=== PATIENT | male | born 1940 | race African-American/Black ===

== ENCOUNTER 2022-10-24 21:33 | Inpatient (IN) | payer MEDICARE, OTHER, SELFPAY ==
[2022-10-24] VITALS (14 sets, daily range): BP systolic 118–145; BP diastolic 58–77; PULSE 74–113; RESP 16–33; TEMP 36.7; O2SAT 91–97
--- NOTE | ~2022-10-24 | XR_ITS ---
XR chest 1V portable 11/06/2022 05:44 Indication: Respiratory failure Procedure: AP portable chest Comparison: Comparison to multiple prior studies sequentially, with oldest reviewed study dated 11/02. Findings: Stable diffuse bilateral airspace disease. PICC line tip in the SVC. Endotracheal tube 4.6 cm above the melissa. NG tube in the stomach. No pneumothorax. No significant effusion. Impression: 1: Stable diffuse bilateral airspace disease which may represent edema or pneumonia. Reviewed, dictated and finalized at location A. Impression: 1: Stable diffuse bilateral airspace disease which may represent edema or pneum onia.
--- NOTE | ~2022-10-24 | CT_ITS ---
EXAMINATION: CT chest abdomen pelvis wo con DATE: 11/14/2022 11:09 INDICATION: Fever TECHNIQUE: Computed tomography (CT) of the chest, abdomen, and pelvis was performed without intraveno us contrast. Automated exposure control and iterative reconstruction technique were employed. The dos e-length product was 1315.70 mGy-cm. COMPARISON: Chest CT dated 11/04/2022 FINDINGS: CHEST CT: There is prominent respiratory motion artifact throughout the thorax. Tracheostomy tube in expected p osition at the thoracic inlet. Right upper extremity peripherally inserted central venous catheter (P ICC) tip at the caudal superior vena cava. Small bilateral posterior layering pleural effusions. Dif fuse bilateral lung disease characterized by septal line thickening and groundglass opacities in the upper lungs transition to more dense consolidation with air bronchograms in the lower lungs. Heart si ze is normal. Atherosclerotic coronary artery calcifications. Aortic valve calcification. No pericard ial effusion. Thoracic aorta is normal in caliber. Multiple small mediastinal lymph nodes more notabl e for number than size which are likely reactive. Mild diffuse body wall edema. Mild to moderate thor acic spondylosis with chronic appearing mild anterior wedging of a few mid and lower thoracic vertebr al bodies. Moderate lower cervical spondylosis. ABDOMEN/PELVIS CT: Liver, gallbladder, spleen, bilateral adrenal glands and left kidney are normal. There is calcified a therosclerosis of the aorta and many of the other arteries including small arteries at the bilateral renal edmundo. Approximately 3 to 4 mm stone at a lower pole calyx of the right kidney, anchor quantitat christiano measurement of which is limited by the motion artifact. Small amount of gas and a Bender catheter within the decompressed bladder. Moderate amount of stool scattered throughout the colon. No dilated bowel to suggest obstruction. No free intraperitoneal gas or fluid. No pathologically enlarged abdomi nal or pelvic lymphadenopathy. Additional extensive body wall edema. L3-L5 laminectomies. L3-S1 anter ior and posterior spinal fusion with bilateral vertical keyon and pedicle screw fixation at each of the se levels and tiny metallic densities likely for bone grafting at the fused L3-L4 disc space. IMPRESSION: 1. Prominent diffuse bilateral lung disease which could represent severe pulmonary edema, pneumonia o r combination thereof. 2. Small bilateral pleural effusions. 3. Cardiomegaly with coronary artery disease. 4. Mild likely reactive mediastinal lymphadenopathy. 5. 3-4 mm nonobstructing right renal stone. Reviewed, dictated and finalized at location A. IMPRESSION: 1. Prominent diffuse bilateral lung disease which could represent severe pulmon katheryn edema, pneumonia or combination thereof. 2. Small bilateral pleural effusions. 3. Cardiomegaly with coronary artery disease. 4. Mild likely reactive mediastinal lymphadenopathy. 5. 3-4 mm nonobstructing right renal stone.
--- NOTE | ~2022-10-24 | XR_ITS ---
EXAMINATION: XR chest 1V portable INDICATION: Respiratory failure TECHNIQUE: Portable AP chest at 0540 hours COMPARISON: 11/06/2022 FINDINGS: The endotracheal tube ends approximately 4.9 cm above the melissa. The nasogastric tube is i n the stomach. A right upper extremity PICC ends with its tip in the midsuperior vena cava. Diffuse i nterstitial and airspace opacities persist without significant change. No pleural effusion or pneumot horax. The cardiomediastinal silhouette is stable. IMPRESSION: 1. Stable diffuse lung disease, consistent with pneumonia and/or pulmonary edema. Reviewed, dictated and finalized at location A. IMPRESSION: 1. Stable diffuse lung disease, consistent with pneumonia and/or pulmonary melina a.
--- NOTE | ~2022-10-24 | XR_ITS ---
EXAMINATION: XR chest PICC line Exam Date/Time: 10/25/2022 17:55 CDT HISTORY: PICC placement Comparison: 10/25/2022 1:44 PM. RESULT: Lines, tubes, and devices: Endotracheal and nasogastric tubes, and good position. New right upper ex tremity PICC terminating in the distal SVC. Lungs and pleura: Antilordotic positioning. Diffuse patchy reticular and airspace opacities, with so mewhat decreasing prominence of the reticular opacities. Bibasilar atelectasis/. Cardiomediastinal silhouette: Stable. Other: No acute osseous or upper abdominal finding. IMPRESSION: New right upper extremity PICC, in good position. Somewhat decreased reticular opacities may represen t improving edema. ARDS and infection should also be considered in the differential. Reviewed, dictated and finalized at location K. IMPRESSION: New right upper extremity PICC, in good position. Somewhat decreased reticular opacities may represent improving edema. ARDS and infection should also be cons idered in the differential.
--- NOTE | ~2022-10-24 | XR_ITS ---
Portable chest x-ray Comparison: 11/03/2022 Clinical History: Respiratory failure Findings: Endotracheal tube, NG tube, and right-sided PICC line are in place. Diffuse groundglass an d interstitial pulmonary disease is unchanged. Cardiomediastinal silhouette is stable. Bones and sof t tissues are unremarkable. Impression: Stable diffuse pulmonary disease. Support tubes, as above. Reviewed, dictated and finalized at location . Impression: Stable diffuse pulmonary disease. Support tubes, as above.
--- NOTE | ~2022-10-24 | XR_ITS ---
EXAMINATION: XR chest 1V portable DATE: 11/11/2022 06:16 INDICATION: Pneumonia. Respiratory failure. TECHNIQUE: A single frontal view of the chest was obtained. COMPARISON: Chest single view 11/10/2022 FINDINGS: There are airspace and interstitial opacities throughout the lungs bilaterally. No pleural effusion or pneumothorax. The heart size is normal. There is a tracheostomy tube in expected position . The nasogastric tube tip is in the stomach. IMPRESSION: 1. Stable diffuse lung disease, consistent with chronic lung disease with superimposed pulmonary melina a versus pneumonia versus acute respiratory distress syndrome (ARDS). Reviewed, dictated and finalized at location A. IMPRESSION: 1. Stable diffuse lung disease, consistent with chronic lung disease with super imposed pulmonary edema versus pneumonia versus acute respiratory distress synd trav (ARDS).
--- NOTE | ~2022-10-24 | US_ITS ---
US venous doppler [facility] DATE: 10/25/2022 11:43 INDICATION: Left lower extremity edema TECHNIQUE: Real-time and color flow imaging and Doppler analysis of the veins of both lower extremiti es COMPARISON: None FINDINGS: The greater saphenous veins are patent bilaterally. There is spontaneous and phasic flow an d normal augmentation and color flow signal and normal compression of the deep veins of both lower ex tremities. IMPRESSION: No evidence of deep venous thrombosis of the lower extremities Reviewed, dictated and finalized at Location A. Reviewed, dictated and finalized at location A.
--- NOTE | ~2022-10-24 | XR_ITS ---
XR chest 1V portable DATE: 10/24/2022 22:01 INDICATION: Dyspnea TECHNIQUE: Portable AP chest on October 24, 2022 at 2155 hours COMPARISON: None FINDINGS: There are extensive patchy consolidating infiltrates throughout both lungs, relatively spar ing only the apices. Findings are consistent with extensive bilateral pneumonia. Heart size appears within normal range. Is aortic calcification and unfolding. There is moderately prominent elevation the right leaf of the diaphragm. No pneumothorax. Diffuse osteopenia. IMPRESSION: Extensive patchy consolidating bilateral pulmonary infiltrates involving particularly the mid and lower lung zones, suggesting extensive bilateral pneumonia Aortic atherosclerosis Osteopenia Reviewed, dictated and finalized at location A. IMPRESSION: Extensive patchy consolidating bilateral pulmonary infiltrates invo lving particularly the mid and lower lung zones, suggesting extensive bilateral pneumonia Aortic atherosclerosis Osteopenia
--- NOTE | ~2022-10-24 | XR_ITS ---
EXAMINATION: XR chest 1V portable INDICATION: Respiratory failure TECHNIQUE: Portable AP chest at 0538 hours COMPARISON: 11/13/2022 FINDINGS: A tracheostomy is in expected position. A right upper extremity PICC ends with its tip in t he distal superior vena cava. Diffuse opacities persist throughout all lung zones without significant change. No definite pleural effusion or pneumothorax. The cardiomediastinal silhouette is stable. IMPRESSION: 1. Stable diffuse lung disease, consistent with pneumonia and/or pulmonary edema. Reviewed, dictated and finalized at location A. IMPRESSION: 1. Stable diffuse lung disease, consistent with pneumonia and/or pulmonary melina a.
--- NOTE | ~2022-10-24 | XR_ITS ---
Portable chest x-ray Comparison: 10/26/2022 Clinical History: Respiratory failure Findings: Endotracheal tube, NG tube, and right-sided PICC line are in place. Diffuse groundglass an d interstitial pulmonary disease is unchanged. Cardiomediastinal silhouette is stable. Bones and sof t tissues are unremarkable. Impression: Stable diffuse pulmonary disease. Support tubes, as above. Reviewed, dictated and finalized at location . Impression: Stable diffuse pulmonary disease. Support tubes, as above.
--- NOTE | ~2022-10-24 | XR_ITS ---
EXAMINATION: XR chest 1V portable INDICATION: Respiratory failure TECHNIQUE: Portable AP chest at 0513 hours COMPARISON: 10/31/2022 FINDINGS: The endotracheal tube ends approximately 4.2 cm above the melissa. The nasogastric tube is f ollowed as far as the stomach. Its tip is beyond the inferior margin of the radiograph. A right upper extremity PICC ends with its tip in the superior vena cava. Diffuse opacities persist throughout all lung zones without significant change. No pleural effusion or pneumothorax. The cardiomediastinal si lhouette is stable. IMPRESSION: 1. Stable diffuse lung disease, consistent with pneumonia and/or pulmonary edema. Reviewed, dictated and finalized at location A. IMPRESSION: 1. Stable diffuse lung disease, consistent with pneumonia and/or pulmonary melina a.
--- NOTE | ~2022-10-24 | CT_ITS ---
EXAMINATION: CT brain wo con DATE: 11/14/2022 11:09 INDICATION: Fever TECHNIQUE: Computed tomography (CT) of the head was performed without intravenous contrast. Sagittal and coronal reconstructions were performed. The mA was adjusted according to patient size. Iterative reconstruction technique was employed. The dose-length product was 1362.00 mGy-cm. COMPARISON: None FINDINGS: No acute intracranial hemorrhage, acute infarction or abnormal extra axial fluid collection. There is mild scattered white matter hypoattenuation consistent with chronic small vessel ischemic disease. S ymmetric prominence of the sulci consistent with mild age-appropriate diffuse cerebral volume loss. V entricles are normal and symmetric. No mass/mass effect. Changes of right intraocular lens replacemen t. The orbits, paranasal sinuses and mastoid air cells are normal. IMPRESSION: 1. No acute intracranial process. 2. Age-related changes including mild diffuse volume loss and mild scattered white matter hypoattenua tion consistent with chronic small vessel ischemic disease. Reviewed, dictated and finalized at location A. IMPRESSION: 1. No acute intracranial process. 2. Age-related changes including mild diffuse volume loss and mild scattered wh ite matter hypoattenuation consistent with chronic small vessel ischemic diseas e.
--- NOTE | ~2022-10-24 | US_ITS ---
EXAMINATION: US venous doppler [facility] DATE: 11/14/2022 15:35 INDICATION: Swelling at the upper extremities. TECHNIQUE: Grayscale images without and with compression and Doppler images of the bilateral upper ex tremity veins were obtained. COMPARISON: None. FINDINGS: Noncompressible occlusive appearing thrombus in the right cephalic vein. The right internal jugular v ein, subclavian vein, axillary vein, brachial vein, basilic vein, cephalic vein, radial vein, and uln ar vein are patent. The left internal jugular vein, subclavian vein, axillary vein, brachial vein, basilic vein, radial v ein, and ulnar vein are patent. The left cephalic vein is not identified. IMPRESSION: 1. Occlusive thrombus in the right cephalic vein. 2. No evident venous thrombosis in the left upper extremity. Reviewed, dictated and finalized at location A.
--- NOTE | ~2022-10-24 | XR_ITS ---
XR chest ET placement DATE: 10/25/2022 13:50 INDICATION: ET tube placement TECHNIQUE: Portable AP chest on October 25, 2022 at 1344 hours COMPARISON: October 24, 2022 AP portable chest FINDINGS: Extensive severe bilateral pulmonary infiltrates relatively sparing only the apices. Right diaphragmatic calcified pleural plaque. Cardiomegaly. Thoracic aortic calcification. ET tube placement since October 24, 2022, the distal tip 2.4 cm above melissa in satisfactory position. P lacement of an NG tube in the stomach October 24. IMPRESSION: ET and NG tubes placed in satisfactory position Severe bilateral pulmonary infiltrates Reviewed, dictated and finalized at Location A. Reviewed, dictated and finalized at location A.
--- NOTE | ~2022-10-24 | XR_ITS ---
EXAMINATION: XR chest 1V portable INDICATION: Respiratory failure TECHNIQUE: Portable AP chest at 0522 hours COMPARISON: 11/07/2022 FINDINGS: The endotracheal tube ends approximately 4.4 cm above the melissa. The nasogastric tube is f ollowed as far as the stomach. Its tip is beyond the inferior margin of the radiograph. A right upper extremity PICC ends with its tip in the superior vena cava. Diffuse interstitial and airspace opacit ies persist without significant change. No pleural effusion or pneumothorax. The cardiomediastinal si lhouette is stable. IMPRESSION: 1. Stable diffuse lung disease, consistent with pneumonia and/or pulmonary edema. Reviewed, dictated and finalized at location A. IMPRESSION: 1. Stable diffuse lung disease, consistent with pneumonia and/or pulmonary melina a.
--- NOTE | ~2022-10-24 | XR_ITS ---
Portable chest x-ray Comparison: 11/04/2022 Clinical History: Respiratory failure Findings: Endotracheal tube, NG tube, and right-sided PICC line are in place. Stable diffuse groundg lass and interstitial pulmonary disease. Cardiomediastinal silhouette is stable. Bones and soft tiss ues are unremarkable. Impression: Stable diffuse pulmonary disease. Support tubes, as above. Reviewed, dictated and finalized at location . Impression: Stable diffuse pulmonary disease. Support tubes, as above.
--- NOTE | ~2022-10-24 | XR_ITS ---
Portable chest x-ray Comparison: 10/28/2022 Clinical History: Pneumonia, respiratory failure Findings: Endotracheal tube, NG tube, and right-sided PICC line remain in place. Diffuse groundglass and interstitial pulmonary disease is unchanged. Cardiomediastinal silhouette is stable. Bones and soft tissues are unremarkable. Impression: Stable diffuse pulmonary disease. Support tubes in place, as above. Reviewed, dictated and finalized at [facility]. Impression: Stable diffuse pulmonary disease. Support tubes in place, as above.
--- NOTE | ~2022-10-24 | XR_ITS ---
EXAMINATION: XR chest ET placement DATE: 10/27/2022 12:16 INDICATION: Endotracheal tube exchange. TECHNIQUE: A single frontal view of the chest was obtained. COMPARISON: Chest single view at 5:17 AM, chest CT 10/25/2022 FINDINGS: There is mild elevation of right hemidiaphragm. There are airspace and interstitial opaciti es in all lung zones bilaterally. No pleural effusion or pneumothorax. The heart size is normal. The endotracheal tube tip is 3.4 cm above the melissa. The nasogastric tube tip is beyond the inferior mar gin of the radiograph, but at least to the stomach. A right upper extremity peripherally inserted dudley tral venous catheter (PICC) is seen with tip in the superior vena cava. IMPRESSION: 1. Stable diffuse lung disease, consistent with chronic interstitial lung disease with superimposed p neumonia versus pulmonary edema. Reviewed, dictated and finalized at location A. IMPRESSION: 1. Stable diffuse lung disease, consistent with chronic interstitial lung disea se with superimposed pneumonia versus pulmonary edema.
--- NOTE | ~2022-10-24 | XR_ITS ---
EXAMINATION: XR chest 1V portable DATE: 11/10/2022 06:31 INDICATION: Respiratory failure. TECHNIQUE: A single frontal view of the chest was obtained. COMPARISON: Chest single view 11/09/2022 FINDINGS: There are interstitial opacities and airspace opacities throughout the lungs bilaterally. N o pleural effusion or pneumothorax. The heart size is normal. The endotracheal tube tip is 5.9 cm abo ve the melissa. The nasogastric tube tip is in the distal stomach. A right upper extremity peripherall y inserted central venous catheter (PICC) is seen with tip in the superior vena cava. IMPRESSION: 1. Stable diffuse lung disease, consistent with chronic lung disease with superimposed pulmonary melina a versus pneumonia versus acute respiratory distress syndrome (ARDS). Reviewed, dictated and finalized at location A. IMPRESSION: 1. Stable diffuse lung disease, consistent with chronic lung disease with super imposed pulmonary edema versus pneumonia versus acute respiratory distress synd trav (ARDS).
--- NOTE | ~2022-10-24 | XR_ITS ---
Portable chest x-ray Comparison: 11/12/2022 Clinical History: Respiratory failure Findings: Tracheostomy cannula and right-sided PICC line are in place. Diffuse groundglass and inter stitial pulmonary disease is unchanged. Cardiomediastinal silhouette is stable. Bones and soft tissu es are unremarkable. Impression: Stable diffuse pulmonary disease. Support tubes, as above. Reviewed, dictated and finalized at location . Impression: Stable diffuse pulmonary disease. Support tubes, as above.
--- NOTE | ~2022-10-24 | XR_ITS ---
Portable chest x-ray Comparison: 11/01/2022 Clinical History: Respiratory failure Findings: Endotracheal tube, NG tube, and right-sided PICC line remain in place. Diffuse groundglass and interstitial disease is unchanged. Cardiomediastinal silhouette is stable. Bones and soft tissu es are unremarkable. Impression: Stable diffuse pulmonary disease. Stable support tubes. Reviewed, dictated and finalized at location . Impression: Stable diffuse pulmonary disease. Stable support tubes.
--- NOTE | ~2022-10-24 | XR_ITS ---
Portable chest x-ray Comparison: 11/02/2022 Clinical History: Respiratory failure Findings: Endotracheal tube, NG tube, and right-sided PICC line are in place. Diffuse groundglass an d interstitial disease is unchanged. Cardiomediastinal silhouette is stable. Bones and soft tissues are unremarkable. Impression: Stable diffuse pulmonary disease. Support tubes, as above. Reviewed, dictated and finalized at location . Impression: Stable diffuse pulmonary disease. Support tubes, as above.
--- NOTE | ~2022-10-24 | US_ITS ---
EXAMINATION: US venous doppler [facility] DATE: 11/01/2022 09:32 INDICATION: Bilateral lower limb swelling TECHNIQUE: Trevino scale images without and with compression and Doppler images of the bilateral lower e xtremity veins were obtained. COMPARISON: 10/25/2022 FINDINGS: The right common femoral vein, profunda femoral vein, femoral vein, popliteal vein, peroneal trunk, p osterior tibial veins, and greater saphenous vein are patent. The left common femoral vein, profunda femoral vein, femoral vein, popliteal vein, peroneal trunk, po sterior tibial veins, and greater saphenous vein are patent. IMPRESSION: 1. Patent bilateral lower extremity veins. No evidence of deep venous thrombosis. Reviewed, dictated and finalized at location A. IMPRESSION: 1. Patent bilateral lower extremity veins. No evidence of deep venous thrombosi s.
--- NOTE | ~2022-10-24 | XR_ITS ---
Portable chest x-ray Comparison: 10/27/2022 Clinical History: Respiratory failure Findings: Endotracheal tube and NG tube are in satisfactory positions. Right-sided PICC line is pres ent, however the tip has reversed course in the interval. Right-sided PICC line now curls back upon i tself in the right subclavian region with tip directed peripherally towards the right axilla. Diffuse groundglass and interstitial pulmonary disease again present. Cardiomediastinal silhouette is stabl e. Bones and soft tissues are unremarkable. Impression: Right-sided PICC line tip has flipped back upon itself since prior exam, with reversing course in the right subclavian region with tip directed peripherally into the right axillar y region. Repositioning of the PICC line is advised. Stable diffuse pulmonary disease. Additional support tubes remain in satisfactory position. Reviewed, dictated and finalized at [facility]. Impression: Right-sided PICC line tip has flipped back upon itself since prior exam, with reversing course in the right subclavian region with tip directed peripherally into the right axillary region. Repositioning of the PICC line is advised. Stable diffuse pulmonary disease. Additional support tubes remain in satisfactory position.
--- NOTE | ~2022-10-24 | XR_ITS ---
EXAMINATION: XR chest ET placement Exam Date/Time: 11/16/2022 18:08 CDT HISTORY: trach placement Comparison: Same date at 5:24 AM. RESULT: Lines, tubes, and devices: Tracheostomy tube in good position. Right upper extremity PICC, in good p osition Lungs and pleura: Similar diffuse interstitial and patchy pulmonary opacities. Stable mild bilateral costophrenic angle blunting slightly greater on the right. Cardiomediastinal silhouette: Stable. Other: No acute osseous or upper abdominal finding. IMPRESSION: Tracheostomy tube, in good position. Unchanged pulmonary opacities and small bilateral effusions. Reviewed, dictated and finalized at location K. IMPRESSION: Tracheostomy tube, in good position. Unchanged pulmonary opacities and small bi lateral effusions.
--- NOTE | ~2022-10-24 | XR_ITS ---
EXAMINATION: XR chest 1V portable DATE: 11/09/2022 05:37 INDICATION: Respiratory failure. TECHNIQUE: A single frontal view of the chest was obtained. COMPARISON: Chest single view 11/08/2022, chest CT 10/25/2022 FINDINGS: There are airspace and interstitial opacities throughout the lungs bilaterally. There is mi ld elevation of right hemidiaphragm. No pleural effusion or pneumothorax. The heart size is normal. T he endotracheal tube tip is 3.8 cm above the melissa. The nasogastric tube tip is beyond the inferior margin of the radiograph, but at least to the stomach. A right upper extremity peripherally inserted central venous catheter (PICC) is seen with tip in the superior vena cava. IMPRESSION: 1. Stable diffuse lung disease, consistent with chronic lung disease with superimposed pulmonary melina a versus pneumonia versus acute respiratory distress syndrome (ARDS). Reviewed, dictated and finalized at location A. IMPRESSION: 1. Stable diffuse lung disease, consistent with chronic lung disease with super imposed pulmonary edema versus pneumonia versus acute respiratory distress synd trav (ARDS).
--- NOTE | ~2022-10-24 | XR_ITS ---
EXAMINATION: XR chest 1V portable DATE: 10/28/2022 08:19 INDICATION: Central line placement. TECHNIQUE: A single frontal view of the chest was obtained on 2 radiographs. COMPARISON: Chest single view at 5:21 AM, chest CT 10/25/2021 FINDINGS: There is mild elevation of right hemidiaphragm. There are airspace and interstitial opaciti es throughout the lungs bilaterally. No pleural effusion or pneumothorax. The heart size is normal. T he endotracheal tube tip is 2.5 cm above the melissa. A right upper extremity peripherally inserted ce ntral venous catheter (PICC) is seen with tip in the superior vena cava. The nasogastric tube tip is in the stomach. IMPRESSION: 1. PICC tip in the superior vena cava. 2. Stable diffuse lung disease, consistent with chronic interstitial lung disease with superimposed p neumonia versus pulmonary edema. Reviewed, dictated and finalized at location A. IMPRESSION: 1. PICC tip in the superior vena cava. 2. Stable diffuse lung disease, consistent with chronic interstitial lung disea se with superimposed pneumonia versus pulmonary edema.
--- NOTE | ~2022-10-24 | US_ITS ---
US renal BI 10/27/2022 14:08 Procedure: Realtime transabdominal ultrasound of the kidneys and bladder. Indication: Acute renal injury. Evaluate for hydronephrosis. Comparison: No prior studies for comparison. Findings: Renal echotexture is normal bilaterally without hydronephrosis, contour deforming mass or r enal calculus. The right kidney measures 9.2 cm and left kidney measures 11.1 cm. Bladder is decompre ssed by Bender catheter. Impression: 1: Unremarkable renal ultrasound. No stones, masses or hydronephrosis. Reviewed, dictated and finalized at location L. Impression: 1: Unremarkable renal ultrasound. No stones, masses or hydronephrosis.
--- NOTE | ~2022-10-24 | XR_ITS ---
EXAMINATION: XR chest 1V portable DATE: 11/15/2022 06:12 INDICATION: Respiratory failure TECHNIQUE: frontal view of the chest was obtained. COMPARISON: Chest radiograph and CT dated 11/15/19 FINDINGS: Tracheostomy tube at the thoracic inlet. There appears to be slight progression in extensive intersti tial and patchy airspace opacities throughout both lungs. The diaphragm is indistinct consistent with small bilateral pleural effusions as better appreciated on prior CT. No pneumothorax. Cardiomegaly. IMPRESSION: 1. Slight progression in prominent diffuse bilateral lung disease consistent with severe pulmonary ed veronica, pneumonia or combination thereof. 2. Small bilateral pleural effusions. 3. Cardiomegaly. Reviewed, dictated and finalized at location A. IMPRESSION: 1. Slight progression in prominent diffuse bilateral lung disease consistent wi th severe pulmonary edema, pneumonia or combination thereof. 2. Small bilateral pleural effusions. 3. Cardiomegaly.
--- NOTE | ~2022-10-24 | XR_ITS ---
Portable chest x-ray Comparison: 10/29/2022 Clinical History: Respiratory failure Findings: Endotracheal tube, NG tube, and right-sided PICC line are in place. Diffuse groundglass an d interstitial disease is present. Cardiomediastinal silhouette is stable. Bones and soft tissues ar e unremarkable. Impression: Stable diffuse pulmonary disease. Support tubes, as above. Reviewed, dictated and finalized at location . Impression: Stable diffuse pulmonary disease. Support tubes, as above.
--- NOTE | ~2022-10-24 | XR_ITS ---
XR abdomen NG/feed tube insert DATE: 10/25/2022 13:50 INDICATION: NG tube insertion TECHNIQUE: Portable AP view on October 25, 2022 at 1345 hours COMPARISON: None FINDINGS: A nasogastric tube is present, the distal tip overlying the upper body of the stomach, the proximal side-port approximately 3 cm beyond the diaphragmatic hiatus. Nonspecific bowel gas pattern. Prominent infiltrates are noted in the included lower lung zones. Status post posterior surgical fusion in the lower lumbar spine. IMPRESSION: NG tube tip in the upper body of stomach Reviewed, dictated and finalized at Location A. Reviewed, dictated and finalized at location A.
--- NOTE | ~2022-10-24 | XR_ITS ---
Portable chest x-ray Comparison: 10/25/2022 Clinical History: Respiratory failure Findings: Endotracheal tube, NG tube, and right-sided central venous line are in satisfactory positi ons. There is diffuse groundglass and interstitial pulmonary disease. Cardiomediastinal silhouette i s stable. Bones and soft tissues are unremarkable. Impression: Stable diffuse pulmonary disease. Support tubes, as above. Reviewed, dictated and finalized at location . Impression: Stable diffuse pulmonary disease. Support tubes, as above.
--- NOTE | ~2022-10-24 | XR_ITS ---
EXAM: XR abdomen NG/feed tube insert DATE: 11/10/2022 22:23 HISTORY: NG placement . COMPARISON: 10/25/2022. FINDINGS: NG tube, tip and side port projecting over the stomach partially visualized lumbar fusion hardware. Normal bowel gas pattern. Degenerative changes in the spine. IMPRESSION: NG tube, in good position. Reviewed, dictated and finalized at location K. IMPRESSION: NG tube, in good position.
--- NOTE | ~2022-10-24 | XR_ITS ---
Portable chest x-ray Comparison: 11/11/2022 Clinical History: Respiratory failure Findings: Tracheostomy cannula and right-sided PICC line are in place. Extensive groundglass and int erstitial pulmonary disease is present. Cardiomediastinal silhouette is stable. Bones and soft tissu es are unremarkable. Impression: Stable diffuse pulmonary disease. Support tubes, as above. Reviewed, dictated and finalized at location . Impression: Stable diffuse pulmonary disease. Support tubes, as above.
--- NOTE | ~2022-10-24 | CT_ITS ---
EXAMINATION: CTA chest PE protocol DATE: 10/25/2022 20:28 INDICATION: Acute respiratory failure TECHNIQUE: Computed tomography angiography (CTA) of the chest was performed with 100 mL Omnipaque-350 intravenous contrast timed to evaluate the pulmonary arteries. Coronal maximum intensity projection 3D-reconstructions were created by the technologist. The dose-length product (DLP) was 762.53 mGy-cm. Automated exposure control and iterative reconstruction technique were employed. COMPARISON: X-ray chest 10/25/2022. FINDINGS: Lung parenchyma and airways: Septal thickening. Fluid in the fissures. Patchy areas of groundglass op acity. Dependent atelectasis/consolidation. Interstitial change, with a basilar and peripheral predom inance. Pleura: Trace bilateral pleural fluid collections. Thoracic inlet, axillae and chest wall: Endotracheal tube, nasogastric tube, and right upper extremit y PICC, all in good position. Thoracic aorta: Moderate arch calcification. Mediastinum: Dilated central pulmonary arteries as can be seen with pulmonary arterial hypertension. Mediastinal lymphadenopathy. Heart and pericardium: Mild cardiomegaly. Coronary artery calcifications: Moderate. Upper abdomen: No significant finding. Bones: No acute osseous finding. Pulmonary arteries: Study quality: Motion artifact in the lower lungs, overall diagnostic. No pulmona ry emboli detected. IMPRESSION: No CT evidence of acute pulmonary embolus. Pulmonary opacities likely represent moderate pulmonary ed veronica overlying severe chronic changes of UIP. Infection is not excluded. Small bilateral pleural effus ions. Mediastinal lymphadenopathy. Reviewed, dictated and finalized at location K. IMPRESSION: No CT evidence of acute pulmonary embolus. Pulmonary opacities likely represent moderate pulmonary edema overlying severe chronic changes of UIP. Infection is not excluded. Small bilateral pleural effusions. Mediastinal lymphadenopathy.
--- NOTE | ~2022-10-24 | XR_ITS ---
EXAMINATION: XR chest 1V portable INDICATION: Respiratory failure TECHNIQUE: Portable AP chest at 0809 hours COMPARISON: 10/30/2022 FINDINGS: The endotracheal tube ends approximately 5.3 cm above the melissa. Nasogastric tube is in th e stomach. A right upper extremity PICC ends with its tip in the superior vena cava. There are diffus e opacities throughout all lung zones without significant change. No pleural effusion or pneumothorax . The cardiomediastinal silhouette is stable. IMPRESSION: 1. Stable diffuse lung disease, consistent with pneumonia and/or pulmonary edema. Reviewed, dictated and finalized at location A. IMPRESSION: 1. Stable diffuse lung disease, consistent with pneumonia and/or pulmonary melina a.
--- NOTE | ~2022-10-24 | XR_ITS ---
Portable chest x-ray Comparison: 11/15/2022 Clinical History: Respiratory failure Findings: Tracheostomy cannula and right-sided PICC line remain in place. Diffuse hazy and interstit ial pulmonary disease again present. Cardiomediastinal silhouette is stable. Bones and soft tissues are unremarkable. Impression: Stable diffuse pulmonary disease. Stable support tubes. Reviewed, dictated and finalized at location . Impression: Stable diffuse pulmonary disease. Stable support tubes.
--- NOTE | 2022-10-24 21:37 | ECG_ITS ---
Measurements Intervals [place] Rate: 111 P: 8 IL: 155 QRS: -29 QRSD: 90 T: 10 QT: 324 QTc: 442 Interpretive Statements SINUS TACHYCARDIA WITH FREQUENT VENTRICULAR PREMATURE COMPLEXES AND PREMATURE ATRIAL CONTRACTIONS BASELINE ARTIFACT NONSPECIFIC T-WAVE ABNORMALITY BORDERLINE ECG NO PREVIOUS ECG AVAILABLE FOR COMPARISON Electronically Signed On 10-25-2022 13:42:04 CDT by Jonathan Marx M.D.
[2022-10-24] MEDS: IPRATROPIUM BR 0.02% INH SOLN 0.5 MG/2.5 ML VIAL 2 MG INHALATION (21:45)
[2022-10-24] MEDS: ALBUTEROL SULFATE NEB 2.5 MG/3 ML INH 10 MG INHALATION (21:45)
--- NOTE | 2022-10-24 21:52 | ED.GENADULT ---
HPI - General Adult General Chief complaint: Shortness of Breath/Dyspnea Stated complaint: short of breath History of Present Illness HPI narrative: Patient has 2 word dyspnea during the interview. This is an 81-year-old male with history of COPD and pulmonary fibrosis presenting to ED with difficulty breathing. Patient says has gotten steadily worse over today. He has taken his albuterol inhaler twice with no relief. Eventually got the point where he called EMS for shortness of breath. When EMS arrived he was hypoxic to 85% on room air. He was given a DuoNeb treatment which improved and placed on 4 L nasal cannula which have improved his oxygenation. The patient denies chest pain, fever chills nausea vomiting diarrhea or abdominal pain. Patient as he has had some swelling of his feet. He does not know if he has history of heart failure. He denies fever, chills. He has had a productive cough with clear sputum. The patient states that he did have 2 cardiac stents placed last week at [facility]. Related Data Allergies Allergy/AdvReac Type Severity Reaction Status Date / Time No Known Allergies Allergy Verified 10/24/22 22:52 [facility] Past Medical History Medical History (Updated 10/25/22 @ 00:28 by Dave Estrada MD) COPD (chronic obstructive pulmonary disease) Pulmonary fibrosis Exam Narrative: APPEARANCE: Patient's respiratory distress, 1-2 word dyspnea Head: atraumatic. EYES: EOMI, NOSE: Atraumatic NECK: Trachea midline RESPIRATORY: Increased rate of breathing, fine crackles in the bases, clear in the upper lobes CARDIOVASCULAR: RRR, very mild pitting edema of the lower extremities ABDOMINAL: Non-distended MUSCULOSKELETAl: No obvious deformities NEURO: Alert. Moving 4/4 extremities SKIN:: Warm, dry. Normal color PSYCHIATRIC: Normal affect Course Vital Signs Vital signs: Vital Signs Temperature 98.1 F 10/24/22 21:30 Pulse Rate 113 H 10/24/22 21:30 Respiratory Rate 28 H 10/24/22 21:30 Blood Pressure 145/71 H 10/24/22 21:30 Pulse Oximetry 93 10/24/22 21:30 Oxygen Delivery Nasal Cannula 10/24/22 21:30 Oxygen Flow Rate 3 10/24/22 21:30 Temperature 98.1 F 10/24/22 21:30 Pulse Rate 105 H 10/24/22 23:31 Respiratory Rate 28 H 10/24/22 23:31 Blood Pressure 135/68 10/24/22 23:31 Pulse Oximetry 91 10/24/22 23:43 Oxygen Delivery Non-Rebreather Mask 10/24/22 23:43 Oxygen Flow Rate 5 10/24/22 23:43 Procedures ABG Interpretation ABG Interpretation 1: ABG Results: 7.42/34.3/54.0/21.9 on 15Lpm NRB Additional Comments: Mixed hypoxic and hypercarbic respiratory failure. Patient's CO2 should be lower than 34 given his respiratory rate of 30. Medical Decision Making MDM Narrative Medical decision making narrative: -Presentation: 81-year-old male with history of COPD and pulmonary fibrosis presenting ED with difficulty breathing. Patient called EMS was hypoxic on room air. When he arrived here he was in respiratory distress. He refused BiPAP but was placed on 1 hour long duoneb treatment with improvement in his respiratory status. -DDX includes but is not limited to: COPD, pulmonary fibrosis, congestive heart failure, pneumonia -Co-morbidities complicating care: COPD, pulmonary fibrosis, poor historian -Social determinants of health: Retired -External Chart Review: None -Hx from independent Sources: None -Discussion of Management/Consultants: Andriy-hospitalist -Independent interpretation of studies: CBC showed normal white count. Hemoglobin was 9.6. No previous lab work to compare to. INR within normal limits. Metabolic panel showed a BUN of 23 and creatinine 1.4. No previous records to evaluate. Magnesium was low at 1.2 and this was repleted via IV. Initial troponin was 0.06. This will be trended. BNP was elevated at 5000 which could be due to pulmonary fibrosis or congestive heart failure. Echo is pending. Patient does not ap
--- NOTE | 2022-10-24 21:55 | PCRCNOTE ---
RN and informed. pt refused BIPAP.
[2022-10-24 21:59] LABS: Basophils Percent Auto 0.3 % (0.2-1.2); Eosinophils Absolute Auto 0.1 K/mm3 (0-0.3); Hematocrit 30.3 % (42.0-52.0); Hemoglobin 9.6 g/dL (14.0-18.0); Immature Granulocyte Absolute 0.03 K/mm3 (0.00-0.031); Immature Granulocyte Percent A 0.5 % (0-0.5); Immature Platelet Fraction Pct 3.7 % (0.9-11.2); Lymphocytes Absolute Auto 1.01 K/mm3 (0.9-3.2); Lymphocytes Percent Auto 17.3 % (18.3-44.2); Mean Corpuscular HGB Conc 31.7 g/dl (32-36); Mean Corpuscular Hemoglobin 29.3 pg (26-34); Mean Corpuscular Volume 92.4 fl (80-100); Mean Platelet Volume 11.1 fl (7.4-10.4); Monocytes Absolute Auto 0.5 K/mm3 (0.1-0.6); Monocytes Percent Auto 7.7 % (2.6-8.5); Neutrophils Absolute Auto 4.3 K/mm3 (1.3-6.7); Neutrophils Percent Auto 73.2 % (45.5-73.1); Platelet Count Result 104 k/mm3 (150-375); Red Blood Count 3.28 M/mm3 (4.6-6.20); Red Cell Distribution Width 16.4 % (11.5-14.5); White Blood Count 5.8 K/mm3 (4.5-10.0)
[2022-10-24 22:07] LABS: Alanine Aminotransferase 30 U/L (6-50); Albumin Level 3.2 g/dL (3.5-5.1); Alkaline Phosphatase 122 U/L (38-126); Anion Gap 6 mmol/L (8-16); Aspartate Amino Transferase 40 U/L (17-59); Bilirubin,Total 0.8 mg/dL (0.2-1.3); Blood Urea Nitrogen 23 mg/dL (9-20); Calcium 8.4 mg/dL (8.4-10.2); Carbon Dioxide 25 mmol/L (22-30); Chloride 103 mmol/L (98-107); Estimated CRCL calculation 40 ml/min; Estimated Glomerular Filt Rate 49; Glucose 167 mg/dL (65-110); Magnesium 1.2 mg/dL (1.6-2.3); Potassium 4.6 mmol/L (3.4-5.0); Sodium 134 mmol/L (137-145)
[2022-10-24] MEDS: MAGNESIUM SULF 2 GM/WATER 50ML 2 GM/50 ML BAG IVPB (22:11)
[2022-10-24] MEDS: methylPREDNISolone SOD SUCC 125 MG VIAL IV PUSH (22:11)
[2022-10-24 22:13] LABS: Alveolar/Arterial O2 Gradient 191.8 mmHg; Fractional Inspired Oxygen 40 %; HCO3 ABG 21.9 mEq/l (22.0-26.0); Oxygen Content ABG 12.3 %vol (16.0-22.0); Oxygen Saturation ABG 89.1 % (95.0-100.0); PCO2 ABG 34.3 mmHg (35.0-45.0); PO2 FiO2 Ratio Arterial Blood 1.35 %; Total Hemoglobin 10.7 g/dL (12.0-18.0); pH ABG 7.424 (7.350-7.450)
[2022-10-24 22:16] LABS: INR 1.2; Prothrombin Time 14.3 Seconds (11.1-14.7)
[2022-10-24 22:19] LABS: Partial Thromboplastin Time 32.2 SECONDS (22.3-36.8)
[2022-10-24 22:27] LABS: NT Pro B Type Natriuretic Pept 5380 pg/mL (19.9-100)
[2022-10-24 22:36] LABS: Influenza A QL RT-PCR Negative (Negative); Influenza B QL RT-PCR Negative (Negative); RSV RNA, RT-PCR Negative (Negative); SARS-CoV-2 RNA PCR Negative
[2022-10-24 23:25] LABS: Amphetamine Screen Urine Negative (Negative); Barbiturate Screen Urine Negative (Negative); Benzodiazepines Screen Urine Negative (Negative); Cannabinoid Screen Urine Negative (Negative); Cocaine Screen Urine Negative (Negative); Methadone Screen Urine Negative (Negative); Opiate Screen Urine Positive (Negative); Phencyclidine Screen Urine Negative (Negative)
[2022-10-24 23:41] LABS: Appearance Urine Clear (Clear); Bilirubin Urine 1+ (Negative); Blood Urine Negative (Negative); Color Urine Light Orange (Yellow); Glucose Urine UA Trace mg/dL (Negative); Ketones Urine Trace mg/dL (Negative); Leukocyte Esterase Ur Negative LEU/UL (Negative); Nitrate Urine Positive (Negative); Protein Urine 2+ mg/dL (Negative)
[2022-10-24 23:43] LABS: Add Urine Microscopic? YES; RBC Urine 0-2 /hpf (0-2); WBC Urine 0-5 /hpf (0-3)
[2022-10-24 23:44] LABS: Squamous Epithelial Cell Urine Few /hpf (Few)
[2022-10-25] VITALS (88 sets, daily range): BP systolic 75–197; BP diastolic 46–142; PULSE 79–135; RESP 0–37; TEMP 35.8–37.4; O2SAT 90–100; BMI 21.4; BMI 21.0; BMI 20.2
--- NOTE | 2022-10-25 00:06 | PM.IMHP ---
H&P: HPI History of Present Illness Date/Time: 10/25/22 00:06 Chief Complaint: Shortness of breath Narrative: This is an 81-year-old male with past medical history significant for hypertension, coronary artery disease status post PTCA, PULMONARY FIBROSIS, type diabetes mellitus, benign prostatic hyperplasia. Patient presents to the emergency room due to worsening shortness of breath and bilateral lower extremity pedal edema, patient recently discharge from outside hospital where he had 2 stents placed in his coronary is according to sister who is at bedside. Patient states that he has had progressively worsening shortness of breath denies any fevers, chills, rigors. Patient has had require 15 L of oxygen upon arrival to medical floor which prompted transfer to telemetry unit. A chest x-ray was reported as: COMPARISON: October 24, 2022 AP portable chest? FINDINGS: Extensive severe bilateral pulmonary infiltrates relatively sparing only the apices. Right diaphragmatic calcified pleural plaque. Cardiomegaly. Thoracic aortic calcification. ET tube placement since October 24, 2022, the distal tip 2.4 cm above melissa in satisfactory position. Placement of an NG tube in the stomach October 24.? IMPRESSION: ET and NG tubes placed in satisfactory position Severe bilateral pulmonary infiltrates? Review of Systems Review of Systems: Shortness of breath bilateral pedal swelling Constitutional: Comments: Shortness of breath, bilateral pedal swelling Eyes: Eyes: Denies change in vision ENT: Denies dysphagia and Denies odynophagia Cardiovascular: Cardiovascular: Denies chest pain, Reports pedal edema, Denies radiating jaw, neck or arm pain, Reports palpitations, Reports dyspnea, Reports dyspnea on exertion, Reports orthopnea and Reports paroxysmal nocturnal dyspnea Respiratory: Respiratory: Reports chest congestion and Reports cough Gastrointestinal: Gastrointestinal: Denies abdominal pain, Denies dyspepsia, Denies heartburn, Denies diarrhea, Denies nausea and Denies vomiting Genitourinary: Genitourinary: Reports no additional male genitourinary complaints and Reports as per HPI Musculoskeletal: Musculoskeletal: Denies back pain, Denies joint swelling and Denies muscle weakness Integumentary/Breasts: Skin/Breast: Denies rash Neurologic: Denies focal weakness and Denies Sensory deficit (Neuro) Psychiatric: Psychiatric: Reports no additional psychiatric complaints and Reports as per HPI Endocrine: Endocrine: Denies cold intolerance, Denies flushing, Denies heat intolerance, Denies polyphagia, Denies polydipsia and Denies palpitations Hematologic/Lymphatic: Hematologic/Lymphatic: Reports no additional hematologic/lymphatic complaints and Reports as per HPI Allergic/Immunologic: Allergic/Immunologic: Reports no additional allergic/immunologic complaints and Reports as per HPI [facility] Past Medical History Medical History (Updated 10/25/22 @ 16:54 by Yvonne Ramírez APRN) COPD (chronic obstructive pulmonary disease) Diabetes Pulmonary fibrosis Family History Family History (Updated 10/25/22 @ 02:53 by Chani Melara RN) Father Congestive heart failure Father Hypertension Mother Hypertension Diabetes mellitus Sibling Hypertension Grandparent Diabetes mellitus Social History Social History Smoking status: Never smoker Second hand tobacco smoke exposure: No Alcohol intake: never Substance use: never Substance use type: does not use Lack of Transportation: No Lack of Food: Never True Current Housing: I Have Housing Concerned About Future Housing: No Difficulty Paying Gas/Electric Bills: No Difficulty Paying for Meds: YES Currently Unemployed: No Education: Never Attended/Kindergarten Only Difficulty w/ Childcare or Family Care: No Spiritual care concerns: No Meds Home Medications and Allergies Home Medications Medication Instructions Recorded Confirmed Type albuterol sul
[2022-10-25 01:38] LABS: Troponin I 0.061 ng/mL (0.000-0.034)
--- NOTE | 2022-10-25 02:09 | PC.NURSE ---
This patient, Romario Birmingham, was received from [[id number]] on 10/25/22 at 0209. Patient/family oriented to unit policies and routines
--- NOTE | 2022-10-25 02:33 | ADMGEN ---
This patient, Romario Birmingham, was admitted to IMU Room 212-01 at 0210. Patient/family oriented to hospital policies and general routines including ID bracelet, bed and alarms, visiting hours, pain management, procedures, bathroom and other care routines, personal items, smoking policy, room service/diet, and visiting hours. Information on how to activate the Rapid Response Team has been discussed. Patient/Family are encouraged to report perceived risks to care and to ask questions if they do not understand what they are told or what they should do.
[2022-10-25] MEDS: FUROSEMIDE INJ 40 MG/4 ML VIAL IV PUSH ×2 (03:33→09:11)
[2022-10-25] MEDS: MORPHINE SULFATE (*CRX) 2 MG/ML INJ 1 MG IV PUSH ×2 (03:33→11:22)
[2022-10-25] MEDS: CEFEPIME 1 GM/NS 50 ML 1 GM/50 ML BAG IVPB (03:44)
[2022-10-25 04:18] LABS: Oxyhemoglobin 81.4 % THb (90.0-100.0)
[2022-10-25 04:19] LABS: Device OTHER DEVICE; Modified Allen's Test Pass; Site Drawn RIGHT RADIAL
[2022-10-25 08:47] LABS: Glucose Point of Care 355 mg/dl (65-105)
[2022-10-25] MEDS: amLODIPine BESYLATE 5 MG TABLET 10 MG PO (09:07)
[2022-10-25] MEDS: FINASTERIDE 5 MG TABLET PO (09:07)
[2022-10-25] MEDS: LORATADINE 10 MG TABLET PO (09:07)
[2022-10-25] MEDS: CHOLECALCIFEROL 400 UNITS TABLET (VIT D) 800 UNITS PO (09:07)
[2022-10-25] MEDS: LOSARTAN POTASSIUM 50 MG TABLET PO (09:07)
[2022-10-25] MEDS: PANTOPRAZOLE 40 MG TABLET PO (09:07)
[2022-10-25] MEDS: oxyCODONE/ACETAMINOPHEN (*CRX) 10-325 MG TABLET 1 TAB PO (09:08)
[2022-10-25] MEDS: INSULIN ASPART (*BKC) 100 UNITS/ML SUB-Q ×3 (09:49→18:19)
--- NOTE | 2022-10-25 09:58 | PM.IMPN ---
Progress Note: A&P Assessment and Plan (1) Acute and chronic respiratory failure with hypoxia: Code(s): J96.21 - Acute and chronic respiratory failure with hypoxia Status: Acute Assessment and Plan: Patient was admitted to IMU on BiPAP, titrate fio2 to keep>90% Repeat ABG - pH 7.4, pCO2 38, pO2 66, bicarb 25 this am. continue management for pneumonia, pulmonary fibrosis and CHF Patient recently hospitalized 09/28-10/14 with LLE edema. On AVAPS and unable to obtained CTA r/o PE at this time. Will check Echo for heart strain presence and Venous US r/o DVT. R/O PE before initiating mechanical DVT prophylaxis. Platelets 104 and on ASA/plavix for recent PTCA hold pharmacologic prophylaxis for now. Patient with increasing work of breathing and tachypnea despite transition to AVAPS. Patient is a full code. Patient was intubated and transferred to ICU. (2) Pulmonary fibrosis: Code(s): J84.10 - Pulmonary fibrosis, unspecified Status: Chronic Assessment and Plan: Presumed acute on chronic exacerbation Xopenex and Atrovent neb treatments Q4 hours Solu-medrol 125 mg IV x1 and will initiate 1 gram/24 hours (62.5 mg Q6 hours) x3 days for possible acute exacerbation of pulmonary fibrosis given patient was off Ofev for more than 2 weeks while hospitalized. Continue Ofev. Continue broad-spectrum antibiotics (3) Acute on chronic congestive heart failure: Code(s): I50.9 - Heart failure, unspecified Status: Acute Assessment and Plan: BNP 5380. Unclear if pulmonary fibrosis versus pulmonary edema on chest x-ray. Continue diuresis 40 mg IV b.i.d. Monitor I&O Consider cardiology consult Echo ordered and pending (4) Pneumonia: Code(s): J18.9 - Pneumonia, unspecified organism Status: Acute Assessment and Plan: 10/24 chest x-ray with extensive patchy consolidating bilateral pulmonary infiltrates to the mid and lower lung zones suggesting bilateral pneumonia. Started on broad-spectrum antibiotics given pulmonary fibrosis and recent hospitalization-IV azithromycin 500 mg Q 24 hours, IV cefepime 2 g IV q.12 hours, and IV vancomycin pharmacy to dose. 10/25 repeat chest x-ray with severe bilateral pulmonary infiltrates crp 28.8 and elevated, procal 0.7 and elevated suggesting bacterial infection and WBC 5.8 with left shift (5) CAD (coronary artery disease): Code(s): I25.10 - Atherosclerotic heart disease of [place] coronary artery without angina pectoris Status: Chronic Assessment and Plan: No chest pain. Status post stent placement at [facility] in September [facility]btain [facility] records. He reports taking aspirin and is unsure if he was started on plavix or brillinta. Will start ASA and plavix for now. Continue DAPT x6-12 months or per prior hospitalization records indicate (6) Diabetes: Code(s): E11.9 - Type 2 diabetes mellitus without complications Status: Chronic Assessment and Plan: Non insulin-dependent diabetes mellitus. A glucose elevated 300s and likely secondary to IV steroids. Started Accu-Cheks a.c. HS and initiated sliding scale insulin. Hold glipizide while inpatient. Start Lantus 10 units at HS, this will likely need to be adjusted further given patient is on high-dose steroids Plan CODE STATUS: FULL CODE Discharge disposition: from home. PT/OT when respiratory status stabilizes for further evaluation patient transferred to the ICU at 1:10 p.m. patient is status I discussed with jeep driver upon transfer. Time Spent With Patient Time with patient: Greater than 35 minutes Subjective Date/time seen: 10/25/22 09:58 He reports feeling in his usual state of health until yesterday when be became short of breath. He states he had not been taking his Ofev while hospitalized at [facility]. He was admitted 09/28/22 and discharged 10/14/22 for acute IA. He had 2 stents placed at that time. He also endorses edema to his feet and pain to his left foot. He denies c
[2022-10-25 10:34] LABS: Basophils Percent Auto 0.2 % (0.2-1.2); Hematocrit 34.7 % (42.0-52.0); Hemoglobin 10.4 g/dL (14.0-18.0); Immature Granulocyte Absolute 0.02 K/mm3 (0.00-0.031); Immature Granulocyte Percent A 0.4 % (0-0.5); Immature Platelet Fraction Pct 3.7 % (0.9-11.2); Lymphocytes Absolute Auto 0.46 K/mm3 (0.9-3.2); Lymphocytes Percent Auto 8.7 % (18.3-44.2); Mean Corpuscular Hemoglobin 29.1 pg (26-34); Mean Corpuscular Volume 97.2 fl (80-100); Mean Platelet Volume 11.8 fl (7.4-10.4); Monocytes Absolute Auto 0.3 K/mm3 (0.1-0.6); Monocytes Percent Auto 5.5 % (2.6-8.5); Neutrophils Absolute Auto 4.5 K/mm3 (1.3-6.7); Neutrophils Percent Auto 85.2 % (45.5-73.1); Platelet Count Result 87 k/mm3 (150-375); Red Blood Count 3.57 M/mm3 (4.6-6.20); Red Cell Distribution Width 16.3 % (11.5-14.5); White Blood Count 5.3 K/mm3 (4.5-10.0)
[2022-10-25 10:42] LABS: Alveolar/Arterial O2 Gradient 390.8 mmHg; Base Excess ABG 0.8 mEq/l (+/-2.0); Carboxyhemoglobin 0.9 % THb (0-2.0); Fractional Inspired Oxygen 70 %; HCO3 ABG 25.1 mEq/l (22.0-26.0); Methemoglobin ABG 0.3 %THb (0-1.5); Oxygen Content ABG 13.9 %vol (16.0-22.0); Oxygen Saturation ABG 93.7 % (95.0-100.0); Oxyhemoglobin 90.9 % THb (90.0-100.0); PCO2 ABG 38.9 mmHg (35.0-45.0); PO2 ABG 66.5 mmHg (80.0-100.0); PO2 FiO2 Ratio Arterial Blood 0.95 %; Reduced Hemoglobin 7.9 %THb (0-5.0); Total Hemoglobin 10.8 g/dL (12.0-18.0); pH ABG 7.428 (7.350-7.450)
[2022-10-25 10:43] LABS: Device NON-INVASIVE VENT; Modified Allen's Test Pass; Non-Invasive Vent Rate 16 /MIN; Site Drawn RIGHT RADIAL
[2022-10-25 10:45] LABS: Non-Invasive Expiratory Pressure 8 CMH2O
[2022-10-25] MEDS: LEVALBUTEROL NEB 1.25 MG/3 ML INHALATION ×3 (10:46→20:41)
[2022-10-25] MEDS: IPRATROPIUM BR 0.02% INH SOLN 0.5 MG/2.5 ML VIAL INHALATION ×3 (10:46→20:41)
[2022-10-25 10:49] LABS: Magnesium 1.5 mg/dL (1.6-2.3)
[2022-10-25 10:50] LABS: D Dimer 1.51 ug/mL (<0.48)
--- NOTE | 2022-10-25 11:03 | ECG_ITS ---
Measurements Intervals [place] Rate: 120 P: 36 NM: 157 QRS: -29 QRSD: 102 T: 47 QT: 311 QTc: 440 Interpretive Statements SINUS TACHYCARDIA WITH FREQUENT VENTRICULAR PREMATURE COMPLEXES WITH OCCASIONAL SUPRAVENTRICULAR PREMATURE COMPLEXES NONSPECIFIC ST & T-WAVE ABNORMALITY BORDERLINE ECG COMPARED TO ECG 10/24/2022 21:43:16 NO SIGNIFICANT CHANGES Electronically Signed On 10-25-2022 13:57:28 CDT by Jonathan Marx M.D.
[2022-10-25 11:05] LABS: Alanine Aminotransferase 28 U/L (6-50); Albumin Level 3.2 g/dL (3.5-5.1); Alkaline Phosphatase 117 U/L (38-126); Anion Gap 9 mmol/L (8-16); Aspartate Amino Transferase 41 U/L (17-59); Bilirubin,Total 0.7 mg/dL (0.2-1.3); Blood Urea Nitrogen 24 mg/dL (9-20); Calcium 8.9 mg/dL (8.4-10.2); Carbon Dioxide 25 mmol/L (22-30); Chloride 101 mmol/L (98-107); Estimated CRCL calculation 49 ml/min; Estimated Glomerular Filt Rate > 60; Glucose 334 mg/dL (65-110); Potassium 4.7 mmol/L (3.4-5.0); Procalcitonin 0.7 ng/mL; Sodium 135 mmol/L (137-145)
--- NOTE | 2022-10-25 11:20 | PHAR ---
HOME MED: Nintedanib [Ofev] 150 mg capsule; TAKE 1 CAPSULE BY MOUTH EVERY 12 HOURS WITH FOOD. VERIFIED BY PHARMACY.
[2022-10-25] MEDS: CLOPIDOGREL BISULFATE 75 MG TABLET PO (11:23)
[2022-10-25] MEDS: ASPIRIN 81 MG ENTERIC TABLET PO (11:23)
[2022-10-25] MEDS: methylPREDNISolone SOD SUCC 125 MG VIAL IV PUSH (11:24)
[2022-10-25] MEDS: MAGNESIUM SULFATE 3GM/D5W100ML 3 GM/100 ML BAG IVPB (11:24)
[2022-10-25 11:49] LABS: Glucose Point of Care 290 mg/dl (65-105)
[2022-10-25 12:17] LABS: CRP 28.8 mg/dL (<1.0)
--- NOTE | 2022-10-25 12:30 | PC.NURSE ---
Addendum entered by Chio Hughes RN 10/25/22 17:14: At 1230, patient had increased SOB. RT to bedside. Paz LUNA notified and stated she would talk to Dr. Jones. RN called Dr. Chan to come look at the patient. Dr. chan to bedside and discussed code status with patient and decided to intubate patient. patient moved to ICU6 and intubated. Paz BILLINGSLEY notified of transfer. Original Note: At 1230
[2022-10-25] MEDS: CEFEPIME 2 GM/NS 50 ML 2 GM/50 ML BAG IVPB ×2 (12:35→23:26)
[2022-10-25] MEDS: ETOMIDATE 20 MG/10 ML AMPUL IV PUSH (13:15)
[2022-10-25] MEDS: ROCURONIUM BROMIDE 50 MG/5 ML VIAL IV PUSH (13:15)
[2022-10-25] MEDS: PROPOFOL IV EMULSION 100 ML 2.27 MG IV CONT (13:16)
--- NOTE | 2022-10-25 13:35 | WPDPROCEDUR ---
Procedures Intubation Intubation Date: 10/25/22 Intubation Time: 13:25 Consent: Consent obtained from the patient after explaining to him in details regarding reason for intubation and placing on mechanical ventilation to he which he was agreeable A pre-procedural Time-Out was completed immediately before starting the procedure and confirmed: Patient Identification, Site, Procedure, Patient Position and the Availability of Requisite Equipment: Yes Sedative: etomidate Paralytic: rocuronium Laryngoscope: fiber optic video scope Assist device used: fiber optic device ET tube size: 8 Tube secured depth (cm): 25 Tube secured location: lips Tube placement confirmation: visualized tube passing through cords, equal breath sounds bilaterally, no breath sounds over epigastrium and confirmation by capnometry Patient tolerated procedure: well and no complications Intubation complications: none
--- NOTE | 2022-10-25 13:37 | WPDCNINT ---
Assessment and Plan Assessment and plan (1) Acute and chronic respiratory failure with hypoxia: Code(s): J96.21 - Acute and chronic respiratory failure with hypoxia Status: Acute Assessment and Plan: Patient presented with worsening shortness of breath x1 day, likely related to bilateral infiltrates/pneumonia, possible COPD and/or pulmonary fibrosis flare/exacerbation -intubated on 10/25/2022 -currently on CMV mode of ventilation -post intubation ABGs are pending -post intubation chest x-ray reviewed showed ET and NG tube placed in satisfactory position, severe bilateral infiltrates -patient is on azithromycin, cefepime and vancomycin (10/25) -continue bronchodilators -sedated with propofol, maintain RASS of 0 to -2, daily SAT and SBT -will obtain CT chest PE protocol, given his D-dimer was elevated (2) Pneumonia: Code(s): J18.9 - Pneumonia, unspecified organism Status: Acute Assessment and Plan: Obtain sputum culture -continue antibiotics as above (3) Pulmonary fibrosis: Code(s): J84.10 - Pulmonary fibrosis, unspecified Status: Acute Assessment and Plan: Patient has a history of pulmonary fibrosis, follows up with the special events fundraiser at [facility] -continue nintedanib which is home med for pulmonary fibrosis (4) COPD (chronic obstructive pulmonary disease): Code(s): J44.9 - Chronic obstructive pulmonary disease, unspecified Status: Acute Assessment and Plan: Continue mechanical ventilation, steroids, bronchodilators (5) CAD (coronary artery disease): Code(s): I25.10 - Atherosclerotic heart disease of [place] coronary artery without angina pectoris Status: Acute Assessment and Plan: Patient with recent history of [place] status post 2 stents placed at [facility] -will obtain records from [facility] and [facility] (6) Diabetes: Code(s): E11.9 - Type 2 diabetes mellitus without complications Status: Acute Assessment and Plan: Patient has a history of diabetes on oral hypoglycemics at home -placed on Lantus and sliding scale insulin with Accu-Cheks -check hemoglobin A1c (7) GERD (gastroesophageal reflux disease): Code(s): K21.9 - Gastro-esophageal reflux disease without esophagitis Status: Acute Assessment and Plan: Started on Protonix (8) Acute kidney injury: Code(s): N17.9 - Acute kidney failure, unspecified Status: Acute Assessment and Plan: Acute kidney injury with creatinine of 1.4 on admission -creatinine normalized this morning to 1.10 -will gently hydrate patient with NS at 75 mL/hour for 1 L -continue to monitor urine output, renal function and electrolytes Plan DVT prophylaxis: Lovenox Stress ulcer prophylaxis: Protonix Nutrition: Will start tube feeds in a.m. Code Status: Full code Critical Care Time Spent: 57 minutes Due to a high probability of clinically significant, life threatening deterioration, the patient required my highest level of preparedness to intervene emergently and I personally spent this critical care time directly and personally managing the patient. This critical care time included obtaining a history; examining the patient; pulse oximetry; ordering and review of studies; arranging urgent treatment with development of a management plan; evaluation of patient's response to treatment; frequent reassessment; and discussions with other providers. It was exclusive of separately billable procedures and treating other patients and teaching time. Please see Assessment and Plan section and the rest of the note for further information on patient assessment and treatment This dictation may have been done utilizing a voice recognition system. Attempts have been made to correct errors. However, there may be uncorrected grammatical, spelling, and recognitions errors present. Coloring Machine Operator Consult Note Consult date: 10/25/22 Reason for consult:
--- NOTE | 2022-10-25 13:37 | PC.NURSE ---
This patient arrived to ICU room 6 at 1310.
--- NOTE | 2022-10-25 13:49 | PC.NURSE ---
Patient intubated at 1317 with 8.0 ET tube at 25 per lip. Bilateral breath sounds auscultated. Color change noted. ET tube placement confirmed by X-ray.
[2022-10-25] MEDS: SODIUM CHLORIDE 0.9% IV 1,000 ML 75 ML IV CONT (14:45)
[2022-10-25 14:46] LABS: Alveolar/Arterial O2 Gradient 414.8 mmHg; Base Excess ABG -2.5 mEq/l (+/-2.0); Fractional Inspired Oxygen 100 %; HCO3 ABG 25.8 mEq/l (22.0-26.0); Oxygen Content ABG 16.6 %vol (16.0-22.0); Oxygen Saturation ABG 99.4 % (95.0-100.0); Oxyhemoglobin 97.7 % THb (90.0-100.0); PO2 ABG 235.9 mmHg (80.0-100.0); PO2 FiO2 Ratio Arterial Blood 2.36 %; Total Hemoglobin 11.7 g/dL (12.0-18.0)
[2022-10-25] MEDS: methylPREDNISolone SOD SUCC 125 MG VIAL 60 MG IV PUSH ×2 (14:46→18:20)
[2022-10-25 14:49] LABS: Device VENTILATOR; Modified Allen's Test Pass; PCO2 ABG 62.3 mmHg (35.0-45.0); Site Drawn RIGHT RADIAL; pH ABG 7.235 (7.350-7.450)
[2022-10-25 14:50] LABS: Arterial Blood Gas PEEP 5 cmH2O; Arterial Blood Gas Tidal Volume 500 ml; Arterial Blood Gas Vent Mode CMV; Arterial Blood Gas Ventilator rate 20 /MIN
[2022-10-25] MEDS: FENTANYL 2,500MCG/NS250ML(*CRX 2,500 MCG/250 ML BAG IV CONT (15:03)
--- NOTE | 2022-10-25 17:09 | PC.NURSE ---
At 0900ish patient became more SOB and increased work of breathing. RT and Paz to bedside. Setting to Bipap were made (AVAPS, TV-500, Rate-16, EPAP-8, and 70%). ABG, Venous Dopplers, and IV Soumedrol ordered. Patient's SOB improved.
[2022-10-25 18:20] LABS: Glucose Point of Care 228 mg/dl (65-105)
[2022-10-25] MEDS: PROPOFOL IV EMULSION 100 ML 18.17 MG IV CONT (19:03)
[2022-10-25 19:58] LABS: Glucose Point of Care 186 mg/dl (65-105)
[2022-10-25] MEDS: INSULIN GLARGINE (*BKC) 100 UNITS/ML 15 UNITS SUB-Q (21:37)
[2022-10-25] MEDS: MINERAL OIL/WHITE PETROLATUM OINTMENT 1 APPLIC EACH EYE (21:37)
[2022-10-25] MEDS: PRAVASTATIN SODIUM 20 MG TABLET 40 MG FEED TUBE (21:38)
[2022-10-25] MEDS: PANTOPRAZOLE SODIUM IV 40 MG VIAL IV PUSH (21:38)
[2022-10-25] MEDS: CENTRAL LINE FLUSH 10 ML IV PUSH (21:43)
[2022-10-25 23:23] LABS: Glucose Point of Care 179 mg/dl (65-105)
[2022-10-26] VITALS (41 sets, daily range): BP systolic 94–131; BP diastolic 51–72; PULSE 74–107; RESP 18–32; TEMP 35.9–37.4; O2SAT 92–98; BMI 20.9
--- NOTE | 2022-10-26 | ECHO_ITS ---
Patient Info Name: Romario Birmingham Age: 82 years : 1940 Gender: Male Ht: 75 in Wt: 166 lbs BSA: 1.99 m2 HR: 99 bpm BP: 107 / 64 mmHg Heart Rhythm: Sinus Rhythm Technical Quality: Fair Exam Date: 10/26/2022 7:35 AM Exam Location: [facility] Pulmonary Patient Status: Inpatient Admit Date: 10/25/2022 Staff Ordering Physician: Yvonne Ramírez APRN Bullet Slugs Inspector: Brittanie Hooks RDCS Attending Provider: Donna Ashraf MD Referring Physician: Desiree ELY; Exam Type: CA echo doppler color flow Study Info Indications - recent PTCA - elevated bnp R06.00 - Dyspnea, unspecified Complete two-dimensional, color flow and Doppler transthoracic echocardiogram is performed. Summary 1. Complete two-dimensional, color flow and Doppler transthoracic echocardiogram is performed. 2. Left ventricular chamber dimension is normal. 3. Left ventricular systolic function is normal, estimated at 60-65%. 4. There is moderately increased left ventricular wall thickness. 5. The left ventricular diastolic function is grade I diastolic dysfunction. 6. Right ventricular systolic function is mildly reduced. TAPSE 1.4. 7. There is mild tricuspid valve regurgitation. 8. Mild pulmonary hypertension, estimated pulmonary arterial systolic pressure is 44 mmHg. 9. There is no aortic valve stenosis. 10. There is trace mitral valve regurgitation. Left Ventricle Left ventricular chamber dimension is normal. Left ventricular systolic function is normal, estimated at 60-65%. There is moderately increased left ventricular wall thickness. The left ventricular diastolic function is grade I diastolic dysfunction. Right Ventricle Right ventricular chamber dimension is normal. Right ventricular systolic function is mildly reduced. TAPSE 1.4. Left Atria Left atrial chamber dimension is mildly enlarged. Right Atria Right atrial chamber dimension is mildly enlarged. Atrial Septum Thin and hypermobile. Aortic Valve The aortic valve is trileaflet. There is no aortic valve stenosis. There is no aortic valve regurgitation. Pulmonic Valve The pulmonic valve is not well visualized. There is trace pulmonic regurgitation. Mitral Valve The mitral valve has thickened leaflets. There is trace mitral valve regurgitation. The mitral valve annulus is mildly calcified. Tricuspid Valve The tricuspid valve leaflets are normal. There is mild tricuspid valve regurgitation. Mild pulmonary hypertension, estimated pulmonary arterial systolic pressure is 44 mmHg. Pericardium/Pleural The pericardium appears normal. There is small pericardial effusion. Aorta The aortic root size at the sinus of Valsalva is normal. There is mild aortic atherosclerosis. Left Ventricular Outflow Tract Name Value Normal LVOT 2D LVOT Diameter 2.0 cm LVOT Doppler LVOT Peak Gradient 3 mmHg LVOT Mean Gradient 1 mmHg LVOT VTI 17 cm LVOT VTI/AV VTI Ratio 0.7 LVOT Stroke Volume 54 ml
[2022-10-26] MEDS: methylPREDNISolone SOD SUCC 125 MG VIAL 60 MG IV PUSH ×4 (00:13→17:08)
[2022-10-26] MEDS: IPRATROPIUM BR 0.02% INH SOLN 0.5 MG/2.5 ML VIAL INHALATION ×7 (01:15→23:29)
[2022-10-26] MEDS: LEVALBUTEROL NEB 1.25 MG/3 ML INHALATION ×7 (01:15→23:29)
[2022-10-26] MEDS: PROPOFOL IV EMULSION 100 ML 13.63 MG IV CONT ×2 (01:51→08:05)
[2022-10-26 05:25] LABS: Hematocrit 23.7 % (42.0-52.0); Hemoglobin 7.4 g/dL (14.0-18.0); Immature Granulocyte Absolute 0.02 K/mm3 (0.00-0.031); Immature Granulocyte Percent A 0.6 % (0-0.5); Immature Platelet Fraction Pct 5.2 % (0.9-11.2); Lymphocytes Absolute Auto 0.49 K/mm3 (0.9-3.2); Lymphocytes Percent Auto 13.6 % (18.3-44.2); Mean Corpuscular HGB Conc 31.2 g/dl (32-36); Mean Corpuscular Hemoglobin 28.1 pg (26-34); Mean Corpuscular Volume 90.1 fl (80-100); Mean Platelet Volume 12.2 fl (7.4-10.4); Monocytes Absolute Auto 0.2 K/mm3 (0.1-0.6); Monocytes Percent Auto 4.5 % (2.6-8.5); Neutrophils Absolute Auto 2.9 K/mm3 (1.3-6.7); Neutrophils Percent Auto 81.3 % (45.5-73.1); Platelet Count Result 74 k/mm3 (150-375); Red Blood Count 2.63 M/mm3 (4.6-6.20); Red Cell Distribution Width 16.1 % (11.5-14.5); White Blood Count 3.6 K/mm3 (4.5-10.0)
[2022-10-26] MEDS: CENTRAL LINE FLUSH 10 ML IV PUSH ×3 (05:31→22:00)
[2022-10-26 05:38] LABS: INR 1.3; Partial Thromboplastin Time 32.4 SECONDS (22.3-36.8); Prothrombin Time 15.7 Seconds (11.1-14.7)
[2022-10-26 05:41] LABS: Alveolar/Arterial O2 Gradient 250.1 mmHg; Base Excess ABG 0.8 mEq/l (+/-2.0); Carboxyhemoglobin 0.7 % THb (0-2.0); Fractional Inspired Oxygen 50 %; HCO3 ABG 25.5 mEq/l (22.0-26.0); Methemoglobin ABG 0.3 %THb (0-1.5); Oxygen Content ABG 8.5 %vol (16.0-22.0); Oxygen Saturation ABG 91.4 % (95.0-100.0); Oxyhemoglobin 88.9 % THb (90.0-100.0); PCO2 ABG 41.1 mmHg (35.0-45.0); PO2 ABG 60.2 mmHg (80.0-100.0); Reduced Hemoglobin 10.1 %THb (0-5.0); pH ABG 7.411 (7.350-7.450)
[2022-10-26 05:45] LABS: Alanine Aminotransferase 21 U/L (6-50); Albumin Level 2.5 g/dL (3.5-5.1); Alkaline Phosphatase 83 U/L (38-126); Anion Gap 5 mmol/L (8-16); Aspartate Amino Transferase 25 U/L (17-59); Bilirubin,Total 0.6 mg/dL (0.2-1.3); Blood Urea Nitrogen 30 mg/dL (9-20); Calcium 8.2 mg/dL (8.4-10.2); Carbon Dioxide 27 mmol/L (22-30); Chloride 100 mmol/L (98-107); Estimated CRCL calculation 46 ml/min; Estimated Glomerular Filt Rate 58; Glucose 220 mg/dL (65-110); Phosphorus 4.9 mg/dL (2.5-4.5); Potassium 4.6 mmol/L (3.4-5.0); Sodium 132 mmol/L (137-145)
[2022-10-26 05:45] LABS: Arterial Blood Gas PEEP 5 cmH2O; Arterial Blood Gas Vent Mode CMV; Arterial Blood Gas Ventilator rate 22 /MIN; Device VENTILATOR; Modified Allen's Test Pass; Site Drawn RIGHT RADIAL; Total Hemoglobin 6.7 g/dL (12.0-18.0)
[2022-10-26 05:46] LABS: Arterial Blood Gas Tidal Volume 500 ml
[2022-10-26] MEDS: INSULIN ASPART (*BKC) 100 UNITS/ML SUB-Q ×2 (06:27→17:05)
[2022-10-26 06:40] LABS: Hemoglobin A1C 6.8 % (<5.7)
[2022-10-26 07:06] LABS: Lipase < 10 U/L (23-300)
[2022-10-26 07:11] LABS: Hematocrit 25.9 % (42.0-52.0); Hemoglobin 8.2 g/dL (14.0-18.0); Mean Corpuscular HGB Conc 31.7 g/dl (32-36); Mean Corpuscular Hemoglobin 28.8 pg (26-34); Mean Corpuscular Volume 90.9 fl (80-100); Mean Platelet Volume 11.3 fl (7.4-10.4); Platelet Count Result 82 k/mm3 (150-375); Red Blood Count 2.85 M/mm3 (4.6-6.20); Red Cell Distribution Width 16.2 % (11.5-14.5); White Blood Count 3.4 K/mm3 (4.5-10.0)
[2022-10-26 07:19] LABS: Band Neutrophils Percent 7 % (0-6); Lymphocytes Percent Manual 6 % (18-44); Monocytes Absolute Manual 0.13 K/mm3 (0.1-0.90); Monocytes Percent Manual 4 % (3-9); Neutrophils Absolute Manual 3.06 K/mm3 (1.3-6.7); Neutrophils Percent Manual 83 % (46-73); Platelet Estimate Decreased (Adequate); Total Cells Counted 100
[2022-10-26 07:20] LABS: Anisocytosis 1+ (NORMAL); Schistocytes None Seen (NORMAL)
[2022-10-26 07:27] LABS: Thyroid Stimulating Hormone 0.411 uIU/mL (0.465-4.680)
[2022-10-26 07:53] LABS: Iron 16 ug/dL (49-181)
[2022-10-26 08:02] LABS: Percent Iron Saturation 9 % (20-50)
[2022-10-26 08:31] LABS: NT Pro B Type Natriuretic Pept 5370 pg/mL (19.9-100)
[2022-10-26] MEDS: MIDAZOLAM HCL (*CRX) 2 MG/2 ML VIAL IV PUSH (08:32)
[2022-10-26 09:00] LABS: Folic Acid 6.4 ng/mL (2.76->20)
[2022-10-26] MEDS: MINERAL OIL/WHITE PETROLATUM OINTMENT 1 APPLIC EACH EYE ×2 (09:45→20:02)
[2022-10-26] MEDS: FUROSEMIDE INJ 40 MG/4 ML VIAL IV PUSH (09:45)
[2022-10-26] MEDS: CLOPIDOGREL BISULFATE 75 MG TABLET PO (09:45)
[2022-10-26] MEDS: ASPIRIN 81 MG CHEWABLE TABLET FEED TUBE (09:45)
[2022-10-26] MEDS: LORATADINE 10 MG TABLET FEED TUBE (09:45)
[2022-10-26] MEDS: PANTOPRAZOLE SODIUM IV 40 MG VIAL IV PUSH ×2 (09:46→20:03)
--- NOTE | 2022-10-26 09:47 | WPDINTPN ---
Progress Note: A&P Assessment and Plan (1) Acute and chronic respiratory failure with hypoxia: Code(s): J96.21 - Acute and chronic respiratory failure with hypoxia Status: Acute Assessment and Plan: Patient presented with worsening shortness of breath x1 day, likely related to bilateral infiltrates/pneumonia, possible COPD and/or pulmonary fibrosis flare/exacerbation -intubated on 10/25/2022 -currently on CMV mode of ventilation peep of 5, 50% FiO2 -chest x-ray this morning: Stable diffuse disease -ABGs much improved -patient is on azithromycin, cefepime and vancomycin (10/25) -continue bronchodilators -sedated with propofol and fentanyl, maintain RASS of 0 to -2, daily SAT and SBT -appreciate pulmonology evaluation recommendation, discussed with mission manager, continue antibiotics, steroids and current management. He feels it is more likely exacerbation of the UIP/fibrosis -10/25/2022 CTA chest: No CT evidence of acute pulmonary embolus. Pulmonary opacities likely represent moderate pulmonary edema overlying severe chronic changes of UIP. Infection is not excluded. Small bilateral pleural effusions. Mediastinal lymphadenopathy. (2) Pneumonia: Code(s): J18.9 - Pneumonia, unspecified organism Status: Acute Assessment and Plan: Obtain sputum culture -continue antibiotics as above (3) Pulmonary fibrosis: Code(s): J84.10 - Pulmonary fibrosis, unspecified Status: Chronic Assessment and Plan: Patient has a history of pulmonary fibrosis, follows up with the mission manager at [facility] -continue nintedanib which is home med for pulmonary fibrosis -continues (4) COPD (chronic obstructive pulmonary disease): Code(s): J44.9 - Chronic obstructive pulmonary disease, unspecified Status: Acute Assessment and Plan: Continue mechanical ventilation, steroids, bronchodilators (5) CAD (coronary artery disease): Code(s): I25.10 - Atherosclerotic heart disease of [place] coronary artery without angina pectoris Status: Chronic Assessment and Plan: Patient with recent history of [place] status post 2 stents placed at [facility] -will obtain records from [facility] and [facility] (6) Diabetes: Code(s): E11.9 - Type 2 diabetes mellitus without complications Status: Chronic Assessment and Plan: Patient has a history of diabetes on oral hypoglycemics at home -placed on Lantus and sliding scale insulin with Accu-Cheks -check hemoglobin A1c (7) GERD (gastroesophageal reflux disease): Code(s): K21.9 - Gastro-esophageal reflux disease without esophagitis Status: Acute Assessment and Plan: Started on Protonix (8) Acute kidney injury: Code(s): N17.9 - Acute kidney failure, unspecified Status: Acute Assessment and Plan: Acute kidney injury with creatinine of 1.4 on admission -creatinine normalized this morning to 1.20 -status post 1 L IV fluid bolus at 75 mL/hour -will given albumin for vascular expansion -continue to monitor urine output, renal function and electrolytes (9) Pancytopenia: Code(s): D61.818 - Other pancytopenia Status: Acute Assessment and Plan: Pancytopenia Could be bone marrow suppression -will consult Hematology/Oncology Dr. Lewis -check folic acid, vitamin B12 -check iron panel -stool for occult blood Plan DVT prophylaxis: Lovenox Stress ulcer prophylaxis: Protonix Nutrition: Start tube feeds this morning. Code Status: Full code Critical Care Time Spent: 35 minutes minutes Due to a high probability of clinically significant, life threatening deterioration, the patient required my highest level of preparedness to intervene emergently and I personally spent this critical care time directly and personally managing the patient. This critical care time included obtaining a history; examining the patient; pulse oximetry; ordering and review of st
--- NOTE | 2022-10-26 10:34 | PM.CNPUL ---
Assessment and Plan Assessment and plan (1) Pulmonary fibrosis: Code(s): J84.10 - Pulmonary fibrosis, unspecified Status: Chronic Assessment and Plan: Patient carries a history of IPF and home medicines list Ofev through [facility]. Apparently he was not on home oxygen. CT angiogram of the chest now is consistent with IPF with basilar and peripheral interstitial infiltrates with honeycombing, lower lobe bronchiectasis as well as diffuse patchy ground-glass infiltrates. We are awaiting records from [facility] which were requested on 10/25/2022. at this time ago I agree with treatment for acute exacerbation of IPF. Patient was started on Solu-Medrol on 10/24/2022 and is currently on Solu-Medrol 60 mg IV q.6 hours And will continue this dose for 3 days. Will then decrease to prednisone equivalent of 1 milligram/kilos per day. Discussed with Dr. Chan, will follow with you (2) COPD (chronic obstructive pulmonary disease): Code(s): J44.9 - Chronic obstructive pulmonary disease, unspecified Status: Acute Assessment and Plan: Patient also carries a history of COPD and home medications list [facility] 160/9/4.8 at 2 puffs b.i.d. as well as stiolto respimat. 10/26 No wheezing heard on exam today. At this time will discontinue trilogy inhaler and continue levalbuterol 1.25 mg q.4 hours and ipratropium 0.5 mg q.4 hours. (3) Respiratory failure: Code(s): J96.90 - Respiratory failure, unspecified, unspecified whether with hypoxia or hypercapnia Status: Acute Assessment and Plan: Etiology of respiratory failure includes pneumonia, acute exacerbation of IPF, COPD, and cardiac dysfunction. 10/26 Patient was initially treated for ceftriaxone and azithromycin x1 dose and started on vancomycin, cefepime and azithromycin on 10/25/2021. He is afebrile and his white blood cell count is 3.4 today. I will send sputum for culture, urine for Legionella and pneumococcal antigen, serum for mycoplasma IgM, and repeat covid, RSV and influenza RT PCR study. Acute exacerbation of IPF, COPD treated as above. Echocardiogram has been ordered, would try to minimize IV fluids to minimize any pulmonary edema. Ventilator management per ore bridge operator. History of Present Illness History of Present Illness Consult date: 10/26/22 Chief complaint: Resp Failure Narrative: 10/26/2022: This is a new pulmonary consult for IPF and respiratory failure. 82-year-old man with a history of COPD, pulmonary fibrosis on Ofev through [place], coronary artery disease status post CO with stents x2 admitted to [facility] from 09/1322 through 10/14/22. Patient called EMS on 10/24/2022 for 1 day history of shortness of breath, cough and clear sputum. Room air saturations were 85%. Patient was brought to the emergency department and required 5 L non-rebreather for saturations 91%, crackles at the bases initially he refused BiPAP. White blood cell count was 5.8 with eosinophils 1.0%. Creatinine was 1.40, BNP was 5380, ABG on 4 L nasal cannula 7.42/34/54. Covid, influenza and RSV RT PCR studies were negative. chest x-ray demonstrated small lung volumes, diffuse mid and lower lung interstitial alveolar infiltrates. Patient was admitted to the hospital and treated for pneumonia, IPF exacerbation and fluid overload with ceftriaxone, azithromycin, bronchodilators, Solu-Medrol and Lasix. 10/25/22 patient had worsening work of breathing and was intubated. antibiotics were changed to vancomycin, cefepime and azithromycin. CT angiogram of the chest was negative for pulmonary embolism, the patient had multiple patchy ground-glass infiltrates, lower lung, peripheral predominant interstitial infiltrates with some honeycombing, lower lobe bronchiectasis and no evidence of bullous emphysema in the apices. Patient is placed on Solu-Medrol 60 Q 6. lower extremity Dopplers were negative. 10/26/22 Patient remains intubated
[2022-10-26] MEDS: PROPOFOL IV EMULSION 100 ML 22.71 MG IV CONT ×2 (12:09→16:19)
[2022-10-26 12:28] LABS: Glucose Point of Care 176 mg/dl (65-105)
[2022-10-26] MEDS: CEFEPIME 2 GM/NS 50 ML 2 GM/50 ML BAG IVPB ×2 (12:29→23:00)
[2022-10-26] MEDS: ALBUMIN HUMAN 25% 25 GM/100 ML 100 ML IVPB ×2 (12:52→17:00)
--- NOTE | 2022-10-26 12:54 | PDONCCN ---
HPI - Date of Consult Date/Time: 10/26/22 12:54 Requesting Physician: Donna Ashraf MD Primary Care Provider: UNKNOWN,DOCTOR - Consult Narrative Reason for consult: Pancytopenia Narrative: Romario Birmingham is a 82 year old male with history of hypertension, idiopathic pulmonary fibrosis, coronary artery disease status post PTCA, type 2 diabetes admitted to the hospital with complain of shortness of breath. Patient was recently discharged from outside hospital which he had 2 stent placed in the coronary artery. He was on Plavix and aspirin. On admission WBC count was 5.8, hemoglobin was 9.6 and platelet count was 124728. Due to respiratory compromise he was intubated on October 25. He has been treated for pneumonia and pulmonary fibrosis with steroids and nintedanib. His recent labs show slight decline in the WBC count now down to 3.4 and hemoglobin dropped to 8.2. Platelet count also dropped to 82,000. He is intubated and sedated. No signs of bleeding. Review of Systems - Review of Systems All systems reviewed & are unremarkable except as noted in HPI and bel - Neurologic Denies focal weakness, Denies sensory deficit [facility] Medical History: Medical History (Last Updated 10/25/22 @ 16:53 by Yvonne Ramírez APRN) COPD (chronic obstructive pulmonary disease) Diabetes Pulmonary fibrosis Family History: Family History (Last Updated 10/25/22 @ 02:53 by Chani Melara RN) Father Congestive heart failure Father Hypertension Mother Hypertension Diabetes mellitus Sibling Hypertension Grandparent Diabetes mellitus - Social History Social History: Social History Alcohol Use: Alcohol intake: never Substance Use: Substance use: never Substance use type: does not use Others: Spiritual care concerns: No Smoking Status: Smoking status: Never smoker Second hand tobacco smoke exposure: No Social Determinants of Health: Has the Lack of Transportation Kept You From Medical Appointments or From Getting Medications?: No Within the Past 12 Months, Were You Worried Whether Your Food Would Run Out Before You Got Money to Buy More?: Never True What is Your Housing Situation Today?: I Have Housing Are You Worried That in the Next 2 Months, You May Not Have Your Own Housing to Live In?: No Do You Have Trouble Paying Your Heating Or Electricity Bill?: No Do You Have Trouble Paying For Medicines?: Yes Are You Currently Unemployed and Looking for Work?: No Highest Level of Education Completed: Never Attended/[employer] Do You Have Trouble With Childcare or the Care of a Family Member?: No Exam - Vital Signs Vital Signs - 24 hr 10/25/22 13:16 10/25/22 13:33 10/25/22 13:20 Temperature Pulse Rate 115 H 132 H Respiratory Rate 24 H Blood Pressure Pulse Oximetry 100 Oxygen Delivery Mechanical Ventilation Fraction of Inspired Oxygen 100 100 10/25/22 13:23 10/25/22 14:20 10/25/22 14:00 Temperature Pulse Rate 134 H 129 H Respiratory Rate 20 Blood Pressure 173/95 H Pulse Oximetry 100 Oxygen Delivery Fraction of Inspired Oxygen 100 10/25/22 14:52 10/25/22 15:03 10/25/22 15:20 Temperature Pulse Rate 122 H 123 H Respiratory Rate 22 H 31 H Blood Pressure Pulse Oximetry Oxygen Delivery Fraction of Inspired Oxygen 60 10/25/22 15:26 10/25/22 13:00 10/25/22 13:10 Temperature Pulse Rate 123 H 121 H 120 H Respiratory Rate 31 H Blood Pressure 158/90 H Pulse Oximetry Oxygen Delivery Fraction of Inspired Oxygen 10/25/22 13:15 10/25/22 13:18 10/25/22 13:24 Temperature Pulse Rate 120 H 127 H 135 H Respiratory Rate Blood Pressure 181/142 H 197/112 H Pulse Oximetry 97 94 97 Oxygen Delivery Fraction of Inspired Oxygen 10/25/22 13:30 10/25/22 13:31 10/25/22 13:37 Temperature 37.1 C 37.1 C 37.2 C Pulse Rate 133 H 134 H 122 H Res
[2022-10-26 13:14] LABS: Influenza A QL RT-PCR Negative (Negative); Influenza B QL RT-PCR Negative (Negative); RSV RNA, RT-PCR Negative (Negative); SARS-CoV-2 RNA PCR Negative
[2022-10-26 13:36] LABS: Lactate Dehydrogenase 365 U/L (120-246)
[2022-10-26] MEDS: MIDAZOLAM 100MG/NS 100ML(*CRX) 100 MG/100 ML BAG IV CONT (16:46)
--- NOTE | 2022-10-26 17:19 | PC.NURSE ---
Notification from patient daughter, Simin Birmingham [phone]. The family wishes for the patient to remain a Full Code at this time.
[2022-10-26 17:29] LABS: Glucose Point of Care 209 mg/dl (65-105)
[2022-10-26 19:58] LABS: Glucose Point of Care 198 mg/dl (65-105)
[2022-10-26] MEDS: INSULIN GLARGINE (*BKC) 100 UNITS/ML 20 UNITS SUB-Q (20:02)
[2022-10-26] MEDS: PRAVASTATIN SODIUM 20 MG TABLET 40 MG FEED TUBE (20:03)
[2022-10-27] VITALS (47 sets, daily range): BP systolic 98–137; BP diastolic 53–85; PULSE 74–119; RESP 19–37; TEMP 36.2–37.5; O2SAT 88–100
[2022-10-27 00:12] LABS: Glucose Point of Care 247 mg/dl (65-105)
[2022-10-27] MEDS: INSULIN ASPART (*BKC) 100 UNITS/ML SUB-Q ×2 (00:26→06:19)
[2022-10-27] MEDS: ALBUMIN HUMAN 25% 25 GM/100 ML 100 ML IVPB ×2 (00:26→06:06)
[2022-10-27] MEDS: methylPREDNISolone SOD SUCC 125 MG VIAL 60 MG IV PUSH ×4 (00:26→17:44)
[2022-10-27] MEDS: FENTANYL 2,500MCG/NS250ML(*CRX 2,500 MCG/250 ML BAG 10 MCG IV CONT (00:30)
[2022-10-27] MEDS: IPRATROPIUM BR 0.02% INH SOLN 0.5 MG/2.5 ML VIAL INHALATION ×6 (03:32→23:21)
[2022-10-27] MEDS: LEVALBUTEROL NEB 1.25 MG/3 ML INHALATION ×6 (03:32→23:21)
[2022-10-27 03:39] LABS: Immature Granulocyte Absolute 0.04 K/mm3 (0.00-0.031); Immature Granulocyte Percent A 1.5 % (0-0.5); Lymphocytes Absolute Auto 0.33 K/mm3 (0.9-3.2); Lymphocytes Percent Auto 12.5 % (18.3-44.2); Mean Corpuscular HGB Conc 31.5 g/dl (32-36); Mean Corpuscular Volume 92.2 fl (80-100); Mean Platelet Volume 11.2 fl (7.4-10.4); Monocytes Absolute Auto 0.2 K/mm3 (0.1-0.6); Monocytes Percent Auto 6.4 % (2.6-8.5); Neutrophils Absolute Auto 2.1 K/mm3 (1.3-6.7); Neutrophils Percent Auto 79.6 % (45.5-73.1); Platelet Count Result 66 k/mm3 (150-375); Red Blood Count 2.17 M/mm3 (4.6-6.20); Red Cell Distribution Width 16.3 % (11.5-14.5); White Blood Count 2.6 K/mm3 (4.5-10.0)
[2022-10-27 03:50] LABS: Alanine Aminotransferase 17 U/L (6-50); Albumin Level 3.2 g/dL (3.5-5.1); Alkaline Phosphatase 62 U/L (38-126); Alveolar/Arterial O2 Gradient 218.9 mmHg; Anion Gap 7 mmol/L (8-16); Aspartate Amino Transferase 16 U/L (17-59); Base Excess ABG -1.8 mEq/l (+/-2.0); Bilirubin,Total 0.5 mg/dL (0.2-1.3); Blood Urea Nitrogen 40 mg/dL (9-20); Calcium 8.3 mg/dL (8.4-10.2); Carbon Dioxide 25 mmol/L (22-30); Carboxyhemoglobin 0.1 % THb (0-2.0); Chloride 102 mmol/L (98-107); Estimated CRCL calculation 35 ml/min; Estimated Glomerular Filt Rate 41; Fractional Inspired Oxygen 60 %; Glucose 168 mg/dL (65-110); HCO3 ABG 23.6 mEq/l (22.0-26.0); Lipase 12 U/L (23-300); Magnesium 2.2 mg/dL (1.6-2.3); Methemoglobin ABG 0.2 %THb (0-1.5); Oxygen Content ABG 10.2 %vol (16.0-22.0); Oxyhemoglobin 97.3 % THb (90.0-100.0); PCO2 ABG 43.7 mmHg (35.0-45.0); PO2 ABG 160.8 mmHg (80.0-100.0); PO2 FiO2 Ratio Arterial Blood 2.68 %; Phosphorus 5.2 mg/dL (2.5-4.5); Potassium 4.2 mmol/L (3.4-5.0); Reduced Hemoglobin 2.4 %THb (0-5.0); Sodium 134 mmol/L (137-145); pH ABG 7.351 (7.350-7.450)
[2022-10-27 03:51] LABS: Arterial Blood Gas PEEP 5 cmH2O; Arterial Blood Gas Vent Mode CMV; Arterial Blood Gas Ventilator rate 22 /MIN; Device VENTILATOR; INR 1.2; Modified Allen's Test Pass; Prothrombin Time 14.7 Seconds (11.1-14.7); Site Drawn LEFT RADIAL; Total Hemoglobin 7.2 g/dL (12.0-18.0)
[2022-10-27 03:52] LABS: Arterial Blood Gas Tidal Volume 500 ml; Hemoglobin 6.3 g/dL (14.0-18.0); Partial Thromboplastin Time 28.2 SECONDS (22.3-36.8)
[2022-10-27 03:53] LABS: Anisocytosis 1+ (NORMAL); Hypochromasia 1+ (NORMAL); Ovalocytes 1+ (NORMAL); Platelet Estimate Decreased (Adequate); Schistocytes None Seen (NORMAL)
[2022-10-27 04:10] LABS: Vancomycin Trough 15.1 ug/mL (10.0-20.0)
[2022-10-27 04:18] LABS: Thyroid Stimulating Hormone 0.137 uIU/mL (0.465-4.680)
[2022-10-27] MEDS: CENTRAL LINE FLUSH 10 ML IV PUSH ×3 (06:06→21:49)
[2022-10-27 06:18] LABS: Glucose Point of Care 237 mg/dl (65-105)
[2022-10-27] MEDS: SODIUM CHLORIDE 0.9% IV 1,000 ML 75 ML IV CONT (08:00)
[2022-10-27] MEDS: INSULIN GLARGINE (*BKC) 100 UNITS/ML 8 UNITS SUB-Q (08:02)
[2022-10-27] MEDS: PANTOPRAZOLE SODIUM IV 40 MG VIAL IV PUSH ×2 (08:02→20:02)
[2022-10-27] MEDS: MINERAL OIL/WHITE PETROLATUM OINTMENT 1 APPLIC EACH EYE ×2 (08:02→20:02)
--- NOTE | 2022-10-27 09:06 | PM.PNPUL ---
Progress Note: A&P Assessment and Plan (1) Pulmonary fibrosis: Code(s): J84.10 - Pulmonary fibrosis, unspecified Status: Chronic Assessment and Plan: Patient with a history of IPF/UIP followed at [facility]. PFTs 04/04/2021 with a moderate restrictive abnormality (TLC 67%, FEV1 66%, FEV1: FVC ratio 84%, moderately decreased DLCO that normalized when adjusted for alveolar volume). patient is chronically on 2 L at night. Patient has been taking Ofev at least since 2018. 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 Patient also had covert on 09/14/2022 treated with 5 days of remdesivir and 10 days of steroids. patient was recently admitted to [facility] from 09/2808/21/2025 and developed respiratory failure requiring high-flow nasal cannula treated with Lasix, antibiotics and steroids for possible acute exacerbation of IPF. On discharge the note states he was weaned to 2-4 L oxygen and was to finish a [address] angiogram of the chest now is consistent with probable UIP with basilar and peripheral interstitial infiltrates with honeycombing, lower lobe bronchiectasis as well as diffuse patchy ground-glass infiltrates. 10/26/22 ? Patient remains intubated and sedated with propofol.? Required 1 L? normal saline for low blood pressure.? currently is intubated on CMV rate of 22, breathing 24, tidal volume 500, 70% and 5 of peep. ABG 7.41/41/60.? chest x-ray shows continued diffuse interstitial alveolar infiltrate. Plan: At this time ago I agree with treatment for acute exacerbation of IPF which may have worsened with his prednisone taper. Patient was started on Solu-Medrol on 10/24/2022 and is currently on Solu-Medrol 60 mg IV q.6 hours and will continue this dose for 3 days. Will then decrease to prednisone equivalent of 1 milligram/kilos per day. 10/27/2022. Patient remains intubated and currently sedated with fentanyl for his spontaneous awakening trial. 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 CMV 22 with a breath rate of 28, tidal volume 500, FiO2 40% peep of 5 with peak pressure is 13. Overall oxygenation has improved. Patient had an ABG on 60% and a peep of 5 of 7.35/44/161. Chest x-ray stable diffuse interstitial alveolar infiltrates. white blood cell count 2.6, creatinine 1.6, hemoglobin 6.3. The patient has no pulmonary secretions. Patient is receiving 1 unit packed red blood cells now an aspirin and Plavix have been held Plan: continue Solu-Medrol 60 mg IV q.[address] Chan, will follow with you (2) COPD (chronic obstructive pulmonary disease): Code(s): J44.9 - Chronic obstructive pulmonary disease, unspecified Status: Acute Assessment and Plan: Patient also carries a history of COPD and home medications list veeztri 160/9/4.8 at 2 puffs b.i.d. as well as stiolto respimat. outpatient pulmonary records reviewed and the patient has no evidence of fixed obstruction on his PFTs. CT scan from 3 years ago listed mild apical emphysema and the patient had been maintained on Symbicort and Spiriva since 2018. 10/26 No wheezing heard on exam today. At this time will discontinue trilogy inhaler and continue levalbuterol 1.25 mg q.4 hours and ipratropium 0.5 mg q.4 hours. 10/27 No wheezing today. Continue levalbuterol 1.25 mg q.4 hours and ipratropium 0.5 mg q.4 hours. (3) Respiratory failure: Code(s): J96.90 - Respiratory failure, unspecified, unspecified whether with hypoxia or hypercapnia Status: Acute Assessment and Plan: Etiology of respiratory failure includes pneumonia, acute exacerbation of IPF, COPD, and cardiac dysfunction. 10/26 Patient was initially treated for ceftriaxone and azithromycin x1 dose and started on vancomycin, cefepime and azithromycin on 10/25/2021. He is afe
--- NOTE | 2022-10-27 09:49 | P.CONNP_ITS ---
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 * follow-up on renal ultrasound and urine electrolytes/eosinophils and CPK * trial of IVFs * follow repeat labs and UOP (2) Acute and chronic respiratory failure with hypoxia: Code(s): J96.21 - Acute and chronic respiratory failure with hypoxia Status: Acute Assessment and Plan: * multifactorial: * possible pneumonia * COPD * known pulmonary fibrosis * exacerbation of COPD + UIP * on mechanical ventilation * empiric antibiotics * follow culture data * on steroids and bronchodilators * Pulmonary following (3) Pulmonary fibrosis: Code(s): J84.10 - Pulmonary fibrosis, unspecified Status: Chronic Assessment and Plan: * known history of this * continue nintedanib * Pulmonary following (4) COPD (chronic obstructive pulmonary disease): Code(s): J44.9 - Chronic obstructive pulmonary disease, unspecified Status: Chronic Assessment and Plan: * complicates #2 and #3 * continue current therapy (ventilator support, antibiotics, steroids, bronchodilators) (5) Pancytopenia: Code(s): D61.818 - Other pancytopenia Status: Acute Assessment and Plan: * as noted by CBC * worse today and associated with drop in H/H * PRBC transfusion today * Oncology following (6) Diabetes: Code(s): E11.9 - Type 2 diabetes mellitus without complications Status: Chronic Assessment and Plan: * follow accuchecks * glycemic control per business process specialist Discussed case with Dr. Chan. I will continue to follow patient with you while he means hospitalized and make further recommendations during his hospital course. Thank you for allowing me to participate in the care this patient. History of Present Illness Reason for Consult Consult date: 10/27/22 Reason for consult: acute renal failure Chief Complaint Chief complaint: Resp Failure History of Present Illness Narrative: All the information I have obtained is from review of the electronic medical record as well as discussion with the physician/nurses involved in the patient's care as he is unable to provide any history due to being intubated and on mechanical ventilation. The patient is an 81-year-old male with an extensive past medical history as outlined below who presented to [facility] with complaints of sudden-onset shortness of breath/difficulty breathing. The symptoms apparently started in the last 24 hours and had progressively worsened to the point of his presentation to the emergency room for further assessment. By the time of his arrival to the emergency room, his shortness of breath had progressively gotten worse to the point that conservative therapy with albuterol inhalers did not help his symptoms whatsoever which led to him calling EMS. He was reportedly 85% on room air by the time of EMS arrival and had to be placed on 4 L of supplemental oxygen with improved oxygenation noted. Upon further assessment in the emergency room, he reported no fevers, ch
--- NOTE | 2022-10-27 09:49 | PM.CNNEP ---
Assessment and Plan Assessment and plan (1) Acute kidney injury: Code(s): N17.9 - Acute kidney failure, unspecified Status: Acute Assessment and Plan: presumably normal baseline creatinine creatinine 1.4mg/dl on admission but came down to 1.1 - 1.2mg/dl creatinine increased to 1.6mg/dl today (10/27/22) suspect multifactorial prerenal factors contrast exposure (CTA chest on 10/25/22) hypoxia anemia (drop in H/H by AM labs noted) ARB use INSOLE BUFFER follow-up on renal ultrasound and urine electrolytes/eosinophils and CPK trial of IVFs follow repeat labs and UOP (2) Acute and chronic respiratory failure with hypoxia: Code(s): J96.21 - Acute and chronic respiratory failure with hypoxia Status: Acute Assessment and Plan: multifactorial: possible pneumonia COPD 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 empiric antibiotics follow culture data on steroids and bronchodilators Pulmonary following (3) Pulmonary fibrosis: Code(s): J84.10 - Pulmonary fibrosis, unspecified Status: Chronic Assessment and Plan: known history of this continue nintedanib Pulmonary following (4) COPD (chronic obstructive pulmonary disease): Code(s): J44.9 - Chronic obstructive pulmonary disease, unspecified Status: Chronic Assessment and Plan: complicates #2 and #3 continue current therapy (ventilator support, antibiotics, steroids, bronchodilators) (5) Pancytopenia: Code(s): D61.818 - Other pancytopenia Status: Acute Assessment and Plan: as noted by CBC worse today and associated with drop in H/H PRBC transfusion today Oncology following (6) Diabetes: Code(s): E11.9 - Type 2 diabetes mellitus without complications Status: Chronic Assessment and Plan: follow accuchecks glycemic control per risk and insurance consultant Discussed case with Dr. Chan. I will continue to follow patient with you while he means hospitalized and make further recommendations during his hospital course. Thank you for allowing me to participate in the care this patient. History of Present Illness Reason for Consult Consult date: 10/27/22 Reason for consult: acute renal failure Chief Complaint Chief complaint: Resp Failure History of Present Illness Narrative: All the information I have obtained is from review of the electronic medical record as well as discussion with the physician/nurses involved in the patient's care as he is unable to provide any history due to being intubated and on mechanical ventilation. The patient is an 81-year-old male with an extensive past medical history as outlined below who presented to [facility] Emergency Room with complaints of sudden-onset shortness of breath/difficulty breathing. The symptoms apparently started in the last 24 hours and had progressively worsened to the point of his presentation to the emergency room for further assessment. By the time of his arrival to the emergency room, his shortness of breath had progressively gotten worse to the point that conservative therapy with albuterol inhalers did not help his symptoms whatsoever which led to him calling EMS. He was reportedly 85% on room air by the time of EMS arrival and had to be placed on 4 L of supplemental oxygen with improved oxygenation noted. Upon further assessment in the emergency room, he reported no fevers, chills, chest pain, nausea, vomiting, or abdominal pain but did note some increased swelling in his lower extremities which is somewhat of a new symptom. He noted a productive cough of clear sputum as well. He was otherwise stable hemodynamically but with his respiratory status fluctuating, he was admitted to IMU for closer monitoring of his respiratory status and treatment with what was presumed to be a COPD exacerbation. Unfortunately, on the day of admissi
[2022-10-27] MEDS: CEFEPIME 2 GM/NS 50 ML 2 GM/50 ML BAG IVPB (10:39)
[2022-10-27 10:46] LABS: Creatine Kinase 21 U/L (55-170)
[2022-10-27 10:50] LABS: Glucose Point of Care 133 mg/dl (65-105)
--- NOTE | 2022-10-27 10:52 | WPDINTPN ---
Progress Note: A&P Assessment and Plan (1) Acute and chronic respiratory failure with hypoxia: Code(s): J96.21 - Acute and chronic respiratory failure with hypoxia Status: Acute Assessment and Plan: Patient presented with worsening shortness of breath x1 day, likely related to bilateral infiltrates/pneumonia, possible COPD and/or pulmonary fibrosis flare/exacerbation -intubated on 10/25/2022 -currently on CMV mode of ventilation peep of 5, 50% FiO2 -chest x-ray this morning: Stable diffuse disease -ABGs much improved -patient is on azithromycin, cefepime and vancomycin (10/25) -continue bronchodilators -analgosedation with fentanyl and Versed, maintain RASS of 0 to -2, daily SAT and SBT -appreciate pulmonology evaluation recommendation, discussed with director of regional sales, continue antibiotics, steroids and current management. He feels it is more likely exacerbation of the UIP/fibrosis -10/25/2022 CTA chest: No CT evidence of acute pulmonary embolus. Pulmonary opacities likely represent moderate pulmonary edema overlying severe chronic changes of UIP. Infection is not excluded. Small bilateral pleural effusions. Mediastinal lymphadenopathy. (2) Pneumonia: Code(s): J18.9 - Pneumonia, unspecified organism Status: Acute Assessment and Plan: Patient does not have any secretions, sputum cultures have not been obtained due to that -continue antibiotics as above (3) Pulmonary fibrosis: Code(s): J84.10 - Pulmonary fibrosis, unspecified Status: Chronic Assessment and Plan: Patient has a history of pulmonary fibrosis, follows up with the director of regional sales at [facility] -continue nintedanib which is home med for pulmonary fibrosis -oxygen requirements trending down -discuss with director of regional sales (4) COPD (chronic obstructive pulmonary disease): Code(s): J44.9 - Chronic obstructive pulmonary disease, unspecified Status: Chronic Assessment and Plan: Continue mechanical ventilation, steroids, bronchodilators (5) CAD (coronary artery disease): Code(s): I25.10 - Atherosclerotic heart disease of [place] coronary artery without angina pectoris Status: Chronic Assessment and Plan: Patient with recent history of [place] status post stent x1 to the [facility] records show an echocardiogram with a diastolic dysfunction grade 3, EF of 56% 10/26/2022 echocardiogram showed EF of 60-65%, moderate increased LV wall thickness, grade 1 diastolic dysfunction, RV systolic function is mildly reduced mild pulmonary hypertension with RVSP of 44 mmHg, no aortic valve stenosis, trace mitral valve regurg, trace tricuspid valve regurg Patient has been on Plavix, aspirin, pravastatin, losartan and amlodipine at home -currently holding Plavix and aspirin due to severe anemia -continue pravastatin -hold home losartan and amlodipine due to borderline blood pressures (6) Diabetes: Code(s): E11.9 - Type 2 diabetes mellitus without complications Status: Chronic Assessment and Plan: Patient has a history of diabetes on oral hypoglycemics at home -continue Accu-Cheks and sliding scale insulin -increase Lantus, hyperglycemia likely related to steroids -hemoglobin A1c is 6.8 (7) GERD (gastroesophageal reflux disease): Code(s): K21.9 - Gastro-esophageal reflux disease without esophagitis Status: Acute Assessment and Plan: Continue Protonix (8) Acute kidney injury: Code(s): N17.9 - Acute kidney failure, unspecified Status: Acute Assessment and Plan: Acute kidney injury with creatinine of 1.4 on admission -10/27/2022: Creatinine up to 1.6 -renal ultrasound and urine electrolytes have been ordered -will give 1 L NS IV fluids for 1000 mL -continue to monitor urine output, renal function and electrolytes -nephrology has been consulted (9) Pancytopenia: Code(s): D61.818 - Other pancytopenia Status: Acute Assess
--- NOTE | 2022-10-27 11:14 | PCNFU ---
Nutrition Follow-Up Complete: Inadequate Oral Intake as related to mechanical ventilation as evidenced by NPO Goal; Meet estimated nutritional needs Patient is progressing towards goal. We will continue current goal. Pt current nutrition is Vital AF 1.2 at 70 ml/hr Last recorded weight is 76.8 kg. Bowel Motility:+BM reported 10/24 Labs Reviewed:Glu 168, GFR 41, BUN 40, Cr 1.6, Na 134 Meds Noted:Protonix, Fentanyl, Versed, Solu Medrol, Protonix Skin: WNL Additional Notes: Patient remains on mechanical vent and tube feedings of Vital AF 1.2 at 50 ml/hr and tolerating. Propofol has been discontinued. Spoke with Straddle Truck Driver regarding tube feeding rate change. Recommend increasing to 70 ml/hr to meet nutritional needs. Tube feeding at goal rate providing 1848 kcals/115 gm protein/1249 ml water. Flush 30 ml q 4 hours. Agree with diet orders. Will monitor weight, labs, skin, meds, tube feedings tolerance in ICU rounds and reassessing every Wednesday and Wednesday.
[2022-10-27 11:35] LABS: Creatinine Urine 93.3 mg/dL
[2022-10-27 11:36] LABS: Potassium Urine Random 52.4 meq/L
[2022-10-27 11:44] LABS: Sodium Urine Random < 5 meq/L
[2022-10-27] MEDS: ROCURONIUM BROMIDE 50 MG/5 ML VIAL IV PUSH (11:46)
[2022-10-27 12:10] LABS: Eosinophil Urine None Seen % (None Seen); Urine Eos QC 2nd Tech Confirmed
--- NOTE | 2022-10-27 12:52 | PCRCNOTE ---
On 10/27/2022 at 1114, RT assessed patient and gave patient their scheduled breathing tx. Vent was found on FiO2 90%. RT audibly heard a leak from ETT. RT checked cuff with cuff manometer. Cuff was 20. RT placed some air into the cuff using MANAGER POKER. RT continued to administer breathing tx and check vent. RT audibly heard a leak coming from ETT again. VT ranged from 200s-500s. RT notified Dr. Chan. Dr. Chan stated to prepare to reintubate. Patient was intubated with a size 8 ETT at 26 cm at lip. CO2 detector detected color change, bilat breath sounds heard, Chest X-ray ordered. ETT finley placed to secure ETT at 26 cm at lip. Patient was placed on current vent settings. SpO2 in 70s while on Vent. RT began bagging patient until SpO2 reached 88%. Patient placed back on vent. Dr. Chan notified. Vent settings adjust and new pulse ox placed on patient's ear.
[2022-10-27] MEDS: ALTEPLASE 2 MG VIAL (CATHFLO) IV PUSH (13:05)
[2022-10-27 13:20] LABS: Hematocrit 23.1 % (42.0-52.0); Hemoglobin 7.2 g/dL (14.0-18.0)
[2022-10-27 13:31] LABS: Triglycerides 43 mg/dL (<150)
--- NOTE | 2022-10-27 15:27 | PM.CNCAR ---
Assessment and Plan Assessment and plan (1) Pancytopenia: Code(s): D61.818 - Other pancytopenia Status: Acute (2) Acute on chronic anemia: Code(s): D64.9 - Anemia, unspecified Status: Acute (3) CAD (coronary artery disease): Code(s): I25.10 - Atherosclerotic heart disease of [place] coronary artery without angina pectoris Status: Chronic Plan Patient has had recent PCI with stent placement. Given recent stent placement, cannot stop DAPT at this time due to high risk for stent thrombosis. As patient has no active signs of bleeding, recommend continuing his ASA 81mg once daily and Plavix 75mg once daily. Continue statin as well. Recommendations discussed with Dining Services Manager, Dr. Chan. History of Present Illness History of Present Illness Consult date/time: 10/27/22 15:27 Requesting physician: Yesenia Chan MD Consult reason: Other (DAPT management) Reason For Visit: Resp Failure Narrative: We are consulted for DAPT management in this patient who had recent PCI. Mr. Birmingham is an 82-year-old male who is currently intubated, therefore, all history obtained from the patient's chart and medical team. Patient has a history of COPD, pulmonary fibrosis, CAD s/p CO with stents x 2 admitted to [facility] from 09/28/2022 to 10/14/2022. Patient presented with shortness of breath, cough, clear sputum. Hypoxic with room air saturations at 85%. Patient admitted to hospital for treatment of pneumonia, IPF exacerbation, fluid overload. Patient intubated due to worsening work of breathing. Patient also noted to have severe anemia on 10/27 with Hgb of 6.3. Review of Systems Review of Systems: ROS unobtainable: Yes unobtainable due to endotracheal tube PMFSH Past Medical History Medical History COPD (chronic obstructive pulmonary disease) Diabetes Pulmonary fibrosis Family History Family History Father Congestive heart failure Father Hypertension Mother Hypertension Diabetes mellitus Sibling Hypertension Grandparent Diabetes mellitus Social History Social History Smoking status: Never smoker Second hand tobacco smoke exposure: No Alcohol intake: never Substance use: never Substance use type: does not use Lack of Transportation: No Lack of Food: Never True Current Housing: I Have Housing Concerned About Future Housing: No Difficulty Paying Gas/Electric Bills: No Difficulty Paying for Meds: YES Currently Unemployed: No Education: Never Attended/Kindergarten Only Difficulty w/ Childcare or Family Care: No Spiritual care concerns: No Meds Home Medications and Allergies Home Medications Medication Instructions Recorded Confirmed Type albuterol sulfate 90 mcg/actuation 2 puff inhalation QID PRN 10/25/22 10/25/22 History aerosol inhaler Shortness Of Breath Or Wheezing amlodipine 10 mg tablet 10 mg PO DAILY 10/25/22 10/25/22 History bisacodyl 5 mg tablet,delayed 5 mg PO DAILY PRN Constipation 10/25/22 10/25/22 History release (Dulcolax (bisacodyl)) budesonide 160 mcg-glycopyr 9 2 inh inhalation QAM AND QPM 10/25/22 10/25/22 History mcg-formot 4.8 mcg/actuation HFA inhaler cetirizine 10 mg tablet 10 mg PO DAILY 10/25/22 10/25/22 History cholecalciferol (vitamin D3) 10 20 mcg PO DAILY 10/25/22 10/25/22 History mcg (400 unit) tablet finasteride 5 mg tablet 5 mg PO DAILY 10/25/22 10/25/22 History glipizide 5 mg tablet 5 mg PO DAILY 10/25/22 10/25/22 History losartan 50 mg tablet 50 mg PO BID 10/25/22 10/25/22 History nintedanib 150 mg capsule (Ofev) 150 mg PO Q12H 10/25/22 10/25/22 History omeprazole 20 mg capsule,delayed 20 mg PO BID 10/25/22 10/25/22 History release oxycodone-acetaminophen 10 mg-325 1 tablet PO Q6H PRN pain 10/25/22 10/25/22 History mg tablet pravastatin 40 mg t
[2022-10-27] MEDS: CLOPIDOGREL BISULFATE 75 MG TABLET FEED TUBE (15:35)
[2022-10-27] MEDS: ASPIRIN 81 MG CHEWABLE TABLET PO (15:35)
[2022-10-27] MEDS: MIDAZOLAM 100MG/NS 100ML(*CRX) 100 MG/100 ML BAG IV CONT (16:27)
[2022-10-27 17:50] LABS: Glucose Point of Care 185 mg/dl (65-105)
[2022-10-27] MEDS: PRAVASTATIN SODIUM 20 MG TABLET 40 MG FEED TUBE (20:02)
[2022-10-27] MEDS: INSULIN GLARGINE (*BKC) 100 UNITS/ML 28 UNITS SUB-Q (20:02)
[2022-10-27 20:03] LABS: Glucose Point of Care 187 mg/dl (65-105)
[2022-10-28] VITALS (46 sets, daily range): BP systolic 115–165; BP diastolic 8–99; PULSE 86–131; RESP 19–38; TEMP 36.3–37.1; O2SAT 91–99
[2022-10-28 00:17] LABS: Glucose Point of Care 262 mg/dl (65-105)
[2022-10-28] MEDS: INSULIN ASPART (*BKC) 100 UNITS/ML SUB-Q ×3 (00:23→18:37)
[2022-10-28] MEDS: CEFEPIME 2 GM/NS 50 ML 2 GM/50 ML BAG IVPB ×3 (00:24→21:27)
[2022-10-28] MEDS: methylPREDNISolone SOD SUCC 125 MG VIAL 60 MG IV PUSH ×2 (00:24→06:12)
[2022-10-28] MEDS: FENTANYL 2,500MCG/NS250ML(*CRX 2,500 MCG/250 ML BAG 10 MCG IV CONT (00:55)
[2022-10-28] MEDS: LEVALBUTEROL NEB 1.25 MG/3 ML INHALATION ×5 (03:00→20:00)
[2022-10-28] MEDS: IPRATROPIUM BR 0.02% INH SOLN 0.5 MG/2.5 ML VIAL INHALATION ×5 (03:00→20:00)
[2022-10-28 05:53] LABS: Alveolar/Arterial O2 Gradient 219.6 mmHg; Base Excess ABG -3.2 mEq/l (+/-2.0); Carboxyhemoglobin 0.6 % THb (0-2.0); Fractional Inspired Oxygen 50 %; HCO3 ABG 22.7 mEq/l (22.0-26.0); Oxygen Content ABG 12.5 %vol (16.0-22.0); Oxygen Saturation ABG 95.9 % (95.0-100.0); Oxyhemoglobin 94.6 % THb (90.0-100.0); PCO2 ABG 44.5 mmHg (35.0-45.0); PO2 ABG 86.8 mmHg (80.0-100.0); PO2 FiO2 Ratio Arterial Blood 1.74 %; Reduced Hemoglobin 4.8 %THb (0-5.0); Total Hemoglobin 9.3 g/dL (12.0-18.0); pH ABG 7.326 (7.350-7.450)
[2022-10-28 05:54] LABS: Arterial Blood Gas PEEP 8 cmH2O; Arterial Blood Gas Vent Mode CMV; Arterial Blood Gas Ventilator rate 20 /MIN; Device VENTILATOR; Modified Allen's Test Pass; Site Drawn RIGHT RADIAL
[2022-10-28 05:55] LABS: Arterial Blood Gas Tidal Volume 500 ml
[2022-10-28 06:03] LABS: Hematocrit 23.9 % (42.0-52.0); Hemoglobin 7.5 g/dL (14.0-18.0); Immature Platelet Fraction Pct 5.4 % (0.9-11.2); Mean Corpuscular HGB Conc 31.4 g/dl (32-36); Mean Corpuscular Hemoglobin 29.2 pg (26-34); Mean Platelet Volume 11.8 fl (7.4-10.4); Platelet Count Result 73 k/mm3 (150-375); Red Blood Count 2.57 M/mm3 (4.6-6.20); White Blood Count 3.9 K/mm3 (4.5-10.0)
[2022-10-28 06:12] LABS: INR 1.2; Prothrombin Time 14.6 Seconds (11.1-14.7)
[2022-10-28] MEDS: CENTRAL LINE FLUSH 10 ML IV PUSH ×3 (06:12→21:27)
[2022-10-28 06:13] LABS: Partial Thromboplastin Time 29.5 SECONDS (22.3-36.8)
[2022-10-28 06:25] LABS: Alanine Aminotransferase 31 U/L (6-50); Alkaline Phosphatase 131 U/L (38-126); Anion Gap 7 mmol/L (8-16); Aspartate Amino Transferase 26 U/L (17-59); Bilirubin,Total 0.6 mg/dL (0.2-1.3); Blood Urea Nitrogen 57 mg/dL (9-20); Calcium 7.9 mg/dL (8.4-10.2); Carbon Dioxide 23 mmol/L (22-30); Chloride 104 mmol/L (98-107); Estimated CRCL calculation 39 ml/min; Estimated Glomerular Filt Rate 59; Glucose 164 mg/dL (65-110); Lipase 15 U/L (23-300); Magnesium 2.2 mg/dL (1.6-2.3); Phosphorus 3.8 mg/dL (2.5-4.5); Potassium 4.4 mmol/L (3.4-5.0); Sodium 134 mmol/L (137-145)
[2022-10-28 06:28] LABS: Glucose Point of Care 153 mg/dl (65-105)
[2022-10-28 06:38] LABS: Band Neutrophils Percent 7 % (0-6); Eosinophils Absolute Manual 0.03 K/mm3 (0.02-0.5); Eosinophils Percent Manual 1 % (0-4); Hypochromasia 1+ (NORMAL); Lymphocytes Absolute Manual 0.35 K/mm3 (1.1-4.5); Neutrophils Absolute Manual 3.51 K/mm3 (1.3-6.7); Neutrophils Percent Manual 83 % (46-73); Platelet Estimate Decreased (Adequate); Schistocytes None Seen (NORMAL); Total Cells Counted 100
[2022-10-28 06:39] LABS: Anisocytosis 1+ (NORMAL); Poikilocytosis 1+ (NORMAL)
[2022-10-28 06:44] LABS: Thyroid Stimulating Hormone 0.076 uIU/mL (0.465-4.680)
--- NOTE | 2022-10-28 08:12 | WPDINTPN ---
Progress Note: A&P Assessment and Plan (1) Acute and chronic respiratory failure with hypoxia: Code(s): J96.21 - Acute and chronic respiratory failure with hypoxia Status: Acute Assessment and Plan: Patient presented with worsening shortness of breath x1 day, likely related to bilateral infiltrates/pneumonia, possible COPD and/or pulmonary fibrosis flare/exacerbation -intubated on 10/25/2022, ETT exchange on 10/27/2022 due to cuff leak -currently on CMV mode of ventilation peep of 8, 50% FiO2 -chest x-ray this morning: PICC tip in the superior vena cava.. Stable diffuse lung disease, consistent with chronic interstitial lung disease with superimposed pneumonia versus pulmonary edema. -ABGs reviewed -will continue azithromycin (10/25) for 5 days and cefepime and vancomycin for 70 (10/25) -continue bronchodilators -analgosedation with fentanyl and Versed, maintain RASS of 0 to -2, daily SAT and SBT -10/27: When sedation was weaned patient got dyssynchronous with the ventilator, with tachypnea, hypoxia requiring increased FiO2 and PEEP. -Discussed with meter changes records clerk, continue antibiotics, will switch Solu-Medrol to prednisone per tube. He feels it is more likely exacerbation of the UIP/fibrosis -10/25/2022 CTA chest: No CT evidence of acute pulmonary embolus. Pulmonary opacities likely represent moderate pulmonary edema overlying severe chronic changes of UIP. Infection is not excluded. Small bilateral pleural effusions. Mediastinal lymphadenopathy. (2) Pneumonia: Code(s): J18.9 - Pneumonia, unspecified organism Status: Acute Assessment and Plan: Sputum cultures have been obtained and pending -continue antibiotics as above 10/26/2022: Sputum cultures pending 10/25/2022 MRSA screen: No MRSA 10/25/2022 urine cultures negative 10/25/2022 currently blood cultures and (3) Pulmonary fibrosis: Code(s): J84.10 - Pulmonary fibrosis, unspecified Status: Chronic Assessment and Plan: Patient has a history of pulmonary fibrosis, follows up with the meter changes records clerk at [facility] [address] [facility] -continue nintedanib which is home med for pulmonary fibrosis -oxygen requirements trending down -10/27: Switch Solu-Medrol to prednisone 60 mg daily per tube (4) COPD (chronic obstructive pulmonary disease): Code(s): J44.9 - Chronic obstructive pulmonary disease, unspecified Status: Chronic Assessment and Plan: Continue mechanical ventilation, steroids, bronchodilators (5) CAD (coronary artery disease): Code(s): I25.10 - Atherosclerotic heart disease of [place] coronary artery without angina pectoris Status: Chronic Assessment and Plan: Patient with recent history of [place] status post stent x1 to the [facility] records show an echocardiogram with a diastolic dysfunction grade 3, EF of 56% 10/26/2022 echocardiogram showed EF of 60-65%, moderate increased LV wall thickness, grade 1 diastolic dysfunction, RV systolic function is mildly reduced mild pulmonary hypertension with RVSP of 44 mmHg, no aortic valve stenosis, trace mitral valve regurg, trace tricuspid valve regurg Patient has been on Plavix, aspirin, pravastatin, losartan and amlodipine at home -discuss with Cardiology and will continue Plavix and aspirin -continue pravastatin -hold home losartan and amlodipine due to borderline blood pressures (6) Diabetes: Code(s): E11.9 - Type 2 diabetes mellitus without complications Status: Chronic Assessment and Plan: Patient has a history of diabetes on oral hypoglycemics at home -continue Accu-Cheks and sliding scale insulin -increase Lantus, hyperglycemia likely related to steroids -hemoglobin A1c is 6.8 (7) GERD (gastroesophageal reflux disease): Code(s): K21.9 - Gastro-esophageal reflux disease without esophagitis Status: Acute Assessment and Plan: Continue Protonix (8) Acute kidney injury: Code(s): N17.9 - Acute kidney
--- NOTE | 2022-10-28 08:17 | PC.NURSE ---
Plavix ok to crush per Dr. Chan.
[2022-10-28] MEDS: PANTOPRAZOLE SODIUM IV 40 MG VIAL IV PUSH ×2 (08:53→21:27)
[2022-10-28] MEDS: MINERAL OIL/WHITE PETROLATUM OINTMENT 1 APPLIC EACH EYE ×2 (08:53→21:26)
[2022-10-28] MEDS: ASPIRIN 81 MG CHEWABLE TABLET FEED TUBE (08:56)
[2022-10-28] MEDS: CLOPIDOGREL BISULFATE 75 MG TABLET PO (08:57)
--- NOTE | 2022-10-28 09:12 | PM.PNPUL ---
Progress Note: A&P Assessment and Plan (1) Pulmonary fibrosis: Code(s): J84.10 - Pulmonary fibrosis, unspecified Status: Chronic Assessment and Plan: Patient with a history of IPF/UIP followed at [facility]. PFTs 04/04/2021 with a moderate restrictive abnormality (TLC 67%, FEV1 66%, FEV1: FVC ratio 84%, moderately decreased DLCO that normalized when adjusted for alveolar volume). patient is chronically on 2 L at night. Patient has been taking Ofev at least since 2018. 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 Patient also had covert on 09/14/2022 treated with 5 days of remdesivir and 10 days of steroids. patient was recently admitted to [facility] from 09/2808/21/2025 and developed respiratory failure requiring high-flow nasal cannula treated with Lasix, antibiotics and steroids for possible acute exacerbation of IPF. On discharge the note states he was weaned to 2-4 L oxygen and was to finish a [address] angiogram of the chest now is consistent with probable UIP with basilar and peripheral interstitial infiltrates with honeycombing, lower lobe bronchiectasis as well as diffuse patchy ground-glass infiltrates. Solumedrol 60 Q 6. 10/26/22 ? Patient remains intubated and sedated with propofol.? Required 1 L? normal saline for low blood pressure.? currently is intubated on CMV rate of 22, breathing 24, tidal volume 500, 70% and 5 of peep. ABG 7.41/41/60.? chest x-ray shows continued diffuse interstitial alveolar infiltrate. Plan: At this time ago I agree with treatment for acute exacerbation of IPF which may have worsened with his prednisone taper. Patient was started on Solu-Medrol on 10/24/2022 and is currently on Solu-Medrol 60 mg IV q.6 hours and will continue this dose for 3 days. Will then decrease to prednisone equivalent of 1 milligram/kilos per day. 10/27/2022. Patient remains intubated and currently sedated with fentanyl for his spontaneous awakening trial. 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 CMV 22 with a breath rate of 28, tidal volume 500, FiO2 40% peep of 5 with peak pressure is 13. Overall oxygenation has improved. Patient had an ABG on 60% and a peep of 5 of 7.35/44/161. Chest x-ray stable diffuse interstitial alveolar infiltrates. white blood cell count 2.6, creatinine 1.6, hemoglobin 6.3. The patient has no pulmonary secretions. Patient is receiving 1 unit packed red blood cells now an aspirin and Plavix have been held Plan: continue Solu-Medrol 60 mg IV q.6 hours. 10/28 Patient remains intubated and currently sedated with fentanyl and versed CMV 20 with a breath rate of 20, tidal volume 500, FiO2 50% peep of 8 with peak pressure is 23. Patient had an ABG on 50% and a peep of 8 of 7.33/45/87. Chest x-ray stable diffuse interstitial alveolar infiltrates. white blood cell count 3.9, creatinine 1.4, hemoglobin 7.5. chest x-ray with stable diffuse interstitial alveolar infiltrates bilaterally. Plan: DC solumedrol and prednisone 60 mg q.day started. Discussed with Dr. Chan, will follow with you (2) COPD (chronic obstructive pulmonary disease): Code(s): J44.9 - Chronic obstructive pulmonary disease, unspecified Status: Chronic Assessment and Plan: Patient also carries a history of COPD and home medications list veeztri 160/9/4.8 at 2 puffs b.i.d. as well as stiolto respimat. outpatient pulmonary records reviewed and the patient has no evidence of fixed obstruction on his PFTs. CT scan from 3 years ago listed mild apical emphysema and the patient had been maintained on Symbicort and Spiriva since 2018. 10/26 No wheezing heard on exam today. At this time will discontinue trilogy inhaler and continue levalbuterol 1.25 mg q.4 hours and ipratropium 0.5 mg q.4 hours. 10/27 No wheezing today. Contin
[2022-10-28] MEDS: BISACODYL 5 MG TABLET EC PO (09:13)
[2022-10-28] MEDS: MIDAZOLAM 100MG/NS 100ML(*CRX) 100 MG/100 ML BAG 7 MG IV CONT (10:55)
--- NOTE | 2022-10-28 11:21 | PCFNICU ---
ICU Rounding Note: Pt current nutrition is Vital AF 1.2 at 70 ml/hr Last recorded weight is 76.8 kg. Bowel Motility:+Bm reported 10/24 prior to admit. Labs Reviewed:Glu 164, BUN 57, Cr 1.4,Na 134, Alb 3.0 Meds Noted:Prednisone, Vancomycin, Versed,Fentanyl, Dulcolax Skin: WNL Additional Notes: Patient remain on mechanical vent and tube feedings of Vital AF 1.2 at 70 ml/hr and tolerating per nursing. Flush 30 ml q 4 hours. Agree with diet orders. Will monitor weight, labs, skin, meds, tube feedings tolerance in ICU rounds and reassessing every Wednesday and Wednesday.
--- NOTE | 2022-10-28 12:20 | PM.PNNEP ---
Progress Note: A&P Assessment and Plan (1) Acute kidney injury: Code(s): N17.9 - Acute kidney failure, unspecified Status: Acute Assessment and Plan: slow improvement presumably normal baseline creatinine creatinine 1.4mg/dl on admission but came down to 1.1 - 1.2mg/dl creatinine increased to 1.6mg/dl on 10/27/22 suspect multifactorial prerenal factors contrast exposure (CTA chest on 10/25/22) hypoxia anemia (drop in H/H by AM labs noted) ARB use SECURITIES BROKER evaluation to date: renal ultrasound unremarkable urine electrolytes prerenal urine eosinophils negative CPK low follow repeat labs and UOP (2) Acute and chronic respiratory failure with hypoxia: Code(s): J96.21 - Acute and chronic respiratory failure with hypoxia Status: Acute Assessment and Plan: multifactorial: possible pneumonia COPD 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 empiric antibiotics follow culture data on steroids and bronchodilators Pulmonary following (3) Pulmonary fibrosis: Code(s): J84.10 - Pulmonary fibrosis, unspecified Status: Chronic Assessment and Plan: known history of this continue nintedanib Pulmonary following (4) COPD (chronic obstructive pulmonary disease): Code(s): J44.9 - Chronic obstructive pulmonary disease, unspecified Status: Chronic Assessment and Plan: complicates #2 and #3 continue current therapy (ventilator support, antibiotics, steroids, bronchodilators) (5) Pancytopenia: Code(s): D61.818 - Other pancytopenia Status: Acute Assessment and Plan: as noted by CBC Oncology following (6) Diabetes: Code(s): E11.9 - Type 2 diabetes mellitus without complications Status: Chronic Assessment and Plan: follow accuchecks glycemic control per shafting cleaner Will continue to follow. Subjective Date/time seen: 10/28/22 12:13 Respiratory status seems somewhat tenuous at this time -- remains intubated and on mechanical ventilation; reasonable urine output and creatinine a bit better by AM labs; tolerated PRBC transfusion yesterday with appropriate incrementation in H/H; no other acute events overnight or earlier this AM. Exam Narrative: General: elderly AA male intubated and on mechanical ventilation Heart: mild tachycardia butnormal S1 and S2; no rub Lungs: voarse breath sound bilaterally with some rales; decreased at bases Abdomen: soft, nontender, nondistended, positive bowel sounds Extremities: no cyanosis or clubbing; trace - 1+ edema Skin: warm and intact Objective Data Vital Signs Vital Signs: Vital Signs Temp Pulse Resp BP Pulse Ox O2 Del Method FiO2 10/28/22 11:23 96 95 Mechanical Ventilation 50 10/28/22 11:38 95 21 H 10/28/22 09:00 88 97 Mechanical Ventilation 50 10/28/22 09:04 88 20 10/28/22 12:15 100 23 H 10/28/22 12:00 103 H 23 H 10/28/22 10:00 95 20 10/28/22 10:00 95 20 10/28/22 08:00 86 20 10/28/22 10:55 97 19 10/28/22 10:32 97 19 10/28/22 10:31 86 20 10/28/22 08:00 97.4 F L 93 19 139/51 L 95 10/28/22 06:00 98 F 86 20 123/70 98 10/28/22 06:00 86 10/28/22 05:56 86 93 Mechanical Ventilation 50 10/28/22 04:00 98.5 F 93 20 115/75 97 10/28/22 04:00 50 10/28/22 04:00 93 20 97 Mechanical Ventilation 50 10/28/22 04:00 93 10/28/22 03:27 105 H 30 H 10/28/22 03:07 95 22 H 10/28/22 03:00 97 25 H 10/28/22 02:56 95 95 Mechanical Ventilation 50 10/28/22 02:00 98.4 F 91 20 124/71 95 10/28/22 01:58 91 10/28/22 00:55 87 20 10/27/22 22:20 87 20 10/28/22 00:00 50 10/28/22 00:00 88 20 93 Mechanical Ventilation 50 10/28/22 00:00 88 10/28/22 00:00 98.5 F 88 20 124/
--- NOTE | 2022-10-28 12:20 | P.PNNP_ITS ---
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 * evaluation to date: * renal ultrasound unremarkable * urine electrolytes prerenal * urine eosinophils negative * CPK low * follow repeat labs and UOP (2) Acute and chronic respiratory failure with hypoxia: Code(s): J96.21 - Acute and chronic respiratory failure with hypoxia Status: Acute Assessment and Plan: * multifactorial: * possible pneumonia * COPD * known pulmonary fibrosis * exacerbation of COPD + UIP * on mechanical ventilation * empiric antibiotics * follow culture data * on steroids and bronchodilators * Pulmonary following (3) Pulmonary fibrosis: Code(s): J84.10 - Pulmonary fibrosis, unspecified Status: Chronic Assessment and Plan: * known history of this * continue nintedanib * Pulmonary following (4) COPD (chronic obstructive pulmonary disease): Code(s): J44.9 - Chronic obstructive pulmonary disease, unspecified Status: Chronic Assessment and Plan: * complicates #2 and #3 * continue current therapy (ventilator support, antibiotics, steroids, bronchodilators) (5) Pancytopenia: Code(s): D61.818 - Other pancytopenia Status: Acute Assessment and Plan: * as noted by CBC * Oncology following (6) Diabetes: Code(s): E11.9 - Type 2 diabetes mellitus without complications Status: Chronic Assessment and Plan: * follow accuchecks * glycemic control per market research manager Will continue to follow. Subjective Date/time seen: 10/28/22 12:13 Respiratory status seems somewhat tenuous at this time -- remains intubated and on mechanical ventilation; reasonable urine output and creatinine a bit better by AM labs; tolerated PRBC transfusion yesterday with appropriate incrementation in H/H; no other acute events overnight or earlier this AM. Exam Narrative: General: elderly AA male intubated and on mechanical ventilation Heart: mild tachycardia butnormal S1 and S2; no rub Lungs: voarse breath sound bilaterally with some rales; decreased at bases Abdomen: soft, nontender, nondistended, positive bowel sounds Extremities: no cyanosis or clubbing; trace - 1+ edema Skin: warm and intact Objective Data Vital Signs Vital Signs: Vital Signs Temp Pulse Resp BP Pulse Ox O2 Del Method FiO2 10/28/22 11:23 96 95 Mechanical Ventilation 50 10/28/22 11:38 95 21 H 10/28/22 09:00 88 97 Mechanical Ventilation 50 10/28/22 09:04 88 20 10/28/22 12:15 100 23 H 10/28/22 12:00 103 H 23 H 10/28/22 10:00 95 20 10/28/22 10:00 95 20 10/28/22 08:00 86 20 10/28/22 10:55 97 19 10/28/22 10:32 97 19 10/28/22 10:31 86 20 10/28/22 08:00 97.4 F L 93 19 139/51 L 95
[2022-10-28 13:00] LABS: Glucose Point of Care 251 mg/dl (65-105)
[2022-10-28] MEDS: predniSONE 20 MG TABLET 60 MG FEED TUBE (13:00)
--- NOTE | 2022-10-28 17:38 | PM.IMPN ---
Progress Note: A&P Assessment and Plan (1) Acute on chronic anemia: Code(s): D64.9 - Anemia, unspecified Status: Acute (2) Pancytopenia: Code(s): D61.818 - Other pancytopenia Status: Acute (3) Diabetes: Code(s): E11.9 - Type 2 diabetes mellitus without complications Status: Chronic Assessment and Plan: Non insulin-dependent diabetes mellitus. A glucose elevated 300s and likely secondary to IV steroids. Started Accu-Cheks a.c. HS and initiated sliding scale insulin. Hold glipizide while inpatient. Start Lantus 10 units at HS iv steroids was stopped (4) Pneumonia: Code(s): J18.9 - Pneumonia, unspecified organism Status: Acute Assessment and Plan: 10/24 chest x-ray with extensive patchy consolidating bilateral pulmonary infiltrates to the mid and lower lung zones suggesting bilateral pneumonia. Started on broad-spectrum antibiotics given pulmonary fibrosis and recent hospitalization-IV azithromycin 500 mg Q 24 hours, IV cefepime 2 g IV q.12 hours, and IV vancomycin pharmacy to dose. 10/25 repeat chest x-ray with severe bilateral pulmonary infiltrates (5) Acute kidney injury: Code(s): N17.9 - Acute kidney failure, unspecified Status: Acute (6) Multilobar lung infiltrate: Code(s): R91.8 - Other nonspecific abnormal finding of lung field Status: Acute (7) GERD (gastroesophageal reflux disease): Code(s): K21.9 - Gastro-esophageal reflux disease without esophagitis Status: Acute (8) Acute and chronic respiratory failure with hypoxia: Code(s): J96.21 - Acute and chronic respiratory failure with hypoxia Status: Acute Assessment and Plan: Patient with increasing work of breathing and tachypnea despite transition to AVAPS. Patient is a full code. Patient was intubated and transferred to ICU. (9) Pulmonary fibrosis: Code(s): J84.10 - Pulmonary fibrosis, unspecified Status: Chronic Assessment and Plan: Presumed acute on chronic exacerbation Xopenex and Atrovent neb treatments Q4 hours Continue broad-spectrum antibiotics (10) Acute on chronic congestive heart failure: Code(s): I50.9 - Heart failure, unspecified Status: Acute Assessment and Plan: Unclear if pulmonary fibrosis versus pulmonary edema on chest x-ray. (11) CAD (coronary artery disease): Code(s): I25.10 - Atherosclerotic heart disease of [place] coronary artery without angina pectoris Status: Chronic Assessment and Plan: No chest pain. Status post stent placement at [facility] in September Plan CODE STATUS: FULL CODE Discharge disposition: from home. PT/OT when respiratory status stabilizes for further evaluation patient transferred to the ICU at 1:10 p.m. patient is status I discussed with clinical biostatistics director upon transfer. Time Spent With Patient Time with patient: Greater than 35 minutes Subjective Date/time seen: 10/28/22 17:38 81-year-old male with past medical history significant for hypertension, coronary artery disease status post PTCA, PULMONARY FIBROSIS, type diabetes mellitus, benign prostatic hyperplasia.? Patient presents to the emergency room due to worsening shortness of breath and bilateral lower extremity pedal edema, patient recently discharge from outside hospital where he had 2 stents placed in his coronary is according to sister who is at bedside. Pt intubated secondary to respiratory failure requiring intubation on 10/25/2022, COPD/pulmonary fibrosis exacerbation,? pneumonia, acute renal failure. Pt seen by ICU MD Pt making slow progress Review of Systems Review of Systems: Pt is intubated Exam Narrative: Generally: pt is intubated Neck:? Supple Respiratory:? Bilateral coarse breath sounds, rales, adequate air entry, decreased at bases, no wheezing Cardiac:? Regular in rhythm, S1-S2 is normal Abdomen:? Soft, nontender, nondistended, hypoactive bowel soun
[2022-10-28 17:54] LABS: Glucose Point of Care 245 mg/dl (65-105)
[2022-10-28 18:15] LABS: Pneumococcal Antigen Urine Not Detected (Not Detected)
[2022-10-28] MEDS: INSULIN GLARGINE (*BKC) 100 UNITS/ML 28 UNITS SUB-Q (21:26)
[2022-10-28] MEDS: PRAVASTATIN SODIUM 20 MG TABLET 40 MG FEED TUBE (21:27)
[2022-10-28] MEDS: MIDAZOLAM 100MG/NS 100ML(*CRX) 100 MG/100 ML BAG 10 MG IV CONT (21:55)
[2022-10-28] MEDS: FENTANYL 2,500MCG/NS250ML(*CRX 2,500 MCG/250 ML BAG 12.5 MCG IV CONT (21:57)
[2022-10-29] VITALS (146 sets, daily range): BP systolic 90–210; BP diastolic 50–123; PULSE 10–157; RESP 15–43; TEMP 36.3–37.5; O2SAT 84–100
[2022-10-29] MEDS: IPRATROPIUM BR 0.02% INH SOLN 0.5 MG/2.5 ML VIAL INHALATION ×7 (00:10→23:26)
[2022-10-29] MEDS: LEVALBUTEROL NEB 1.25 MG/3 ML INHALATION ×7 (00:10→23:26)
[2022-10-29 00:46] LABS: Glucose Point of Care 273 mg/dl (65-105)
[2022-10-29] MEDS: INSULIN ASPART (*BKC) 100 UNITS/ML SUB-Q ×4 (00:52→17:50)
[2022-10-29 01:33] LABS: Legionella pneumophila Ag Ur Not Detected (Not Detected)
[2022-10-29] MEDS: METOPROLOL TARTRATE INJ 5 MG/5 ML VIAL 2.5 MG IV PUSH (02:49)
[2022-10-29] MEDS: PROPOFOL IV EMULSION 100 ML 2.3 MG IV CONT (03:53)
[2022-10-29 04:50] LABS: Alveolar/Arterial O2 Gradient 592.8 mmHg; Base Excess ABG -3.5 mEq/l (+/-2.0); Carboxyhemoglobin 0.5 % THb (0-2.0); Fractional Inspired Oxygen 100 %; HCO3 ABG 23.2 mEq/l (22.0-26.0); Methemoglobin ABG 0.1 %THb (0-1.5); Oxygen Content ABG 12.4 %vol (16.0-22.0); Oxygen Saturation ABG 92.2 % (95.0-100.0); Oxyhemoglobin 91.3 % THb (90.0-100.0); PCO2 ABG 49.5 mmHg (35.0-45.0); PO2 ABG 70.7 mmHg (80.0-100.0); PO2 FiO2 Ratio Arterial Blood 0.71 %; Reduced Hemoglobin 8.1 %THb (0-5.0); Total Hemoglobin 9.6 g/dL (12.0-18.0)
[2022-10-29 04:54] LABS: Device VENTILATOR; Modified Allen's Test Pass; Site Drawn LEFT RADIAL; pH ABG 7.288 (7.350-7.450)
[2022-10-29 04:55] LABS: Arterial Blood Gas PEEP 8 cmH2O; Arterial Blood Gas Tidal Volume 500 ml; Arterial Blood Gas Vent Mode CMV; Arterial Blood Gas Ventilator rate 20 /MIN
[2022-10-29] MEDS: CENTRAL LINE FLUSH 10 ML IV PUSH ×3 (05:17→20:57)
[2022-10-29 06:24] LABS: Basophils Percent Auto 0.3 % (0.2-1.2); Eosinophils Percent Auto 0.3 % (0-4.4); Hematocrit 26.5 % (42.0-52.0); Hemoglobin 8.2 g/dL (14.0-18.0); Immature Granulocyte Absolute 0.08 K/mm3 (0.00-0.031); Immature Granulocyte Percent A 2.4 % (0-0.5); Lymphocytes Percent Auto 17.8 % (18.3-44.2); Mean Corpuscular HGB Conc 30.9 g/dl (32-36); Mean Corpuscular Hemoglobin 29.2 pg (26-34); Mean Corpuscular Volume 94.3 fl (80-100); Mean Platelet Volume 10.8 fl (7.4-10.4); Monocytes Absolute Auto 0.2 K/mm3 (0.1-0.6); Monocytes Percent Auto 6.2 % (2.6-8.5); Neutrophils Absolute Auto 2.5 K/mm3 (1.3-6.7); Nucleated Red Blood Cells Perc 0.6 % (0.0-0.2); Platelet Count Result 89 k/mm3 (150-375); Red Blood Count 2.81 M/mm3 (4.6-6.20); Red Cell Distribution Width 16.4 % (11.5-14.5); White Blood Count 3.4 K/mm3 (4.5-10.0)
[2022-10-29 06:38] LABS: INR 1.2; Prothrombin Time 14.7 Seconds (11.1-14.7)
[2022-10-29 06:40] LABS: Partial Thromboplastin Time 28.3 SECONDS (22.3-36.8)
[2022-10-29 06:50] LABS: Alanine Aminotransferase 29 U/L (6-50); Albumin Level 2.6 g/dL (3.5-5.1); Alkaline Phosphatase 115 U/L (38-126); Anion Gap 6 mmol/L (8-16); Aspartate Amino Transferase 18 U/L (17-59); Bilirubin,Total 0.5 mg/dL (0.2-1.3); Blood Urea Nitrogen 68 mg/dL (9-20); Carbon Dioxide 24 mmol/L (22-30); Chloride 103 mmol/L (98-107); Estimated CRCL calculation 48 ml/min; Estimated Glomerular Filt Rate > 60; Glucose 220 mg/dL (65-110); Lipase 16 U/L (23-300); Magnesium 2.1 mg/dL (1.6-2.3); Phosphorus 3.4 mg/dL (2.5-4.5); Potassium 4.3 mmol/L (3.4-5.0); Sodium 133 mmol/L (137-145); Triglycerides 63 mg/dL (<150)
[2022-10-29 06:55] LABS: Burr Cells 2+ (NORMAL); Platelet Estimate Decreased (Adequate); Schistocytes None Seen (NORMAL)
[2022-10-29 06:56] LABS: Atypical Lymphocytes Present
[2022-10-29 06:57] LABS: Poikilocytosis 1+ (NORMAL)
[2022-10-29] MEDS: ROCURONIUM BROMIDE 50 MG/5 ML VIAL IV PUSH (08:10)
[2022-10-29] MEDS: FUROSEMIDE INJ 40 MG/4 ML VIAL IV PUSH ×2 (08:12→16:18)
[2022-10-29] MEDS: predniSONE 20 MG TABLET 60 MG FEED TUBE (08:13)
[2022-10-29] MEDS: CLOPIDOGREL BISULFATE 75 MG TABLET PO (08:13)
[2022-10-29] MEDS: PANTOPRAZOLE SODIUM IV 40 MG VIAL IV PUSH ×2 (08:14→20:57)
[2022-10-29] MEDS: ASPIRIN 81 MG CHEWABLE TABLET FEED TUBE ×2 (08:14→08:15)
[2022-10-29] MEDS: MINERAL OIL/WHITE PETROLATUM OINTMENT 1 APPLIC EACH EYE ×2 (08:15→20:56)
[2022-10-29] MEDS: MIDAZOLAM 100MG/NS 100ML(*CRX) 100 MG/100 ML BAG 8 MG IV CONT (08:36)
--- NOTE | 2022-10-29 08:46 | PM.PNPUL ---
Progress Note: A&P Assessment and Plan (1) Pulmonary fibrosis: Code(s): J84.10 - Pulmonary fibrosis, unspecified Status: Chronic Assessment and Plan: Patient with a history of IPF/UIP followed at [facility]. PFTs 04/04/2021 with a moderate restrictive abnormality (TLC 67%, FEV1 66%, FEV1: FVC ratio 84%, moderately decreased DLCO that normalized when adjusted for alveolar volume). patient is chronically on 2 L at night. Patient has been taking Ofev at least since 2018. 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 patient was recently admitted to [facility] from 09/2808/21/2025 and developed respiratory failure requiring high-flow nasal cannula treated with Lasix, antibiotics and steroids for possible acute exacerbation of IPF. On discharge the note states he was weaned to 2-4 L oxygen and was to finish a [address] angiogram of the chest now is consistent with probable UIP with basilar and peripheral interstitial infiltrates with honeycombing, lower lobe bronchiectasis as well as diffuse patchy ground-glass infiltrates. Solumedrol 60 Q 6. 10/26/22 ? Patient remains intubated and sedated with propofol.? Required 1 L? normal saline for low blood pressure.? currently is intubated on CMV rate of 22, breathing 24, tidal volume 500, 70% and 5 of peep. ABG 7.41/41/60.? chest x-ray shows continued diffuse interstitial alveolar infiltrate. Plan: At this time ago I agree with treatment for acute exacerbation of IPF which may have worsened with his prednisone taper. Patient was started on Solu-Medrol on 10/24/2022 and is currently on Solu-Medrol 60 mg IV q.6 hours and will continue this dose for 3 days. Will then decrease to prednisone equivalent of 1 milligram/kilos per day. Repeat COVID negative. 10/27/2022. Patient remains intubated and currently sedated with fentanyl for his spontaneous awakening trial. 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 CMV 22 with a breath rate of 28, tidal volume 500, FiO2 40% peep of 5 with peak pressure is 13. Overall oxygenation has improved. Patient had an ABG on 60% and a peep of 5 of 7.35/44/161. Chest x-ray stable diffuse interstitial alveolar infiltrates. white blood cell count 2.6, creatinine 1.6, hemoglobin 6.3. The patient has no pulmonary secretions. Patient is receiving 1 unit packed red blood cells now an aspirin and Plavix have been held Plan: continue Solu-Medrol 60 mg IV q.6 hours. 10/28 Patient remains intubated and currently sedated with fentanyl and versed CMV 20 with a breath rate of 20, tidal volume 500, FiO2 50% peep of 8 with peak pressure is 23. Patient had an ABG on 50% and a peep of 8 of 7.33/45/87. Chest x-ray stable diffuse interstitial alveolar infiltrates. white blood cell count 3.9, creatinine 1.4, hemoglobin 7.5. chest x-ray with stable diffuse interstitial alveolar infiltrates bilaterally. Plan: DC solumedrol and prednisone 60 mg q.day started. 10/29 Patient with worsening tachypnea and hypoxemia started at 8:00 p.m. last night requiring additiona of propofol, increased FiO2 from 50-100 and this morning required increase peep from 8-12 and rocuronium x1. Currently remains intubated, sedated with fentanyl, Versed and propofol. Patient is on CMV a rate of 24, tidal volume 500, peep of 12 and 90% FiO2 with a peak pressure of 58. ABG on 100% and peep of 8 was 7.29 / 50/71. Chest x-ray with worsening interstitial infiltrates bilaterally no focal consolidation and no pneumothorax. Patient is 4.1 L positive in the last 48 hours and 6.8 L positive since admission. Plan: Will place the patient back on Solu-Medrol 60 Q 6. patient with worsening oxygenation which could be due to fluid overload, pr
[2022-10-29 09:03] LABS: Hematocrit 28.8 % (42.0-52.0); Hemoglobin 8.8 g/dL (14.0-18.0); Immature Platelet Fraction Pct 4.4 % (0.9-11.2); Mean Corpuscular HGB Conc 30.6 g/dl (32-36); Mean Platelet Volume 11.4 fl (7.4-10.4); Platelet Count Result 85 k/mm3 (150-375); Red Blood Count 3.03 M/mm3 (4.6-6.20); Red Cell Distribution Width 16.4 % (11.5-14.5)
--- NOTE | 2022-10-29 09:10 | ECG_ITS ---
Measurements Intervals [place] Rate: 129 P: 17 NM: 158 QRS: -25 QRSD: 105 T: 90 QT: 278 QTc: 408 Interpretive Statements SINUS TACHYCARDIA WITH FREQUENT VENTRICULAR PREMATURE COMPLEXES WITH OCCASIONAL SUPRAVENTRICULAR PREMATURE COMPLEXES BASELINE ARTIFACT NONSPECIFIC ST & T-WAVE ABNORMALITY ABNORMAL ECG COMPARED TO ECG 10/25/2022 11:15:41 NO SIGNIFICANT CHANGES Electronically Signed On 10-30-2022 16:16:27 CDT by Jonathan Marx M.D.
[2022-10-29 09:14] LABS: Anion Gap 7 mmol/L (8-16); Blood Urea Nitrogen 68 mg/dL (9-20); Calcium 8.2 mg/dL (8.4-10.2); Carbon Dioxide 24 mmol/L (22-30); Chloride 103 mmol/L (98-107); Estimated CRCL calculation 52 ml/min; Estimated Glomerular Filt Rate > 60; Glucose 224 mg/dL (65-110); Potassium 4.2 mmol/L (3.4-5.0); Sodium 134 mmol/L (137-145)
[2022-10-29 09:23] LABS: NT Pro B Type Natriuretic Pept 24600 pg/mL (19.9-100)
[2022-10-29] MEDS: MIDAZOLAM HCL (*CRX) 2 MG/2 ML VIAL 5 MG IV PUSH (09:24)
--- NOTE | 2022-10-29 09:59 | WPDINTPN ---
Progress Note: A&P Assessment and Plan (1) Acute and chronic respiratory failure with hypoxia: Code(s): J96.21 - Acute and chronic respiratory failure with hypoxia Status: Acute Assessment and Plan: Patient presented with worsening shortness of breath x1 day, likely related to bilateral infiltrates/pneumonia, possible COPD and/or pulmonary fibrosis flare/exacerbation, pulmonary edema -intubated on 10/25/2022, ETT exchange on 10/27/2022 due to cuff leak - 10/29 worsening hypoxia and increased oxygen requirement overnight. Chest x-ray shows diffuse pulmonary infiltrates. Patient asynchronous with the ventilator -currently in CMV mode. FiO2 100%. I have increase PEEP to 12 -continue sedation with Versed fentanyl and propofol -rocuronium 50 mg IV x1 -start Lasix -ABGs reviewed -will complete azithromycin (10/25) today and continue cefepime and vancomycin for 7 days (10/25) -continue bronchodilators -discussed with pulmonary and was switched back to Solu-Medrol 60 mg IV Q6 hours as patient has deteriorated -Discussed with college dean. Will repeat COVID flu and RSV PCR -10/25/2022 CTA chest: No CT evidence of acute pulmonary embolus. Pulmonary opacities likely represent moderate pulmonary edema overlying severe chronic changes of UIP. Infection is not excluded. Small bilateral pleural effusions. Mediastinal lymphadenopathy. (2) Pneumonia: Code(s): J18.9 - Pneumonia, unspecified organism Status: Acute Assessment and Plan: Sputum cultures have been obtained and pending -continue antibiotics as above 10/26/2022: Sputum cultures negative except yeast which is likely colonization 10/25/2022 MRSA screen: No MRSA 10/25/2022 urine cultures negative 10/25/2022 currently blood cultures have been negative (3) Pulmonary fibrosis: Code(s): J84.10 - Pulmonary fibrosis, unspecified Status: Chronic Assessment and Plan: Patient has a history of pulmonary fibrosis, follows up with the college dean at [facility] -patient is on nintedanib which is home med for pulmonary fibrosis See above (4) COPD (chronic obstructive pulmonary disease): Code(s): J44.9 - Chronic obstructive pulmonary disease, unspecified Status: Chronic Assessment and Plan: Continue mechanical ventilation, steroids, bronchodilators (5) CAD (coronary artery disease): Code(s): I25.10 - Atherosclerotic heart disease of [place] coronary artery without angina pectoris Status: Chronic Assessment and Plan: Patient with recent history of NH status post stent x1 to the RCA -[facility] records show an echocardiogram with a diastolic dysfunction grade 3, EF of 56% 10/26/2022 echocardiogram showed EF of 60-65%, moderate increased LV wall thickness, grade 1 diastolic dysfunction, RV systolic function is mildly reduced mild pulmonary hypertension with RVSP of 44 mmHg, no aortic valve stenosis, trace mitral valve regurg, trace tricuspid valve regurg Patient has been on Plavix, aspirin, pravastatin, losartan and amlodipine at home -Dr. Chan discuss with Cardiology and patient currently on Plavix and aspirin -continue pravastatin -home losartan and amlodipine on hold at this time (6) Diabetes: Code(s): E11.9 - Type 2 diabetes mellitus without complications Status: Chronic Assessment and Plan: Patient has a history of diabetes on oral hypoglycemics at home -continue Accu-Cheks and sliding scale insulin -continue Lantus, hyperglycemia likely related to steroids -hemoglobin A1c is 6.8 (7) GERD (gastroesophageal reflux disease): Code(s): K21.9 - Gastro-esophageal reflux disease without esophagitis Status: Acute Assessment and Plan: Continue Protonix (8) Acute kidney injury: Code(s): N17.9 - Acute kidney failure, unspecified Status: Acute Assessment and Plan: Acute kidney injury with creatinine of 1.4 on admission -10/27/2022: Creatini
--- NOTE | 2022-10-29 10:43 | PCFNICU ---
ICU Rounding Note: Pt current nutrition is Vital AF 1.2 at 70 ml/hr. Last recorded weight is 82.1 kg. Bowel Motility:Last reported BM 10/24 Labs Reviewed:Glu 220, BUN 68, Alb 2.6, Hct 26.5,Hgb 8.2 Meds Noted:Fentanyl, Propofol 50 mcgs, NovoLog, Vancomycin,Lantus Skin: WNL Additional Notes: Patient remains on Vital AF 1.2 at 70 ml/hr and tolerating per nursing. Flush 30 ml q 4 hours. Patient requires more sedation today. Will monitor weight, labs, skin, meds, tube feedings tolerance in ICU rounds and reassessing every Wednesday and Wednesday.
[2022-10-29] MEDS: CEFEPIME 2 GM/NS 50 ML 2 GM/50 ML BAG IVPB ×2 (11:43→20:57)
[2022-10-29] MEDS: methylPREDNISolone SOD SUCC 125 MG VIAL 60 MG IV PUSH (11:48)
[2022-10-29 12:04] LABS: Glucose Point of Care 216 mg/dl (65-105)
--- NOTE | 2022-10-29 12:04 | PM.IMPN ---
Progress Note: A&P Assessment and Plan (1) Acute and chronic respiratory failure with hypoxia: Code(s): J96.21 - Acute and chronic respiratory failure with hypoxia Status: Acute Assessment and Plan: Patient presented with worsening shortness of breath x1 day, likely related to bilateral infiltrates/pneumonia, possible COPD and/or pulmonary fibrosis flare/exacerbation, pulmonary edema -intubated on 10/25/2022, ETT exchange on 10/27/2022 due to cuff leak - 10/29 worsening hypoxia and increased oxygen requirement overnight. Chest x-ray shows diffuse pulmonary infiltrates. Patient asynchronous with the ventilator -currently in CMV mode. FiO2 100%. I have increase PEEP to 12 -continue sedation with Versed fentanyl and propofol -rocuronium 50 mg IV x1 (2) Pneumonia: Code(s): J18.9 - Pneumonia, unspecified organism Status: Acute Assessment and Plan: Sputum cultures have been obtained and pending -continue antibiotics as above (3) Pulmonary fibrosis: Code(s): J84.10 - Pulmonary fibrosis, unspecified Status: Chronic Assessment and Plan: Patient has a history of pulmonary fibrosis, follows up with the manager of financial reporting at [facility] -patient is on nintedanib which is home med for pulmonary fibrosis See above (4) COPD (chronic obstructive pulmonary disease): Code(s): J44.9 - Chronic obstructive pulmonary disease, unspecified Status: Chronic Assessment and Plan: Continue mechanical ventilation, steroids, bronchodilators (5) CAD (coronary artery disease): Code(s): I25.10 - Atherosclerotic heart disease of [place] coronary artery without angina pectoris Status: Chronic Assessment and Plan: Patient with recent history of [place] status post stent x1 to the [facility] records show an echocardiogram with a diastolic dysfunction grade 3, EF of 56% (6) Diabetes: Code(s): E11.9 - Type 2 diabetes mellitus without complications Status: Chronic Assessment and Plan: Patient has a history of diabetes on oral hypoglycemics at home -continue Accu-Cheks and sliding scale insulin -continue Lantus, hyperglycemia likely related to steroids -hemoglobin A1c is 6.8 (7) GERD (gastroesophageal reflux disease): Code(s): K21.9 - Gastro-esophageal reflux disease without esophagitis Status: Acute Assessment and Plan: Continue Protonix (8) Acute kidney injury: Code(s): N17.9 - Acute kidney failure, unspecified Status: Acute Assessment and Plan: Acute kidney injury with creatinine of 1.4 on admission -10/27/2022: Creatinine up to 1.6 - 10/27: Given 1000 ml NS IV fluids, with improvement in creatinine -10/27/2022: Renal ultrasound was unremarkable with no stones, masses or hydronephrosis -urine lytes reflective of prerenal picture, urine eosinophils are negative -in light of worsening hypoxia chest x-ray I have started patient on Lasix --continue to monitor urine output, renal function and electrolytes -nephrology following (9) Pancytopenia: Code(s): D61.818 - Other pancytopenia Status: Acute Assessment and Plan: Pancytopenia -Could be bone marrow suppression -appreciate Hematology-Oncology evaluation and recommendation -folic acid and B12 were within normal limits -low iron levels, patient has been started on IV iron per Hematology -stool for occult blood still pending -10/27: patient anemic this morning with hemoglobin of 6.3, no obvious bleeding noted, will transfuse 1 unit of packed RBCs. -hemoglobin remains low but stable -pancytopenia stable -HIT workup pending Plan DVT prophylaxis: SCDs, holding Lovenox due to severe anemia and thrombocytopenia Stress ulcer prophylaxis: Protonix IV q.12 hours Nutrition: Tolerating tube feeds Code Status: Full code Spoke to patient's 2 sisters at bedside and daughter by phone. I updated them with patient's current status including david
[2022-10-29 12:43] LABS: Influenza A QL RT-PCR Negative (Negative); Influenza B QL RT-PCR Negative (Negative); RSV RNA, RT-PCR Negative (Negative); SARS-CoV-2 RNA PCR Positive
--- NOTE | 2022-10-29 12:43 | PM.PNNEP ---
Progress Note: A&P Assessment and Plan (1) Acute kidney injury: Code(s): N17.9 - Acute kidney failure, unspecified Status: Acute Assessment and Plan: slow improvement/resolving presumably normal baseline creatinine creatinine 1.4mg/dl on admission but came down to 1.1 - 1.2mg/dl creatinine increased to 1.6mg/dl on 10/27/22 suspect multifactorial prerenal factors contrast exposure (CTA chest on 10/25/22) hypoxia anemia (drop in H/H by AM labs noted) ARB use [employer] evaluation to date: renal ultrasound unremarkable urine electrolytes prerenal urine eosinophils negative CPK low follow repeat labs and UOP (2) Acute and chronic respiratory failure with hypoxia: Code(s): J96.21 - Acute and chronic respiratory failure with hypoxia Status: Acute Assessment and Plan: multifactorial: possible pneumonia COPD 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 empiric antibiotics follow culture data on steroids and bronchodilators Pulmonary following (3) Pulmonary fibrosis: Code(s): J84.10 - Pulmonary fibrosis, unspecified Status: Chronic Assessment and Plan: known history of this continue nintedanib Pulmonary following (4) COPD (chronic obstructive pulmonary disease): Code(s): J44.9 - Chronic obstructive pulmonary disease, unspecified Status: Chronic Assessment and Plan: complicates #2 and #3 continue current therapy (ventilator support, antibiotics, steroids, bronchodilators) (5) Pancytopenia: Code(s): D61.818 - Other pancytopenia Status: Acute Assessment and Plan: as noted by CBC Oncology following (6) Diabetes: Code(s): E11.9 - Type 2 diabetes mellitus without complications Status: Chronic Assessment and Plan: follow accuchecks glycemic control per automotive manufacturer Will continue to follow. Subjective Date/time seen: 10/29/22 12:43 Deteriorating respiratory status noted in the last 24 hours -- increased work of breathing/tachypnea associated with hypoxia overnight requiring increase use of propofol/increased sedation along with several ventilator adjustments -- including 100% FiO2 as well as increased peep; steroids adjusted by Pulmonary and recommendations noted for possible transfer given his limited response to interventions to date with regard to his respiratory failure. Exam Narrative: General: elderly AA male intubated and on mechanical ventilation Heart: mild tachycardia butnormal S1 and S2; no rub Lungs: voarse breath sound bilaterally with some rales; decreased at bases Abdomen: soft, nontender, nondistended, positive bowel sounds Extremities: no cyanosis or clubbing; trace - 1+ edema Skin: warm and intact Objective Data Vital Signs Vital Signs: Vital Signs Temp Pulse Resp BP Pulse Ox O2 Del Method FiO2 10/29/22 12:00 96 100 10/29/22 11:15 98.9 F 98 26 H 98 10/29/22 11:01 98.9 F 99 23 H 111/62 99 10/29/22 11:00 98.9 F 102 H 24 H 99 10/29/22 10:45 99.0 F 99 24 H 97 10/29/22 10:31 99.0 F 101 H 24 H 117/62 96 10/29/22 10:30 99.0 F 101 H 24 H 96 10/29/22 10:15 99.0 F 106 H 24 H 96 10/29/22 10:03 99.0 F 104 H 26 H 123/59 L 95 10/29/22 10:01 99.0 F 103 H 23 H 121/56 L 96 10/29/22 10:00 99.0 F 106 H 26 H 95 10/29/22 09:45 99.0 F 109 H 24 H 94 10/29/22 09:31 98.9 F 111 H 24 H 135/70 95 10/29/22 09:30 98.9 F 113 H 24 H 95 10/29/22 09:17 98.8 F 120 H 24 H 163/82 H 92 10/29/22 09:15 98.8 F 123 H 22 H 88 L 10/29/22 09:06 98.7 F 157 H 28 H 210/104 H 88 L 10/29/22 09:05 98.7 F 156 H 27 H 189/123 H 88 L 10/29/22 09:01 98.6 F 135 H 30 H 193/106 H 93 10/29/22 09:00 98.7 F 122 H 28 H 95 10/29/22 08:45 98.6 F 105 H 23 H 100 10/29/22 08:30 98.5 F 104 H
--- NOTE | 2022-10-29 12:43 | P.PNNP_ITS ---
Progress Note: A&P Assessment and Plan (1) Acute kidney injury: Code(s): N17.9 - Acute kidney failure, unspecified Status: Acute Assessment and Plan: * slow improvement/resolving * presumably normal baseline creatinine * creatinine 1.4mg/dl on admission but came down to 1.1 - 1.2mg/dl * creatinine increased to 1.6mg/dl on 10/27/22 * suspect multifactorial * prerenal factors * contrast exposure (CTA chest on 10/25/22) * hypoxia * anemia (drop in H/H by AM labs noted) * ARB use [employer]ER[employer] ARTIST * evaluation to date: * renal ultrasound unremarkable * urine electrolytes prerenal * urine eosinophils negative * CPK low * follow repeat labs and UOP (2) Acute and chronic respiratory failure with hypoxia: Code(s): J96.21 - Acute and chronic respiratory failure with hypoxia Status: Acute Assessment and Plan: * multifactorial: * possible pneumonia * COPD * known pulmonary fibrosis * exacerbation of COPD + UIP * on mechanical ventilation * empiric antibiotics * follow culture data * on steroids and bronchodilators * Pulmonary following (3) Pulmonary fibrosis: Code(s): J84.10 - Pulmonary fibrosis, unspecified Status: Chronic Assessment and Plan: * known history of this * continue nintedanib * Pulmonary following (4) COPD (chronic obstructive pulmonary disease): Code(s): J44.9 - Chronic obstructive pulmonary disease, unspecified Status: Chronic Assessment and Plan: * complicates #2 and #3 * continue current therapy (ventilator support, antibiotics, steroids, bronchodilators) (5) Pancytopenia: Code(s): D61.818 - Other pancytopenia Status: Acute Assessment and Plan: * as noted by CBC * Oncology following (6) Diabetes: Code(s): E11.9 - Type 2 diabetes mellitus without complications Status: Chronic Assessment and Plan: * follow accuchecks * glycemic control per pre coder Will continue to follow. Subjective Date/time seen: 10/29/22 12:43 Deteriorating respiratory status noted in the last 24 hours -- increased work of breathing/tachypnea associated with hypoxia overnight requiring increase use of propofol/increased sedation along with several ventilator adjustments -- including 100% FiO2 as well as increased peep; steroids adjusted by Pulmonary and recommendations noted for possible transfer given his limited response to interventions to date with regard to his respiratory failure. Exam Narrative: General: elderly AA male intubated and on mechanical ventilation Heart: mild tachycardia butnormal S1 and S2; no rub Lungs: voarse breath sound bilaterally with some rales; decreased at bases Abdomen: soft, nontender, nondistended, positive bowel sounds Extremities: no cyanosis or clubbing; trace - 1+ edema Skin: warm and intact Objective Data Vital Signs Vital Signs: Vital Signs Temp Pulse Resp BP Pulse Ox O2 Del Method FiO2 10/29/22 12:00 96 100 10/29/22 11:15 98.9 F 98 26 H 98 10/29/22 11:01 98.9 F 99 23 H 111/62 99 10/29/22 11:00 98.9 F 102 H 24 H 99 10/29/22 10:45 99.0 F 99 24 H 97 10/29/22 10:31 99.0 F 101 H 24 H 117/62 96 10/29/22 10:30 99.0 F 101 H 24 H 96 10/29/22 10:15 99.0 F 106 H 24 H 96
[2022-10-29] MEDS: PROPOFOL IV EMULSION 100 ML 9.22 MG IV CONT ×2 (13:03→16:21)
[2022-10-29] MEDS: FENTANYL 2,500MCG/NS250ML(*CRX 2,500 MCG/250 ML BAG 17.5 MCG IV CONT (13:21)
[2022-10-29] MEDS: BARICITINIB 2 MG TABLET 4 MG FEED TUBE (16:03)
[2022-10-29 17:21] LABS: Heparin Induced Platelet Antib Negative (Negative)
[2022-10-29 18:00] LABS: Mycoplasma IgM Antibody Titer 43 U/mL (<770)
[2022-10-29 18:07] LABS: Glucose Point of Care 243 mg/dl (65-105)
[2022-10-29] MEDS: PROPOFOL IV EMULSION 100 ML 18.43 MG IV CONT (20:54)
[2022-10-29] MEDS: INSULIN GLARGINE (*BKC) 100 UNITS/ML 28 UNITS SUB-Q (20:56)
[2022-10-29] MEDS: PRAVASTATIN SODIUM 20 MG TABLET 40 MG FEED TUBE (20:57)
[2022-10-30] VITALS (78 sets, daily range): BP systolic 87–161; BP diastolic 44–74; PULSE 76–121; RESP 14–31; TEMP 36.1–36.8; O2SAT 88–100
[2022-10-30 00:33] LABS: Glucose Point of Care 258 mg/dl (65-105)
[2022-10-30] MEDS: INSULIN ASPART (*BKC) 100 UNITS/ML SUB-Q ×3 (00:53→17:23)
[2022-10-30] MEDS: MIDAZOLAM 100MG/NS 100ML(*CRX) 100 MG/100 ML BAG 8 MG IV CONT ×2 (03:23→15:54)
[2022-10-30] MEDS: FENTANYL 2,500MCG/NS250ML(*CRX 2,500 MCG/250 ML BAG 17.5 MCG IV CONT (03:26)
[2022-10-30] MEDS: CENTRAL LINE FLUSH 10 ML IV PUSH ×3 (03:28→20:08)
[2022-10-30 04:03] LABS: Basophils Percent Auto 0.3 % (0.2-1.2); Eosinophils Percent Auto 0.3 % (0-4.4); Hematocrit 26.9 % (42.0-52.0); Hemoglobin 8.2 g/dL (14.0-18.0); Immature Granulocyte Absolute 0.12 K/mm3 (0.00-0.031); Immature Granulocyte Percent A 4.2 % (0-0.5); Immature Platelet Fraction Pct 5.3 % (0.9-11.2); Lymphocytes Absolute Auto 0.56 K/mm3 (0.9-3.2); Lymphocytes Percent Auto 19.5 % (18.3-44.2); Mean Corpuscular HGB Conc 30.5 g/dl (32-36); Mean Corpuscular Hemoglobin 28.9 pg (26-34); Mean Corpuscular Volume 94.7 fl (80-100); Mean Platelet Volume 11.5 fl (7.4-10.4); Monocytes Absolute Auto 0.3 K/mm3 (0.1-0.6); Monocytes Percent Auto 9.4 % (2.6-8.5); Neutrophils Absolute Auto 1.9 K/mm3 (1.3-6.7); Neutrophils Percent Auto 66.3 % (45.5-73.1); Platelet Count Result 83 k/mm3 (150-375); Red Blood Count 2.84 M/mm3 (4.6-6.20); Red Cell Distribution Width 16.5 % (11.5-14.5); White Blood Count 2.9 K/mm3 (4.5-10.0)
[2022-10-30 04:11] LABS: Alanine Aminotransferase 30 U/L (6-50); Albumin Level 2.6 g/dL (3.5-5.1); Alkaline Phosphatase 100 U/L (38-126); Anion Gap 8 mmol/L (8-16); Aspartate Amino Transferase 20 U/L (17-59); Bilirubin,Total 0.5 mg/dL (0.2-1.3); Blood Urea Nitrogen 82 mg/dL (9-20); Calcium 8.2 mg/dL (8.4-10.2); Carbon Dioxide 23 mmol/L (22-30); Chloride 102 mmol/L (98-107); Estimated CRCL calculation 44 ml/min; Estimated Glomerular Filt Rate > 60; Glucose 213 mg/dL (65-110); Lipase 19 U/L (23-300); Magnesium 2.1 mg/dL (1.6-2.3); Phosphorus 4.2 mg/dL (2.5-4.5); Potassium 4.9 mmol/L (3.4-5.0); Sodium 133 mmol/L (137-145)
[2022-10-30 04:13] LABS: INR 1.2; Prothrombin Time 14.6 Seconds (11.1-14.7)
[2022-10-30 04:14] LABS: Partial Thromboplastin Time 28.8 SECONDS (22.3-36.8)
[2022-10-30 04:34] LABS: Vancomycin Trough 22.1 ug/mL (10.0-20.0)
[2022-10-30 04:39] LABS: Thyroid Stimulating Hormone 0.071 uIU/mL (0.465-4.680)
[2022-10-30] MEDS: LEVALBUTEROL NEB 1.25 MG/3 ML INHALATION ×4 (05:38→20:45)
[2022-10-30] MEDS: IPRATROPIUM BR 0.02% INH SOLN 0.5 MG/2.5 ML VIAL INHALATION ×4 (05:38→20:45)
[2022-10-30 06:02] LABS: Alveolar/Arterial O2 Gradient 217.8 mmHg; Base Excess ABG -2.3 mEq/l (+/-2.0); Carboxyhemoglobin 0.7 % THb (0-2.0); Fractional Inspired Oxygen 50 %; HCO3 ABG 25.6 mEq/l (22.0-26.0); Oxygen Content ABG 15.3 %vol (16.0-22.0); Oxygen Saturation ABG 91.9 % (95.0-100.0); Oxyhemoglobin 91.8 % THb (90.0-100.0); PCO2 ABG 58.9 mmHg (35.0-45.0); PO2 ABG 72.4 mmHg (80.0-100.0); PO2 FiO2 Ratio Arterial Blood 1.45 %; Reduced Hemoglobin 7.5 %THb (0-5.0); Total Hemoglobin 11.8 g/dL (12.0-18.0)
[2022-10-30 06:04] LABS: Device VENTILATOR; Modified Allen's Test Pass; Site Drawn RIGHT RADIAL; pH ABG 7.256 (7.350-7.450)
[2022-10-30 06:05] LABS: Arterial Blood Gas Vent Mode CMV; Arterial Blood Gas Ventilator rate 24 /MIN
[2022-10-30 06:06] LABS: Arterial Blood Gas PEEP 12 cmH2O; Arterial Blood Gas Tidal Volume 500 ml
[2022-10-30] MEDS: PROPOFOL IV EMULSION 100 ML 23.04 MG IV CONT ×3 (06:35→21:14)
--- NOTE | 2022-10-30 08:05 | PM.PNPUL ---
Progress Note: A&P Assessment and Plan (1) Pulmonary fibrosis: Code(s): J84.10 - Pulmonary fibrosis, unspecified Status: Chronic Assessment and Plan: Patient with a history of IPF/UIP followed at [facility]. PFTs 04/04/2021 with a moderate restrictive abnormality (TLC 67%, FEV1 66%, FEV1: FVC ratio 84%, moderately decreased DLCO that normalized when adjusted for alveolar volume). patient is chronically on 2 L at night. Patient has been taking Ofev at least since 2018. 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 Patient also had covert on 09/14/2022 treated with 5 days of remdesivir and 10 days of steroids. patient was recently admitted to [facility] from 09/2808/21/2025 and developed respiratory failure requiring high-flow nasal cannula treated with Lasix, antibiotics and steroids for possible acute exacerbation of IPF. On discharge the note states he was weaned to 2-4 L oxygen and was to finish a [address] angiogram of the chest now is consistent with probable UIP with basilar and peripheral interstitial infiltrates with honeycombing, lower lobe bronchiectasis as well as diffuse patchy ground-glass infiltrates. Solumedrol 60 Q 6. 10/26/22 ? Patient remains intubated and sedated with propofol.? Required 1 L? normal saline for low blood pressure.? currently is intubated on CMV rate of 22, breathing 24, tidal volume 500, 70% and 5 of peep. ABG 7.41/41/60.? chest x-ray shows continued diffuse interstitial alveolar infiltrate. Plan: At this time ago I agree with treatment for acute exacerbation of IPF which may have worsened with his prednisone taper. Patient was started on Solu-Medrol on 10/24/2022 and is currently on Solu-Medrol 60 mg IV q.6 hours and will continue this dose for 3 days. Will then decrease to prednisone equivalent of 1 milligram/kilos per day. Repeat COVID negative. 10/27/2022. Patient remains intubated and currently sedated with fentanyl for his spontaneous awakening trial. He was able to sealer operator hands to verbal commands. CMV 22 with a breath rate of 28, tidal volume 500, FiO2 40% peep of 5 with peak pressure is 13. Overall oxygenation has improved. Patient had an ABG on 60% and a peep of 5 of 7.35/44/161. Chest x-ray stable diffuse interstitial alveolar infiltrates. white blood cell count 2.6, creatinine 1.6, hemoglobin 6.3. The patient has no pulmonary secretions. Patient is receiving 1 unit packed red blood cells now an aspirin and Plavix have been held Plan: continue Solu-Medrol 60 mg IV q.6 hours. 10/28 Patient remains intubated and currently sedated with fentanyl and versed CMV 20 with a breath rate of 20, tidal volume 500, FiO2 50% peep of 8 with peak pressure is 23. Patient had an ABG on 50% and a peep of 8 of 7.33/45/87. Chest x-ray stable diffuse interstitial alveolar infiltrates. white blood cell count 3.9, creatinine 1.4, hemoglobin 7.5. chest x-ray with stable diffuse interstitial alveolar infiltrates bilaterally. Plan: DC solumedrol and prednisone 60 mg q.day started. 10/29 Patient with worsening tachypnea and hypoxemia started at 8:00 p.m. last night requiring additiona of propofol, increased FiO2 from 50-100 and this morning required increase peep from 8-12 and rocuronium x1. Currently remains intubated, sedated with fentanyl, Versed and propofol. Patient is on CMV a rate of 24, tidal volume 500, peep of 12 and 90% FiO2 with a peak pressure of 58. ABG on 100% and peep of 8 was 7.29 / 50/71. Chest x-ray with worsening interstitial infiltrates bilaterally no focal consolidation and no pneumothorax. Patient is 4.1 L positive in the last 48 hours and 6.8 L positive since admission. COVID positive. Plan: Will place the patient back on Solu-Medrol 60 Q 6. patient with worsening oxygenation which could be due to fl
--- NOTE | 2022-10-30 08:27 | PM.IMPN ---
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 (2) Pneumonia: Code(s): J18.9 - Pneumonia, unspecified organism Status: Acute Assessment and Plan: -continue antibiotics as above (3) Pulmonary fibrosis: Code(s): J84.10 - Pulmonary fibrosis, unspecified Status: Chronic Assessment and Plan: Patient has a history of pulmonary fibrosis, follows up with the communications lead at [facility] -patient is on nintedanib which is home med for pulmonary fibrosis (4) COPD (chronic obstructive pulmonary disease): Code(s): J44.9 - Chronic obstructive pulmonary disease, unspecified Status: Chronic Assessment and Plan: Continue mechanical ventilation, steroids, bronchodilators (5) CAD (coronary artery disease): Code(s): I25.10 - Atherosclerotic heart disease of [place] coronary artery without angina pectoris Status: Chronic Assessment and Plan: Patient with recent history of [place] status post stent x1 to the [facility] records show an echocardiogram with a diastolic dysfunction grade 3, EF of 56% (6) Diabetes: Code(s): E11.9 - Type 2 diabetes mellitus without complications Status: Chronic Assessment and Plan: Patient has a history of diabetes on oral hypoglycemics at home -continue Accu-Cheks and sliding scale insulin -continue Lantus, hyperglycemia likely related to steroids -hemoglobin A1c is 6.8 (7) GERD (gastroesophageal reflux disease): Code(s): K21.9 - Gastro-esophageal reflux disease without esophagitis Status: Acute Assessment and Plan: Continue Protonix (8) Acute kidney injury: Code(s): N17.9 - Acute kidney failure, unspecified Status: Acute Assessment and Plan: --continue to monitor urine output, renal function and electrolytes -nephrology following (9) Pancytopenia: Code(s): D61.818 - Other pancytopenia Status: Acute Assessment and Plan: Pancytopenia -Could be bone marrow suppression -appreciate Hematology-Oncology evaluation and recommendation -folic acid and B12 were within normal limits -low iron levels, patient has been started on IV iron per Hematology -stool for occult blood still pending -10/27: patient anemic this morning with hemoglobin of 6.3, no obvious bleeding noted, will transfuse 1 unit of packed RBCs. -hemoglobin remains low but stable -pancytopenia stable -HIT workup pending Subjective Date/time seen: 10/30/22 08:27 sedated, intubated. Review of Systems Review of Systems: ROS unobtainable: Yes unobtainable due to endotracheal tube Exam Narrative: General: Patient currently intubated and sedated, in no acute distress HEENT:? Pupils equal reactive, sclera is clear Neck:? Supple Respiratory:? Bilateral coarse breath sounds, rales, adequate air entry, decreased at bases, no wheezing Cardiac:? Regular in rhythm, S1-S2 is normal Abdomen:? Soft, nontender, nondistended, hypoactive bowel sounds Extremities:? Bilateral lower extremity pitting edema and bilateral pedal edema is improved, palpable pedal pulses Neuro:? Intubated and sedated with propofol Versed and fentanyl, does not open his eyes or follow simple commands Skin:? No lesions noted Psych:? Unable to assess at this time Objective Data Vital Signs Vital Signs: Vital Signs - 24 hr 10/29/22 08:36 10/29/22 10:05 10/29/22 11:00 Temperature Pulse Rate 109 H 109 H 97 Respiratory Rate 24 H 23 H Blood Pressure Pulse Oxi
[2022-10-30 08:51] LABS: Free T4 Free Thyroxine 0.97 ng/mL (0.78-2.19)
--- NOTE | 2022-10-30 09:27 | WPDINTPN ---
Progress Note: A&P Assessment and Plan (1) Acute and chronic respiratory failure with hypoxia: Code(s): J96.21 - Acute and chronic respiratory failure with hypoxia Status: Acute Assessment and Plan: Patient presented with worsening shortness of breath x1 day, likely related to bilateral infiltrates/pneumonia, possible COPD and/or pulmonary fibrosis flare/exacerbation, pulmonary edema COVID PCR was negative on 10/24 and 10/26 but came back positive on 10/29 -intubated on 10/25/2022, ETT exchange on 10/27/2022 due to cuff leak - 10/29 worsening hypoxia and increased oxygen requirement overnight. Chest x-ray shows diffuse pulmonary infiltrates. Patient asynchronous with the ventilator. Peep was increased and patient was given a dose of paralytic with increased sedation -currently in CMV mode. FiO2 down to 50% %. I will decrease the PEEP to 10 -permissive hypercapnia as ventilation is limited by the peak pressures. I will add bicarb to treat acidosis -continue sedation with Versed fentanyl and propofol -will use neuromuscular benitez as needed -continue Lasix -will complete azithromycin (10/25) today and continue cefepime and vancomycin for 7 days (10/25) -continue bronchodilators -switch steroids back to dexamethasone 6 mg IV q.day -started Barcitinib per tube -isolation -Discussed with urban design consultant. -10/25/2022 CTA chest: No CT evidence of acute pulmonary embolus. Pulmonary opacities likely represent moderate pulmonary edema overlying severe chronic changes of UIP. Infection is not excluded. Small bilateral pleural effusions. Mediastinal lymphadenopathy. (2) Pneumonia due to COVID-19 virus: Code(s): U07.1 - COVID-19; J12.82 - Pneumonia due to coronavirus disease 2019 Status: Acute Assessment and Plan: See above (3) Pneumonia: Code(s): J18.9 - Pneumonia, unspecified organism Status: Acute Assessment and Plan: Sputum cultures have been obtained and pending -continue antibiotics as above 10/26/2022: Sputum cultures negative except yeast which is likely colonization 10/25/2022 MRSA screen: No MRSA 10/25/2022 urine cultures negative 10/25/2022 currently blood cultures have been negative (4) Pulmonary fibrosis: Code(s): J84.10 - Pulmonary fibrosis, unspecified Status: Chronic Assessment and Plan: Patient has a history of pulmonary fibrosis, follows up with the urban design consultant at [facility] -patient is on nintedanib which is home med for pulmonary fibrosis See above (5) COPD (chronic obstructive pulmonary disease): Code(s): J44.9 - Chronic obstructive pulmonary disease, unspecified Status: Chronic Assessment and Plan: Continue mechanical ventilation, steroids, bronchodilators (6) CAD (coronary artery disease): Code(s): I25.10 - Atherosclerotic heart disease of [place] coronary artery without angina pectoris Status: Chronic Assessment and Plan: Patient with recent history of [place] status post stent x1 to the [facility] records show an echocardiogram with a diastolic dysfunction grade 3, EF of 56% 10/26/2022 echocardiogram showed EF of 60-65%, moderate increased LV wall thickness, grade 1 diastolic dysfunction, RV systolic function is mildly reduced mild pulmonary hypertension with RVSP of 44 mmHg, no aortic valve stenosis, trace mitral valve regurg, trace tricuspid valve regurg Patient has been on Plavix, aspirin, pravastatin, losartan and amlodipine at home -Dr. Chan discuss with Cardiology and patient currently on Plavix and aspirin -continue pravastatin -home losartan and amlodipine on hold at this time (7) Diabetes: Code(s): E11.9 - Type 2 diabetes mellitus without complications Status: Chronic Assessment and Plan: Patient has a history of diabetes on oral hypoglycemics at home -continue Accu-Cheks and sliding scale insulin -continue Lantus, hyperglycemia likely related to steroids -hem
[2022-10-30 10:06] LABS: Adenovirus DNA Not Detected; Human Metapneumovirus Not Detected; Influenza A Not Detected; Influenza B Not Detected; Rhinovirus/Enterovirus Not Detected
[2022-10-30 10:07] LABS: Coronavirus 229E Not Detected; Coronavirus HKU1 Not Detected; Coronavirus NL63 Not Detected; Coronavirus OC43 Not Detected; Human Parainfluenza Virus 1 Not Detected; Human Parainfluenza Virus 2 Not Detected; Human Parainfluenza Virus 3 Not Detected; Human Parainfluenza Virus 4 Not Detected; Human RSV B Not Detected
[2022-10-30 10:08] LABS: Chlamydophila pneumoniae Not Detected; Mycoplasma pneumoniae Not Detected
[2022-10-30] MEDS: BARICITINIB 2 MG TABLET 4 MG FEED TUBE (10:25)
[2022-10-30] MEDS: PANTOPRAZOLE SODIUM IV 40 MG VIAL IV PUSH ×2 (10:26→20:06)
[2022-10-30] MEDS: CLOPIDOGREL BISULFATE 75 MG TABLET PO (10:26)
[2022-10-30] MEDS: MINERAL OIL/WHITE PETROLATUM OINTMENT 1 APPLIC EACH EYE ×2 (10:27→20:06)
[2022-10-30] MEDS: CEFEPIME 2 GM/NS 50 ML 2 GM/50 ML BAG IVPB ×2 (10:27→23:50)
--- NOTE | 2022-10-30 10:34 | PCNFU ---
Nutrition Follow-Up Complete: Inadequate Oral Intake as related to mechanical ventilation as evidenced by NPO Goal: Meet estimated nutritional needs Patient will continue current goal. Pt current nutrition is Vital AF 1.2 at 70 ml/hr. Last recorded weight is 80.3 kg. Bowel Motility: +Bm reported 10/30 Labs Reviewed:Glu 213, Na 133, Alb 2.6, Hct 26.9,Hgb 8.2 Meds Noted:Propofol at 30 isv=744 kcals, Fentanyl, Decadron, Protonix Skin: WNL Additional Notes: Patient remains on mechanical vent and tube feedings of Vital AF 1.2 at 70ml/hr and tolerating. Tube feeding providing 1848 kcals/116 gm protein/1249 ml water. Propofol providing an additional 365 kcals. Total Nutrition: 2213 kcals/116 gms protein/1249 ml water. Flush 30 ml q 4 hours. Agree with diet orders. Will monitor weight, labs, skin, meds, tube feedings tolerance in ICU rounds and reassessing every Wednesday and Wednesday.
[2022-10-30] MEDS: PROPOFOL IV EMULSION 100 ML 9.22 MG IV CONT (10:58)
[2022-10-30] MEDS: FUROSEMIDE INJ 40 MG/4 ML VIAL IV PUSH (12:08)
--- NOTE | 2022-10-30 12:17 | PM.PNNEP ---
Progress Note: A&P Assessment and Plan (1) Acute kidney injury: Code(s): N17.9 - Acute kidney failure, unspecified Status: Acute Assessment and Plan: slow improvement noted presumably normal baseline creatinine creatinine 1.4mg/dl on admission but came down to 1.1 - 1.2mg/dl creatinine increased to 1.6mg/dl on 10/27/22 suspect multifactorial etiology: prerenal factors contrast exposure (CTA chest on 10/25/22) hypoxia anemia ARB use FORECLOSURE FIELD INSPECTOR evaluation to date: renal ultrasound unremarkable urine electrolytes prerenal urine eosinophils negative CPK low elevated BUN likely secondary to steroid use follow repeat labs and UOP (2) Acute and chronic respiratory failure with hypoxia: Code(s): J96.21 - Acute and chronic respiratory failure with hypoxia Status: Acute Assessment and Plan: multifactorial: possible pneumonia COPD 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 pulmonary edema(?) COVID-19 on mechanical ventilation empiric antibiotics follow culture data on steroids and bronchodilators Pulmonary following (3) COVID-19 virus infection: Code(s): U07.1 - COVID-19 Status: Acute Assessment and Plan: as noted by positive testing on decadron and baricitinib ventilator support IV diuretics PRN to promote dry lung strategy continue supportive therapy (4) Pulmonary fibrosis: Code(s): J84.10 - Pulmonary fibrosis, unspecified Status: Chronic Assessment and Plan: known history of this on steroids Pulmonary following with recommendations noted (5) COPD (chronic obstructive pulmonary disease): Code(s): J44.9 - Chronic obstructive pulmonary disease, unspecified Status: Chronic Assessment and Plan: complicates #2, #3, and #4 continue current therapy (ventilator support, antibiotics, steroids, bronchodilators) (6) Pancytopenia: Code(s): D61.818 - Other pancytopenia Status: Acute Assessment and Plan: as noted by CBC Oncology following (7) Diabetes: Code(s): E11.9 - Type 2 diabetes mellitus without complications Status: Chronic Assessment and Plan: follow accuchecks glycemic control per braid folder Will continue to follow. Subjective Date/time seen: 10/30/22 12:17 Remains intubated/sedated and on mechanical ventilation; stable hemodynamics noted without the need for vasopressor therapy; COVID-19 testing positive yesterday so started on baricitinib and solumedrol changed to decadron; no other acute issues/evetns overnight or earlier this morning. Exam Narrative: General: elderly AA male intubated/sedated and on mechanical ventilation Heart: normal S1 and S2; no rub Lungs: coarse breath sound bilaterally with some rales; decreased at bases Abdomen: soft, nontender, nondistended, positive bowel sounds Extremities: no cyanosis or clubbing; trace - 1+ edema Skin: no rash Objective Data Vital Signs Vital Signs: Vital Signs Temp Pulse Resp BP Pulse Ox O2 Del Method FiO2 10/30/22 12:00 97 F L 94 23 H 123/67 93 10/30/22 12:00 60 10/30/22 12:00 94 23 H 97 Mechanical Ventilation 60 10/30/22 12:00 94 10/30/22 11:36 89 94 Mechanical Ventilation 50 10/30/22 10:57 96.9 F L 89 23 H 90 10/30/22 10:27 97.0 F L 94 10/30/22 10:10 96.9 F L 88 24 H 93 10/30/22 09:57 96.9 F L 89 24 H 10/30/22 09:15 96.9 F L 87 24 H 10/30/22 06:11 84 18 10/30/22 05:44 97.2 F L 82 24 H 95 10/30/22 04:59 97.2 F L 86 24 H 98 10/30/22 04:34 97.0 F L 86 26 H 98 10/30/22 04:00 96.9 F L 89 24 H 96 10/30/22 02:35 97.1 F L 86 24 H 99 10/30/22 02:20 97.1 F L 87 25 H 99 10/30/22 01:45 97.1 F L 86 24 H 99 10/30/22 01:32 97.1 F L 88 27 H 99 10/30/22 01:31 97.1 F L 87 23 H 117/57 L 99
--- NOTE | 2022-10-30 12:17 | P.PNNP_ITS ---
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 * evaluation to date: * renal ultrasound unremarkable * urine electrolytes prerenal * urine eosinophils negative * CPK low * elevated BUN likely secondary to steroid use * follow repeat labs and UOP (2) Acute and chronic respiratory failure with hypoxia: Code(s): J96.21 - Acute and chronic respiratory failure with hypoxia Status: Acute Assessment and Plan: * multifactorial: * possible pneumonia * COPD * known pulmonary fibrosis * exacerbation of COPD + UIP * pulmonary edema(?) * COVID-19 * on mechanical ventilation * empiric antibiotics * follow culture data * on steroids and bronchodilators * Pulmonary following (3) COVID-19 virus infection: Code(s): U07.1 - COVID-19 Status: Acute Assessment and Plan: * as noted by positive testing * on decadron and baricitinib * ventilator support * IV diuretics PRN to promote dry lung strategy * continue supportive therapy (4) Pulmonary fibrosis: Code(s): J84.10 - Pulmonary fibrosis, unspecified Status: Chronic Assessment and Plan: * known history of this * on steroids * Pulmonary following with recommendations noted (5) COPD (chronic obstructive pulmonary disease): Code(s): J44.9 - Chronic obstructive pulmonary disease, unspecified Status: Chronic Assessment and Plan: * complicates #2, #3, and #4 * continue current therapy (ventilator support, antibiotics, steroids, bronchodilators) (6) Pancytopenia: Code(s): D61.818 - Other pancytopenia Status: Acute Assessment and Plan: * as noted by CBC * Oncology following (7) Diabetes: Code(s): E11.9 - Type 2 diabetes mellitus without complications Status: Chronic Assessment and Plan: * follow accuchecks * glycemic control per recreation attendant Will continue to follow. Subjective Date/time seen: 04/14/23 12:17 Remains intubated/sedated and on mechanical ventilation; stable hemodynamics noted without the need for vasopressor therapy; COVID-19 testing positive yesterday so started on baricitinib and solumedrol changed to decadron; no other acute issues/evetns overnight or earlier this morning. Exam Narrative: General: elderly AA male intubated/sedated and on mechanical ventilation Heart: normal S1 and S2; no rub Lungs: coarse breath sound bilaterally with some rales; decreased at bases Abdomen: soft, nontender, nondistended, positive bowel sounds Extremities: no cyanosis or clubbing; trace - 1+ edema Skin: no rash Objective Data Vital Signs Vital Signs: Vital Signs Temp Pulse Resp BP Pulse Ox O2 Del Method FiO2 10/30/22 12:00 97 F L 94 23 H 123/67 93 10/30/22 12:00 60 10/30/22 12:00 94 23 H 97 Mechanical Ventilation 60 10/30/22 12:00 94
--- NOTE | 2022-10-30 12:40 | PC.NURSE ---
Addendum entered by Millie Villatoro RN 10/30/22 12:44: belongings only to be released to patient or daughter Kerline Original Note: 1200- Locked up $274 [address]unningham in ICU safe. No keys or cell phone with patient
[2022-10-30 13:10] LABS: Glucose Point of Care 183 mg/dl (65-105)
[2022-10-30] MEDS: ROCURONIUM BROMIDE 50 MG/5 ML VIAL IV PUSH (15:02)
[2022-10-30] MEDS: SODIUM BICARBONATE 8.4% 50 MEQ/50 ML SYRINGE 100 MEQ IV PUSH (17:23)
[2022-10-30 17:35] LABS: Glucose Point of Care 299 mg/dl (65-105)
[2022-10-30] MEDS: INSULIN GLARGINE (*BKC) 100 UNITS/ML 28 UNITS SUB-Q (20:06)
[2022-10-30] MEDS: PRAVASTATIN SODIUM 20 MG TABLET 40 MG FEED TUBE (20:08)
[2022-10-30 23:58] LABS: Glucose Point of Care 165 mg/dl (65-105)
[2022-10-31] VITALS (48 sets, daily range): BP systolic 102–136; BP diastolic 48–63; PULSE 79–127; RESP 24–25; TEMP 36.3–36.6; O2SAT 91–99
[2022-10-31] MEDS: LEVALBUTEROL NEB 1.25 MG/3 ML INHALATION ×6 (00:35→23:47)
[2022-10-31] MEDS: IPRATROPIUM BR 0.02% INH SOLN 0.5 MG/2.5 ML VIAL INHALATION ×6 (00:35→23:47)
[2022-10-31] MEDS: PROPOFOL IV EMULSION 100 ML 20.74 MG IV CONT ×5 (01:17→17:53)
[2022-10-31] MEDS: FENTANYL 2,500MCG/NS250ML(*CRX 2,500 MCG/250 ML BAG 10 MCG IV CONT (03:42)
[2022-10-31] MEDS: MIDAZOLAM 100MG/NS 100ML(*CRX) 100 MG/100 ML BAG 8 MG IV CONT ×2 (03:43→16:16)
[2022-10-31 04:58] LABS: Hematocrit 27.3 % (42.0-52.0); Hemoglobin 8.4 g/dL (14.0-18.0); Immature Platelet Fraction Pct 4.9 % (0.9-11.2); Mean Corpuscular HGB Conc 30.8 g/dl (32-36); Mean Corpuscular Hemoglobin 29.2 pg (26-34); Mean Corpuscular Volume 94.8 fl (80-100); Mean Platelet Volume 11.2 fl (7.4-10.4); Platelet Count Result 102 k/mm3 (150-375); Red Blood Count 2.88 M/mm3 (4.6-6.20); Red Cell Distribution Width 16.7 % (11.5-14.5); White Blood Count 4.3 K/mm3 (4.5-10.0)
[2022-10-31 05:18] LABS: Alanine Aminotransferase 26 U/L (6-50); Albumin Level 2.6 g/dL (3.5-5.1); Alkaline Phosphatase 92 U/L (38-126); Anion Gap 5 mmol/L (8-16); Aspartate Amino Transferase 17 U/L (17-59); Bilirubin,Total 0.4 mg/dL (0.2-1.3); Blood Urea Nitrogen 100 mg/dL (9-20); Calcium 8.1 mg/dL (8.4-10.2); Carbon Dioxide 29 mmol/L (22-30); Chloride 101 mmol/L (98-107); Estimated CRCL calculation 38 ml/min; Estimated Glomerular Filt Rate 54; Glucose 163 mg/dL (65-110); Potassium 5.2 mmol/L (3.4-5.0); Sodium 135 mmol/L (137-145); Triglycerides 50 mg/dL (<150)
[2022-10-31 05:35] LABS: Band Neutrophils Percent 1 % (0-6); Eosinophils Absolute Manual 0.12 K/mm3 (0.02-0.5); Eosinophils Percent Manual 3 % (0-4); Large Platelets Present; Lymphocytes Absolute Manual 1.33 K/mm3 (1.1-4.5); Metamyelocytes Percent 1 %; Monocytes Absolute Manual 0.08 K/mm3 (0.1-0.90); Monocytes Percent Manual 2 % (3-9); Myelocytes Percent 2 %; Neutrophils Absolute Manual 2.62 K/mm3 (1.3-6.7); Neutrophils Percent Manual 60 % (46-73); Total Cells Counted 100
[2022-10-31 05:36] LABS: Anisocytosis 1+ (NORMAL); Poikilocytosis 1+ (NORMAL)
[2022-10-31 05:37] LABS: Atypical Lymphocytes Present; Burr Cells 1+ (NORMAL); Hypochromasia 1+ (NORMAL); Schistocytes None Seen (NORMAL); Smudge Cells PRESENT
[2022-10-31 05:38] LABS: Macrocytosis 1+ (NORMAL); Microcytosis 1+ (NORMAL)
[2022-10-31] MEDS: CENTRAL LINE FLUSH 10 ML IV PUSH ×3 (05:42→20:06)
[2022-10-31 05:51] LABS: Alveolar/Arterial O2 Gradient 247.6 mmHg; Base Excess ABG -0.8 mEq/l (+/-2.0); Carboxyhemoglobin 1.3 % THb (0-2.0); Fractional Inspired Oxygen 60 %; HCO3 ABG 27.3 mEq/l (22.0-26.0); Methemoglobin ABG 0.3 %THb (0-1.5); Oxygen Content ABG 12.5 %vol (16.0-22.0); Oxygen Saturation ABG 96.9 % (95.0-100.0); Oxyhemoglobin 94.9 % THb (90.0-100.0); PO2 ABG 107.7 mmHg (80.0-100.0); PO2 FiO2 Ratio Arterial Blood 1.79 %; Reduced Hemoglobin 3.5 %THb (0-5.0); Total Hemoglobin 9.2 g/dL (12.0-18.0)
[2022-10-31 05:54] LABS: PCO2 ABG 65.9 mmHg (35.0-45.0); Site Drawn RIGHT RADIAL; pH ABG 7.235 (7.350-7.450)
[2022-10-31 05:55] LABS: Arterial Blood Gas PEEP 10 cmH2O; Arterial Blood Gas Tidal Volume 500 ml; Arterial Blood Gas Vent Mode CMV; Arterial Blood Gas Ventilator rate 24 /MIN; Device VENTILATOR; Modified Allen's Test Pass
[2022-10-31 06:13] LABS: Glucose Point of Care 170 mg/dl (65-105)
--- NOTE | 2022-10-31 07:43 | PM.IMPN ---
Progress Note: A&P Assessment and Plan (1) Acute and chronic respiratory failure with hypoxia: Code(s): J96.21 - Acute and chronic respiratory failure with hypoxia Status: Acute Assessment and Plan: Patient presented with worsening shortness of breath x1 day, likely related to bilateral infiltrates/pneumonia, possible COPD and/or pulmonary fibrosis flare/exacerbation, pulmonary edema COVID PCR was negative on 10/24 and 10/26 but came back positive on 10/29 -intubated on 10/25/2022, ETT exchange on 10/27/2022 due to cuff leak - 10/29 worsening hypoxia and increased oxygen requirement overnight. Chest x-ray shows diffuse pulmonary infiltrates. Patient asynchronous with the ventilator. Peep was increased and patient was given a dose of paralytic with increased sedation -currently in CMV mode. FiO2 down to 60% PEEP is at 10 -permissive hypercapnia as ventilation is limited by the peak pressures. I will add bicarb to treat acidosis -continue sedation with Versed fentanyl and propofol. Sedation holidays limited by patient getting asynchronous with the ventilator and decompensated -continue p.r.n. neuromuscular benitez -continue Lasix -he has completed 5 day course of azithromycin (10/25) . Continue cefepime and vancomycin for 7 days (10/25) -continue bronchodilators -10/30 switch steroids back to dexamethasone 6 mg IV q.day -continue Barcitinib per tube -isolation -Discussed with biomass plant manager. -10/25/2022 CTA chest: No CT evidence of acute pulmonary embolus. Pulmonary opacities likely represent moderate pulmonary edema overlying severe chronic changes of UIP. Infection is not excluded. Small bilateral pleural effusions. Mediastinal lymphadenopathy (2) Pneumonia due to COVID-19 virus: Code(s): U07.1 - COVID-19; J12.82 - Pneumonia due to coronavirus disease 2019 Status: Acute Assessment and Plan: See above (3) Pneumonia: Code(s): J18.9 - Pneumonia, unspecified organism Status: Acute Assessment and Plan: Sputum cultures have been obtained and pending -continue antibiotics as above 10/26/2022: Sputum cultures negative except yeast which is likely colonization 10/25/2022 MRSA screen: No MRSA 10/25/2022 urine cultures negative 10/25/2022 currently blood cultures have been negative (4) Pulmonary fibrosis: Code(s): J84.10 - Pulmonary fibrosis, unspecified Status: Chronic Assessment and Plan: Patient has a history of pulmonary fibrosis, follows up with the biomass plant manager at [facility] -patient is on nintedanib which is home med for pulmonary fibrosis See above (5) COPD (chronic obstructive pulmonary disease): Code(s): J44.9 - Chronic obstructive pulmonary disease, unspecified Status: Chronic Assessment and Plan: Continue mechanical ventilation, steroids, bronchodilators (6) CAD (coronary artery disease): Code(s): I25.10 - Atherosclerotic heart disease of [place] coronary artery without angina pectoris Status: Chronic Assessment and Plan: Patient with recent history of [place] status post stent x1 to the [facility] records show an echocardiogram with a diastolic dysfunction grade 3, EF of 56% 10/26/2022 echocardiogram showed EF of 60-65%, moderate increased LV wall thickness, grade 1 diastolic dysfunction, RV systolic function is mildly reduced mild pulmonary hypertension with RVSP of 44 mmHg, no aortic valve stenosis, trace mitral valve regurg, trace tricuspid valve regurg Patient has been on Plavix, aspirin, pravastatin, losartan and amlodipine at home -Dr. Chan discuss with Cardiology and patient currently on Plavix and aspirin -continue pravastatin -home losartan and amlodipine on hold at this time (7) Diabetes: Code(s): E11.9 - Type 2 diabetes mellitus without complications Status: Chronic Assessment and Plan: Patient has a history of diabetes on oral hypogl
[2022-10-31] MEDS: SODIUM BICARBONATE TAB 650 MG TABLET FEED TUBE ×3 (09:02→23:56)
[2022-10-31] MEDS: SODIUM BICARBONATE 8.4% 50 MEQ/50 ML SYRINGE 100 MEQ IV PUSH (09:02)
[2022-10-31] MEDS: ASPIRIN 81 MG CHEWABLE TABLET FEED TUBE (09:02)
[2022-10-31] MEDS: MINERAL OIL/WHITE PETROLATUM OINTMENT 1 APPLIC EACH EYE ×2 (09:04→20:04)
[2022-10-31] MEDS: PANTOPRAZOLE SODIUM IV 40 MG VIAL IV PUSH ×2 (09:04→20:05)
[2022-10-31] MEDS: CLOPIDOGREL BISULFATE 75 MG TABLET PO (09:05)
[2022-10-31] MEDS: FUROSEMIDE INJ 40 MG/4 ML VIAL IV PUSH (09:07)
[2022-10-31] MEDS: SODIUM ZIRCONIUM CYCLOSILICATE 10 GM POWD.PACK FEED TUBE ×2 (09:11→17:45)
--- NOTE | 2022-10-31 09:13 | P.PNNP_ITS ---
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 He is getting diuresed as well. His chest x-ray is wet and he is on lot of oxygen so will go 1 more day with the diuretics. * Check another chemistry tomorrow. (2) Acute and chronic respiratory failure with hypoxia: Code(s): J96.21 - Acute and chronic respiratory failure with hypoxia Status: Acute Assessment and Plan: * multifactorial: * possible pneumonia * COPD * known pulmonary fibrosis * exacerbation of COPD + UIP * pulmonary edema(?) * COVID-19 * on mechanical ventilation * He is on somewhat heavy sedation because he fights the ventilator. * empiric antibiotics * follow culture data * on steroids and bronchodilators * His pCO2 is high because of his substantial lung disease. (3) COVID-19 virus infection: Code(s): U07.1 - COVID-19 Status: Acute Assessment and Plan: * as noted by positive testing * on decadron and baricitinib * ventilator support * Respiratory isolation * IV diuretics PRN to promote dry lung strategy * continue supportive therapy (4) Pulmonary fibrosis: Code(s): J84.10 - Pulmonary fibrosis, unspecified Status: Chronic Assessment and Plan: * known history of this * on steroids * Pulmonary following with recommendations noted (5) COPD (chronic obstructive pulmonary disease): Code(s): J44.9 - Chronic obstructive pulmonary disease, unspecified Status: Chronic Assessment and Plan: * complicates #2, #3, and #4 * continue current therapy (ventilator support, antibiotics, steroids, bronchodilators) (6) Pancytopenia: Code(s): D61.818 - Other pancytopenia Status: Acute Assessment and Plan: * Hemoglobin stable in the 8 for the last few days. * Oncology following (7) Diabetes: Code(s): E11.9 - Type 2 diabetes mellitus without complications Status: Chronic Assessment and Plan: * follow accuchecks * glycemic control per blood bank coordinator Subjective Date/time seen: 10/31/22 09:13 Interval history: Romario is on the ventilator and sedated. He is not on pressors. Exam Narrative: General: elderly AA male intubated/sedated and on mechanical ventilation Heart: normal S1 and S2; no rub or gallop Lungs: Bilateral coarse breath sounds Abdomen: soft, nontender, nondistended, positive bowel sounds Extremities: no cyanosis or clubbing; trace - 1+ edema Skin: no rash or subQ nodules Objective Data Vital Signs Vital Signs: Vital Signs - 24 hr 10/30/22 10:00 10/30/22 10:00 10/30/22 09:15 Temperature 96.9 F L Pulse Rate 88 88 87 Respiratory Rate 24 H 24 H Blood Pressure 106/60 Pulse Oxi
--- NOTE | 2022-10-31 09:13 | PM.PNNEP ---
Progress Note: A&P Assessment and Plan (1) Acute kidney injury: Code(s): N17.9 - Acute kidney failure, unspecified Status: Acute Assessment and Plan: slow improvement noted presumably normal baseline creatinine creatinine 1.4mg/dl on admission but came down to 1.1 - 1.2mg/dl and now back up to 1.5 suspect multifactorial etiology: prerenal factors contrast exposure (CTA chest on 10/25/22) hypoxia anemia ARB use FISHER SCALLOP evaluation to date: renal ultrasound unremarkable urine electrolytes prerenal urine eosinophils negative CPK low elevated BUN likely secondary to steroid use and possibly hyper catabolic state. He is getting diuresed as well. His chest x-ray is wet and he is on lot of oxygen so will go 1 more day with the diuretics. Check another chemistry tomorrow. (2) Acute and chronic respiratory failure with hypoxia: Code(s): J96.21 - Acute and chronic respiratory failure with hypoxia Status: Acute Assessment and Plan: multifactorial: possible pneumonia COPD 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 pulmonary edema(?) COVID-19 on mechanical ventilation He is on somewhat heavy sedation because he fights the ventilator. empiric antibiotics follow culture data on steroids and bronchodilators His pCO2 is high because of his substantial lung disease. (3) COVID-19 virus infection: Code(s): U07.1 - COVID-19 Status: Acute Assessment and Plan: as noted by positive testing on decadron and baricitinib ventilator support Respiratory isolation IV diuretics PRN to promote dry lung strategy continue supportive therapy (4) Pulmonary fibrosis: Code(s): J84.10 - Pulmonary fibrosis, unspecified Status: Chronic Assessment and Plan: known history of this on steroids Pulmonary following with recommendations noted (5) COPD (chronic obstructive pulmonary disease): Code(s): J44.9 - Chronic obstructive pulmonary disease, unspecified Status: Chronic Assessment and Plan: complicates #2, #3, and #4 continue current therapy (ventilator support, antibiotics, steroids, bronchodilators) (6) Pancytopenia: Code(s): D61.818 - Other pancytopenia Status: Acute Assessment and Plan: Hemoglobin stable in the 8 for the last few days. Oncology following (7) Diabetes: Code(s): E11.9 - Type 2 diabetes mellitus without complications Status: Chronic Assessment and Plan: follow accuchecks glycemic control per advanced analytics associate Subjective Date/time seen: 10/31/22 09:13 Interval history: Romario is on the ventilator and sedated. He is not on pressors. Exam Narrative: General: elderly AA male intubated/sedated and on mechanical ventilation Heart: normal S1 and S2; no rub or gallop Lungs: Bilateral coarse breath sounds Abdomen: soft, nontender, nondistended, positive bowel sounds Extremities: no cyanosis or clubbing; trace - 1+ edema Skin: no rash or subQ nodules Objective Data Vital Signs Vital Signs: Vital Signs - 24 hr 10/30/22 10:00 10/30/22 10:00 10/30/22 09:15 Temperature 96.9 F L Pulse Rate 88 88 87 Respiratory Rate 24 H 24 H Blood Pressure 106/60 Pulse Oximetry 92 Oxygen Delivery Fraction of Inspired Oxygen 10/30/22 09:57 10/30/22 10:10 10/30/22 10:27 Temperature 96.9 F L 96.9 F L 97.0 F L Pulse Rate 89 88 94 Respiratory Rate 24 H 24 H Blood Pressure Pulse Oximetry 93 Oxygen Delivery Fraction of Inspired Oxygen 10/30/22 10:57 10/30/22 11:36 10/30/22 12:00 Temperature 96.9 F L Pulse Rate 89 89 94 Respiratory Rate 23 H Blood Pressure Pulse Oximetry 90 94 Oxygen Delivery Mechanical Ventilation Fraction of Inspired Oxygen 50 10/30/22 12:00 10/30/22 12:00 10/30/22 12:00 Temperature 97 F L Pulse Rate 94 94 Respiratory Rate 23 H 23 H Blood Pressure 12
--- NOTE | 2022-10-31 09:35 | WPDINTPN ---
Progress Note: A&P Assessment and Plan (1) Acute and chronic respiratory failure with hypoxia: Code(s): J96.21 - Acute and chronic respiratory failure with hypoxia Status: Acute Assessment and Plan: Patient presented with worsening shortness of breath x1 day, likely related to bilateral infiltrates/pneumonia, possible COPD and/or pulmonary fibrosis flare/exacerbation, pulmonary edema COVID PCR was negative on 10/24 and 10/26 but came back positive on 10/29 -intubated on 10/25/2022, ETT exchange on 10/27/2022 due to cuff leak - 10/29 worsening hypoxia and increased oxygen requirement overnight. Chest x-ray shows diffuse pulmonary infiltrates. Patient asynchronous with the ventilator. Peep was increased and patient was given a dose of paralytic with increased sedation -currently in CMV mode. FiO2 down to 60% PEEP is at 10 -permissive hypercapnia as ventilation is limited by the peak pressures. I will add bicarb to treat acidosis -continue sedation with Versed fentanyl and propofol. Sedation holidays limited by patient getting asynchronous with the ventilator and decompensated -continue p.r.n. neuromuscular benitez -continue Lasix -he has completed 5 day course of azithromycin (10/25) . Continue cefepime and vancomycin for 7 days (10/25) -continue bronchodilators -10/30 switch steroids back to dexamethasone 6 mg IV q.day -continue Barcitinib per tube -isolation -Discussed with sports photographer. -10/25/2022 CTA chest: No CT evidence of acute pulmonary embolus. Pulmonary opacities likely represent moderate pulmonary edema overlying severe chronic changes of UIP. Infection is not excluded. Small bilateral pleural effusions. Mediastinal lymphadenopathy. (2) Pneumonia due to COVID-19 virus: Code(s): U07.1 - COVID-19; J12.82 - Pneumonia due to coronavirus disease 2019 Status: Acute Assessment and Plan: See above (3) Pneumonia: Code(s): J18.9 - Pneumonia, unspecified organism Status: Acute Assessment and Plan: Sputum cultures have been obtained and pending -continue antibiotics as above 10/26/2022: Sputum cultures negative except yeast which is likely colonization 10/25/2022 MRSA screen: No MRSA 10/25/2022 urine cultures negative 10/25/2022 currently blood cultures have been negative (4) Pulmonary fibrosis: Code(s): J84.10 - Pulmonary fibrosis, unspecified Status: Chronic Assessment and Plan: Patient has a history of pulmonary fibrosis, follows up with the sports photographer at [facility] -patient is on nintedanib which is home med for pulmonary fibrosis See above (5) COPD (chronic obstructive pulmonary disease): Code(s): J44.9 - Chronic obstructive pulmonary disease, unspecified Status: Chronic Assessment and Plan: Continue mechanical ventilation, steroids, bronchodilators (6) CAD (coronary artery disease): Code(s): I25.10 - Atherosclerotic heart disease of [place] coronary artery without angina pectoris Status: Chronic Assessment and Plan: Patient with recent history of [place] status post stent x1 to the [facility] records show an echocardiogram with a diastolic dysfunction grade 3, EF of 56% 10/26/2022 echocardiogram showed EF of 60-65%, moderate increased LV wall thickness, grade 1 diastolic dysfunction, RV systolic function is mildly reduced mild pulmonary hypertension with RVSP of 44 mmHg, no aortic valve stenosis, trace mitral valve regurg, trace tricuspid valve regurg Patient has been on Plavix, aspirin, pravastatin, losartan and amlodipine at home -Dr. Chan discuss with Cardiology and patient currently on Plavix and aspirin -continue pravastatin -home losartan and amlodipine on hold at this time (7) Diabetes: Code(s): E11.9 - Type 2 diabetes mellitus without complications Status: Chronic Assessment and Plan: Patient has a history of diabetes on oral hypoglycemics at home -continue Accu-Jemima
[2022-10-31] MEDS: BARICITINIB 2 MG TABLET FEED TUBE (11:40)
[2022-10-31] MEDS: INSULIN ASPART (*BKC) 100 UNITS/ML SUB-Q ×2 (11:45→18:46)
[2022-10-31] MEDS: CEFEPIME 2 GM/NS 50 ML 2 GM/50 ML BAG IVPB ×2 (12:04→23:55)
[2022-10-31 12:31] LABS: Glucose Point of Care 223 mg/dl (65-105)
[2022-10-31 14:29] LABS: Chloride Rand Ur <20 mmol/L (32-290); Creatinine Random Urine 87 mg/dL (20-320)
[2022-10-31 17:03] LABS: Anion Gap 6 mmol/L (8-16); Blood Urea Nitrogen 114 mg/dL (9-20); Calcium 8.1 mg/dL (8.4-10.2); Carbon Dioxide 32 mmol/L (22-30); Chloride 100 mmol/L (98-107); Estimated CRCL calculation 43 ml/min; Estimated Glomerular Filt Rate 59; Glucose 284 mg/dL (65-110); Potassium 5.3 mmol/L (3.4-5.0); Sodium 138 mmol/L (137-145)
[2022-10-31] MEDS: SODIUM BICARBONATE 8.4% 50 MEQ/50 ML SYRINGE IV PUSH (17:44)
[2022-10-31] MEDS: INSULIN HUMAN REGULAR (*BKC) 100 UNITS/ML 10 UNITS IV PUSH (17:44)
[2022-10-31] MEDS: DEXTROSE 50% 25 GM/50 ML SYRINGE IV PUSH (17:44)
[2022-10-31 18:54] LABS: Glucose Point of Care 304 mg/dl (65-105)
[2022-10-31] MEDS: INSULIN GLARGINE (*BKC) 100 UNITS/ML 28 UNITS SUB-Q (20:03)
[2022-10-31] MEDS: PRAVASTATIN SODIUM 20 MG TABLET 40 MG FEED TUBE (20:04)
--- NOTE | 2022-10-31 20:17 | ECG_ITS ---
Measurements Intervals [place] Rate: 105 P: 50 AR: 148 QRS: -34 QRSD: 102 T: 39 QT: 332 QTc: 440 Interpretive Statements SINUS TACHYCARDIA WITH FREQUENT VENTRICULAR PREMATURE COMPLEXES MARKED LEFT AXIS DEVIATION [QRS AXIS < -30] NONSPECIFIC ST & T-WAVE ABNORMALITY COMPARED TO ECG 10/29/2022 09:13:12 NO SIGNIFICANT CHANGE Electronically Signed On 11-01-2022 9:16:56 CDT by Christel Antunez M.D.
[2022-10-31 20:27] LABS: Alanine Aminotransferase 26 U/L (6-50); Albumin Level 2.8 g/dL (3.5-5.1); Alkaline Phosphatase 94 U/L (38-126); Anion Gap 8 mmol/L (8-16); Aspartate Amino Transferase 17 U/L (17-59); Bilirubin,Total 0.5 mg/dL (0.2-1.3); Blood Urea Nitrogen 115 mg/dL (9-20); Carbon Dioxide 31 mmol/L (22-30); Chloride 100 mmol/L (98-107); Estimated CRCL calculation 50 ml/min; Estimated Glomerular Filt Rate > 60; Glucose 225 mg/dL (65-110); Magnesium 2.2 mg/dL (1.6-2.3); Potassium 4.7 mmol/L (3.4-5.0); Sodium 139 mmol/L (137-145)
[2022-10-31] MEDS: PROPOFOL IV EMULSION 100 ML 18.43 MG IV CONT (22:23)
[2022-11-01] VITALS (51 sets, daily range): BP systolic 99–167; BP diastolic 50–82; PULSE 57–143; RESP 20–32; TEMP 36.2–37.3; O2SAT 91–100
[2022-11-01 00:02] LABS: Glucose Point of Care 155 mg/dl (65-105)
[2022-11-01] MEDS: PROPOFOL IV EMULSION 100 ML 18.43 MG IV CONT ×2 (03:16→08:22)
[2022-11-01] MEDS: LEVALBUTEROL NEB 1.25 MG/3 ML INHALATION ×5 (05:06→20:20)
[2022-11-01] MEDS: IPRATROPIUM BR 0.02% INH SOLN 0.5 MG/2.5 ML VIAL INHALATION ×5 (05:06→20:20)
[2022-11-01 05:30] LABS: Alveolar/Arterial O2 Gradient 187.1 mmHg; Base Excess ABG 5.2 mEq/l (+/-2.0); Fractional Inspired Oxygen 55 %; HCO3 ABG 30.6 mEq/l (22.0-26.0); Oxygen Content ABG 12.5 %vol (16.0-22.0); Oxygen Saturation ABG 98.9 % (95.0-100.0); PCO2 ABG 49.8 mmHg (35.0-45.0); PO2 ABG 149.7 mmHg (80.0-100.0); PO2 FiO2 Ratio Arterial Blood 2.72 %; pH ABG 7.406 (7.350-7.450)
[2022-11-01 05:33] LABS: Device VENTILATOR; Modified Allen's Test Pass; Site Drawn RIGHT RADIAL
[2022-11-01 05:34] LABS: Arterial Blood Gas PEEP 10 cmH2O; Arterial Blood Gas Tidal Volume 500 ml; Arterial Blood Gas Vent Mode CMV; Arterial Blood Gas Ventilator rate 24 /MIN
[2022-11-01] MEDS: FENTANYL 2,500MCG/NS250ML(*CRX 2,500 MCG/250 ML BAG 10 MCG IV CONT (05:42)
[2022-11-01] MEDS: MIDAZOLAM 100MG/NS 100ML(*CRX) 100 MG/100 ML BAG 6 MG IV CONT (05:42)
[2022-11-01] MEDS: CENTRAL LINE FLUSH 10 ML IV PUSH ×3 (05:47→20:49)
[2022-11-01 06:01] LABS: Basophils Percent Auto 0.2 % (0.2-1.2); Eosinophils Absolute Auto 0.4 K/mm3 (0-0.3); Eosinophils Percent Auto 8.4 % (0-4.4); Hematocrit 26.3 % (42.0-52.0); Hemoglobin 8.7 g/dL (14.0-18.0); Immature Granulocyte Absolute 0.33 K/mm3 (0.00-0.031); Immature Granulocyte Percent A 7.4 % (0-0.5); Immature Platelet Fraction Pct 4.9 % (0.9-11.2); Lymphocytes Absolute Auto 0.86 K/mm3 (0.9-3.2); Lymphocytes Percent Auto 19.4 % (18.3-44.2); Mean Corpuscular HGB Conc 33.1 g/dl (32-36); Mean Corpuscular Hemoglobin 30.9 pg (26-34); Mean Corpuscular Volume 93.3 fl (80-100); Mean Platelet Volume 11.5 fl (7.4-10.4); Monocytes Absolute Auto 0.3 K/mm3 (0.1-0.6); Monocytes Percent Auto 5.9 % (2.6-8.5); Neutrophils Absolute Auto 2.6 K/mm3 (1.3-6.7); Neutrophils Percent Auto 58.7 % (45.5-73.1); Nucleated Red Blood Cells Perc 0.7 % (0.0-0.2); Platelet Count Result 103 k/mm3 (150-375); Red Blood Count 2.82 M/mm3 (4.6-6.20); Red Cell Distribution Width 16.8 % (11.5-14.5); White Blood Count 4.4 K/mm3 (4.5-10.0)
[2022-11-01 06:14] LABS: INR 1.1; Prothrombin Time 13.6 Seconds (11.1-14.7)
[2022-11-01 06:15] LABS: Alanine Aminotransferase 23 U/L (6-50); Albumin Level 2.4 g/dL (3.5-5.1); Alkaline Phosphatase 81 U/L (38-126); Anion Gap 4 mmol/L (8-16); Aspartate Amino Transferase 18 U/L (17-59); Bilirubin,Total 0.3 mg/dL (0.2-1.3); Blood Urea Nitrogen 117 mg/dL (9-20); Calcium 7.7 mg/dL (8.4-10.2); Carbon Dioxide 32 mmol/L (22-30); Chloride 99 mmol/L (98-107); Estimated CRCL calculation 46 ml/min; Estimated Glomerular Filt Rate > 60; Glucose 128 mg/dL (65-110); Potassium 4.5 mmol/L (3.4-5.0); Sodium 135 mmol/L (137-145)
--- NOTE | 2022-11-01 08:30 | WPDINTPN ---
Progress Note: A&P Assessment and Plan (1) Acute and chronic respiratory failure with hypoxia: Code(s): J96.21 - Acute and chronic respiratory failure with hypoxia Status: Acute Assessment and Plan: Patient presented with worsening shortness of breath x1 day, likely related to bilateral infiltrates/pneumonia, possible COPD and/or pulmonary fibrosis flare/exacerbation, pulmonary edema COVID PCR was negative on 10/24 and 10/26 but came back positive on 10/29 -intubated on 10/25/2022, ETT exchange on 10/27/2022 due to cuff leak - 10/29 worsening hypoxia and increased oxygen requirement overnight. Chest x-ray shows diffuse pulmonary infiltrates. Patient asynchronous with the ventilator. Peep was increased and patient was given a dose of paralytic with increased sedation -currently in CMV mode. FiO2 down to 50% PEEP is at 10. Continue to wean FiO2 -permissive hypercapnia as ventilation is limited by the peak pressures. I will add bicarb to treat acidosis -continue sedation with Versed fentanyl and propofol. Sedation holidays limited by patient getting asynchronous with the ventilator and decompensated -continue p.r.n. neuromuscular benitez -continue Lasix -he has completed 5 day course of azithromycin (10/25) . Continue cefepime and vancomycin for 7 days (10/25) -continue bronchodilators -10/30 switch steroids back to dexamethasone 6 mg IV q.day -continue Barcitinib per tube -isolation -Discussed with loaf counter. -10/25/2022 CTA chest: No CT evidence of acute pulmonary embolus. Pulmonary opacities likely represent moderate pulmonary edema overlying severe chronic changes of UIP. Infection is not excluded. Small bilateral pleural effusions. Mediastinal lymphadenopathy. (2) Pneumonia due to COVID-19 virus: Code(s): U07.1 - COVID-19; J12.82 - Pneumonia due to coronavirus disease 2019 Status: Acute Assessment and Plan: See above (3) Pneumonia: Code(s): J18.9 - Pneumonia, unspecified organism Status: Acute Assessment and Plan: Sputum cultures have been obtained and pending -continue antibiotics as above 10/26/2022: Sputum cultures negative except yeast which is likely colonization 10/25/2022 MRSA screen: No MRSA 10/25/2022 urine cultures negative 10/25/2022 currently blood cultures have been negative (4) Pulmonary fibrosis: Code(s): J84.10 - Pulmonary fibrosis, unspecified Status: Chronic Assessment and Plan: Patient has a history of pulmonary fibrosis, follows up with the loaf counter at [facility] -patient is on nintedanib which is home med for pulmonary fibrosis See above (5) COPD (chronic obstructive pulmonary disease): Code(s): J44.9 - Chronic obstructive pulmonary disease, unspecified Status: Chronic Assessment and Plan: Continue mechanical ventilation, steroids, bronchodilators (6) CAD (coronary artery disease): Code(s): I25.10 - Atherosclerotic heart disease of [place] coronary artery without angina pectoris Status: Chronic Assessment and Plan: Patient with recent history of [place] status post stent x1 to the [facility] records show an echocardiogram with a diastolic dysfunction grade 3, EF of 56% 10/26/2022 echocardiogram showed EF of 60-65%, moderate increased LV wall thickness, grade 1 diastolic dysfunction, RV systolic function is mildly reduced mild pulmonary hypertension with RVSP of 44 mmHg, no aortic valve stenosis, trace mitral valve regurg, trace tricuspid valve regurg Patient has been on Plavix, aspirin, pravastatin, losartan and amlodipine at home -Dr. Chan discuss with Cardiology and patient currently on Plavix and aspirin -continue pravastatin -home losartan and amlodipine on hold at this time (7) Diabetes: Code(s): E11.9 - Type 2 diabetes mellitus without complications Status: Chronic Assessment and Plan: Patient has a history of diabetes on oral hypoglycemics at
[2022-11-01] MEDS: MINERAL OIL/WHITE PETROLATUM OINTMENT 1 APPLIC EACH EYE ×2 (09:29→20:49)
[2022-11-01] MEDS: FUROSEMIDE INJ 40 MG/4 ML VIAL IV PUSH (09:29)
[2022-11-01] MEDS: PANTOPRAZOLE SODIUM IV 40 MG VIAL IV PUSH ×2 (09:29→20:49)
[2022-11-01] MEDS: ASPIRIN 81 MG CHEWABLE TABLET FEED TUBE (09:30)
[2022-11-01] MEDS: SODIUM ZIRCONIUM CYCLOSILICATE 10 GM POWD.PACK FEED TUBE (09:30)
[2022-11-01] MEDS: CLOPIDOGREL BISULFATE 75 MG TABLET PO (09:30)
--- NOTE | 2022-11-01 09:44 | ECG_ITS ---
Measurements Intervals [place] Rate: 124 P: 4 IN: 156 QRS: -31 QRSD: 86 T: 96 QT: 280 QTc: 403 Interpretive Statements SINUS TACHYCARDIA WITH FREQUENT VENTRICULAR PREMATURE COMPLEXES WITH OCCASIONAL SUPRAVENTRICULAR PREMATURE COMPLEXES MARKED LEFT AXIS DEVIATION [QRS AXIS < -30] NONSPECIFIC ST & T-WAVE ABNORMALITY COMPARED TO ECG 10/31/2022 20:26:31 NO SIGNIFICANT CHANGES Electronically Signed On 11-01-2022 19:18:11 CDT by Christel Antunez M.D.
--- NOTE | 2022-11-01 09:51 | ECG_ITS ---
Measurements Intervals [place] Rate: 129 P: ME: 0 QRS: -46 QRSD: 137 T: 60 QT: 319 QTc: 467 Interpretive Statements ATRIAL FIBRILLATION WITH RAPID VENTRICULAR RESPONSE WITH ABERRANT CONDUCTION OR VENTRICULAR PREMATURE COMPLEXES INCOMPLETE rIGHT BUNDLE BRANCH BLOCK [120+ ms QRS DURATION, UPRIGHT V1, 40+ ms S IN I/aVL/V4/V5/V6] POSSIBLE OLD iNFERIOR MYOCARDIAL INFARCTION NONSPECIFIC ST CHANGES COMPARED TO ECG 11/01/2022 09:49:16 ATRIAL FIBRILLATION NOW PRESENT MYOCARDIAL INFARCT FINDING NOW PRESENT Electronically Signed On 11-01-2022 19:19:44 CDT by Christel Antunez M.D.
--- NOTE | 2022-11-01 10:11 | P.PNNP_ITS ---
Progress Note: A&P Assessment and Plan (1) Acute kidney injury: Code(s): N17.9 - Acute kidney failure, unspecified Status: Acute Assessment and Plan: * slow improvement noted * presumably normal baseline creatinine * creatinine 1.4mg/dl on admission but came down to 1.1 - 1.2mg/dl. It did rise 1.5 yesterday but is down to 1.3 today. 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 He is getting diuresed as well. chest x-ray still shows fluid. * Continue diuretics for another day. * Check another chemistry tomorrow. (2) Acute and chronic respiratory failure with hypoxia: Code(s): J96.21 - Acute and chronic respiratory failure with hypoxia Status: Acute Assessment and Plan: * multifactorial: * possible pneumonia * COPD * known pulmonary fibrosis * exacerbation of COPD + UIP * pulmonary edema(?) * COVID-19 * on mechanical ventilation * He is on somewhat heavy sedation because he fights the ventilator. * empiric antibiotics * follow culture data * on steroids and bronchodilators * His pCO2 is high because of his substantial lung disease. * his bicarbonate level is high enough to balance his high pCO2. I agree with stopping the bicarb tabs * His potassium is good now. I agree with stopping the lokelma (3) COVID-19 virus infection: Code(s): U07.1 - COVID-19 Status: Acute Assessment and Plan: * as noted by positive testing * on decadron and baricitinib * ventilator support * Respiratory isolation * IV diuretics to promote dry lung strategy * continue supportive therapy (4) Pulmonary fibrosis: Code(s): J84.10 - Pulmonary fibrosis, unspecified Status: Chronic Assessment and Plan: * known history of this * on steroids * Pulmonary following with recommendations noted (5) COPD (chronic obstructive pulmonary disease): Code(s): J44.9 - Chronic obstructive pulmonary disease, unspecified Status: Chronic Assessment and Plan: * complicates #2, #3, and #4 * continue current therapy (ventilator support, antibiotics, steroids, bronchodilators) (6) Pancytopenia: Code(s): D61.818 - Other pancytopenia Status: Acute Assessment and Plan: * Hemoglobin stable in the 8s for the last few days. * No need for EPO at this point * Oncology following (7) Diabetes: Code(s): E11.9 - Type 2 diabetes mellitus without complications Status: Chronic Assessment and Plan: * follow accuchecks * glycemic control per human capital manager Subjective Date/time seen: 11/01/22 10:11 Interval history: Romario is on the ventilator and sedated. He is getting a breathing treatment. He looks comfortable. Oxygenation went from 28% to 55% and is now down to 45% on the ventilator Exam Narrative: General: elderly AA male intubated/sedated and on mechanical ventilation Heart: normal S1 and S2; no rub or gallop Lungs: Bilateral coarse breath sounds Abdomen: bowel sounds positive nontender Extremities: no cyanosis or clubbing; trace - 1+ edema Skin: no rash
--- NOTE | 2022-11-01 10:11 | PM.PNNEP ---
Progress Note: A&P Assessment and Plan (1) Acute kidney injury: Code(s): N17.9 - Acute kidney failure, unspecified Status: Acute Assessment and Plan: slow improvement noted presumably normal baseline creatinine creatinine 1.4mg/dl on admission but came down to 1.1 - 1.2mg/dl. It did rise 1.5 yesterday but is down to 1.3 today. 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 He is getting diuresed as well. chest x-ray still shows fluid. Continue diuretics for another day. Check another chemistry tomorrow. (2) Acute and chronic respiratory failure with hypoxia: Code(s): J96.21 - Acute and chronic respiratory failure with hypoxia Status: Acute Assessment and Plan: multifactorial: possible pneumonia COPD 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 pulmonary edema(?) COVID-19 on mechanical ventilation He is on somewhat heavy sedation because he fights the ventilator. empiric antibiotics follow culture data on steroids and bronchodilators His pCO2 is high because of his substantial lung disease. his bicarbonate level is high enough to balance his high pCO2. I agree with stopping the bicarb tabs His potassium is good now. I agree with stopping the lokelma (3) COVID-19 virus infection: Code(s): U07.1 - COVID-19 Status: Acute Assessment and Plan: as noted by positive testing on decadron and baricitinib ventilator support Respiratory isolation IV diuretics to promote dry lung strategy continue supportive therapy (4) Pulmonary fibrosis: Code(s): J84.10 - Pulmonary fibrosis, unspecified Status: Chronic Assessment and Plan: known history of this on steroids Pulmonary following with recommendations noted (5) COPD (chronic obstructive pulmonary disease): Code(s): J44.9 - Chronic obstructive pulmonary disease, unspecified Status: Chronic Assessment and Plan: complicates #2, #3, and #4 continue current therapy (ventilator support, antibiotics, steroids, bronchodilators) (6) Pancytopenia: Code(s): D61.818 - Other pancytopenia Status: Acute Assessment and Plan: Hemoglobin stable in the 8s for the last few days. No need for EPO at this point Oncology following (7) Diabetes: Code(s): E11.9 - Type 2 diabetes mellitus without complications Status: Chronic Assessment and Plan: follow accuchecks glycemic control per turret punch press operator Subjective Date/time seen: 11/01/22 10:11 Interval history: Romario is on the ventilator and sedated. He is getting a breathing treatment. He looks comfortable. Oxygenation went from 28% to 55% and is now down to 45% on the ventilator Exam Narrative: General: elderly AA male intubated/sedated and on mechanical ventilation Heart: normal S1 and S2; no rub or gallop Lungs: Bilateral coarse breath sounds Abdomen: bowel sounds positive nontender Extremities: no cyanosis or clubbing; trace - 1+ edema Skin: no rash Objective Data Vital Signs Vital Signs: Vital Signs - 24 hr 10/31/22 11:20 10/31/22 11:20 10/31/22 11:39 Temperature 97.8 F Pulse Rate 101 H 101 H Respiratory Rate 24 H Blood Pressure Pulse Oximetry 95 Oxygen Delivery Mechanical Ventilation Fraction of Inspired Oxygen 45 10/31/22 12:00 10/31/22 12:00 10/31/22 12:00 Temperature Pulse Rate 98 98 98 Respiratory Rate 24 H 24 H 24 H Blood Pressure Pulse Oximetry Oxygen Delivery Fraction of Inspired Oxygen 10/31/22 12:00 10/31/22 12:00 10/31/22 12:00 [place]
[2022-11-01] MEDS: BARICITINIB 2 MG TABLET 4 MG FEED TUBE (10:30)
[2022-11-01] MEDS: METOPROLOL TARTRATE INJ 5 MG/5 ML VIAL IV PUSH (10:30)
[2022-11-01] MEDS: PROPOFOL IV EMULSION 100 ML 23.04 MG IV CONT ×4 (12:18→22:19)
--- NOTE | 2022-11-01 12:46 | PM.IMPN ---
Progress Note: A&P Assessment and Plan (1) Acute and chronic respiratory failure with hypoxia: Code(s): J96.21 - Acute and chronic respiratory failure with hypoxia Status: Acute Assessment and Plan: Patient presented with worsening shortness of breath x1 day, likely related to bilateral infiltrates/pneumonia, possible COPD and/or pulmonary fibrosis flare/exacerbation, pulmonary edema COVID PCR was negative on 10/24 and 10/26 but came back positive on 10/29 -intubated on 10/25/2022, ETT exchange on 10/27/2022 due to cuff leak - 10/29 worsening hypoxia and increased oxygen requirement overnight. Chest x-ray shows diffuse pulmonary infiltrates. Patient asynchronous with the ventilator. Peep was increased and patient was given a dose of paralytic with increased sedation -currently in CMV mode. FiO2 down to 50% PEEP is at 10. Continue to wean FiO2 -permissive hypercapnia as ventilation is limited by the peak pressures. I will add bicarb to treat acidosis -continue sedation with Versed fentanyl and propofol. Sedation holidays limited by patient getting asynchronous with the ventilator and decompensated -continue p.r.n. neuromuscular benitez -continue Lasix -he has completed 5 day course of azithromycin (10/25) . Continue cefepime and vancomycin for 7 days (10/25) -continue bronchodilators -10/30 switch steroids back to dexamethasone 6 mg IV q.day -continue Barcitinib per tube -isolation -Discussed with nonfarm animal caretaker. -10/25/2022 CTA chest: No CT evidence of acute pulmonary embolus. Pulmonary opacities likely represent moderate pulmonary edema overlying severe chronic changes of UIP. Infection is not excluded. Small bilateral pleural effusions. Mediastinal lymphadenopathy. (2) Pneumonia due to COVID-19 virus: Code(s): U07.1 - COVID-19; J12.82 - Pneumonia due to coronavirus disease 2019 Status: Acute Assessment and Plan: See above (3) Pneumonia: Code(s): J18.9 - Pneumonia, unspecified organism Status: Acute Assessment and Plan: Sputum cultures have been obtained and pending -continue antibiotics as above 10/26/2022: Sputum cultures negative except yeast which is likely colonization 10/25/2022 MRSA screen: No MRSA 10/25/2022 urine cultures negative 10/25/2022 currently blood cultures have been negative (4) Pulmonary fibrosis: Code(s): J84.10 - Pulmonary fibrosis, unspecified Status: Chronic Assessment and Plan: Patient has a history of pulmonary fibrosis, follows up with the nonfarm animal caretaker at [facility] -patient is on nintedanib which is home med for pulmonary fibrosis See above (5) COPD (chronic obstructive pulmonary disease): Code(s): J44.9 - Chronic obstructive pulmonary disease, unspecified Status: Chronic Assessment and Plan: Continue mechanical ventilation, steroids, bronchodilators (6) CAD (coronary artery disease): Code(s): I25.10 - Atherosclerotic heart disease of [place] coronary artery without angina pectoris Status: Chronic Assessment and Plan: Patient with recent history of [place] status post stent x1 to the [facility] records show an echocardiogram with a diastolic dysfunction grade 3, EF of 56% 10/26/2022 echocardiogram showed EF of 60-65%, moderate increased LV wall thickness, grade 1 diastolic dysfunction, RV systolic function is mildly reduced mild pulmonary hypertension with RVSP of 44 mmHg, no aortic valve stenosis, trace mitral valve regurg, trace tricuspid valve regurg Patient has been on Plavix, aspirin, pravastatin, losartan and amlodipine at home -Dr. Chan discuss with Cardiology and patient currently on Plavix and aspirin -continue pravastatin -home losartan and amlodipine on hold at this time (7) Diabetes: Code(s): E11.9 - Type 2 diabetes mellitus without complications Status: Chronic Assessment and Plan: Patient has a history
[2022-11-01 13:14] LABS: Glucose Point of Care 197 mg/dl (65-105)
[2022-11-01 16:46] LABS: Anion Gap 3 mmol/L (8-16); Calcium 7.9 mg/dL (8.4-10.2); Carbon Dioxide 34 mmol/L (22-30); Chloride 100 mmol/L (98-107); Estimated CRCL calculation 47 ml/min; Estimated Glomerular Filt Rate > 60; Glucose 264 mg/dL (65-110); Magnesium 2.3 mg/dL (1.6-2.3); Sodium 137 mmol/L (137-145)
[2022-11-01 17:23] LABS: Blood Urea Nitrogen 122 mg/dL (9-20)
[2022-11-01] MEDS: INSULIN ASPART (*BKC) 100 UNITS/ML SUB-Q (18:16)
[2022-11-01] MEDS: SODIUM ZIRCONIUM CYCLOSILICATE 10 GM POWD.PACK PO (18:18)
[2022-11-01] MEDS: MIDAZOLAM 100MG/NS 100ML(*CRX) 100 MG/100 ML BAG 8 MG IV CONT (18:18)
[2022-11-01 18:37] LABS: Glucose Point of Care 244 mg/dl (65-105)
[2022-11-01] MEDS: INSULIN GLARGINE (*BKC) 100 UNITS/ML 28 UNITS SUB-Q (20:48)
[2022-11-01] MEDS: PRAVASTATIN SODIUM 20 MG TABLET 40 MG FEED TUBE (20:49)
[2022-11-01] MEDS: METOPROLOL TARTRATE 25 MG TABLET FEED TUBE (20:49)
[2022-11-01 21:02] LABS: Glucose Point of Care 157 mg/dl (65-105)
[2022-11-02] VITALS (43 sets, daily range): BP systolic 95–134; BP diastolic 51–70; PULSE 66–100; RESP 24–25; TEMP 36.3–37.2; O2SAT 93–97
[2022-11-02] MEDS: IPRATROPIUM BR 0.02% INH SOLN 0.5 MG/2.5 ML VIAL INHALATION ×5 (00:25→19:49)
[2022-11-02] MEDS: LEVALBUTEROL NEB 1.25 MG/3 ML INHALATION ×5 (00:25→19:49)
[2022-11-02 01:08] LABS: Glucose Point of Care 112 mg/dl (65-105)
[2022-11-02] MEDS: PROPOFOL IV EMULSION 100 ML 23.04 MG IV CONT ×6 (02:40→21:30)
[2022-11-02 04:53] LABS: Hematocrit 29.7 % (42.0-52.0); Hemoglobin 8.9 g/dL (14.0-18.0); Mean Corpuscular Hemoglobin 28.7 pg (26-34); Mean Corpuscular Volume 95.8 fl (80-100); Mean Platelet Volume 10.9 fl (7.4-10.4); Platelet Count Result 114 k/mm3 (150-375); Red Cell Distribution Width 17.1 % (11.5-14.5); White Blood Count 6.2 K/mm3 (4.5-10.0)
[2022-11-02 05:12] LABS: INR 1.1; Prothrombin Time 13.5 Seconds (11.1-14.7)
[2022-11-02 05:26] LABS: Alanine Aminotransferase 29 U/L (6-50); Albumin Level 2.7 g/dL (3.5-5.1); Alkaline Phosphatase 98 U/L (38-126); Anion Gap 0 mmol/L (8-16); Aspartate Amino Transferase 26 U/L (17-59); Bilirubin,Total 0.4 mg/dL (0.2-1.3); Calcium 8.2 mg/dL (8.4-10.2); Carbon Dioxide 39 mmol/L (22-30); Chloride 101 mmol/L (98-107); Estimated CRCL calculation 47 ml/min; Estimated Glomerular Filt Rate > 60; Glucose 101 mg/dL (65-110); Phosphorus 5.2 mg/dL (2.5-4.5); Potassium 4.6 mmol/L (3.4-5.0); Sodium 140 mmol/L (137-145); Triglycerides 58 mg/dL (<150)
[2022-11-02 05:27] LABS: Blood Urea Nitrogen 125 mg/dL (9-20)
[2022-11-02] MEDS: CENTRAL LINE FLUSH 10 ML IV PUSH ×3 (05:30→20:35)
[2022-11-02 05:39] LABS: Alveolar/Arterial O2 Gradient 202.3 mmHg; Base Excess ABG 3.8 mEq/l (+/-2.0); Carboxyhemoglobin 1.2 % THb (0-2.0); HCO3 ABG 32.2 mEq/l (22.0-26.0); Methemoglobin ABG 0.3 %THb (0-1.5); Oxygen Content ABG 17.9 %vol (16.0-22.0); Oxygen Saturation ABG 94.2 % (95.0-100.0); Oxyhemoglobin 92.7 % THb (90.0-100.0); PO2 ABG 79.4 mmHg (80.0-100.0); PO2 FiO2 Ratio Arterial Blood 1.59 %; Reduced Hemoglobin 5.8 %THb (0-5.0); Total Hemoglobin 13.7 g/dL (12.0-18.0); pH ABG 7.303 (7.350-7.450)
[2022-11-02 05:40] LABS: Band Neutrophils Percent 13 % (0-6); Eosinophils Absolute Manual 0.31 K/mm3 (0.02-0.5); Eosinophils Percent Manual 5 % (0-4); Lymphocytes Absolute Manual 1.24 K/mm3 (1.1-4.5); Monocytes Absolute Manual 0.31 K/mm3 (0.1-0.90); Monocytes Percent Manual 5 % (3-9); Neutrophils Absolute Manual 4.34 K/mm3 (1.3-6.7); Neutrophils Percent Manual 57 % (46-73); Total Cells Counted 100
[2022-11-02 05:41] LABS: Anisocytosis 2+ (NORMAL); Poikilocytosis 2+ (NORMAL)
[2022-11-02 05:42] LABS: Atypical Lymphocytes Present; Schistocytes None Seen (NORMAL)
[2022-11-02 05:43] LABS: PCO2 ABG 66.5 mmHg (35.0-45.0)
[2022-11-02 05:44] LABS: Device VENTILATOR; Modified Allen's Test Pass; Site Drawn RIGHT RADIAL
[2022-11-02 05:47] LABS: Arterial Blood Gas PEEP 10 cmH2O; Arterial Blood Gas Tidal Volume 500 ml; Arterial Blood Gas Vent Mode CMV; Arterial Blood Gas Ventilator rate 24 /MIN
[2022-11-02 05:53] LABS: Fractional Inspired Oxygen 45 %
[2022-11-02] MEDS: FENTANYL 2,500MCG/NS250ML(*CRX 2,500 MCG/250 ML BAG 10 MCG IV CONT (06:00)
[2022-11-02] MEDS: MIDAZOLAM 100MG/NS 100ML(*CRX) 100 MG/100 ML BAG 8 MG IV CONT ×2 (07:48→20:32)
[2022-11-02] MEDS: MINERAL OIL/WHITE PETROLATUM OINTMENT 1 APPLIC EACH EYE ×2 (07:50→20:35)
[2022-11-02] MEDS: PANTOPRAZOLE SODIUM IV 40 MG VIAL IV PUSH ×2 (07:50→20:35)
[2022-11-02] MEDS: CLOPIDOGREL BISULFATE 75 MG TABLET PO (07:50)
[2022-11-02] MEDS: FUROSEMIDE INJ 40 MG/4 ML VIAL IV PUSH (07:50)
[2022-11-02] MEDS: METOPROLOL TARTRATE 25 MG TABLET FEED TUBE ×2 (07:51→20:35)
--- NOTE | 2022-11-02 08:15 | WPDINTPN ---
Progress Note: A&P Assessment and Plan (1) Acute and chronic respiratory failure with hypoxia: Code(s): J96.21 - Acute and chronic respiratory failure with hypoxia Status: Acute Assessment and Plan: Patient presented with worsening shortness of breath x1 day, likely related to bilateral infiltrates/pneumonia, possible COPD and/or pulmonary fibrosis flare/exacerbation, pulmonary edema COVID PCR was negative on 10/24 and 10/26 but came back positive on 10/29 -intubated on 10/25/2022, ETT exchange on 10/27/2022 due to cuff leak - 10/29 worsening hypoxia and increased oxygen requirement overnight. Chest x-ray shows diffuse pulmonary infiltrates. Patient asynchronous with the ventilator. Peep was increased and patient was given a dose of paralytic with increased sedation -currently in CMV mode. FiO2 down to 45% PEEP is at 10. Continue to wean FiO2 -permissive hypercapnia as ventilation is limited by the peak pressures. Patient was given bicarb to treat acidosis -continue sedation with Versed fentanyl and propofol. Sedation holidays limited by patient getting asynchronous with the ventilator and decompensated -continue p.r.n. neuromuscular benitez -continue Lasix -he has completed 5 day course of azithromycin (10/25) . Continue cefepime and vancomycin for 7 days (10/25) -continue bronchodilators -10/30 switched steroids back to dexamethasone 6 mg IV q.day which will be continued -continue Barcitinib per tube -isolation -Discussed with company doctor. -10/25/2022 CTA chest: No CT evidence of acute pulmonary embolus. Pulmonary opacities likely represent moderate pulmonary edema overlying severe chronic changes of UIP. Infection is not excluded. Small bilateral pleural effusions. Mediastinal lymphadenopathy. (2) Pneumonia due to COVID-19 virus: Code(s): U07.1 - COVID-19; J12.82 - Pneumonia due to coronavirus disease 2019 Status: Acute Assessment and Plan: See above (3) Pneumonia: Code(s): J18.9 - Pneumonia, unspecified organism Status: Acute Assessment and Plan: Sputum cultures have been obtained and pending -continue antibiotics as above 10/26/2022: Sputum cultures negative except yeast which is likely colonization 10/25/2022 MRSA screen: No MRSA 10/25/2022 urine cultures negative 10/25/2022 currently blood cultures have been negative (4) Pulmonary fibrosis: Code(s): J84.10 - Pulmonary fibrosis, unspecified Status: Chronic Assessment and Plan: Patient has a history of pulmonary fibrosis, follows up with the company doctor at [facility] -patient is on nintedanib which is home med for pulmonary fibrosis See above (5) COPD (chronic obstructive pulmonary disease): Code(s): J44.9 - Chronic obstructive pulmonary disease, unspecified Status: Chronic Assessment and Plan: Continue mechanical ventilation, steroids, bronchodilators (6) CAD (coronary artery disease): Code(s): I25.10 - Atherosclerotic heart disease of [place] coronary artery without angina pectoris Status: Chronic Assessment and Plan: Patient with recent history of [place] status post stent x1 to the [facility] records show an echocardiogram with a diastolic dysfunction grade 3, EF of 56% 10/26/2022 echocardiogram showed EF of 60-65%, moderate increased LV wall thickness, grade 1 diastolic dysfunction, RV systolic function is mildly reduced mild pulmonary hypertension with RVSP of 44 mmHg, no aortic valve stenosis, trace mitral valve regurg, trace tricuspid valve regurg Patient has been on Plavix, aspirin, pravastatin, losartan and amlodipine at home -Dr. Chan discuss with Cardiology and patient currently on Plavix and aspirin -continue pravastatin -home losartan and amlodipine on hold at this time (7) Diabetes: Code(s): E11.9 - Type 2 diabetes mellitus without complications Status: Chronic Assessment and Plan: Patient has a history of d
[2022-11-02] MEDS: ENOXAPARIN 40 MG/0.4 ML SYRINGE SUB-Q (08:58)
[2022-11-02] MEDS: ASPIRIN 81 MG CHEWABLE TABLET FEED TUBE (08:58)
--- NOTE | 2022-11-02 10:00 | P.PNNP_ITS ---
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 * evaluation to date: * renal ultrasound unremarkable * urine electrolytes prerenal * urine eosinophils negative * CPK low * elevated BUN likely secondary to steroid use and possibly hypercatabolic state and need for diuretic therapy * follow trend of repeat labs and UOP (2) Acute and chronic respiratory failure with hypoxia: Code(s): J96.21 - Acute and chronic respiratory failure with hypoxia Status: Acute Assessment and Plan: * multifactorial: * possible pneumonia * COPD * known pulmonary fibrosis * exacerbation of COPD + UIP * pulmonary edema(?) * COVID-19 * on mechanical ventilation * on somewhat heavy sedation because he fights the ventilator * on steroids and bronchodilators * high pCO2 due to substantial lung disease (3) COVID-19 virus infection: Code(s): U07.1 - COVID-19 Status: Acute Assessment and Plan: * as noted by positive testing * on decadron and baricitinib * ventilator support * respiratory isolation * IV diuretics to promote dry lung strategy * continue supportive therapy (4) Pulmonary fibrosis: Code(s): J84.10 - Pulmonary fibrosis, unspecified Status: Chronic Assessment and Plan: * known history of this * on steroids * Pulmonary recommendations noted (5) COPD (chronic obstructive pulmonary disease): Code(s): J44.9 - Chronic obstructive pulmonary disease, unspecified Status: Chronic Assessment and Plan: * complicates #2, #3, and #4 * continue current therapy (ventilator support, steroids, bronchodilators) (6) Pancytopenia: Code(s): D61.818 - Other pancytopenia Status: Acute Assessment and Plan: * relatively stable * Oncology following (7) Diabetes: Code(s): E11.9 - Type 2 diabetes mellitus without complications Status: Chronic Assessment and Plan: * follow accuchecks * glycemic control per nurse sitter Will continue to follow. Subjective Date/time seen: 11/02/22 10:00 Chart reviewed since last seen -- remains intubated/sedated and on mechanical ventilation; reasonable urine output with diuretics but at the expense of a rising BUN (but stable creatinine); no other acute issues/events overnight or earlier this AM. Exam Narrative: General: elderly AA male intubated/sedated and on mechanical ventilation Heart: normal S1 and S2; no rub Lungs: bilateral coarse breath sounds Abdomen: bowel sounds positive nontender Extremities: no cyanosis or clubbing; trace - 1+ edema Skin: no nodules Objective Data Vital Signs Vital Signs: Vital Signs Temp Pulse Resp BP Pulse Ox O2 Del Method FiO2 11/02/22 10:00 98.9 F 81 24 H 110/53 L 93 11/02/22 10:00 81 11/02/22 08:00 87 11/02/22 08:00 99.0 F 87 24 H 122/54 L 94 11/02/22 08:00 88 24 H 11/02/22 07:58 82 97 [facility]
--- NOTE | 2022-11-02 10:00 | PM.PNNEP ---
Progress Note: A&P Assessment and Plan (1) Acute kidney injury: Code(s): N17.9 - Acute kidney failure, unspecified Status: Acute Assessment and Plan: slow improvement noted presumably normal baseline creatinine creatinine better but BUN rising suspect multifactorial etiology: prerenal factors contrast exposure (CTA chest on 10/25/22) hypoxia anemia ARB use ACTUARY MANAGER evaluation to date: renal ultrasound unremarkable urine electrolytes prerenal urine eosinophils negative CPK low elevated BUN likely secondary to steroid use and possibly hypercatabolic state and need for diuretic therapy follow trend of repeat labs and UOP (2) Acute and chronic respiratory failure with hypoxia: Code(s): J96.21 - Acute and chronic respiratory failure with hypoxia Status: Acute Assessment and Plan: multifactorial: possible pneumonia COPD 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 pulmonary edema(?) COVID-19 on mechanical ventilation on somewhat heavy sedation because he fights the ventilator on steroids and bronchodilators high pCO2 due to substantial lung disease (3) COVID-19 virus infection: Code(s): U07.1 - COVID-19 Status: Acute Assessment and Plan: as noted by positive testing on decadron and baricitinib ventilator support respiratory isolation IV diuretics to promote dry lung strategy continue supportive therapy (4) Pulmonary fibrosis: Code(s): J84.10 - Pulmonary fibrosis, unspecified Status: Chronic Assessment and Plan: known history of this on steroids Pulmonary recommendations noted (5) COPD (chronic obstructive pulmonary disease): Code(s): J44.9 - Chronic obstructive pulmonary disease, unspecified Status: Chronic Assessment and Plan: complicates #2, #3, and #4 continue current therapy (ventilator support, steroids, bronchodilators) (6) Pancytopenia: Code(s): D61.818 - Other pancytopenia Status: Acute Assessment and Plan: relatively stable Oncology following (7) Diabetes: Code(s): E11.9 - Type 2 diabetes mellitus without complications Status: Chronic Assessment and Plan: follow accuchecks glycemic control per reinforcing steel worker Will continue to follow. Subjective Date/time seen: 11/02/22 10:00 Chart reviewed since last seen -- remains intubated/sedated and on mechanical ventilation; reasonable urine output with diuretics but at the expense of a rising BUN (but stable creatinine); no other acute issues/events overnight or earlier this AM. Exam Narrative: General: elderly AA male intubated/sedated and on mechanical ventilation Heart: normal S1 and S2; no rub Lungs: bilateral coarse breath sounds Abdomen: bowel sounds positive nontender Extremities: no cyanosis or clubbing; trace - 1+ edema Skin: no nodules Objective Data Vital Signs Vital Signs: Vital Signs Temp Pulse Resp BP Pulse Ox O2 Del Method FiO2 11/02/22 10:00 98.9 F 81 24 H 110/53 L 93 11/02/22 10:00 81 11/02/22 08:00 87 11/02/22 08:00 99.0 F 87 24 H 122/54 L 94 11/02/22 08:00 88 24 H 11/02/22 07:58 82 97 Mechanical Ventilation 40 11/02/22 07:57 40 11/02/22 07:57 95 Mechanical Ventilation 40 11/02/22 07:51 81 11/02/22 07:49 83 24 H 11/02/22 07:49 83 24 H 11/02/22 07:48 83 24 H 11/02/22 07:46 83 24 H 11/02/22 06:00 90 24 H 11/02/22 06:00 90 24 H 11/02/22 06:51 90 24 H 11/02/22 06:51 90 24 H 11/02/22 06:00 90 11/02/22 06:00 98.5 F 90 24 H 113/55 L 95 11/02/22 05:26 99 24 H 11/02/22 05:18 99 25 H 11/02/22 05:09 100 95 Mechanical Ventilation 45 11/02/22 02:00 99 95 Mechanical Ventilation 45 11/02/22 04:00 98.2 F 97 24 H 131/58 L 95 11/02/22 04:00
--- NOTE | 2022-11-02 10:59 | PCFNICU ---
ICU Rounding Note: Pt current nutrition is Nepro at 40 ml/hr Last recorded weight is 80.9 kg. Bowel Motility:+Bm reported 11/01 Labs Reviewed: BUN 125, Alb 2.7,Hct 29.7,Hgb 8.9 Meds Noted:Propofol 50 odmx=830 kcals,Fentanyl,Protonix, Versed, Lantus Skin:WNL Additional Notes: Patient remains a full code on mechanical vent. Tube feeding formula change to Nepro on 10/31 due to elevated K level. K- WNL at this time. Tube feeding being tolerated at 40 ml/hr providing 1584 kcals/72 gms protein/640 ml water. Total nutrition with propofol: 2192 kcals/72 gms protein/640 ml water. Meeting 100% kcal needs and 77% protein needs. Flush 30 ml q 4 hours. Will continue to monitor for any tube feeding rate change recommendations. Will monitor weight, labs, skin, meds, tube feedings tolerance in ICU rounds and reassessing every Wednesday and Wednesday.
[2022-11-02] MEDS: SODIUM ZIRCONIUM CYCLOSILICATE 10 GM POWD.PACK PO ×2 (11:54→17:44)
[2022-11-02] MEDS: BARICITINIB 2 MG TABLET 4 MG FEED TUBE (11:54)
[2022-11-02 12:14] LABS: Glucose Point of Care 121 mg/dl (65-105)
--- NOTE | 2022-11-02 16:13 | PM.IMPN ---
Progress Note: A&P Assessment and Plan (1) Acute and chronic respiratory failure with hypoxia: Code(s): J96.21 - Acute and chronic respiratory failure with hypoxia Status: Acute Assessment and Plan: Patient presented with worsening shortness of breath x1 day, likely related to bilateral infiltrates/pneumonia, possible COPD and/or pulmonary fibrosis flare/exacerbation, pulmonary edema COVID PCR was negative on 10/24 and 10/26 but came back positive on 10/29 -intubated on 10/25/2022 - slow improvement (2) Pneumonia due to COVID-19 virus: Code(s): U07.1 - COVID-19; J12.82 - Pneumonia due to coronavirus disease 2019 Status: Acute Assessment and Plan: See above (3) Pneumonia: Code(s): J18.9 - Pneumonia, unspecified organism Status: Acute Assessment and Plan: Sputum cultures have been obtained and pending -continue antibiotics as above 10/26/2022: Sputum cultures negative except yeast which is likely colonization 10/25/2022 MRSA screen: No MRSA 10/25/2022 urine cultures negative 10/25/2022 currently blood cultures have been negative (4) Pulmonary fibrosis: Code(s): J84.10 - Pulmonary fibrosis, unspecified Status: Chronic Assessment and Plan: Patient has a history of pulmonary fibrosis, follows up with the mission analyst at [facility] -patient is on nintedanib which is home med for pulmonary fibrosis See above (5) COPD (chronic obstructive pulmonary disease): Code(s): J44.9 - Chronic obstructive pulmonary disease, unspecified Status: Chronic Assessment and Plan: Continue mechanical ventilation, steroids, bronchodilators (6) CAD (coronary artery disease): Code(s): I25.10 - Atherosclerotic heart disease of [place] coronary artery without angina pectoris Status: Chronic Assessment and Plan: Patient with recent history of [place] status post stent x1 to the [facility] records show an echocardiogram with a diastolic dysfunction grade 3, EF of 56% 10/26/2022 echocardiogram showed EF of 60-65%, moderate increased LV wall thickness, grade 1 diastolic dysfunction, RV systolic function is mildly reduced mild pulmonary hypertension with RVSP of 44 mmHg, no aortic valve stenosis, trace mitral valve regurg, trace tricuspid valve regurg Patient has been on Plavix, aspirin, pravastatin, losartan and amlodipine at home -continue Plavix and aspirin -continue pravastatin -home losartan and amlodipine on hold at this time (7) Diabetes: Code(s): E11.9 - Type 2 diabetes mellitus without complications Status: Chronic Assessment and Plan: Patient has a history of diabetes on oral hypoglycemics at home -continue Accu-Cheks and sliding scale insulin -continue Lantus, hyperglycemia likely related to steroids -hemoglobin A1c is 6.8 (8) Acute kidney injury: Code(s): N17.9 - Acute kidney failure, unspecified Status: Acute Assessment and Plan: Acute kidney injury with creatinine of 1.4 on admission -10/27/2022: Creatinine up to 1.6 - 10/27: Given 1000 ml NS IV fluids, with improvement in creatinine -10/27/2022: Renal ultrasound was unremarkable with no stones, masses or hydronephrosis -urine lytes reflective of prerenal picture, urine eosinophils are negative -watch creatitine levels (9) Pancytopenia: Code(s): D61.818 - Other pancytopenia Status: Acute Assessment and Plan: Pancytopenia -Could be bone marrow suppression -appreciate Hematology-Oncology evaluation and recommendation -folic acid and B12 were within normal limits -low iron levels, patient has been started on IV iron per Hematology -stool for occult blood still pending -pancytopenia stable -HIT antibodies negative (10) GERD (gastroesophageal reflux disease): Code(s): K21.9 - Gastro-esophageal reflux disease without esophagitis Status: Acute
[2022-11-02 17:53] LABS: Glucose Point of Care 152 mg/dl (65-105)
[2022-11-02] MEDS: PRAVASTATIN SODIUM 20 MG TABLET 40 MG FEED TUBE (20:35)
[2022-11-02] MEDS: INSULIN GLARGINE (*BKC) 100 UNITS/ML 28 UNITS SUB-Q (20:39)
[2022-11-02 22:42] LABS: Glucose Point of Care 133 mg/dl (65-105)
[2022-11-03] VITALS (51 sets, daily range): BP systolic 105–161; BP diastolic 47–79; PULSE 69–98; RESP 24–27; TEMP 36.5–37.7; O2SAT 89–95
[2022-11-03 00:10] LABS: Glucose Point of Care 106 mg/dl (65-105)
[2022-11-03] MEDS: LEVALBUTEROL NEB 1.25 MG/3 ML INHALATION ×7 (00:15→23:19)
[2022-11-03] MEDS: IPRATROPIUM BR 0.02% INH SOLN 0.5 MG/2.5 ML VIAL INHALATION ×7 (00:15→23:19)
[2022-11-03] MEDS: PROPOFOL IV EMULSION 100 ML 23.04 MG IV CONT ×5 (01:47→20:51)
[2022-11-03 05:28] LABS: Hematocrit 27.6 % (42.0-52.0); Hemoglobin 8.7 g/dL (14.0-18.0); Mean Corpuscular HGB Conc 31.5 g/dl (32-36); Mean Corpuscular Hemoglobin 28.6 pg (26-34); Mean Corpuscular Volume 90.8 fl (80-100); Mean Platelet Volume 11.7 fl (7.4-10.4); Platelet Count Result 113 k/mm3 (150-375); Red Blood Count 3.04 M/mm3 (4.6-6.20); Red Cell Distribution Width 17.1 % (11.5-14.5); White Blood Count 6.2 K/mm3 (4.5-10.0)
[2022-11-03 05:37] LABS: Alanine Aminotransferase 39 U/L (6-50); Albumin Level 2.5 g/dL (3.5-5.1); Alkaline Phosphatase 104 U/L (38-126); Anion Gap 0 mmol/L (8-16); Aspartate Amino Transferase 38 U/L (17-59); Bilirubin,Total 0.4 mg/dL (0.2-1.3); Calcium 8.4 mg/dL (8.4-10.2); Carbon Dioxide 37 mmol/L (22-30); Chloride 102 mmol/L (98-107); Estimated CRCL calculation 47 ml/min; Estimated Glomerular Filt Rate > 60; Glucose 68 mg/dL (65-110); Potassium 3.6 mmol/L (3.4-5.0); Sodium 139 mmol/L (137-145)
[2022-11-03 05:47] LABS: Blood Urea Nitrogen 124 mg/dL (9-20)
[2022-11-03] MEDS: CENTRAL LINE FLUSH 10 ML IV PUSH ×3 (05:56→20:30)
[2022-11-03 06:06] LABS: Anisocytosis 1+ (NORMAL); Band Neutrophils Percent 13 % (0-6); Eosinophils Absolute Manual 0.31 K/mm3 (0.02-0.5); Eosinophils Percent Manual 5 % (0-4); Lymphocytes Absolute Manual 1.17 K/mm3 (1.1-4.5); Macrocytosis 1+ (NORMAL); Metamyelocytes Percent 1 %; Monocytes Absolute Manual 0.24 K/mm3 (0.1-0.90); Monocytes Percent Manual 4 % (3-9); Neutrophils Percent Manual 58 % (46-73); Schistocytes None Seen (NORMAL); Total Cells Counted 100
[2022-11-03] MEDS: MIDAZOLAM 100MG/NS 100ML(*CRX) 100 MG/100 ML BAG 8 MG IV CONT ×2 (08:06→20:49)
[2022-11-03] MEDS: FENTANYL 2,500MCG/NS250ML(*CRX 2,500 MCG/250 ML BAG 10 MCG IV CONT (08:07)
[2022-11-03] MEDS: METOPROLOL TARTRATE 25 MG TABLET FEED TUBE ×2 (08:08→20:30)
[2022-11-03] MEDS: MINERAL OIL/WHITE PETROLATUM OINTMENT 1 APPLIC EACH EYE ×2 (08:08→20:30)
[2022-11-03] MEDS: PANTOPRAZOLE SODIUM IV 40 MG VIAL IV PUSH ×2 (08:08→20:30)
[2022-11-03] MEDS: ENOXAPARIN 40 MG/0.4 ML SYRINGE SUB-Q (08:08)
[2022-11-03] MEDS: FUROSEMIDE INJ 40 MG/4 ML VIAL IV PUSH (08:08)
[2022-11-03] MEDS: CLOPIDOGREL BISULFATE 75 MG TABLET PO (08:08)
[2022-11-03] MEDS: ASPIRIN 81 MG CHEWABLE TABLET FEED TUBE (08:11)
--- NOTE | 2022-11-03 09:17 | P.PNNP_ITS ---
Progress Note: A&P Assessment and Plan (1) Acute kidney injury: Code(s): N17.9 - Acute kidney failure, unspecified Status: Acute Assessment and Plan: * relatively stable * presumably normal baseline creatinine * creatinine better but BUN elevated * suspect multifactorial etiology: * prerenal factors * contrast exposure (CTA chest on 10/25/22) * hypoxia * anemia * ARB use SCRIPT ARTIST * evaluation to date: * renal ultrasound unremarkable * urine electrolytes prerenal * urine eosinophils negative * CPK low * elevated BUN likely secondary to steroid use and possibly hypercatabolic state and need for diuretic therapy * follow trend of repeat labs and UOP (2) Acute and chronic respiratory failure with hypoxia: Code(s): J96.21 - Acute and chronic respiratory failure with hypoxia Status: Acute Assessment and Plan: * multifactorial: * possible pneumonia * COPD * known pulmonary fibrosis * exacerbation of COPD + UIP * pulmonary edema(?) * COVID-19 * on mechanical ventilation * on somewhat heavy sedation because he fights the ventilator * on steroids and bronchodilators * consider adding acetazolamide for diuresis and elevated CO2 level (3) COVID-19 virus infection: Code(s): U07.1 - COVID-19 Status: Acute Assessment and Plan: * as noted by positive testing * on decadron and baricitinib * ventilator support * respiratory isolation * IV diuretics to promote dry lung strategy * continue supportive therapy (4) Pulmonary fibrosis: Code(s): J84.10 - Pulmonary fibrosis, unspecified Status: Chronic Assessment and Plan: * known history of this * on steroids * Pulmonary recommendations noted (5) COPD (chronic obstructive pulmonary disease): Code(s): J44.9 - Chronic obstructive pulmonary disease, unspecified Status: Chronic Assessment and Plan: * complicates #2, #3, and #4 * continue current therapy (ventilator support, steroids, bronchodilators) (6) Pancytopenia: Code(s): D61.818 - Other pancytopenia Status: Acute Assessment and Plan: * relatively stable * Oncology following (7) Diabetes: Code(s): E11.9 - Type 2 diabetes mellitus without complications Status: Chronic Assessment and Plan: * follow accuchecks * glycemic control per programs director Will continue to follow. Subjective Date/time seen: 11/03/22 09:17 No real significant change since last seen -- remains intubated/sedated and on mechanical ventilation; remains hemodynamically stable without the need for vasopressor support; reasonable urine output noted with diuretic therapy and relative stability in BUN and creatinine; no other issues/events overnight. Exam Narrative: General: elderly AA male intubated/sedated and on mechanical ventilation Heart: normal S1 and S2; no rub Lungs: coarse breath sounds throughout Abdomen: bowel sounds positive nontender Extremities: no cyanosis or clubbing; trace - 1+ edema Skin: warm and dry Objective Data Vital Signs Vital Signs: Vital Signs Temp Pulse Resp BP Pulse Ox O2 Del Method FiO2 11/03/22 08:00 97 11/03/22 07:45 87 24 H 11/03/22 07:35 88 25 H 11/03/22 07:35 88 93 Mechanical Ventilation 40
--- NOTE | 2022-11-03 09:17 | PM.PNNEP ---
Progress Note: A&P Assessment and Plan (1) Acute kidney injury: Code(s): N17.9 - Acute kidney failure, unspecified Status: Acute Assessment and Plan: relatively stable presumably normal baseline creatinine creatinine better but BUN elevated suspect multifactorial etiology: prerenal factors contrast exposure (CTA chest on 10/25/22) hypoxia anemia ARB use TELEVISION PRESENTER evaluation to date: renal ultrasound unremarkable urine electrolytes prerenal urine eosinophils negative CPK low elevated BUN likely secondary to steroid use and possibly hypercatabolic state and need for diuretic therapy follow trend of repeat labs and UOP (2) Acute and chronic respiratory failure with hypoxia: Code(s): J96.21 - Acute and chronic respiratory failure with hypoxia Status: Acute Assessment and Plan: multifactorial: possible pneumonia COPD 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 pulmonary edema(?) COVID-19 on mechanical ventilation on somewhat heavy sedation because he fights the ventilator on steroids and bronchodilators consider adding acetazolamide for diuresis and elevated CO2 level (3) COVID-19 virus infection: Code(s): U07.1 - COVID-19 Status: Acute Assessment and Plan: as noted by positive testing on decadron and baricitinib ventilator support respiratory isolation IV diuretics to promote dry lung strategy continue supportive therapy (4) Pulmonary fibrosis: Code(s): J84.10 - Pulmonary fibrosis, unspecified Status: Chronic Assessment and Plan: known history of this on steroids Pulmonary recommendations noted (5) COPD (chronic obstructive pulmonary disease): Code(s): J44.9 - Chronic obstructive pulmonary disease, unspecified Status: Chronic Assessment and Plan: complicates #2, #3, and #4 continue current therapy (ventilator support, steroids, bronchodilators) (6) Pancytopenia: Code(s): D61.818 - Other pancytopenia Status: Acute Assessment and Plan: relatively stable Oncology following (7) Diabetes: Code(s): E11.9 - Type 2 diabetes mellitus without complications Status: Chronic Assessment and Plan: follow accuchecks glycemic control per portfolio strategist Will continue to follow. Subjective Date/time seen: 11/03/22 09:17 No real significant change since last seen -- remains intubated/sedated and on mechanical ventilation; remains hemodynamically stable without the need for vasopressor support; reasonable urine output noted with diuretic therapy and relative stability in BUN and creatinine; no other issues/events overnight. Exam Narrative: General: elderly AA male intubated/sedated and on mechanical ventilation Heart: normal S1 and S2; no rub Lungs: coarse breath sounds throughout Abdomen: bowel sounds positive nontender Extremities: no cyanosis or clubbing; trace - 1+ edema Skin: warm and dry Objective Data Vital Signs Vital Signs: Vital Signs Temp Pulse Resp BP Pulse Ox O2 Del Method FiO2 11/03/22 08:00 97 11/03/22 07:45 87 24 H 11/03/22 07:35 88 25 H 11/03/22 07:35 88 93 Mechanical Ventilation 40 11/03/22 08:20 95 27 H 11/03/22 08:08 95 11/03/22 08:07 95 27 H 11/03/22 08:07 95 27 H 11/03/22 08:06 95 27 H 11/03/22 08:00 95 Mechanical Ventilation 40 11/03/22 08:00 99.5 F 95 26 H 149/63 H 94 11/03/22 08:00 40 11/03/22 06:00 99 F 90 26 H 155/65 H 94 11/03/22 05:58 91 11/03/22 05:55 92 24 H 11/03/22 05:55 92 24 H 11/03/22 04:00 40 11/03/22 04:00 95 Mechanical Ventilation 40 11/03/22 04:00 97 11/03/22 04:00 98.4 F 98 24 H 134/59 L 94 11/03/22 04:58 83 24 H 11/03/22 04:57 79 95 Mechanical Ventilation 40 11/03/22 04:50 80 24
--- NOTE | 2022-11-03 09:38 | WPDINTPN ---
Progress Note: A&P Assessment and Plan (1) Acute and chronic respiratory failure with hypoxia: Code(s): J96.21 - Acute and chronic respiratory failure with hypoxia Status: Acute Assessment and Plan: Patient presented with worsening shortness of breath x1 day, likely related to bilateral infiltrates/pneumonia, possible COPD and/or pulmonary fibrosis flare/exacerbation, pulmonary edema -COVID PCR was negative on 10/24 and 10/26 but came back positive on 10/29 -intubated on 10/25/2022, ETT exchange on 10/27/2022 due to cuff leak - 10/29 worsening hypoxia and increased oxygen requirement overnight. Chest x-ray shows diffuse pulmonary infiltrates. Patient asynchronous with the ventilator. Peep was increased and patient was given a dose of paralytic with increased sedation -currently in CMV mode. FiO2 down to 40% PEEP is at 10. -permissive hypercapnia as ventilation is limited by the peak pressures. -continue sedation with Versed fentanyl and propofol. Sedation holidays limited by patient getting asynchronous with the ventilator and decompensated -continue Lasix -he has completed 5 day course of azithromycin (10/25) . s/p cefepime and vancomycin for 7 days (10/25) -continue bronchodilators -10/30 switched steroids back to dexamethasone 6 mg IV q.day which will be continued for 10 days -continue Barcitinib per tube -isolation -Discussed with corrections sergeant. -10/25/2022 CTA chest: No CT evidence of acute pulmonary embolus. Pulmonary opacities likely represent moderate pulmonary edema overlying severe chronic changes of UIP. Infection is not excluded. Small bilateral pleural effusions. Mediastinal lymphadenopathy. (2) Pneumonia due to COVID-19 virus: Code(s): U07.1 - COVID-19; J12.82 - Pneumonia due to coronavirus disease 2019 Status: Acute Assessment and Plan: See above (3) Pneumonia: Code(s): J18.9 - Pneumonia, unspecified organism Status: Acute Assessment and Plan: Sputum cultures have been obtained and pending -continue antibiotics as above 10/26/2022: Sputum cultures negative except yeast which is likely colonization 10/25/2022 MRSA screen: No MRSA 10/25/2022 urine cultures negative 10/25/2022 currently blood cultures have been negative (4) Pulmonary fibrosis: Code(s): J84.10 - Pulmonary fibrosis, unspecified Status: Chronic Assessment and Plan: Patient has a history of pulmonary fibrosis, follows up with the corrections sergeant at [facility] -patient is on nintedanib which is home med for pulmonary fibrosis See above (5) COPD (chronic obstructive pulmonary disease): Code(s): J44.9 - Chronic obstructive pulmonary disease, unspecified Status: Chronic Assessment and Plan: Continue mechanical ventilation, steroids, bronchodilators (6) CAD (coronary artery disease): Code(s): I25.10 - Atherosclerotic heart disease of [place] coronary artery without angina pectoris Status: Chronic Assessment and Plan: Patient with recent history of [place] status post stent x1 to the [facility] records show an echocardiogram with a diastolic dysfunction grade 3, EF of 56% 10/26/2022 echocardiogram showed EF of 60-65%, moderate increased LV wall thickness, grade 1 diastolic dysfunction, RV systolic function is mildly reduced mild pulmonary hypertension with RVSP of 44 mmHg, no aortic valve stenosis, trace mitral valve regurg, trace tricuspid valve regurg Patient has been on Plavix, aspirin, pravastatin, losartan and amlodipine at home -Dr. Chan discussed with Cardiology and patient currently on Plavix and aspirin -continue pravastatin -home losartan and amlodipine on hold at this time (7) Diabetes: Code(s): E11.9 - Type 2 diabetes mellitus without complications Status: Chronic Assessment and Plan: Patient has a history of diabetes on oral hypoglycemics at home -continue Accu-Cheks and sliding scale insulin -decreas
--- NOTE | 2022-11-03 10:53 | PCNFU ---
Nutrition Follow-Up Complete: Inadequate Oral Intake as related to mechanical ventilation as evidenced by NPO Goal:Meet estimated nutritional needs Pt current nutrition is tube feedings - Nepro at 40ml/hr. Nutrition recommendation: Continue with current plan of care Last recorded weight is 80.3 kg. Bowel Motility: + BM 11/01 Labs Reviewed: hgb:8.7, HCT:27.6, Alb:2.5, BUN:124, Glu:68 Meds Noted: lantus, propofol - 50mcgs= 608kcals, versed, fentanyl Skin: WNL Additional Notes: Pt continues on mechanical ventilation. Tube feeding formula changed to Nepro. Tube feeding being tolerated at 40 ml/hr providing 1584 kcals/72 gms protein/640 ml water. Total nutrition with propofol: 2192 kcals/72 gms protein/640 ml water. Meeting 100% kcal needs and 77% protein needs. Flush 30 ml q 4 hours. Noted a decrease in lantus due to morning hypoglycemic events. Agree with current orders, continue with current plan of care. Will monitor weight, labs, skin, meds, tube feedings tolerance in ICU rounds and reassessing every Wednesday and Wednesday.
[2022-11-03] MEDS: BARICITINIB 2 MG TABLET 4 MG FEED TUBE (11:07)
[2022-11-03 11:20] LABS: Glucose Point of Care 76 mg/dl (65-105)
--- NOTE | 2022-11-03 15:28 | PM.IMPN ---
Progress Note: A&P Assessment and Plan (1) Acute and chronic respiratory failure with hypoxia: Code(s): J96.21 - Acute and chronic respiratory failure with hypoxia Status: Acute Assessment and Plan: Patient presented with worsening shortness of breath x1 day, likely related to bilateral infiltrates/pneumonia, possible COPD and/or pulmonary fibrosis flare/exacerbation, pulmonary edema COVID PCR was negative on 10/24 and 10/26 but came back positive on 10/29 -intubated on 10/25/2022 - slow improvement - pt is on iv steroids - baricitinib on board (2) Pneumonia due to COVID-19 virus: Code(s): U07.1 - COVID-19; J12.82 - Pneumonia due to coronavirus disease 2018 Status: Acute Assessment and Plan: See above (3) Pneumonia: Code(s): J18.9 - Pneumonia, unspecified organism Status: Acute Assessment and Plan: Sputum cultures have been obtained and pending -continue antibiotics as above 10/26/2022: Sputum cultures negative except yeast which is likely colonization 10/25/2022 MRSA screen: No MRSA 10/25/2022 urine cultures negative 10/25/2022 currently blood cultures have been negative (4) Pulmonary fibrosis: Code(s): J84.10 - Pulmonary fibrosis, unspecified Status: Chronic Assessment and Plan: Patient has a history of pulmonary fibrosis, follows up with the cover stripper at [facility] -patient is on nintedanib which is home med for pulmonary fibrosis See above (5) COPD (chronic obstructive pulmonary disease): Code(s): J44.9 - Chronic obstructive pulmonary disease, unspecified Status: Chronic Assessment and Plan: Continue mechanical ventilation, steroids, bronchodilators (6) CAD (coronary artery disease): Code(s): I25.10 - Atherosclerotic heart disease of [place] coronary artery without angina pectoris Status: Chronic Assessment and Plan: Patient with recent history of [place] status post stent x1 to the [facility] records show an echocardiogram with a diastolic dysfunction grade 3, EF of 56% 10/26/2022 echocardiogram showed EF of 60-65%, moderate increased LV wall thickness, grade 1 diastolic dysfunction, RV systolic function is mildly reduced mild pulmonary hypertension with RVSP of 44 mmHg, no aortic valve stenosis, trace mitral valve regurg, trace tricuspid valve regurg Patient has been on Plavix, aspirin, pravastatin, losartan and amlodipine at home -continue Plavix and aspirin -continue pravastatin -home losartan and amlodipine on hold at this time (7) Diabetes: Code(s): E11.9 - Type 2 diabetes mellitus without complications Status: Chronic Assessment and Plan: Patient has a history of diabetes on oral hypoglycemics at home -continue Accu-Cheks and sliding scale insulin -continue Lantus, hyperglycemia likely related to steroids -hemoglobin A1c is 6.8 (8) Acute kidney injury: Code(s): N17.9 - Acute kidney failure, unspecified Status: Acute Assessment and Plan: Acute kidney injury with creatinine of 1.4 on admission -10/27/2022: Creatinine up to 1.6 - 10/27: Given 1000 ml NS IV fluids, with improvement in creatinine -10/27/2022: Renal ultrasound was unremarkable with no stones, masses or hydronephrosis -urine lytes reflective of prerenal picture, urine eosinophils are negative -watch creatitine levels - nephrology rounding (9) Pancytopenia: Code(s): D61.818 - Other pancytopenia Status: Acute Assessment and Plan: Pancytopenia -Could be bone marrow suppression -appreciate Hematology-Oncology evaluation and recommendation -folic acid and B12 were within normal limits -low iron levels, patient has been started on IV iron per Hematology -stool for occult blood still pending -pancytopenia stable -HIT antibodies negative (10) GERD (gastroesophageal reflux disease): Code(s): K21.9 - Andrew
[2022-11-03 17:49] LABS: Glucose Point of Care 110 mg/dl (65-105)
[2022-11-03] MEDS: PRAVASTATIN SODIUM 20 MG TABLET 40 MG FEED TUBE (20:30)
[2022-11-03 20:45] LABS: Glucose Point of Care 77 mg/dl (65-105)
[2022-11-04] VITALS (47 sets, daily range): BP systolic 93–141; BP diastolic 46–99; PULSE 65–98; RESP 20–26; TEMP 36.3–37.4; O2SAT 92–100
[2022-11-04] MEDS: PROPOFOL IV EMULSION 100 ML 23.04 MG IV CONT ×5 (01:22→17:32)
[2022-11-04 01:26] LABS: Glucose Point of Care 65 mg/dl (65-105)
[2022-11-04] MEDS: IPRATROPIUM BR 0.02% INH SOLN 0.5 MG/2.5 ML VIAL INHALATION ×5 (04:50→23:02)
[2022-11-04] MEDS: LEVALBUTEROL NEB 1.25 MG/3 ML INHALATION ×5 (04:50→23:02)
[2022-11-04 05:08] LABS: Alveolar/Arterial O2 Gradient 227.5 mmHg; Base Excess ABG 7.8 mEq/l (+/-2.0); Carboxyhemoglobin 0.2 % THb (0-2.0); Fractional Inspired Oxygen 50 %; HCO3 ABG 32.6 mEq/l (22.0-26.0); Methemoglobin ABG 0.3 %THb (0-1.5); Oxygen Content ABG 13.9 %vol (16.0-22.0); Oxygen Saturation ABG 95.7 % (95.0-100.0); Oxyhemoglobin 93.3 % THb (90.0-100.0); PCO2 ABG 47.1 mmHg (35.0-45.0); PO2 FiO2 Ratio Arterial Blood 1.52 %; Reduced Hemoglobin 6.2 %THb (0-5.0); Total Hemoglobin 10.5 g/dL (12.0-18.0); pH ABG 7.458 (7.350-7.450)
[2022-11-04 05:09] LABS: Device VENTILATOR; Modified Allen's Test Pass; Site Drawn RIGHT RADIAL
[2022-11-04 05:10] LABS: Arterial Blood Gas PEEP 10 cmH2O; Arterial Blood Gas Tidal Volume 500 ml; Arterial Blood Gas Vent Mode CMV; Arterial Blood Gas Ventilator rate 24 /MIN
[2022-11-04 05:37] LABS: Basophils Percent Auto 0.5 % (0.2-1.2); Eosinophils Absolute Auto 0.2 K/mm3 (0-0.3); Eosinophils Percent Auto 3.3 % (0-4.4); Hematocrit 28.5 % (42.0-52.0); Hemoglobin 8.8 g/dL (14.0-18.0); Immature Granulocyte Absolute 0.27 K/mm3 (0.00-0.031); Immature Granulocyte Percent A 4.4 % (0-0.5); Lymphocytes Absolute Auto 0.72 K/mm3 (0.9-3.2); Lymphocytes Percent Auto 11.8 % (18.3-44.2); Mean Corpuscular HGB Conc 30.9 g/dl (32-36); Mean Corpuscular Hemoglobin 29.2 pg (26-34); Mean Corpuscular Volume 94.7 fl (80-100); Mean Platelet Volume 11.6 fl (7.4-10.4); Monocytes Absolute Auto 0.3 K/mm3 (0.1-0.6); Monocytes Percent Auto 5.1 % (2.6-8.5); Neutrophils Absolute Auto 4.6 K/mm3 (1.3-6.7); Neutrophils Percent Auto 74.9 % (45.5-73.1); Platelet Count Result 115 k/mm3 (150-375); Red Blood Count 3.01 M/mm3 (4.6-6.20); Red Cell Distribution Width 17.1 % (11.5-14.5); White Blood Count 6.1 K/mm3 (4.5-10.0)
[2022-11-04 05:48] LABS: INR 1.1; Prothrombin Time 13.3 Seconds (11.1-14.7)
[2022-11-04] MEDS: CENTRAL LINE FLUSH 10 ML IV PUSH ×3 (05:49→21:39)
[2022-11-04 05:52] LABS: Anion Gap 3 mmol/L (8-16); Calcium 8.4 mg/dL (8.4-10.2); Carbon Dioxide 36 mmol/L (22-30); Chloride 102 mmol/L (98-107); Estimated CRCL calculation 51 ml/min; Estimated Glomerular Filt Rate > 60; Glucose 201 mg/dL (65-110); Sodium 141 mmol/L (137-145); Triglycerides 107 mg/dL (<150)
[2022-11-04 05:55] LABS: Blood Urea Nitrogen 116 mg/dL (9-20)
--- NOTE | 2022-11-04 07:51 | PM.IMPN ---
Progress Note: A&P Assessment and Plan (1) Acute and chronic respiratory failure with hypoxia: Code(s): J96.21 - Acute and chronic respiratory failure with hypoxia Status: Acute Assessment and Plan: Patient presented with worsening shortness of breath x1 day, likely related to bilateral infiltrates/pneumonia, possible COPD and/or pulmonary fibrosis flare/exacerbation, pulmonary edema COVID PCR was negative on 10/24 and 10/26 but came back positive on 10/29 -intubated on 10/25/2022 - slow improvement - pt is on iv steroids - baricitinib on board (2) Pneumonia due to COVID-19 virus: Code(s): U07.1 - COVID-19; J12.82 - Pneumonia due to coronavirus disease 2018 Status: Acute Assessment and Plan: See above (3) Pneumonia: Code(s): J18.9 - Pneumonia, unspecified organism Status: Acute Assessment and Plan: Sputum cultures have been obtained and pending -continue antibiotics as above 10/26/2022: Sputum cultures negative except yeast which is likely colonization 10/25/2022 MRSA screen: No MRSA 10/25/2022 urine cultures negative 10/25/2022 currently blood cultures have been negative (4) Pulmonary fibrosis: Code(s): J84.10 - Pulmonary fibrosis, unspecified Status: Chronic Assessment and Plan: Patient has a history of pulmonary fibrosis, 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 [facility] -patient is on nintedanib which is home med for pulmonary fibrosis See above (5) COPD (chronic obstructive pulmonary disease): Code(s): J44.9 - Chronic obstructive pulmonary disease, unspecified Status: Chronic Assessment and Plan: Continue mechanical ventilation, steroids, bronchodilators (6) CAD (coronary artery disease): Code(s): I25.10 - Atherosclerotic heart disease of [place] coronary artery without angina pectoris Status: Chronic Assessment and Plan: Patient with recent history of NH status post stent x1 to the [facility] records show an echocardiogram with a diastolic dysfunction grade 3, EF of 56% 10/26/2022 echocardiogram showed EF of 60-65%, moderate increased LV wall thickness, grade 1 diastolic dysfunction, RV systolic function is mildly reduced mild pulmonary hypertension with RVSP of 44 mmHg, no aortic valve stenosis, trace mitral valve regurg, trace tricuspid valve regurg Patient has been on Plavix, aspirin, pravastatin, losartan and amlodipine at home -continue Plavix and aspirin -continue pravastatin -home losartan and amlodipine on hold at this time (7) Diabetes: Code(s): E11.9 - Type 2 diabetes mellitus without complications Status: Chronic Assessment and Plan: Patient has a history of diabetes on oral hypoglycemics at home -continue Accu-Cheks and sliding scale insulin -continue Lantus, hyperglycemia likely related to steroids -hemoglobin A1c is 6.8 (8) Acute kidney injury: Code(s): N17.9 - Acute kidney failure, unspecified Status: Acute Assessment and Plan: Acute kidney injury with creatinine of 1.4 on admission -10/27/2022: Creatinine up to 1.6 - 10/27: Given 1000 ml NS IV fluids, with improvement in creatinine -10/27/2022: Renal ultrasound was unremarkable with no stones, masses or hydronephrosis -urine lytes reflective of prerenal picture, urine eosinophils are negative -watch creatitine levels - nephrology rounding (9) Pancytopenia: Code(s): D61.818 - Other pancytopenia Status: Acute Assessment and Plan: Pancytopenia -Could be bone marrow suppression -appreciate Hematology-Oncology evaluation and recommendation -folic acid and B12 were within normal limits -low iron levels, patient has been started on IV iron per Hematology -stool for occult blood still pending -pancytopenia stable -HIT antibodies negative (10) GERD (gastroesophageal reflux disease): Code(s): K21.9 - Andrew
[2022-11-04] MEDS: MIDAZOLAM 100MG/NS 100ML(*CRX) 100 MG/100 ML BAG 8 MG IV CONT ×2 (10:55→23:56)
[2022-11-04] MEDS: ASPIRIN 81 MG CHEWABLE TABLET FEED TUBE (10:56)
[2022-11-04] MEDS: FUROSEMIDE INJ 40 MG/4 ML VIAL IV PUSH (10:57)
[2022-11-04] MEDS: ENOXAPARIN 40 MG/0.4 ML SYRINGE SUB-Q (10:57)
[2022-11-04] MEDS: CLOPIDOGREL BISULFATE 75 MG TABLET PO (10:57)
[2022-11-04] MEDS: METOPROLOL TARTRATE 25 MG TABLET FEED TUBE (10:58)
[2022-11-04] MEDS: MINERAL OIL/WHITE PETROLATUM OINTMENT 1 APPLIC EACH EYE ×2 (10:58→21:40)
[2022-11-04] MEDS: BARICITINIB 2 MG TABLET 4 MG FEED TUBE (10:58)
[2022-11-04] MEDS: FENTANYL 2,500MCG/NS250ML(*CRX 2,500 MCG/250 ML BAG 10 MCG IV CONT (10:58)
[2022-11-04] MEDS: PANTOPRAZOLE SODIUM IV 40 MG VIAL IV PUSH ×2 (10:58→20:23)
--- NOTE | 2022-11-04 11:10 | PCFNICU ---
ICU Rounding Note: Pt current nutrition is Nepro at 40ml/hr Last recorded weight is 80.5 kg. Bowel Motility:+Bm reported 11/01 Labs Reviewed:Glu 201, BUN 116 Meds Noted:Propofol 50 hnye=496 kcals, Fentanyl, Lopressor, Lasix. Skin: WNL Additional Notes: Patient remains on mechanical vent. Tolerating tube feedings of Nepro at 40 ml/hr. Flush 30 ml q 4 hours. Propofol at 50 evvw=604 kcals. Total Nutrition: 2192 kcals/72 gms protein/640 ml water. Agree with diet orders at this time. Will monitor weight, labs, skin, meds, tube feedings tolerance in ICU rounds and reassessing every Wednesday and Wednesday.
[2022-11-04 11:29] LABS: Alanine Aminotransferase 57 U/L (6-50)
[2022-11-04 11:40] LABS: Glucose Point of Care 145 mg/dl (65-105)
--- NOTE | 2022-11-04 12:08 | P.PNNP_ITS ---
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 * evaluation to date: * renal ultrasound unremarkable * urine electrolytes prerenal * urine eosinophils negative * CPK low * elevated BUN likely secondary to steroid use and possibly hypercatabolic state and need for diuretic therapy * follow trend of repeat labs and UOP (2) Acute and chronic respiratory failure with hypoxia: Code(s): J96.21 - Acute and chronic respiratory failure with hypoxia Status: Acute Assessment and Plan: * multifactorial: * possible pneumonia * COPD * known pulmonary fibrosis * exacerbation of COPD + UIP * pulmonary edema(?) * COVID-19 * on mechanical ventilation * on somewhat heavy sedation because he fights the ventilator * on steroids and bronchodilators (3) COVID-19 virus infection: Code(s): U07.1 - COVID-19 Status: Acute Assessment and Plan: * as noted by positive testing * on decadron and baricitinib * ventilator support * respiratory isolation * IV diuretics to promote dry lung strategy * continue supportive therapy (4) Pulmonary fibrosis: Code(s): J84.10 - Pulmonary fibrosis, unspecified Status: Chronic Assessment and Plan: * known history of this * on steroids * Pulmonary recommendations noted (5) COPD (chronic obstructive pulmonary disease): Code(s): J44.9 - Chronic obstructive pulmonary disease, unspecified Status: Chronic Assessment and Plan: * complicates #2, #3, and #4 * continue current therapy (ventilator support, steroids, bronchodilators) (6) Pancytopenia: Code(s): D61.818 - Other pancytopenia Status: Acute Assessment and Plan: * relatively stable if not improving * Oncology following (7) Diabetes: Code(s): E11.9 - Type 2 diabetes mellitus without complications Status: Chronic Assessment and Plan: * follow accuchecks * glycemic control per income tax consultant Will continue to follow. Subjective Date/time seen: 11/04/22 12:08 No real significant change - remains intubated/sedated and on mechanical ventilation; remains stable from hemodynamic perspective; stable urine output in response to diuretics with relative stability in renal function; no issues/events overnight or earlier this AM. Exam Narrative: General: elderly AA male intubated/sedated and on mechanical ventilation Heart: normal S1 and S2; no rub Lungs: coarse breath sounds throughout Abdomen: bowel sounds positive nontender Extremities: no cyanosis or clubbing; trace - 1+ edema Skin: warm and dry Objective Data Vital Signs Vital Signs: Vital Signs Temp Pulse Resp BP Pulse Ox O2 Del Method FiO2 11/04/22 12:06 65 100 Mechanical Ventilation 50 11/04/22 12:01 77 24 H 11/04/22 10:58 80 24 H 11/04/22 09:16 80 24 H 11/04/22 10:58 80 11/04/22 10:55 77 24 H 11/04/22 09:19 77 24 H
--- NOTE | 2022-11-04 12:08 | PM.PNNEP ---
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: renal ultrasound unremarkable urine electrolytes prerenal urine eosinophils negative CPK low elevated BUN likely secondary to steroid use and possibly hypercatabolic state and need for diuretic therapy follow trend of repeat labs and UOP (2) Acute and chronic respiratory failure with hypoxia: Code(s): J96.21 - Acute and chronic respiratory failure with hypoxia Status: Acute Assessment and Plan: multifactorial: possible pneumonia COPD 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 pulmonary edema(?) COVID-19 on mechanical ventilation on somewhat heavy sedation because he fights the ventilator on steroids and bronchodilators (3) COVID-19 virus infection: Code(s): U07.1 - COVID-19 Status: Acute Assessment and Plan: as noted by positive testing on decadron and baricitinib ventilator support respiratory isolation IV diuretics to promote dry lung strategy continue supportive therapy (4) Pulmonary fibrosis: Code(s): J84.10 - Pulmonary fibrosis, unspecified Status: Chronic Assessment and Plan: known history of this on steroids Pulmonary recommendations noted (5) COPD (chronic obstructive pulmonary disease): Code(s): J44.9 - Chronic obstructive pulmonary disease, unspecified Status: Chronic Assessment and Plan: complicates #2, #3, and #4 continue current therapy (ventilator support, steroids, bronchodilators) (6) Pancytopenia: Code(s): D61.818 - Other pancytopenia Status: Acute Assessment and Plan: relatively stable if not improving Oncology following (7) Diabetes: Code(s): E11.9 - Type 2 diabetes mellitus without complications Status: Chronic Assessment and Plan: follow accuchecks glycemic control per monument letterer Will continue to follow. Subjective Date/time seen: 11/04/22 12:08 No real significant change - remains intubated/sedated and on mechanical ventilation; remains stable from hemodynamic perspective; stable urine output in response to diuretics with relative stability in renal function; no issues/events overnight or earlier this AM. Exam Narrative: General: elderly AA male intubated/sedated and on mechanical ventilation Heart: normal S1 and S2; no rub Lungs: coarse breath sounds throughout Abdomen: bowel sounds positive nontender Extremities: no cyanosis or clubbing; trace - 1+ edema Skin: warm and dry Objective Data Vital Signs Vital Signs: Vital Signs Temp Pulse Resp BP Pulse Ox O2 Del Method FiO2 11/04/22 12:06 65 100 Mechanical Ventilation 50 11/04/22 12:01 77 24 H 11/04/22 10:58 80 24 H 11/04/22 09:16 80 24 H 11/04/22 10:58 80 11/04/22 10:55 77 24 H 11/04/22 09:19 77 24 H 11/04/22 09:26 86 93 Mechanical Ventilation 50 11/04/22 09:22 92 26 H 11/04/22 09:46 98 24 H 11/04/22 08:00 82 24 H 11/04/22 06:00 99.3 F 87 24 H 134/62 97 11/04/22 06:00 84 11/04/22 05:05 76 24 H 11/03/22 23:40 90 24 H 11/04/22 05:48 81 24 H 11/04/22 05:43 81 24 H 11/04/22 04:51 81 92 Mechanical Ventilation 50 11/04/22 04:50 78 24 H 11/04/22 04:00 50 11/04/22 04:00 92 Mechanical Ventilation 50 11/04/22 04:00 78 11/04/22 04:00 99.4 F 78 24 H 136/99 H 92 11/04/22 02:00 99.2 F 82 24 H 141/58 H 92 11/04/22 02:00 78 11/04/22 00:00 94 Mechanical Ventilat
--- NOTE | 2022-11-04 12:43 | WPDINTPN ---
Progress Note: A&P Assessment and Plan (1) Acute and chronic respiratory failure with hypoxia: Code(s): J96.21 - Acute and chronic respiratory failure with hypoxia Status: Acute Assessment and Plan: Patient presented with worsening shortness of breath x1 day, likely related to bilateral infiltrates/pneumonia, possible COPD and/or pulmonary fibrosis flare/exacerbation, pulmonary edema -COVID PCR was negative on 10/24 and 10/26 but came back positive on 10/29 -intubated on 10/25/2022, ETT exchange on 10/27/2022 due to cuff leak - 10/29 worsening hypoxia and increased oxygen requirement overnight. Chest x-ray shows diffuse pulmonary infiltrates. Patient asynchronous with the ventilator. Peep was increased and patient was given a dose of paralytic with increased sedation -currently in CMV mode. FiO2 down to 40% PEEP is at 10. -permissive hypercapnia as ventilation is limited by the peak pressures. -continue sedation with Versed fentanyl and propofol. Sedation holidays limited by patient getting asynchronous with the ventilator and decompensated -continue Lasix -he has completed 5 day course of azithromycin (10/25) . s/p cefepime and vancomycin for 7 days (10/25) -continue bronchodilators -10/30 switched steroids back to dexamethasone 6 mg IV q.day which will be continued for 10 days -continue Barcitinib per tube -isolation -Discussed with cripple chaser. -10/25/2022 CTA chest: No CT evidence of acute pulmonary embolus. Pulmonary opacities likely represent moderate pulmonary edema overlying severe chronic changes of UIP. Infection is not excluded. Small bilateral pleural effusions. Mediastinal lymphadenopathy. (2) Pneumonia due to COVID-19 virus: Code(s): U07.1 - COVID-19; J12.82 - Pneumonia due to coronavirus disease 2019 Status: Acute Assessment and Plan: See above (3) Pneumonia: Code(s): J18.9 - Pneumonia, unspecified organism Status: Acute Assessment and Plan: Sputum cultures have been obtained and pending -continue antibiotics as above 10/26/2022: Sputum cultures negative except yeast which is likely colonization 10/25/2022 MRSA screen: No MRSA 10/25/2022 urine cultures negative 10/25/2022 currently blood cultures have been negative (4) Pulmonary fibrosis: Code(s): J84.10 - Pulmonary fibrosis, unspecified Status: Chronic Assessment and Plan: Patient has a history of pulmonary fibrosis, 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 [facility] -patient is on nintedanib which is home med for pulmonary fibrosis See above (5) COPD (chronic obstructive pulmonary disease): Code(s): J44.9 - Chronic obstructive pulmonary disease, unspecified Status: Chronic Assessment and Plan: Continue mechanical ventilation, steroids, bronchodilators (6) CAD (coronary artery disease): Code(s): I25.10 - Atherosclerotic heart disease of [place] coronary artery without angina pectoris Status: Chronic Assessment and Plan: Patient with recent history of [place] status post stent x1 to the [facility] records show an echocardiogram with a diastolic dysfunction grade 3, EF of 56% 10/26/2022 echocardiogram showed EF of 60-65%, moderate increased LV wall thickness, grade 1 diastolic dysfunction, RV systolic function is mildly reduced mild pulmonary hypertension with RVSP of 44 mmHg, no aortic valve stenosis, trace mitral valve regurg, trace tricuspid valve regurg Patient has been on Plavix, aspirin, pravastatin, losartan and amlodipine at home -Dr. Chan discussed with Cardiology and patient currently on Plavix and aspirin -continue pravastatin -home losartan and amlodipine on hold at this time (7) Diabetes: Code(s): E11.9 - Type 2 diabetes mellitus without complications Status: Chronic Assessment and Plan: Patient has a history of diabetes on oral hypoglycemics at home -continue Accu-Cheks and sliding scale insulin -decre
[2022-11-04] MEDS: INSULIN ASPART (*BKC) 100 UNITS/ML SUB-Q (17:31)
[2022-11-04 17:41] LABS: Glucose Point of Care 225 mg/dl (65-105)
[2022-11-04] MEDS: PRAVASTATIN SODIUM 20 MG TABLET 40 MG FEED TUBE (20:23)
[2022-11-04] MEDS: INSULIN GLARGINE (*BKC) 100 UNITS/ML 18 UNITS SUB-Q (20:24)
[2022-11-04 20:48] LABS: Glucose Point of Care 243 mg/dl (65-105)
[2022-11-04] MEDS: PROPOFOL IV EMULSION 100 ML 20.74 MG IV CONT (21:39)
[2022-11-05] VITALS (60 sets, daily range): BP systolic 102–159; BP diastolic 50–80; PULSE 68–98; RESP 21–31; TEMP 36.4–38.1; O2SAT 89–100
[2022-11-05 01:21] LABS: Glucose Point of Care 179 mg/dl (65-105)
[2022-11-05] MEDS: PROPOFOL IV EMULSION 100 ML 20.74 MG IV CONT (02:24)
[2022-11-05] MEDS: LEVALBUTEROL NEB 1.25 MG/3 ML INHALATION ×4 (04:15→20:15)
[2022-11-05] MEDS: IPRATROPIUM BR 0.02% INH SOLN 0.5 MG/2.5 ML VIAL INHALATION ×4 (04:35→20:15)
[2022-11-05 04:42] LABS: Alveolar/Arterial O2 Gradient 171.3 mmHg; Base Excess ABG 6.6 mEq/l (+/-2.0); Carboxyhemoglobin 0.3 % THb (0-2.0); Fractional Inspired Oxygen 40 %; HCO3 ABG 30.7 mEq/l (22.0-26.0); Methemoglobin ABG 0.3 %THb (0-1.5); Modified Allen's Test Pass; Oxygen Content ABG 12.4 %vol (16.0-22.0); Oxygen Saturation ABG 94.2 % (95.0-100.0); Oxyhemoglobin 91.4 % THb (90.0-100.0); PO2 ABG 65.6 mmHg (80.0-100.0); PO2 FiO2 Ratio Arterial Blood 1.64 %; Site Drawn RIGHT BRACHIAL; Total Hemoglobin 9.6 g/dL (12.0-18.0); pH ABG 7.482 (7.350-7.450)
[2022-11-05 04:43] LABS: Arterial Blood Gas PEEP 8 cmH2O; Arterial Blood Gas Tidal Volume 500 ml; Arterial Blood Gas Vent Mode CMV; Arterial Blood Gas Ventilator rate 24 /MIN; Device VENTILATOR
[2022-11-05 05:40] LABS: Alanine Aminotransferase 64 U/L (6-50); Albumin Level 2.6 g/dL (3.5-5.1); Alkaline Phosphatase 145 U/L (38-126); Anion Gap 4 mmol/L (8-16); Aspartate Amino Transferase 46 U/L (17-59); Basophils Percent Auto 0.3 % (0.2-1.2); Bilirubin,Total 0.4 mg/dL (0.2-1.3); Calcium 8.5 mg/dL (8.4-10.2); Carbon Dioxide 34 mmol/L (22-30); Chloride 103 mmol/L (98-107); Eosinophils Absolute Auto 0.2 K/mm3 (0-0.3); Eosinophils Percent Auto 2.5 % (0-4.4); Estimated CRCL calculation 51 ml/min; Estimated Glomerular Filt Rate > 60; Glucose 170 mg/dL (65-110); Hematocrit 27.3 % (42.0-52.0); Hemoglobin 8.5 g/dL (14.0-18.0); Immature Granulocyte Absolute 0.27 K/mm3 (0.00-0.031); Lipase 57 U/L (23-300); Lymphocytes Percent Auto 8.8 % (18.3-44.2); Magnesium 2.5 mg/dL (1.6-2.3); Mean Corpuscular HGB Conc 31.1 g/dl (32-36); Mean Corpuscular Hemoglobin 29.2 pg (26-34); Mean Corpuscular Volume 93.8 fl (80-100); Monocytes Absolute Auto 0.3 K/mm3 (0.1-0.6); Neutrophils Absolute Auto 5.4 K/mm3 (1.3-6.7); Neutrophils Percent Auto 79.4 % (45.5-73.1); Phosphorus 4.4 mg/dL (2.5-4.5); Platelet Count Result 111 k/mm3 (150-375); Red Blood Count 2.91 M/mm3 (4.6-6.20); Red Cell Distribution Width 17.2 % (11.5-14.5); Sodium 141 mmol/L (137-145); White Blood Count 6.8 K/mm3 (4.5-10.0)
[2022-11-05 05:47] LABS: Blood Urea Nitrogen 120 mg/dL (9-20)
[2022-11-05 05:51] LABS: INR 1.1; Prothrombin Time 13.5 Seconds (11.1-14.7)
[2022-11-05] MEDS: CENTRAL LINE FLUSH 10 ML IV PUSH ×3 (05:54→21:03)
[2022-11-05] MEDS: PROPOFOL IV EMULSION 100 ML 18.43 MG IV CONT ×2 (06:03→17:38)
[2022-11-05] MEDS: polyethylene glycoL 3350 17 GM POWD.PACK PO (08:55)
[2022-11-05] MEDS: METOPROLOL TARTRATE 25 MG TABLET FEED TUBE ×2 (08:55→20:57)
[2022-11-05] MEDS: SENNA/DOCUSATE SODIUM TABLET 1 TAB PO ×2 (08:55→20:57)
[2022-11-05] MEDS: CLOPIDOGREL BISULFATE 75 MG TABLET PO (08:56)
[2022-11-05] MEDS: PANTOPRAZOLE SODIUM IV 40 MG VIAL IV PUSH ×2 (08:56→20:57)
[2022-11-05] MEDS: FUROSEMIDE INJ 40 MG/4 ML VIAL IV PUSH (08:56)
[2022-11-05] MEDS: ENOXAPARIN 40 MG/0.4 ML SYRINGE SUB-Q (08:56)
[2022-11-05] MEDS: MINERAL OIL/WHITE PETROLATUM OINTMENT 1 APPLIC EACH EYE ×2 (08:56→20:56)
[2022-11-05] MEDS: ASPIRIN 81 MG CHEWABLE TABLET FEED TUBE (08:57)
--- NOTE | 2022-11-05 11:02 | PM.IMPN ---
Progress Note: A&P Assessment and Plan (1) Acute and chronic respiratory failure with hypoxia: Code(s): J96.21 - Acute and chronic respiratory failure with hypoxia Status: Acute Assessment and Plan: Patient presented with worsening shortness of breath x1 day, likely related to bilateral infiltrates/pneumonia, possible COPD and/or pulmonary fibrosis flare/exacerbation, pulmonary edema -COVID PCR was negative on 10/24 and 10/26 but came back positive on 10/29 -intubated on 10/25/2022, ETT exchange on 10/27/2022 due to cuff leak -continue sedation -continue Lasix -he has completed 5 day course of azithromycin (10/25) . s/p cefepime and vancomycin for 7 days (10/25) -continue bronchodilators -10/30 switched steroids back to dexamethasone 6 mg IV q.day which will be continued for 10 days -continue Barcitinib per tube -question plan for trach and PEG (2) Pneumonia due to COVID-19 virus: Code(s): U07.1 - COVID-19; J12.82 - Pneumonia due to coronavirus disease 2018 Status: Acute Assessment and Plan: See above plan (3) Pneumonia: Code(s): J18.9 - Pneumonia, unspecified organism Status: Acute Assessment and Plan: See above plan (4) Pulmonary fibrosis: Code(s): J84.10 - Pulmonary fibrosis, unspecified Status: Chronic Assessment and Plan: Patient has a history of pulmonary fibrosis (5) COPD (chronic obstructive pulmonary disease): Code(s): J44.9 - Chronic obstructive pulmonary disease, unspecified Status: Chronic Assessment and Plan: Continue mechanical ventilation, steroids, bronchodilators (6) CAD (coronary artery disease): Code(s): I25.10 - Atherosclerotic heart disease of [place] coronary artery without angina pectoris Status: Chronic Assessment and Plan: Continue dual anti-platelet therapy. (7) Diabetes: Code(s): E11.9 - Type 2 diabetes mellitus without complications Status: Chronic Assessment and Plan: Monitor blood sugars. (8) Acute kidney injury: Code(s): N17.9 - Acute kidney failure, unspecified Status: Acute Assessment and Plan: Monitor electrolytes and creatinine. (9) Pancytopenia: Code(s): D61.818 - Other pancytopenia Status: Acute Assessment and Plan: Pancytopenia -Could be bone marrow suppression -appreciate Hematology-Oncology evaluation and recommendation -folic acid and B12 were within normal limits -low iron levels, patient has been started on IV iron per Hematology -stool for occult blood still pending -10/27: patient anemic this morning with hemoglobin of 6.3, no obvious bleeding noted, will transfuse 1 unit of packed RBCs. -hemoglobin remains low but stable -pancytopenia stable -HIT antibodies negative (10) GERD (gastroesophageal reflux disease): Code(s): K21.9 - Gastro-esophageal reflux disease without esophagitis Status: Acute Assessment and Plan: Continue Protonix (11) Hyperkalemia: Code(s): E87.5 - Hyperkalemia Status: Acute Assessment and Plan: Monitor (12) Leg swelling: Code(s): M79.89 - Other specified soft tissue disorders Status: Acute Assessment and Plan: Continue diuresis Lower extremity Dopplers negative for DVT (13) Tachycardia: Code(s): R00.0 - Tachycardia, unspecified Status: Acute Assessment and Plan: 11/01 patient was tachycardic with frequent PVCs. Patient was given IV beta-benitez and started on per tube beta-benitez Currently in sinus rhythm Subjective Date/time seen: 11/05/22 11:02 Patient is intubated. Exam Narrative: General: Patient currently intubated and sedated, in no acute distress HEENT:? Pupils equal reactive, sclera is clear Neck:? Supple Respiratory:? Bilateral coarse breath sounds, rales, adequate air entry, decreased at bases, no wheezing Cardiac:? Regular in rhythm, S1-S2 is normal Abdomen:? Soft, nontender
--- NOTE | 2022-11-05 11:12 | PCFNICU ---
ICU Rounding Note: Pt current nutrition is Nepro at 40 ml/hr. Last recorded weight is 87.4 kg. Bowel Motility:+Bm reported 11/01-Miralax started today. Labs Reviewed:Glu 170, BUN 120, Alb 2.6 Meds Noted:Fentanyl, Propofol at 35 mcgs= 427 kcals,Senokot, Protonix Skin: WNL Additional Notes: Patient remains on mechanical vent and tube feedings of Nepro at 40 ml/hr and tolerating per nursing. Total Nutrition: 2011 kcals/72 gms protein/640 ml water. Flush 30 ml q 4 hours. Agree with diet orders. Will monitor weight, labs, skin, meds, tube feedings tolerance in ICU rounds and reassessing every Wednesday and Wednesday..
[2022-11-05] MEDS: MIDAZOLAM 100MG/NS 100ML(*CRX) 100 MG/100 ML BAG 8 MG IV CONT (11:37)
[2022-11-05] MEDS: BARICITINIB 2 MG TABLET 4 MG FEED TUBE (11:39)
[2022-11-05] MEDS: PROPOFOL IV EMULSION 100 ML 13.82 MG IV CONT (11:40)
--- NOTE | 2022-11-05 11:40 | P.PNNP_ITS ---
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 * evaluation to date: * renal ultrasound unremarkable * urine electrolytes prerenal * urine eosinophils negative * CPK low * elevated BUN likely secondary to steroid use and possibly hypercatabolic state and need for diuretic therapy * follow trend of repeat labs and UOP (2) Acute and chronic respiratory failure with hypoxia: Code(s): J96.21 - Acute and chronic respiratory failure with hypoxia Status: Acute Assessment and Plan: * multifactorial: * possible pneumonia * COPD * known pulmonary fibrosis * exacerbation of COPD + UIP * pulmonary edema(?) * COVID-19 * on mechanical ventilation * on somewhat heavy sedation because he fights the ventilator * on steroids and bronchodilators (3) COVID-19 virus infection: Code(s): U07.1 - COVID-19 Status: Acute Assessment and Plan: * as noted by positive testing * on decadron and baricitinib * ventilator support * respiratory isolation * IV diuretics to promote dry lung strategy * continue supportive therapy (4) Pulmonary fibrosis: Code(s): J84.10 - Pulmonary fibrosis, unspecified Status: Chronic Assessment and Plan: * known history of this * on steroids * Pulmonary recommendations noted (5) COPD (chronic obstructive pulmonary disease): Code(s): J44.9 - Chronic obstructive pulmonary disease, unspecified Status: Chronic Assessment and Plan: * complicates #2, #3, and #4 * continue current therapy (ventilator support, steroids, bronchodilators) (6) Pancytopenia: Code(s): D61.818 - Other pancytopenia Status: Acute Assessment and Plan: * relatively stable if not improving * Oncology following (7) Diabetes: Code(s): E11.9 - Type 2 diabetes mellitus without complications Status: Chronic Assessment and Plan: * follow accuchecks * glycemic control per assessment counselor Will continue to follow. Subjective Date/time seen: 11/05/22 11:40 No real significant change noted since I last saw the patient -- remains intubated/sedated and on mechanical ventilation; renal function and urine output relatively stable with diuretic therapy; hemodynamically stable; no new issues/events overnight or earlier this morning. Exam Narrative: General: elderly AA male intubated/sedated and on mechanical ventilation Heart: normal S1 and S2; no rub Lungs: coarse breath sounds throughout Abdomen: bowel sounds positive nontender Extremities: no cyanosis or clubbing; trace - 1+ edema Skin: warm and dry Objective Data Vital Signs Vital Signs: Vital Signs Temp Pulse Resp BP Pulse Ox O2 Del Method FiO2 11/05/22 10:30 77 91 Mechanical Ventilation 40 11/05/22 10:00 99.6 F 79 24 H 127/64 97 11/05/22 10:00 77 11/05/22 08:00 80 11/05/22 08:22 83 24 H 11/05/22 07:58 93 24 H 11/05/22 07:58 93 91 Me
--- NOTE | 2022-11-05 11:40 | PM.PNNEP ---
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 evaluation to date: renal ultrasound unremarkable urine electrolytes prerenal urine eosinophils negative CPK low elevated BUN likely secondary to steroid use and possibly hypercatabolic state and need for diuretic therapy follow trend of repeat labs and UOP (2) Acute and chronic respiratory failure with hypoxia: Code(s): J96.21 - Acute and chronic respiratory failure with hypoxia Status: Acute Assessment and Plan: multifactorial: possible pneumonia COPD 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 pulmonary edema(?) COVID-19 on mechanical ventilation on somewhat heavy sedation because he fights the ventilator on steroids and bronchodilators (3) COVID-19 virus infection: Code(s): U07.1 - COVID-19 Status: Acute Assessment and Plan: as noted by positive testing on decadron and baricitinib ventilator support respiratory isolation IV diuretics to promote dry lung strategy continue supportive therapy (4) Pulmonary fibrosis: Code(s): J84.10 - Pulmonary fibrosis, unspecified Status: Chronic Assessment and Plan: known history of this on steroids Pulmonary recommendations noted (5) COPD (chronic obstructive pulmonary disease): Code(s): J44.9 - Chronic obstructive pulmonary disease, unspecified Status: Chronic Assessment and Plan: complicates #2, #3, and #4 continue current therapy (ventilator support, steroids, bronchodilators) (6) Pancytopenia: Code(s): D61.818 - Other pancytopenia Status: Acute Assessment and Plan: relatively stable if not improving Oncology following (7) Diabetes: Code(s): E11.9 - Type 2 diabetes mellitus without complications Status: Chronic Assessment and Plan: follow accuchecks glycemic control per rn icu Will continue to follow. Subjective Date/time seen: 11/05/22 11:40 No real significant change noted since I last saw the patient -- remains intubated/sedated and on mechanical ventilation; renal function and urine output relatively stable with diuretic therapy; hemodynamically stable; no new issues/events overnight or earlier this morning. Exam Narrative: General: elderly AA male intubated/sedated and on mechanical ventilation Heart: normal S1 and S2; no rub Lungs: coarse breath sounds throughout Abdomen: bowel sounds positive nontender Extremities: no cyanosis or clubbing; trace - 1+ edema Skin: warm and dry Objective Data Vital Signs Vital Signs: Vital Signs Temp Pulse Resp BP Pulse Ox O2 Del Method FiO2 11/05/22 10:30 77 91 Mechanical Ventilation 40 11/05/22 10:00 99.6 F 79 24 H 127/64 97 11/05/22 10:00 77 11/05/22 08:00 80 11/05/22 08:22 83 24 H 11/05/22 07:58 93 24 H 11/05/22 07:58 93 91 Mechanical Ventilation 40 11/05/22 09:02 92 28 H 11/05/22 09:01 92 28 H 11/05/22 09:01 92 28 H 11/05/22 08:55 98 11/05/22 08:00 40 11/05/22 08:00 93 Mechanical Ventilation 40 11/05/22 08:00 98.9 F 83 24 H 126/60 92 11/04/22 23:30 69 24 H 11/04/22 20:05 69 24 H 11/05/22 04:15 76 24 H 11/05/22 06:00 98.7 F 76 24 H 127/60 93 11/05/22 06:00 76 11/05/22 05:54 79 24 H 11/05/22 05:54 79 24 H 11/05/22 05:54 79 24 H 11/05/22 04:23 77 94 Mechanical Ventilation 40 11/05/22 04:00 40 11/05/22 04:00 93 Mechanical Ventilation 40 11/05/22 04:00 98.9 F
[2022-11-05 11:54] LABS: Glucose Point of Care 189 mg/dl (65-105)
--- NOTE | 2022-11-05 12:14 | WPDINTPN ---
Progress Note: A&P Assessment and Plan (1) Acute and chronic respiratory failure with hypoxia: Code(s): J96.21 - Acute and chronic respiratory failure with hypoxia Status: Acute Assessment and Plan: Patient presented with worsening shortness of breath x1 day, likely related to bilateral infiltrates/pneumonia, possible COPD and/or pulmonary fibrosis flare/exacerbation, pulmonary edema -COVID PCR was negative on 10/24 and 10/26 but came back positive on 10/29 -intubated on 10/25/2022, ETT exchange on 10/27/2022 due to cuff leak - 10/29 worsening hypoxia and increased oxygen requirement overnight. Chest x-ray shows diffuse pulmonary infiltrates. Patient asynchronous with the ventilator. Peep was increased and patient was given a dose of paralytic with increased sedation -currently in CMV mode. FiO2 down to 40% PEEP is at 10. -permissive hypercapnia as ventilation is limited by the peak pressures. -continue sedation with Versed fentanyl and propofol. Sedation holidays limited by patient getting asynchronous with the ventilator and decompensated -continue Lasix -he has completed 5 day course of azithromycin (10/25) . s/p cefepime and vancomycin for 7 days (10/25) -continue bronchodilators -10/30 switched steroids back to dexamethasone 6 mg IV q.day which will be continued for 10 days -continue Barcitinib per tube -isolation -Discussed with manager payer. -10/25/2022 CTA chest: No CT evidence of acute pulmonary embolus. Pulmonary opacities likely represent moderate pulmonary edema overlying severe chronic changes of UIP. Infection is not excluded. Small bilateral pleural effusions. Mediastinal lymphadenopathy. (2) Pneumonia due to COVID-19 virus: Code(s): U07.1 - COVID-19; J12.82 - Pneumonia due to coronavirus disease 2019 Status: Acute Assessment and Plan: See above (3) Pneumonia: Code(s): J18.9 - Pneumonia, unspecified organism Status: Acute Assessment and Plan: Sputum cultures have been obtained and pending -continue antibiotics as above 10/26/2022: Sputum cultures negative except yeast which is likely colonization 10/25/2022 MRSA screen: No MRSA 10/25/2022 urine cultures negative 10/25/2022 currently blood cultures have been negative (4) Pulmonary fibrosis: Code(s): J84.10 - Pulmonary fibrosis, unspecified Status: Chronic Assessment and Plan: Patient has a history of pulmonary fibrosis, follows up with the manager payer at [facility] -patient is on nintedanib which cannot be crushed and given through the tube See above (5) COPD (chronic obstructive pulmonary disease): Code(s): J44.9 - Chronic obstructive pulmonary disease, unspecified Status: Chronic Assessment and Plan: Continue mechanical ventilation, steroids, bronchodilators (6) CAD (coronary artery disease): Code(s): I25.10 - Atherosclerotic heart disease of [place] coronary artery without angina pectoris Status: Chronic Assessment and Plan: Patient with recent history of [place] status post stent x1 to the [facility] records show an echocardiogram with a diastolic dysfunction grade 3, EF of 56% 10/26/2022 echocardiogram showed EF of 60-65%, moderate increased LV wall thickness, grade 1 diastolic dysfunction, RV systolic function is mildly reduced mild pulmonary hypertension with RVSP of 44 mmHg, no aortic valve stenosis, trace mitral valve regurg, trace tricuspid valve regurg Patient has been on Plavix, aspirin, pravastatin, losartan and amlodipine at home -Dr. Chan discussed with Cardiology and patient currently on Plavix and aspirin -continue pravastatin -home losartan and amlodipine on hold at this time (7) Diabetes: Code(s): E11.9 - Type 2 diabetes mellitus without complications Status: Chronic Assessment and Plan: Patient has a history of diabetes on oral hypoglycemics at home -continue Accu-Cheks and sliding scale insul
--- NOTE | 2022-11-05 13:42 | PC.NURSE ---
Pt went into SVT. Dr. Chan notified. New order to increase propofol back to 40mcg/kg/min.
[2022-11-05] MEDS: FENTANYL 2,500MCG/NS250ML(*CRX 2,500 MCG/250 ML BAG 10 MCG IV CONT (14:09)
[2022-11-05] MEDS: INSULIN ASPART (*BKC) 100 UNITS/ML SUB-Q (17:38)
[2022-11-05 17:51] LABS: Glucose Point of Care 202 mg/dl (65-105)
[2022-11-05] MEDS: INSULIN GLARGINE (*BKC) 100 UNITS/ML 18 UNITS SUB-Q (20:55)
[2022-11-05] MEDS: PRAVASTATIN SODIUM 20 MG TABLET 40 MG FEED TUBE (20:57)
[2022-11-05] MEDS: PROPOFOL IV EMULSION 100 ML 23.04 MG IV CONT (21:32)
[2022-11-05 21:39] LABS: Glucose Point of Care 164 mg/dl (65-105)
[2022-11-05] MEDS: ACETAMINOPHEN ELIXIR 325 MG/10.15 ML UDC 650 MG PO (23:51)
[2022-11-06] VITALS (102 sets, daily range): BP systolic 89–148; BP diastolic 44–61; PULSE 61–94; RESP 9–34; TEMP 36.1–38.2; O2SAT 66–100
[2022-11-06] MEDS: MIDAZOLAM 100MG/NS 100ML(*CRX) 100 MG/100 ML BAG 8 MG IV CONT
[2022-11-06 00:06] LABS: Glucose Point of Care 127 mg/dl (65-105)
[2022-11-06] MEDS: PROPOFOL IV EMULSION 100 ML 23.04 MG IV CONT ×6 (02:00→21:13)
[2022-11-06] MEDS: IPRATROPIUM BR 0.02% INH SOLN 0.5 MG/2.5 ML VIAL INHALATION ×4 (02:45→21:47)
[2022-11-06] MEDS: LEVALBUTEROL NEB 1.25 MG/3 ML INHALATION ×4 (02:45→21:46)
[2022-11-06 04:59] LABS: Alanine Aminotransferase 97 U/L (6-50); Albumin Level 2.6 g/dL (3.5-5.1); Alkaline Phosphatase 270 U/L (38-126); Anion Gap 1 mmol/L (8-16); Aspartate Amino Transferase 88 U/L (17-59); Bilirubin,Total 0.5 mg/dL (0.2-1.3); Blood Urea Nitrogen 110 mg/dL (9-20); Calcium 8.5 mg/dL (8.4-10.2); Carbon Dioxide 36 mmol/L (22-30); Chloride 106 mmol/L (98-107); Estimated CRCL calculation 61 ml/min; Estimated Glomerular Filt Rate > 60; Glucose 175 mg/dL (65-110); Lipase 52 U/L (23-300); Magnesium 2.3 mg/dL (1.6-2.3); Phosphorus 3.6 mg/dL (2.5-4.5); Potassium 4.1 mmol/L (3.4-5.0); Sodium 143 mmol/L (137-145); Triglycerides 74 mg/dL (<150)
[2022-11-06 05:00] LABS: Basophils Absolute Auto 0.1 K/mm3 (0.0-0.1); Basophils Percent Auto 0.5 % (0.2-1.2); Eosinophils Absolute Auto 0.1 K/mm3 (0-0.3); Eosinophils Percent Auto 1.4 % (0-4.4); Hematocrit 28.1 % (42.0-52.0); Hemoglobin 8.8 g/dL (14.0-18.0); Immature Granulocyte Absolute 0.13 K/mm3 (0.00-0.031); Immature Granulocyte Percent A 1.4 % (0-0.5); Lymphocytes Absolute Auto 0.97 K/mm3 (0.9-3.2); Lymphocytes Percent Auto 10.6 % (18.3-44.2); Mean Corpuscular HGB Conc 31.3 g/dl (32-36); Mean Corpuscular Hemoglobin 29.3 pg (26-34); Mean Corpuscular Volume 93.7 fl (80-100); Mean Platelet Volume 11.1 fl (7.4-10.4); Monocytes Absolute Auto 0.5 K/mm3 (0.1-0.6); Monocytes Percent Auto 4.9 % (2.6-8.5); Neutrophils Absolute Auto 7.4 K/mm3 (1.3-6.7); Neutrophils Percent Auto 81.2 % (45.5-73.1); Platelet Count Result 135 k/mm3 (150-375); Red Cell Distribution Width 17.1 % (11.5-14.5); White Blood Count 9.2 K/mm3 (4.5-10.0)
[2022-11-06 05:23] LABS: INR 1.2; Prothrombin Time 14.3 Seconds (11.1-14.7)
[2022-11-06 05:30] LABS: Alveolar/Arterial O2 Gradient 205.7 mmHg; Base Excess ABG 4.4 mEq/l (+/-2.0); Carboxyhemoglobin 0.3 % THb (0-2.0); HCO3 ABG 28.4 mEq/l (22.0-26.0); Oxygen Content ABG 13.8 %vol (16.0-22.0); Oxygen Saturation ABG 94.9 % (95.0-100.0); Oxyhemoglobin 92.2 % THb (90.0-100.0); PCO2 ABG 40.1 mmHg (35.0-45.0); PO2 ABG 69.5 mmHg (80.0-100.0); Reduced Hemoglobin 7.5 %THb (0-5.0); Total Hemoglobin 10.6 g/dL (12.0-18.0); pH ABG 7.468 (7.350-7.450)
[2022-11-06 05:31] LABS: Arterial Blood Gas PEEP 8 cmH2O; Arterial Blood Gas Tidal Volume 500 ml; Arterial Blood Gas Vent Mode CMV; Arterial Blood Gas Ventilator rate 24 /MIN; Device VENTILATOR; Fractional Inspired Oxygen 45 %; Modified Allen's Test Pass; PO2 FiO2 Ratio Arterial Blood 1.54 %; Site Drawn RIGHT RADIAL
[2022-11-06] MEDS: CENTRAL LINE FLUSH 10 ML IV PUSH ×3 (05:38→21:23)
[2022-11-06 05:45] LABS: Glucose Point of Care 172 mg/dl (65-105)
--- NOTE | 2022-11-06 08:00 | WPDINTPN ---
Progress Note: A&P Assessment and Plan (1) Acute and chronic respiratory failure with hypoxia: Code(s): J96.21 - Acute and chronic respiratory failure with hypoxia Status: Acute Assessment and Plan: Patient presented with worsening shortness of breath x1 day, likely related to bilateral infiltrates/pneumonia, possible COPD and/or pulmonary fibrosis flare/exacerbation, pulmonary edema -COVID PCR was negative on 10/24 and 10/26 but came back positive on 10/29 -intubated on 10/25/2022, ETT exchange on 10/27/2022 due to cuff leak - 10/29 worsening hypoxia and increased oxygen requirement overnight. Chest x-ray shows diffuse pulmonary infiltrates. Patient asynchronous with the ventilator. Peep was increased and patient was given a dose of paralytic with increased sedation -currently in CMV mode. -continue sedation with Versed fentanyl and propofol. Sedation holidays limited by patient getting asynchronous with the ventilator and decompensated -continue Lasix -he has completed 5 day course of azithromycin (10/25) . s/p cefepime and vancomycin for 7 days (10/25) -continue bronchodilators -10/30 switched steroids back to dexamethasone 6 mg IV q.day which will be continued for 10 days -continue Barcitinib per tube -isolation -currently on 45% FiO2 and peep of 8, peak pressure is still elevated to 40-42 cmH2O, decreased tidal volume to 450ml, -will allow permissive hypercapnia as ventilation is limited by the peak pressures. -10/25/2022 CTA chest: No CT evidence of acute pulmonary embolus. Pulmonary opacities likely represent moderate pulmonary edema overlying severe chronic changes of UIP. Infection is not excluded. Small bilateral pleural effusions. Mediastinal lymphadenopathy. (2) Pneumonia due to COVID-19 virus: Code(s): U07.1 - COVID-19; J12.82 - Pneumonia due to coronavirus disease 2019 Status: Acute Assessment and Plan: Will add Pulmicort x3 days (3) Pneumonia: Code(s): J18.9 - Pneumonia, unspecified organism Status: Acute Assessment and Plan: Sputum cultures have been obtained and pending -continue antibiotics as above 10/26/2022: Sputum cultures negative except yeast which is likely colonization 10/25/2022 MRSA screen: No MRSA 10/25/2022 urine cultures negative 10/25/2022 currently blood cultures have been negative 11/06: T-max of 100.7?, white count is is up to 9.2 from 6.8 yesterday, will obtain blood cultures, urine culture and sputum culture, chest x-ray with no change. Will hold antibiotics for now (4) Pulmonary fibrosis: Code(s): J84.10 - Pulmonary fibrosis, unspecified Status: Chronic Assessment and Plan: Patient has a history of pulmonary fibrosis, follows up with the cigar head perforator at [facility] -patient is on nintedanib which cannot be crushed and given through the tube See above (5) COPD (chronic obstructive pulmonary disease): Code(s): J44.9 - Chronic obstructive pulmonary disease, unspecified Status: Chronic Assessment and Plan: Continue mechanical ventilation, bronchodilators (6) CAD (coronary artery disease): Code(s): I25.10 - Atherosclerotic heart disease of [place] coronary artery without angina pectoris Status: Chronic Assessment and Plan: Patient with recent history of [place] status post stent x1 to the [facility] records show an echocardiogram with a diastolic dysfunction grade 3, EF of 56% 10/26/2022 echocardiogram showed EF of 60-65%, moderate increased LV wall thickness, grade 1 diastolic dysfunction, RV systolic function is mildly reduced mild pulmonary hypertension with RVSP of 44 mmHg, no aortic valve stenosis, trace mitral valve regurg, trace tricuspid valve regurg Patient has been on Plavix, aspirin, pravastatin, losartan and amlodipine at home -Dr. Chan discussed with Cardiology and patient currently on Plavix and aspirin -continue pravastatin -home losartan and amlodipine
[2022-11-06] MEDS: MINERAL OIL/WHITE PETROLATUM OINTMENT 1 APPLIC EACH EYE ×2 (08:52→21:17)
[2022-11-06] MEDS: CLOPIDOGREL BISULFATE 75 MG TABLET PO (08:52)
[2022-11-06] MEDS: ENOXAPARIN 40 MG/0.4 ML SYRINGE SUB-Q (08:52)
[2022-11-06] MEDS: polyethylene glycoL 3350 17 GM POWD.PACK PO (08:52)
[2022-11-06] MEDS: METOPROLOL TARTRATE 25 MG TABLET FEED TUBE (08:53)
[2022-11-06] MEDS: SENNA/DOCUSATE SODIUM TABLET 1 TAB PO ×2 (08:53→21:19)
[2022-11-06] MEDS: PANTOPRAZOLE SODIUM IV 40 MG VIAL IV PUSH ×2 (08:53→21:18)
[2022-11-06] MEDS: FUROSEMIDE INJ 40 MG/4 ML VIAL IV PUSH (08:53)
[2022-11-06] MEDS: LACTULOSE 20 GM/30 ML UDC PO (09:27)
--- NOTE | 2022-11-06 10:03 | P.PNNP_ITS ---
Progress Note: A&P Assessment and Plan (1) Acute kidney injury: Code(s): N17.9 - Acute kidney failure, unspecified Status: Acute Assessment and Plan: * slow improvement noted * presumably normal baseline creatinine * suspect multifactorial etiology: * prerenal factors * contrast exposure (CTA chest on 10/25/22) * hypoxia * anemia * ARB use [employer] * evaluation to date: * renal ultrasound unremarkable * urine electrolytes prerenal * urine eosinophils negative * CPK low * elevated BUN likely secondary to steroid use and possibly hypercatabolic state and need for diuretic therapy * follow trend of repeat labs and UOP (2) Acute and chronic respiratory failure with hypoxia: Code(s): J96.21 - Acute and chronic respiratory failure with hypoxia Status: Acute Assessment and Plan: * multifactorial: * possible pneumonia * COPD * known pulmonary fibrosis * exacerbation of COPD + UIP * pulmonary edema(?) * COVID-19 * on mechanical ventilation * on somewhat heavy sedation because he fights the ventilator * on steroids and bronchodilators (3) COVID-19 virus infection: Code(s): U07.1 - COVID-19 Status: Acute Assessment and Plan: * as noted by positive testing * on decadron and baricitinib * ventilator support * respiratory isolation * IV diuretics to promote dry lung strategy * continue supportive therapy (4) Pulmonary fibrosis: Code(s): J84.10 - Pulmonary fibrosis, unspecified Status: Chronic Assessment and Plan: * known history of this * on steroids * Pulmonary recommendations noted (5) COPD (chronic obstructive pulmonary disease): Code(s): J44.9 - Chronic obstructive pulmonary disease, unspecified Status: Chronic Assessment and Plan: * complicates #2, #3, and #4 * continue current therapy (ventilator support, steroids, bronchodilators) (6) Pancytopenia: Code(s): D61.818 - Other pancytopenia Status: Acute Assessment and Plan: * relatively stable if not improving * Oncology following (7) Diabetes: Code(s): E11.9 - Type 2 diabetes mellitus without complications Status: Chronic Assessment and Plan: * follow accuchecks * glycemic control per shake packer Dr. Chan has already discussed with family goals of care (continued aggressive support including tracheostomy + G-tube placement versus withdrawal of care -- family meeting to occur to address these issues) Nothing much else to add -- will continue to follow intermittently. Subjective Date/time seen: 11/06/22 10:03 No significant change noted in the last 24 hours -- remains intubated/sedated and on mechanical ventilation; good urine output with renal function relatively stable despite ongoing use of IV diuretic therapy; hemodynamically stable but with low grade fever overnight; no new issues/events overnight or earlier this morning. Exam Narrative: General: elderly AA male intubated/sedated and on mechanical ventilation Heart: normal S1 and S2; no rub Lungs: coarse breath sounds throughout Abdomen: bowel sounds positive nontender Extremities: no cyanosis or clubbing; trace - 1+ edema Skin: warm and intact Objective Data Vital Signs Vital Signs: Vital Signs Temp Pulse Resp BP Pulse Ox O2 Del Method FiO2
--- NOTE | 2022-11-06 10:03 | PM.PNNEP ---
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 to date: renal ultrasound unremarkable urine electrolytes prerenal urine eosinophils negative CPK low elevated BUN likely secondary to steroid use and possibly hypercatabolic state and need for diuretic therapy follow trend of repeat labs and UOP (2) Acute and chronic respiratory failure with hypoxia: Code(s): J96.21 - Acute and chronic respiratory failure with hypoxia Status: Acute Assessment and Plan: multifactorial: possible pneumonia COPD 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 pulmonary edema(?) COVID-19 on mechanical ventilation on somewhat heavy sedation because he fights the ventilator on steroids and bronchodilators (3) COVID-19 virus infection: Code(s): U07.1 - COVID-19 Status: Acute Assessment and Plan: as noted by positive testing on decadron and baricitinib ventilator support respiratory isolation IV diuretics to promote dry lung strategy continue supportive therapy (4) Pulmonary fibrosis: Code(s): J84.10 - Pulmonary fibrosis, unspecified Status: Chronic Assessment and Plan: known history of this on steroids Pulmonary recommendations noted (5) COPD (chronic obstructive pulmonary disease): Code(s): J44.9 - Chronic obstructive pulmonary disease, unspecified Status: Chronic Assessment and Plan: complicates #2, #3, and #4 continue current therapy (ventilator support, steroids, bronchodilators) (6) Pancytopenia: Code(s): D61.818 - Other pancytopenia Status: Acute Assessment and Plan: relatively stable if not improving Oncology following (7) Diabetes: Code(s): E11.9 - Type 2 diabetes mellitus without complications Status: Chronic Assessment and Plan: follow accuchecks glycemic control per esol teacher Dr. Chan has already discussed with family goals of care (continued aggressive support including tracheostomy + G-tube placement versus withdrawal of care -- family meeting to occur to address these issues) Nothing much else to add -- will continue to follow intermittently. Subjective Date/time seen: 11/06/22 10:03 No significant change noted in the last 24 hours -- remains intubated/sedated and on mechanical ventilation; good urine output with renal function relatively stable despite ongoing use of IV diuretic therapy; hemodynamically stable but with low grade fever overnight; no new issues/events overnight or earlier this morning. Exam Narrative: General: elderly AA male intubated/sedated and on mechanical ventilation Heart: normal S1 and S2; no rub Lungs: coarse breath sounds throughout Abdomen: bowel sounds positive nontender Extremities: no cyanosis or clubbing; trace - 1+ edema Skin: warm and intact Objective Data Vital Signs Vital Signs: Vital Signs Temp Pulse Resp BP Pulse Ox O2 Del Method FiO2 11/06/22 10:01 99.8 F H 71 28 H 96/46 L 100 11/06/22 10:00 99.8 F H 70 27 H 100 11/06/22 09:45 99.8 F H 73 27 H 100 11/06/22 09:30 99.8 F H 71 25 H 100 11/06/22 09:16 99.8 F H 78 28 H 88 L 11/06/22 09:01 99.8 F H 84 26 H 130/59 L 96 11/06/22 09:00 99.8 F H 87 32 H 96 11/06/22 08:45 99.8 F H 86 31 H 94 11/06/22 08:30 99.9 F H 86 34 H 94 11/06/22 08:15 99.9 F H 81 34 H 93 11/06/22 08:02 99.9 F H 81 33 H 92 11/06/22 10:00 70 11/06/22 08:00 100 11/06/22 09:00 86 31 H 11/06/22 08:34 90 34 H 11/06/22 08:34 90
[2022-11-06] MEDS: BARICITINIB 2 MG TABLET 4 MG FEED TUBE (10:32)
[2022-11-06] MEDS: ASPIRIN 81 MG CHEWABLE TABLET FEED TUBE (10:32)
--- NOTE | 2022-11-06 11:12 | PCNFU ---
Nutrition Follow-Up Complete: Inadequate Oral Intake as related to mechanical ventilation as evidenced by NPO Goal: Meet estimated nutritional needs Patient will continue with current goal. Pt current nutrition is Nepro at 40 ml/hr. Last recorded weight is 80.9 kg. stable. Bowel Motility: No BM reported since 11/01-Lactulose started today. Labs Reviewed:Glu 175, BUN 110, Alb 2.6 Meds Noted:Lactulose, Miralax, Senokot,Fentanyl, Propofol 50 jigy=625 kcals, Versed, Lantus,Protonix Skin: WNL Additional Notes: Patient remains on mechanical vent and tube feedings of Nepro at 40 ml/hr and tolerating per nursing. Total Nutrition: 2192 kcals/72 gms protein/640 ml water. Flush 30 ml q 4 hours. Agree with diet orders at this time. Will monitor weight, labs, skin, meds, tube feedings tolerance in ICU rounds and reassessing every Wednesday and Wednesday.
--- NOTE | 2022-11-06 12:14 | PM.IMPN ---
Progress Note: A&P Assessment and Plan (1) Acute and chronic respiratory failure with hypoxia: Code(s): J96.21 - Acute and chronic respiratory failure with hypoxia Status: Acute Assessment and Plan: Patient presented with worsening shortness of breath x1 day, likely related to bilateral infiltrates/pneumonia, possible COPD and/or pulmonary fibrosis flare/exacerbation, pulmonary edema -COVID PCR was negative on 10/24 and 10/26 but came back positive on 10/29 -intubated on 10/25/2022, ETT exchange on 10/27/2022 due to cuff leak -continue sedation -continue Lasix -he has completed 5 day course of azithromycin (10/25) . s/p cefepime and vancomycin for 7 days (10/25) -continue bronchodilators -10/30 switched steroids back to dexamethasone 6 mg IV q.day which will be continued for 10 days -continue Barcitinib per tube -question plan for trach and PEG (2) Pneumonia due to COVID-19 virus: Code(s): U07.1 - COVID-19; J12.82 - Pneumonia due to coronavirus disease 2018 Status: Acute Assessment and Plan: See above plan (3) Pneumonia: Code(s): J18.9 - Pneumonia, unspecified organism Status: Acute Assessment and Plan: See above plan (4) Pulmonary fibrosis: Code(s): J84.10 - Pulmonary fibrosis, unspecified Status: Chronic Assessment and Plan: Patient has a history of pulmonary fibrosis (5) COPD (chronic obstructive pulmonary disease): Code(s): J44.9 - Chronic obstructive pulmonary disease, unspecified Status: Chronic Assessment and Plan: Continue mechanical ventilation, steroids, bronchodilators (6) CAD (coronary artery disease): Code(s): I25.10 - Atherosclerotic heart disease of [place] coronary artery without angina pectoris Status: Chronic Assessment and Plan: Continue dual anti-platelet therapy. (7) Diabetes: Code(s): E11.9 - Type 2 diabetes mellitus without complications Status: Chronic Assessment and Plan: Monitor blood sugars. (8) Acute kidney injury: Code(s): N17.9 - Acute kidney failure, unspecified Status: Acute Assessment and Plan: Monitor electrolytes and creatinine. (9) Pancytopenia: Code(s): D61.818 - Other pancytopenia Status: Acute Assessment and Plan: Pancytopenia -Could be bone marrow suppression -appreciate Hematology-Oncology evaluation and recommendation -folic acid and B12 were within normal limits -low iron levels, patient has been started on IV iron per Hematology -stool for occult blood still pending -10/27: patient anemic this morning with hemoglobin of 6.3, no obvious bleeding noted, will transfuse 1 unit of packed RBCs. -hemoglobin remains low but stable -pancytopenia stable -HIT antibodies negative (10) GERD (gastroesophageal reflux disease): Code(s): K21.9 - Gastro-esophageal reflux disease without esophagitis Status: Acute Assessment and Plan: Continue Protonix (11) Hyperkalemia: Code(s): E87.5 - Hyperkalemia Status: Acute Assessment and Plan: Monitor (12) Leg swelling: Code(s): M79.89 - Other specified soft tissue disorders Status: Acute Assessment and Plan: Continue diuresis Lower extremity Dopplers negative for DVT (13) Tachycardia: Code(s): R00.0 - Tachycardia, unspecified Status: Acute Assessment and Plan: 11/01 patient was tachycardic with frequent PVCs. Patient was given IV beta-benitez and started on per tube beta-benitez Currently in sinus rhythm Subjective Date/time seen: 11/06/22 12:14 Still intubated and sedated. Exam Narrative: General: Patient currently intubated and sedated, in no acute distress HEENT:? Pupils equal reactive, sclera is clear Neck:? Supple Respiratory:? Bilateral coarse breath sounds, rales, adequate air entry, decreased at bases, no wheezing Cardiac:? Regular in rhythm, S1-S2 is normal Abdomen:? Soft, no
[2022-11-06] MEDS: MIDAZOLAM 100MG/NS 100ML(*CRX) 100 MG/100 ML BAG 7 MG IV CONT (12:59)
[2022-11-06 13:03] LABS: Glucose Point of Care 190 mg/dl (65-105)
[2022-11-06] MEDS: FENTANYL 2,500MCG/NS250ML(*CRX 2,500 MCG/250 ML BAG 10 MCG IV CONT (14:43)
[2022-11-06 18:17] LABS: Glucose Point of Care 174 mg/dl (65-105)
[2022-11-06] MEDS: ALBUMIN HUMAN 25% 25 GM/100 ML 100 ML IVPB (18:58)
[2022-11-06] MEDS: PRAVASTATIN SODIUM 20 MG TABLET 40 MG FEED TUBE (21:18)
[2022-11-06] MEDS: INSULIN GLARGINE (*BKC) 100 UNITS/ML 18 UNITS SUB-Q (21:23)
[2022-11-06 21:35] LABS: Glucose Point of Care 146 mg/dl (65-105)
[2022-11-07] VITALS (59 sets, daily range): BP systolic 103–146; BP diastolic 49–66; PULSE 68–92; RESP 19–35; TEMP 36.1–38.1; O2SAT 97–100
[2022-11-07] MEDS: PROPOFOL IV EMULSION 100 ML 23.04 MG IV CONT ×3 (00:51→09:53)
[2022-11-07 01:15] LABS: Glucose Point of Care 113 mg/dl (65-105)
[2022-11-07] MEDS: LEVALBUTEROL NEB 1.25 MG/3 ML INHALATION ×4 (02:54→21:03)
[2022-11-07] MEDS: IPRATROPIUM BR 0.02% INH SOLN 0.5 MG/2.5 ML VIAL INHALATION ×4 (02:54→21:03)
[2022-11-07] MEDS: MIDAZOLAM 100MG/NS 100ML(*CRX) 100 MG/100 ML BAG 7 MG IV CONT (03:45)
[2022-11-07 04:53] LABS: Basophils Percent Auto 0.3 % (0.2-1.2); Eosinophils Absolute Auto 0.1 K/mm3 (0-0.3); Eosinophils Percent Auto 1.3 % (0-4.4); Hematocrit 27.4 % (42.0-52.0); Hemoglobin 8.3 g/dL (14.0-18.0); Immature Granulocyte Absolute 0.09 K/mm3 (0.00-0.031); Immature Granulocyte Percent A 0.8 % (0-0.5); Lymphocytes Absolute Auto 1.22 K/mm3 (0.9-3.2); Lymphocytes Percent Auto 11.1 % (18.3-44.2); Mean Corpuscular HGB Conc 30.3 g/dl (32-36); Mean Corpuscular Hemoglobin 28.7 pg (26-34); Mean Corpuscular Volume 94.8 fl (80-100); Mean Platelet Volume 12.4 fl (7.4-10.4); Monocytes Absolute Auto 0.6 K/mm3 (0.1-0.6); Monocytes Percent Auto 5.5 % (2.6-8.5); Neutrophils Absolute Auto 8.9 K/mm3 (1.3-6.7); Platelet Count Result 139 k/mm3 (150-375); Red Blood Count 2.89 M/mm3 (4.6-6.20); Red Cell Distribution Width 17.1 % (11.5-14.5)
[2022-11-07 05:04] LABS: Alanine Aminotransferase 93 U/L (6-50); Albumin Level 2.6 g/dL (3.5-5.1); Alkaline Phosphatase 272 U/L (38-126); Anion Gap 3 mmol/L (8-16); Aspartate Amino Transferase 56 U/L (17-59); Bilirubin,Total 0.6 mg/dL (0.2-1.3); Blood Urea Nitrogen 109 mg/dL (9-20); Calcium 8.4 mg/dL (8.4-10.2); Carbon Dioxide 34 mmol/L (22-30); Chloride 107 mmol/L (98-107); Estimated CRCL calculation 59 ml/min; Estimated Glomerular Filt Rate > 60; Glucose 121 mg/dL (65-110); INR 1.2; Lipase 41 U/L (23-300); Magnesium 2.5 mg/dL (1.6-2.3); Phosphorus 3.5 mg/dL (2.5-4.5); Potassium 3.6 mmol/L (3.4-5.0); Prothrombin Time 14.2 Seconds (11.1-14.7); Sodium 144 mmol/L (137-145)
[2022-11-07 06:01] LABS: Alveolar/Arterial O2 Gradient 178.8 mmHg; Base Excess ABG 4.1 mEq/l (+/-2.0); Carboxyhemoglobin 1.4 % THb (0-2.0); Fractional Inspired Oxygen 40 %; HCO3 ABG 28.8 mEq/l (22.0-26.0); Methemoglobin ABG 0.1 %THb (0-1.5); Oxygen Content ABG 19.1 %vol (16.0-22.0); Oxygen Saturation ABG 90.4 % (95.0-100.0); PCO2 ABG 43.3 mmHg (35.0-45.0); PO2 ABG 56.6 mmHg (80.0-100.0); PO2 FiO2 Ratio Arterial Blood 1.41 %; Reduced Hemoglobin 10.6 %THb (0-5.0); Total Hemoglobin 15.5 g/dL (12.0-18.0); pH ABG 7.441 (7.350-7.450)
[2022-11-07 06:02] LABS: Oxyhemoglobin 87.9 % THb (90.0-100.0)
[2022-11-07 06:03] LABS: Device VENTILATOR; Modified Allen's Test Pass; Site Drawn RIGHT RADIAL
[2022-11-07 06:04] LABS: Arterial Blood Gas PEEP 8 cmH2O; Arterial Blood Gas Tidal Volume 500 ml; Arterial Blood Gas Vent Mode CMV; Arterial Blood Gas Ventilator rate 24 /MIN
[2022-11-07] MEDS: CENTRAL LINE FLUSH 10 ML IV PUSH ×3 (06:53→20:36)
[2022-11-07] MEDS: BUDESONIDE RESPULE NEB 0.5 MG/2 ML AMP INHALATION ×2 (07:45→21:03)
--- NOTE | 2022-11-07 09:48 | PM.IMPN ---
Progress Note: A&P Assessment and Plan (1) Acute and chronic respiratory failure with hypoxia: Code(s): J96.21 - Acute and chronic respiratory failure with hypoxia Status: Acute Assessment and Plan: Patient presented with worsening shortness of breath x1 day, likely related to bilateral infiltrates/pneumonia, possible COPD and/or pulmonary fibrosis flare/exacerbation, pulmonary edema -COVID PCR was negative on 10/24 and 10/26 but came back positive on 10/29 -intubated on 10/25/2022, ETT exchange on 10/27/2022 due to cuff leak -continue sedation -continue Lasix -he has completed 5 day course of azithromycin (10/25) . s/p cefepime and vancomycin for 7 days (10/25) -continue bronchodilators -10/30 switched steroids back to dexamethasone 6 mg IV q.day which will be continued for 10 days -continue Barcitinib per tube -question plan for trach and PEG (2) Pneumonia due to COVID-19 virus: Code(s): U07.1 - COVID-19; J12.82 - Pneumonia due to coronavirus disease 2018 Status: Acute Assessment and Plan: See above plan (3) Pneumonia: Code(s): J18.9 - Pneumonia, unspecified organism Status: Acute Assessment and Plan: See above plan (4) Pulmonary fibrosis: Code(s): J84.10 - Pulmonary fibrosis, unspecified Status: Chronic Assessment and Plan: Patient has a history of pulmonary fibrosis (5) COPD (chronic obstructive pulmonary disease): Code(s): J44.9 - Chronic obstructive pulmonary disease, unspecified Status: Chronic Assessment and Plan: Continue mechanical ventilation, steroids, bronchodilators (6) CAD (coronary artery disease): Code(s): I25.10 - Atherosclerotic heart disease of [place] coronary artery without angina pectoris Status: Chronic Assessment and Plan: Continue dual anti-platelet therapy. (7) Diabetes: Code(s): E11.9 - Type 2 diabetes mellitus without complications Status: Chronic Assessment and Plan: Monitor blood sugars. (8) Acute kidney injury: Code(s): N17.9 - Acute kidney failure, unspecified Status: Acute Assessment and Plan: Monitor electrolytes and creatinine. (9) Pancytopenia: Code(s): D61.818 - Other pancytopenia Status: Acute Assessment and Plan: Pancytopenia -Could be bone marrow suppression -appreciate Hematology-Oncology evaluation and recommendation -folic acid and B12 were within normal limits -low iron levels, patient has been started on IV iron per Hematology -stool for occult blood still pending -10/27: patient anemic this morning with hemoglobin of 6.3, no obvious bleeding noted, will transfuse 1 unit of packed RBCs. -hemoglobin remains low but stable -pancytopenia stable -HIT antibodies negative (10) GERD (gastroesophageal reflux disease): Code(s): K21.9 - Gastro-esophageal reflux disease without esophagitis Status: Acute Assessment and Plan: Continue Protonix (11) Hyperkalemia: Code(s): E87.5 - Hyperkalemia Status: Acute Assessment and Plan: Monitor (12) Leg swelling: Code(s): M79.89 - Other specified soft tissue disorders Status: Acute Assessment and Plan: Continue diuresis Lower extremity Dopplers negative for DVT (13) Tachycardia: Code(s): R00.0 - Tachycardia, unspecified Status: Acute Assessment and Plan: 11/01 patient was tachycardic with frequent PVCs. Patient was given IV beta-benitez and started on per tube beta-benitez Currently in sinus rhythm Subjective Date/time seen: 11/07/22 09:48 Sedated and intubated. Exam Narrative: General: Patient currently intubated and sedated, in no acute distress HEENT:? Pupils equal reactive, sclera is clear Neck:? Supple Respiratory:? Bilateral coarse breath sounds, rales, adequate air entry, decreased at bases, no wheezing Cardiac:? Regular in rhythm, S1-S2 is normal Abdomen:? Soft, nontende
[2022-11-07] MEDS: LACTULOSE 20 GM/30 ML UDC PO (09:56)
[2022-11-07] MEDS: PANTOPRAZOLE SODIUM IV 40 MG VIAL IV PUSH ×2 (09:56→20:35)
[2022-11-07] MEDS: polyethylene glycoL 3350 17 GM POWD.PACK PO (09:56)
[2022-11-07] MEDS: SENNA/DOCUSATE SODIUM TABLET 1 TAB PO ×2 (09:57→20:35)
[2022-11-07] MEDS: CLOPIDOGREL BISULFATE 75 MG TABLET PO (09:57)
[2022-11-07] MEDS: ENOXAPARIN 40 MG/0.4 ML SYRINGE SUB-Q (09:58)
[2022-11-07] MEDS: MINERAL OIL/WHITE PETROLATUM OINTMENT 1 APPLIC EACH EYE ×2 (09:58→20:35)
[2022-11-07] MEDS: BARICITINIB 2 MG TABLET 4 MG FEED TUBE (10:00)
--- NOTE | 2022-11-07 11:01 | WPDINTPN ---
Progress Note: A&P Assessment and Plan (1) Acute and chronic respiratory failure with hypoxia: Code(s): J96.21 - Acute and chronic respiratory failure with hypoxia Status: Acute Assessment and Plan: Patient presented with worsening shortness of breath x1 day, likely related to bilateral infiltrates/pneumonia, possible COPD and/or pulmonary fibrosis flare/exacerbation, pulmonary edema -COVID PCR was negative on 10/24 and 10/26 but came back positive on 10/29 -intubated on 10/25/2022, ETT exchange on 10/27/2022 due to cuff leak - 10/29 worsening hypoxia and increased oxygen requirement overnight. Chest x-ray shows diffuse pulmonary infiltrates. Patient asynchronous with the ventilator. Peep was increased and patient was given a dose of paralytic with increased sedation -currently in CMV mode. -continue sedation with Versed fentanyl and propofol. Sedation holidays limited by patient getting asynchronous with the ventilator and decompensated -holding Lasix for now due to borderline blood pressures -he has completed 5 day course of azithromycin (10/25) . s/p cefepime and vancomycin for 7 days (10/25) -continue bronchodilators -10/30 switched steroids back to dexamethasone 6 mg IV q.day which will be continued for 10 days -continue Barcitinib per tube -isolation -currently on 40% FiO2 and peep of 8, peak pressure is still elevated to 40-42 cmH2O, will decrease tidal volume to 450 -will allow permissive hypercapnia as ventilation is limited by the peak pressures. -10/25/2022 CTA chest: No CT evidence of acute pulmonary embolus. Pulmonary opacities likely represent moderate pulmonary edema overlying severe chronic changes of UIP. Infection is not excluded. Small bilateral pleural effusions. Mediastinal lymphadenopathy. (2) Pneumonia due to COVID-19 virus: Code(s): U07.1 - COVID-19; J12.82 - Pneumonia due to coronavirus disease 2019 Status: Acute Assessment and Plan: Continue Pulmicort for 3 days (started on 11/06) (3) Pneumonia: Code(s): J18.9 - Pneumonia, unspecified organism Status: Acute Assessment and Plan: -continue antibiotics as above 10/26/2022: Sputum cultures negative except yeast which is likely colonization 10/25/2022 MRSA screen: No MRSA 10/25/2022 urine cultures negative 10/25/2022 currently blood cultures have been negative 11/06: T-max of 100.7?, white count is is up to 9.2 from 6.8 yesterday, will obtain blood cultures, urine culture and sputum culture, chest x-ray with no change. Will hold antibiotics for now 11/06: Blood cultures, preliminary results are negative x2 11/06: Urine cultures are pending 11/06: Sputum culture pending (4) Pulmonary fibrosis: Code(s): J84.10 - Pulmonary fibrosis, unspecified Status: Chronic Assessment and Plan: Patient has a history of pulmonary fibrosis, follows up with the waiter/waitress room service at [facility] -patient is on nintedanib which cannot be crushed and given through the tube See above (5) COPD (chronic obstructive pulmonary disease): Code(s): J44.9 - Chronic obstructive pulmonary disease, unspecified Status: Chronic Assessment and Plan: Continue mechanical ventilation, bronchodilators (6) CAD (coronary artery disease): Code(s): I25.10 - Atherosclerotic heart disease of [place] coronary artery without angina pectoris Status: Chronic Assessment and Plan: Patient with recent history of [place] status post [place] x1 to the [facility] records show an echocardiogram with a diastolic dysfunction grade 3, EF of 56% 10/26/2022 echocardiogram showed EF of 60-65%, moderate increased LV wall thickness, grade 1 diastolic dysfunction, RV systolic function is mildly reduced mild pulmonary hypertension with RVSP of 44 mmHg, no aortic valve stenosis, trace mitral valve regurg, trace tricuspid valve regurg Patient has been on Plavix, aspirin, pravastatin, losartan and amlodipine at
[2022-11-07] MEDS: ASPIRIN 81 MG CHEWABLE TABLET FEED TUBE (11:51)
[2022-11-07 11:55] LABS: Glucose Point of Care 149 mg/dl (65-105)
[2022-11-07] MEDS: ACETAMINOPHEN ELIXIR 325 MG/10.15 ML UDC 650 MG PO (11:55)
[2022-11-07] MEDS: PROPOFOL IV EMULSION 100 ML 20.74 MG IV CONT ×3 (13:35→22:08)
[2022-11-07] MEDS: FENTANYL 2,500MCG/NS250ML(*CRX 2,500 MCG/250 ML BAG 10 MCG IV CONT (18:03)
[2022-11-07] MEDS: INSULIN ASPART (*BKC) 100 UNITS/ML SUB-Q (18:05)
[2022-11-07 18:12] LABS: Glucose Point of Care 214 mg/dl (65-105)
[2022-11-07] MEDS: MIDAZOLAM 100MG/NS 100ML(*CRX) 100 MG/100 ML BAG IV CONT (20:33)
[2022-11-07] MEDS: INSULIN GLARGINE (*BKC) 100 UNITS/ML 18 UNITS SUB-Q (20:34)
[2022-11-07] MEDS: PRAVASTATIN SODIUM 20 MG TABLET 40 MG FEED TUBE (20:36)
[2022-11-07 20:56] LABS: Glucose Point of Care 227 mg/dl (65-105)
[2022-11-08] VITALS (87 sets, daily range): BP systolic 100–154; BP diastolic 50–75; PULSE 68–105; RESP 0–37; TEMP 36.3–37.8; O2SAT 98–100
[2022-11-08 00:47] LABS: Glucose Point of Care 190 mg/dl (65-105)
[2022-11-08] MEDS: PROPOFOL IV EMULSION 100 ML 20.74 MG IV CONT ×2 (01:57→06:43)
[2022-11-08] MEDS: LEVALBUTEROL NEB 1.25 MG/3 ML INHALATION ×4 (02:53→20:23)
[2022-11-08] MEDS: IPRATROPIUM BR 0.02% INH SOLN 0.5 MG/2.5 ML VIAL INHALATION ×4 (02:53→20:23)
[2022-11-08 05:28] LABS: Basophils Percent Auto 0.3 % (0.2-1.2); Eosinophils Absolute Auto 0.1 K/mm3 (0-0.3); Hemoglobin 8.1 g/dL (14.0-18.0); Immature Granulocyte Absolute 0.09 K/mm3 (0.00-0.031); Lymphocytes Absolute Auto 1.59 K/mm3 (0.9-3.2); Lymphocytes Percent Auto 16.8 % (18.3-44.2); Mean Corpuscular Hemoglobin 28.8 pg (26-34); Mean Corpuscular Volume 96.1 fl (80-100); Mean Platelet Volume 12.4 fl (7.4-10.4); Monocytes Absolute Auto 0.5 K/mm3 (0.1-0.6); Monocytes Percent Auto 4.8 % (2.6-8.5); Neutrophils Absolute Auto 7.2 K/mm3 (1.3-6.7); Neutrophils Percent Auto 76.1 % (45.5-73.1); Platelet Count Result 153 k/mm3 (150-375); Red Blood Count 2.81 M/mm3 (4.6-6.20); White Blood Count 9.5 K/mm3 (4.5-10.0)
[2022-11-08 05:47] LABS: Alanine Aminotransferase 74 U/L (6-50); Albumin Level 2.6 g/dL (3.5-5.1); Alkaline Phosphatase 271 U/L (38-126); Anion Gap 5 mmol/L (8-16); Aspartate Amino Transferase 37 U/L (17-59); Bilirubin,Total 0.6 mg/dL (0.2-1.3); Blood Urea Nitrogen 111 mg/dL (9-20); Calcium 8.6 mg/dL (8.4-10.2); Carbon Dioxide 32 mmol/L (22-30); Chloride 106 mmol/L (98-107); Estimated CRCL calculation 59 ml/min; Estimated Glomerular Filt Rate > 60; Glucose 172 mg/dL (65-110); Magnesium 2.7 mg/dL (1.6-2.3); Phosphorus 3.6 mg/dL (2.5-4.5); Potassium 3.8 mmol/L (3.4-5.0); Sodium 143 mmol/L (137-145)
[2022-11-08 05:57] LABS: Alveolar/Arterial O2 Gradient 178.4 mmHg; Base Excess ABG 4.4 mEq/l (+/-2.0); Carboxyhemoglobin 0.7 % THb (0-2.0); Fractional Inspired Oxygen 40 %; HCO3 ABG 28.3 mEq/l (22.0-26.0); Methemoglobin ABG 0.2 %THb (0-1.5); Oxygen Content ABG 13.9 %vol (16.0-22.0); Oxygen Saturation ABG 92.9 % (95.0-100.0); Oxyhemoglobin 90.2 % THb (90.0-100.0); PCO2 ABG 39.7 mmHg (35.0-45.0); PO2 ABG 61.1 mmHg (80.0-100.0); PO2 FiO2 Ratio Arterial Blood 1.53 %; Reduced Hemoglobin 8.9 %THb (0-5.0); Total Hemoglobin 10.9 g/dL (12.0-18.0); pH ABG 7.471 (7.350-7.450)
[2022-11-08 05:58] LABS: Arterial Blood Gas PEEP 8 cmH2O; Arterial Blood Gas Tidal Volume 450 ml; Arterial Blood Gas Vent Mode CMV; Arterial Blood Gas Ventilator rate 24 /MIN; Device VENTILATOR; Modified Allen's Test Pass; Site Drawn LEFT RADIAL
[2022-11-08] MEDS: CENTRAL LINE FLUSH 10 ML IV PUSH ×3 (06:01→21:20)
[2022-11-08] MEDS: BUDESONIDE RESPULE NEB 0.5 MG/2 ML AMP INHALATION ×3 (07:20→20:23)
[2022-11-08] MEDS: ASPIRIN 81 MG CHEWABLE TABLET FEED TUBE (08:25)
[2022-11-08] MEDS: MINERAL OIL/WHITE PETROLATUM OINTMENT 1 APPLIC EACH EYE ×2 (08:25→21:19)
[2022-11-08] MEDS: SENNA/DOCUSATE SODIUM TABLET 1 TAB PO (08:26)
[2022-11-08] MEDS: PANTOPRAZOLE SODIUM IV 40 MG VIAL IV PUSH ×2 (08:26→21:19)
[2022-11-08] MEDS: ENOXAPARIN 40 MG/0.4 ML SYRINGE SUB-Q (08:26)
[2022-11-08] MEDS: polyethylene glycoL 3350 17 GM POWD.PACK PO (08:26)
[2022-11-08] MEDS: LACTULOSE 20 GM/30 ML UDC PO (08:26)
[2022-11-08] MEDS: CLOPIDOGREL BISULFATE 75 MG TABLET PO (08:27)
[2022-11-08] MEDS: FUROSEMIDE INJ 40 MG/4 ML VIAL IV PUSH (09:04)
[2022-11-08] MEDS: METOPROLOL TARTRATE 25 MG TABLET FEED TUBE ×2 (09:04→21:19)
[2022-11-08] MEDS: PROPOFOL IV EMULSION 100 ML 18.43 MG IV CONT ×3 (11:23→21:17)
[2022-11-08] MEDS: BARICITINIB 2 MG TABLET 4 MG FEED TUBE (11:24)
--- NOTE | 2022-11-08 11:40 | PM.IMPN ---
Progress Note: A&P Assessment and Plan (1) Acute and chronic respiratory failure with hypoxia: Code(s): J96.21 - Acute and chronic respiratory failure with hypoxia Status: Acute Assessment and Plan: Patient presented with worsening shortness of breath x1 day, likely related to bilateral infiltrates/pneumonia, possible COPD and/or pulmonary fibrosis flare/exacerbation, pulmonary edema -COVID PCR was negative on 10/24 and 10/26 but came back positive on 10/29 -intubated on 10/25/2022, ETT exchange on 10/27/2022 due to cuff leak -continue sedation -continue Lasix -he has completed 5 day course of azithromycin (10/25) . s/p cefepime and vancomycin for 7 days (10/25) -continue bronchodilators -10/30 switched steroids back to dexamethasone 6 mg IV q.day which will be continued for 10 days -continue Barcitinib per tube -question plan for trach and PEG (2) Pneumonia due to COVID-19 virus: Code(s): U07.1 - COVID-19; J12.82 - Pneumonia due to coronavirus disease 2018 Status: Acute Assessment and Plan: See above plan (3) Pneumonia: Code(s): J18.9 - Pneumonia, unspecified organism Status: Acute Assessment and Plan: See above plan (4) Pulmonary fibrosis: Code(s): J84.10 - Pulmonary fibrosis, unspecified Status: Chronic Assessment and Plan: Patient has a history of pulmonary fibrosis (5) COPD (chronic obstructive pulmonary disease): Code(s): J44.9 - Chronic obstructive pulmonary disease, unspecified Status: Chronic Assessment and Plan: Continue mechanical ventilation, steroids, bronchodilators (6) CAD (coronary artery disease): Code(s): I25.10 - Atherosclerotic heart disease of [place] coronary artery without angina pectoris Status: Chronic Assessment and Plan: Continue dual anti-platelet therapy. (7) Diabetes: Code(s): E11.9 - Type 2 diabetes mellitus without complications Status: Chronic Assessment and Plan: Monitor blood sugars. (8) Acute kidney injury: Code(s): N17.9 - Acute kidney failure, unspecified Status: Acute Assessment and Plan: Monitor electrolytes and creatinine. (9) Pancytopenia: Code(s): D61.818 - Other pancytopenia Status: Acute Assessment and Plan: Pancytopenia -Could be bone marrow suppression -appreciate Hematology-Oncology evaluation and recommendation -folic acid and B12 were within normal limits -low iron levels, patient has been started on IV iron per Hematology -stool for occult blood still pending -10/27: patient anemic this morning with hemoglobin of 6.3, no obvious bleeding noted, will transfuse 1 unit of packed RBCs. -hemoglobin remains low but stable -pancytopenia stable -HIT antibodies negative (10) GERD (gastroesophageal reflux disease): Code(s): K21.9 - Gastro-esophageal reflux disease without esophagitis Status: Acute Assessment and Plan: Continue Protonix (11) Hyperkalemia: Code(s): E87.5 - Hyperkalemia Status: Acute Assessment and Plan: Monitor (12) Leg swelling: Code(s): M79.89 - Other specified soft tissue disorders Status: Acute Assessment and Plan: Continue diuresis Lower extremity Dopplers negative for DVT (13) Tachycardia: Code(s): R00.0 - Tachycardia, unspecified Status: Acute Assessment and Plan: 11/01 patient was tachycardic with frequent PVCs. Patient was given IV beta-benitez and started on per tube beta-benitez Currently in sinus rhythm Subjective Date/time seen: 11/08/22 11:40 Intubated Exam Narrative: General: Patient currently intubated and sedated, in no acute distress HEENT:? Pupils equal reactive, sclera is clear Neck:? Supple Respiratory:? Bilateral coarse breath sounds, rales, adequate air entry, decreased at bases, no wheezing Cardiac:? Regular in rhythm, S1-S2 is normal Abdomen:? Soft, nontender, nondistend
[2022-11-08 12:17] LABS: Glucose Point of Care 195 mg/dl (65-105)
--- NOTE | 2022-11-08 13:48 | WPDINTPN ---
Progress Note: A&P Assessment and Plan (1) Acute and chronic respiratory failure with hypoxia: Code(s): J96.21 - Acute and chronic respiratory failure with hypoxia Status: Acute Assessment and Plan: Patient presented with worsening shortness of breath x1 day, likely related to bilateral infiltrates/pneumonia, possible COPD and/or pulmonary fibrosis flare/exacerbation, pulmonary edema -COVID PCR was negative on 10/24 and 10/26 but came back positive on 10/29 -intubated on 10/25/2022, ETT exchange on 10/27/2022 due to cuff leak - 10/29 worsening hypoxia and increased oxygen requirement overnight. Chest x-ray shows diffuse pulmonary infiltrates. Patient asynchronous with the ventilator. Peep was increased and patient was given a dose of paralytic with increased sedation -currently in CMV mode. -continue sedation with Versed fentanyl and propofol. Sedation holidays limited by patient getting asynchronous with the ventilator and decompensated -he has completed 5 day course of azithromycin (10/25) . s/p cefepime and vancomycin for 7 days (10/25) -continue bronchodilators -10/30 switched steroids back to dexamethasone 6 mg IV q.day which will be continued for 10 days -continue Barcitinib per tube -isolation -currently on 40% FiO2 and peep of 8, peak pressure is still elevated to 40-42 cmH2O, will decrease tidal volume to 450 -will allow permissive hypercapnia as ventilation is limited by the peak pressures. -this morning with stable diffuse lung disease, consistent with pneumonia and/or pulmonary edema -restart Lasix today -10/25/2022 CTA chest: No CT evidence of acute pulmonary embolus. Pulmonary opacities likely represent moderate pulmonary edema overlying severe chronic changes of UIP. Infection is not excluded. Small bilateral pleural effusions. Mediastinal lymphadenopathy. (2) Pneumonia due to COVID-19 virus: Code(s): U07.1 - COVID-19; J12.82 - Pneumonia due to coronavirus disease 2019 Status: Acute Assessment and Plan: Continue Pulmicort for 3 days (started on 11/06) (3) Pneumonia: Code(s): J18.9 - Pneumonia, unspecified organism Status: Acute Assessment and Plan: -continue antibiotics as above 10/26/2022: Sputum cultures negative except yeast which is likely colonization 10/25/2022 MRSA screen: No MRSA 10/25/2022 urine cultures negative 10/25/2022 currently blood cultures have been negative 11/06: T-max of 100.7?, white count is is up to 9.2 from 6.8 yesterday, will obtain blood cultures, urine culture and sputum culture, chest x-ray with no change. Will hold antibiotics for now 11/06: Blood cultures, preliminary results are negative x2 11/06: Urine cultures growing Rylie albicans 11/06: Sputum culture growing achromobacter species and Yeast -will start patient on imipenem and Diflucan (11/08) (4) Pulmonary fibrosis: Code(s): J84.10 - Pulmonary fibrosis, unspecified Status: Chronic Assessment and Plan: Patient has a history of pulmonary fibrosis, follows up with the landscape architecture teacher at [facility] -patient is on nintedanib which cannot be crushed and given through the tube See above (5) COPD (chronic obstructive pulmonary disease): Code(s): J44.9 - Chronic obstructive pulmonary disease, unspecified Status: Chronic Assessment and Plan: Continue mechanical ventilation, bronchodilators (6) CAD (coronary artery disease): Code(s): I25.10 - Atherosclerotic heart disease of [place] coronary artery without angina pectoris Status: Chronic Assessment and Plan: Patient with recent history of [place] status post stent x1 to the [facility] records show an echocardiogram with a diastolic dysfunction grade 3, EF of 56% 10/26/2022 echocardiogram showed EF of 60-65%, moderate increased LV wall thickness, grade 1 diastolic dysfunction, RV systolic function is mildly reduced mild pulmonary hypertension with RVSP of 44 mmHg, no
[2022-11-08] MEDS: FLUCONAZOLE 200 MG/NACL 100 ML 200 MG/100 ML BAG 100 MG IVPB (16:43)
[2022-11-08] MEDS: INSULIN ASPART (*BKC) 100 UNITS/ML SUB-Q (17:05)
[2022-11-08 17:08] LABS: Glucose Point of Care 265 mg/dl (65-105)
[2022-11-08] MEDS: MIDAZOLAM 100MG/NS 100ML(*CRX) 100 MG/100 ML BAG IV CONT (19:23)
[2022-11-08] MEDS: INSULIN GLARGINE (*BKC) 100 UNITS/ML 18 UNITS SUB-Q (21:18)
[2022-11-08] MEDS: FENTANYL 2,500MCG/NS250ML(*CRX 2,500 MCG/250 ML BAG 7.5 MCG IV CONT (21:20)
[2022-11-08] MEDS: PRAVASTATIN SODIUM 20 MG TABLET 40 MG FEED TUBE (21:20)
[2022-11-08 21:34] LABS: Glucose Point of Care 204 mg/dl (65-105)
[2022-11-09] VITALS (92 sets, daily range): BP systolic 90–156; BP diastolic 49–80; PULSE 72–113; RESP 0–39; TEMP 37.2–38.1; O2SAT 91–100
[2022-11-09 00:10] LABS: Glucose Point of Care 162 mg/dl (65-105)
[2022-11-09] MEDS: PROPOFOL IV EMULSION 100 ML 23.04 MG IV CONT ×3 (01:03→09:23)
[2022-11-09] MEDS: LEVALBUTEROL NEB 1.25 MG/3 ML INHALATION ×4 (02:10→19:43)
[2022-11-09] MEDS: IPRATROPIUM BR 0.02% INH SOLN 0.5 MG/2.5 ML VIAL INHALATION ×4 (02:15→19:43)
[2022-11-09] MEDS: ACETAMINOPHEN ELIXIR 325 MG/10.15 ML UDC 650 MG PO (02:22)
[2022-11-09] MEDS: CENTRAL LINE FLUSH 10 ML IV PUSH ×3 (05:09→20:47)
[2022-11-09 05:36] LABS: Basophils Percent Auto 0.4 % (0.2-1.2); Eosinophils Absolute Auto 0.1 K/mm3 (0-0.3); Eosinophils Percent Auto 0.6 % (0-4.4); Hematocrit 25.8 % (42.0-52.0); Hemoglobin 7.8 g/dL (14.0-18.0); Immature Granulocyte Absolute 0.09 K/mm3 (0.00-0.031); Immature Granulocyte Percent A 1.1 % (0-0.5); Lymphocytes Absolute Auto 1.32 K/mm3 (0.9-3.2); Lymphocytes Percent Auto 16.3 % (18.3-44.2); Mean Corpuscular HGB Conc 30.2 g/dl (32-36); Mean Corpuscular Hemoglobin 28.2 pg (26-34); Mean Corpuscular Volume 93.1 fl (80-100); Mean Platelet Volume 12.1 fl (7.4-10.4); Monocytes Absolute Auto 0.5 K/mm3 (0.1-0.6); Monocytes Percent Auto 6.6 % (2.6-8.5); Neutrophils Absolute Auto 6.1 K/mm3 (1.3-6.7); Nucleated Red Blood Cells Perc 0.4 % (0.0-0.2); Platelet Count Result 185 k/mm3 (150-375); Red Blood Count 2.77 M/mm3 (4.6-6.20); Red Cell Distribution Width 16.9 % (11.5-14.5); White Blood Count 8.1 K/mm3 (4.5-10.0)
[2022-11-09 05:53] LABS: Alanine Aminotransferase 58 U/L (6-50); Albumin Level 2.4 g/dL (3.5-5.1); Alkaline Phosphatase 292 U/L (38-126); Anion Gap 4 mmol/L (8-16); Aspartate Amino Transferase 35 U/L (17-59); Bilirubin,Total 0.8 mg/dL (0.2-1.3); Blood Urea Nitrogen 102 mg/dL (9-20); Calcium 8.4 mg/dL (8.4-10.2); Carbon Dioxide 31 mmol/L (22-30); Chloride 109 mmol/L (98-107); Estimated CRCL calculation 59 ml/min; Estimated Glomerular Filt Rate > 60; Glucose 179 mg/dL (65-110); Magnesium 2.6 mg/dL (1.6-2.3); Phosphorus 3.5 mg/dL (2.5-4.5); Potassium 3.9 mmol/L (3.4-5.0); Sodium 144 mmol/L (137-145)
[2022-11-09 06:18] LABS: Alveolar/Arterial O2 Gradient 159.6 mmHg; Base Excess ABG 4.3 mEq/l (+/-2.0); Carboxyhemoglobin 0.6 % THb (0-2.0); Fractional Inspired Oxygen 40 %; HCO3 ABG 28.6 mEq/l (22.0-26.0); Methemoglobin ABG 0.3 %THb (0-1.5); Oxygen Saturation ABG 96.1 % (95.0-100.0); Oxyhemoglobin 93.6 % THb (90.0-100.0); PCO2 ABG 41.4 mmHg (35.0-45.0); PO2 FiO2 Ratio Arterial Blood 1.95 %; Reduced Hemoglobin 5.5 %THb (0-5.0); Total Hemoglobin 8.3 g/dL (12.0-18.0); pH ABG 7.457 (7.350-7.450)
[2022-11-09 06:20] LABS: Device VENTILATOR; Modified Allen's Test Pass; Site Drawn RIGHT RADIAL
[2022-11-09 06:21] LABS: Arterial Blood Gas PEEP 8 cmH2O; Arterial Blood Gas Tidal Volume 450 ml; Arterial Blood Gas Vent Mode CMV; Arterial Blood Gas Ventilator rate 24 /MIN
[2022-11-09] MEDS: MINERAL OIL/WHITE PETROLATUM OINTMENT 1 APPLIC EACH EYE ×2 (09:24→20:45)
[2022-11-09] MEDS: PANTOPRAZOLE SODIUM IV 40 MG VIAL IV PUSH ×2 (09:24→20:45)
[2022-11-09] MEDS: ASPIRIN 81 MG CHEWABLE TABLET FEED TUBE (09:24)
[2022-11-09] MEDS: CLOPIDOGREL BISULFATE 75 MG TABLET PO (09:24)
[2022-11-09] MEDS: ENOXAPARIN 40 MG/0.4 ML SYRINGE SUB-Q (09:24)
[2022-11-09] MEDS: FLUCONAZOLE 200 MG/NACL 100 ML 200 MG/100 ML BAG 100 MG IVPB (09:25)
[2022-11-09] MEDS: FUROSEMIDE INJ 40 MG/4 ML VIAL IV PUSH (09:29)
--- NOTE | 2022-11-09 09:46 | P.PNNP_ITS ---
Progress Note: A&P Assessment and Plan (1) Acute kidney injury: Code(s): N17.9 - Acute kidney failure, unspecified Status: Acute Assessment and Plan: * slow improvement noted if not stable * presumably normal baseline creatinine * suspect multifactorial etiology: * prerenal factors * contrast exposure (CTA chest on 10/25/22) * hypoxia * anemia * ARB use [employer] * evaluation to date: * renal ultrasound unremarkable * urine electrolytes prerenal * urine eosinophils negative * CPK low * elevated BUN likely secondary previous steroid use and possibly hypercatabolic state and infection along with need for intermittently diuretic therapy * follow trend of repeat labs and UOP (2) Acute and chronic respiratory failure with hypoxia: Code(s): J96.21 - Acute and chronic respiratory failure with hypoxia Status: Acute Assessment and Plan: * multifactorial: * possible pneumonia * COPD * known pulmonary fibrosis * exacerbation of COPD + UIP * pulmonary edema(?) * COVID-19 * on mechanical ventilation * planning for tracheostomy for long-term ventilator weaning (3) COVID-19 virus infection: Code(s): U07.1 - COVID-19 Status: Acute Assessment and Plan: * as noted by positive testing * s/p decadron and on baricitinib * ventilator support * intermittent IV diuretics to promote dry lung strategy * continue supportive therapy (4) Pulmonary fibrosis: Code(s): J84.10 - Pulmonary fibrosis, unspecified Status: Chronic Assessment and Plan: * known history of this * Pulmonary recommendations noted (5) COPD (chronic obstructive pulmonary disease): Code(s): J44.9 - Chronic obstructive pulmonary disease, unspecified Status: Chronic Assessment and Plan: * complicated by #2, #3, and #4 * continue current therapy (ventilator support, antibiotics, bronchodilators) (6) Pancytopenia: Code(s): D61.818 - Other pancytopenia Status: Acute Assessment and Plan: * relatively stable if not improving * Oncology following (7) Diabetes: Code(s): E11.9 - Type 2 diabetes mellitus without complications Status: Chronic Assessment and Plan: * follow accuchecks * glycemic control per wind power project manager Will continue to follow intermittently. Subjective Date/time seen: 11/09/22 09:46 No real change since last seen -- remains intubated/sedated and on mechanical ventilation; renal function relatively stable with reasonable urine output; family informed case management they wish to proceed with tracheostomy and G- tube placement for continued support. Exam Narrative: General: elderly AA male intubated/sedated and on mechanical ventilation Heart: normal S1 and S2; no rub Lungs: coarse breath sounds throughout Abdomen: bowel sounds positive nontender Extremities: no cyanosis or clubbing; trace - 1+ edema Skin: warm and intact Objective Data Vital Signs Vital Signs: Vital Signs Temp Pulse Resp BP Pulse Ox O2 Del Method FiO2 11/09/22 09:45 99.4 F 88 33 H 100 11/09/22 09:30 99.5 F 99 28 H 100 11/09/22 09:15 99.6 F 83 21 H 100 11/09/22 09:01 99.6 F 83 0 L 116/61 100 11/09/22 09:00 99.6 F 84 10 L 100 11/09/22 08:45 99.7 F H 80 21 H 1
--- NOTE | 2022-11-09 09:46 | PM.PNNEP ---
Progress Note: A&P Assessment and Plan (1) Acute kidney injury: Code(s): N17.9 - Acute kidney failure, unspecified Status: Acute Assessment and Plan: slow improvement noted if not stable presumably normal baseline creatinine suspect multifactorial etiology: prerenal factors contrast exposure (CTA chest on 10/25/22) hypoxia anemia ARB use [employer] evaluation to date: renal ultrasound unremarkable urine electrolytes prerenal urine eosinophils negative CPK low elevated BUN likely secondary previous steroid use and possibly hypercatabolic state and infection along with need for intermittently diuretic therapy follow trend of repeat labs and UOP (2) Acute and chronic respiratory failure with hypoxia: Code(s): J96.21 - Acute and chronic respiratory failure with hypoxia Status: Acute Assessment and Plan: multifactorial: possible pneumonia COPD 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 pulmonary edema(?) COVID-19 on mechanical ventilation planning for tracheostomy for long-term ventilator weaning (3) COVID-19 virus infection: Code(s): U07.1 - COVID-19 Status: Acute Assessment and Plan: as noted by positive testing s/p decadron and on baricitinib ventilator support intermittent IV diuretics to promote dry lung strategy continue supportive therapy (4) Pulmonary fibrosis: Code(s): J84.10 - Pulmonary fibrosis, unspecified Status: Chronic Assessment and Plan: known history of this Pulmonary recommendations noted (5) COPD (chronic obstructive pulmonary disease): Code(s): J44.9 - Chronic obstructive pulmonary disease, unspecified Status: Chronic Assessment and Plan: complicated by #2, #3, and #4 continue current therapy (ventilator support, antibiotics, bronchodilators) (6) Pancytopenia: Code(s): D61.818 - Other pancytopenia Status: Acute Assessment and Plan: relatively stable if not improving Oncology following (7) Diabetes: Code(s): E11.9 - Type 2 diabetes mellitus without complications Status: Chronic Assessment and Plan: follow accuchecks glycemic control 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 Subjective Date/time seen: 11/09/22 09:46 No real change since last seen -- remains intubated/sedated and on mechanical ventilation; renal function relatively stable with reasonable urine output; family informed case management they wish to proceed with tracheostomy and G-tube placement for continued support. Exam Narrative: General: elderly AA male intubated/sedated and on mechanical ventilation Heart: normal S1 and S2; no rub Lungs: coarse breath sounds throughout Abdomen: bowel sounds positive nontender Extremities: no cyanosis or clubbing; trace - 1+ edema Skin: warm and intact Objective Data Vital Signs Vital Signs: Vital Signs Temp Pulse Resp BP Pulse Ox O2 Del Method FiO2 11/09/22 09:45 99.4 F 88 33 H 100 11/09/22 09:30 99.5 F 99 28 H 100 11/09/22 09:15 99.6 F 83 21 H 100 11/09/22 09:01 99.6 F 83 0 L 116/61 100 11/09/22 09:00 99.6 F 84 10 L 100 11/09/22 08:45 99.7 F H 80 21 H 100 11/09/22 08:30 99.7 F H 80 30 H 100 11/09/22 08:15 99.7 F H 84 30 H 100 11/09/22 08:01 99.8 F H 81 29 H 109/56 L 100 11/09/22 08:00 99.8 F H 82 23 H 100 11/09/22 07:45 99.8 F H 87 25 H 100 11/09/22 07:30 99.8 F H 81 29 H 99 11/09/22 07:15 99.8 F H 85 30 H 100 11/09/22 07:01 99.8 F H 83 28 H 113/53 L 99 11/09/22 07:00 99.8 F H 82 27 H 100 11/09/22 06:45 99.8 F H 83 30 H 100 11/09/22 06:30 84 29 H 100 11/09/22 10:00 77 11/09/22 08:00 40 11/09/22 09:23 91 20 11/09/22 09:23 91 20 11/09/22 08:00 81 11/09/22 08:00 81 27 H 96
[2022-11-09] MEDS: METOPROLOL TARTRATE 12.5 MG TABLET FEED TUBE ×2 (09:51→20:44)
[2022-11-09] MEDS: BARICITINIB 2 MG TABLET 4 MG FEED TUBE (10:28)
--- NOTE | 2022-11-09 11:36 | PM.IMPN ---
Progress Note: A&P Assessment and Plan (1) Acute and chronic respiratory failure with hypoxia: Code(s): J96.21 - Acute and chronic respiratory failure with hypoxia Status: Acute Assessment and Plan: Patient presented with worsening shortness of breath x1 day, likely related to bilateral infiltrates/pneumonia, possible COPD and/or pulmonary fibrosis flare/exacerbation, pulmonary edema -COVID PCR was negative on 10/24 and 10/26 but came back positive on 10/29 -intubated on 10/25/2022, ETT exchange on 10/27/2022 due to cuff leak -continue sedation -continue Lasix -he has completed 5 day course of azithromycin (10/25) . s/p cefepime and vancomycin for 7 days (10/25) -continue bronchodilators -10/30 switched steroids back to dexamethasone 6 mg IV q.day which will be continued for 10 days -continue Barcitinib per tube -question plan for trach and PEG -vent mgmt per ICU (2) Pneumonia due to COVID-19 virus: Code(s): U07.1 - COVID-19; J12.82 - Pneumonia due to coronavirus disease 2018 Status: Acute Assessment and Plan: See above plan (3) Pneumonia: Code(s): J18.9 - Pneumonia, unspecified organism Status: Acute Assessment and Plan: See above plan (4) Pulmonary fibrosis: Code(s): J84.10 - Pulmonary fibrosis, unspecified Status: Chronic Assessment and Plan: Patient has a history of pulmonary fibrosis (5) COPD (chronic obstructive pulmonary disease): Code(s): J44.9 - Chronic obstructive pulmonary disease, unspecified Status: Chronic Assessment and Plan: Continue mechanical ventilation, steroids, bronchodilators (6) CAD (coronary artery disease): Code(s): I25.10 - Atherosclerotic heart disease of [place] coronary artery without angina pectoris Status: Chronic Assessment and Plan: Continue dual anti-platelet therapy. (7) Diabetes: Code(s): E11.9 - Type 2 diabetes mellitus without complications Status: Chronic Assessment and Plan: Monitor blood sugars. (8) Acute kidney injury: Code(s): N17.9 - Acute kidney failure, unspecified Status: Acute Assessment and Plan: Monitor electrolytes and creatinine. (9) Pancytopenia: Code(s): D61.818 - Other pancytopenia Status: Acute Assessment and Plan: Pancytopenia -Could be bone marrow suppression -appreciate Hematology-Oncology evaluation and recommendation -folic acid and B12 were within normal limits -low iron levels, patient has been started on IV iron per Hematology -stool for occult blood still pending -10/27: patient anemic this morning with hemoglobin of 6.3, no obvious bleeding noted, will transfuse 1 unit of packed RBCs. -hemoglobin remains low but stable -pancytopenia stable -HIT antibodies negative (10) GERD (gastroesophageal reflux disease): Code(s): K21.9 - Gastro-esophageal reflux disease without esophagitis Status: Acute Assessment and Plan: Continue Protonix (11) Hyperkalemia: Code(s): E87.5 - Hyperkalemia Status: Acute Assessment and Plan: Monitor (12) Leg swelling: Code(s): M79.89 - Other specified soft tissue disorders Status: Acute Assessment and Plan: Continue diuresis Lower extremity Dopplers negative for DVT (13) Tachycardia: Code(s): R00.0 - Tachycardia, unspecified Status: Acute Assessment and Plan: 11/01 patient was tachycardic with frequent PVCs. Patient was given IV beta-benitez and started on per tube beta-benitez Currently in sinus rhythm Subjective Date/time seen: 11/09/22 11:36 Intubated Exam Narrative: General: Patient currently intubated and sedated, in no acute distress HEENT:? Pupils equal reactive, sclera is clear Neck:? Supple Respiratory:? Bilateral coarse breath sounds, rales, adequate air entry, decreased at bases, no wheezing Cardiac:? Regular in rhythm, S1-S2 is normal Abdomen:? Soft, n
--- NOTE | 2022-11-09 11:43 | PCFNICU ---
ICU Rounding Note: Pt current nutrition is Nepro @ 40 ml/h. 1584 kcals, 72 g protein, 640 ml free water. Propofol @ 23.04 ml/h providing 608 kcals. Nutrition recommendation: Continue with current tube feeding orders and care plan. Agree with orders Last recorded weight is 84.2 kg. Bowel Motility: +3 BM today 11/09/22 Labs Reviewed:Hgb 7.8, Hct 25.8, Alb 2.4, BUN 103, Glu 179, Mag 2.6 Meds Noted: Fentanyl, versed, propofol @ 50 mcg Skin: WNL Additional Notes: Remains on mechanical ventilation, not tolerating decrease in sedation. Plan for trach and PEG placement possibly tomorrow Following daily in ICU rounds. Will monitor weight, labs, skin, meds, tube feedings tolerance in ICU rounds and reassessing every Wednesday and Wednesday..
[2022-11-09] MEDS: PROPOFOL IV EMULSION 100 ML 20.74 MG IV CONT ×2 (12:28→21:08)
--- NOTE | 2022-11-09 12:38 | WPDINTPN ---
Progress Note: A&P Assessment and Plan (1) Acute and chronic respiratory failure with hypoxia: Code(s): J96.21 - Acute and chronic respiratory failure with hypoxia Status: Acute Assessment and Plan: Patient presented with worsening shortness of breath x1 day, likely related to bilateral infiltrates/pneumonia, possible COPD and/or pulmonary fibrosis flare/exacerbation, pulmonary edema -COVID PCR was negative on 10/24 and 10/26 but came back positive on 10/29 -intubated on 10/25/2022, ETT exchange on 10/27/2022 due to cuff leak - 10/29 worsening hypoxia and increased oxygen requirement overnight. Chest x-ray shows diffuse pulmonary infiltrates. Patient asynchronous with the ventilator. Peep was increased and patient was given a dose of paralytic with increased sedation -currently in CMV mode. -continue sedation with Versed fentanyl and propofol. Sedation holidays limited by patient getting asynchronous with the ventilator and decompensated -he has completed 5 day course of azithromycin (10/25) . s/p cefepime and vancomycin for 7 days (10/25) -continue bronchodilators -10/30 switched steroids back to dexamethasone 6 mg IV q.day which will be continued for 10 days -continue Barcitinib per tube -isolation -currently on 40% FiO2 and peep of 8, peak pressure is still elevated to 40-42 cmH2O, will decrease tidal volume to 450 -will allow permissive hypercapnia as ventilation is limited by the peak pressures. -CXR this morning with Stable diffuse lung disease, consistent with chronic lung disease with superimposed pulmonary edema versus pneumonia versus acute respiratory distress syndrome (ARDS) -continue lasix -will consult ENT for tracheostomy and GI for PEG tube placement the family has decided on going ahead with a tracheostomy and PEG tube placement -10/25/2022 CTA chest: No CT evidence of acute pulmonary embolus. Pulmonary opacities likely represent moderate pulmonary edema overlying severe chronic changes of UIP. Infection is not excluded. Small bilateral pleural effusions. Mediastinal lymphadenopathy. (2) Pneumonia due to COVID-19 virus: Code(s): U07.1 - COVID-19; J12.82 - Pneumonia due to coronavirus disease 2018 Status: Acute Assessment and Plan: Continue Pulmicort for 3 days (started on 11/06) (3) Pneumonia: Code(s): J18.9 - Pneumonia, unspecified organism Status: Acute Assessment and Plan: -continue antibiotics as above 10/26/2022: Sputum cultures negative except yeast which is likely colonization 10/25/2022 MRSA screen: No MRSA 10/25/2022 urine cultures negative 10/25/2022 currently blood cultures have been negative 11/06: T-max of 100.7?, white count is is up to 9.2 from 6.8 yesterday, will obtain blood cultures, urine culture and sputum culture, chest x-ray with no change. Will hold antibiotics for now 11/06: Blood cultures, preliminary results are negative x2 11/06: Urine cultures growing Rylie albicans 11/06: Sputum culture growing achromobacter species and Yeast -will start patient on imipenem and Diflucan (11/08) (4) Pulmonary fibrosis: Code(s): J84.10 - Pulmonary fibrosis, unspecified Status: Chronic Assessment and Plan: Patient has a history of pulmonary fibrosis, follows up with the commissions manager at [facility] -patient is on nintedanib which cannot be crushed and given through the tube See above (5) COPD (chronic obstructive pulmonary disease): Code(s): J44.9 - Chronic obstructive pulmonary disease, unspecified Status: Chronic Assessment and Plan: Continue mechanical ventilation, bronchodilators (6) CAD (coronary artery disease): Code(s): I25.10 - Atherosclerotic heart disease of [place] coronary artery without angina pectoris Status: Chronic Assessment and Plan: Patient with recent history of [place] status post stent x1 to the [facility] records show an echocardiogram with a diastolic dysf
[2022-11-09 13:51] LABS: Glucose Point of Care 185 mg/dl (65-105)
--- NOTE | 2022-11-09 14:51 | WPDGICN ---
Assessment and Plan Assessment and plan (1) Pneumonia due to COVID-19 virus: Code(s): U07.1 - COVID-19; J12.82 - Pneumonia due to coronavirus disease 2019 Status: Acute Assessment and Plan: prolonged hospitalization and intubation, can not get extubated plan to proceed with trach and tentatively PEG this Wednesday (2) Acute and chronic respiratory failure with hypoxia: Code(s): J96.21 - Acute and chronic respiratory failure with hypoxia Status: Acute Assessment and Plan: still intubated by aircraft engine specialist (3) Acute on chronic congestive heart failure: Code(s): I50.9 - Heart failure, unspecified Status: Acute Assessment and Plan: medical management (4) Acute kidney injury: Code(s): N17.9 - Acute kidney failure, unspecified Status: Acute (5) Pulmonary fibrosis: Code(s): J84.10 - Pulmonary fibrosis, unspecified Status: Chronic Assessment and Plan: prognosis is guarded will need intermediate placement GI Consult Note Consult date/time: 11/09/22 14:51 Reason for consult: respiratory failure, covid pneumonia, prolonged intubation HPI: Romario Birmingham Jr. is a 82 year old male with significant past medical history of COPD, pulmonary fibrosis, essential hypertension, CAD/mi status post PTCA/stent x2 in September 2022 at [facility], diabetes, hyperlipidemia, GERD who came the ED on 10/24/2022 with complains of sudden onset of shortness of breath/difficulty breathing x1 day.? He was intubated and admitted to ICU. History is obtained from staff and medical records since he is intubated. He also was diagnosed with COVID. Repeat CXR showed stable diffuse lung disease, consistent with chronic lung disease with superimposed pulmonary edema versus pneumonia versus acute respiratory distress syndrome (ARDS). Bellows Assembler talked to family and agreeable to intermediate placement after peg tube and tracheostomy. He has OGT and is tolerating tube feeding. Review of Systems Review of Systems: ROS unobtainable: Yes unobtainable due to endotracheal tube, unobtainable due to medical condition and unobtainable due to mental status PMFSH Past Medical History Medical History COPD (chronic obstructive pulmonary disease) Diabetes Pulmonary fibrosis Family History Family History Father Congestive heart failure Father Hypertension Mother Hypertension Diabetes mellitus Sibling Hypertension Grandparent Diabetes mellitus Social History Social History Smoking status: Never smoker Second hand tobacco smoke exposure: No Alcohol intake: never Substance use: never Substance use type: does not use Lack of Transportation: No Lack of Food: Never True Current Housing: I Have Housing Concerned About Future Housing: No Difficulty Paying Gas/Electric Bills: No Difficulty Paying for Meds: YES Currently Unemployed: No Education: Never Attended/Kindergarten Only Difficulty w/ Childcare or Family Care: No Spiritual care concerns: No Meds Home Medications and Allergies Home Medications Medication Instructions Recorded Confirmed Type albuterol sulfate 90 mcg/actuation 2 puff inhalation QID PRN 10/25/22 10/25/22 History aerosol inhaler Shortness Of Breath Or Wheezing amlodipine 10 mg tablet 10 mg PO DAILY 10/25/22 10/25/22 History bisacodyl 5 mg tablet,delayed 5 mg PO DAILY PRN Constipation 10/25/22 10/25/22 History release (Dulcolax (bisacodyl)) budesonide 160 mcg-glycopyr 9 2 inh inhalation QAM AND QPM 10/25/22 10/25/22 History mcg-formot 4.8 mcg/actuation HFA inhaler cetirizine 10 mg tablet 10 mg PO DAILY 10/25/22 10/25/22 History cholecalciferol (vitamin D3) 10 20 mcg PO DAILY 10/25/22 10/25/22 History mcg (400 unit) tablet finasteride 5 mg tablet 5 mg PO
[2022-11-09 17:40] LABS: Glucose Point of Care 171 mg/dl (65-105)
--- NOTE | 2022-11-09 18:09 | WPDCN ---
Assessment and Plan Assessment and plan (1) Respiratory failure: Code(s): J96.90 - Respiratory failure, unspecified, unspecified whether with hypoxia or hypercapnia Status: Acute Assessment and Plan: plan or tracheostomy please obtain consent. Please hold please make NPO midnight hold VT prophylaxis if possible midnight morning of his fine as well. HPI Data of Consult Date/Time: 11/09/22 18:09 Requesting Physician: Nicola Hinds MD Primary Care Provider: UNKNOWN,DOCTOR Consult Narrative Narrative: Romario Birmingham Jr. is a 82 year old male with respiratory failure peep is 8 FiO2 40% Review of Systems Review of Systems: All systems reviewed & are unremarkable except as noted in HPI and below PMFSH Past Medical History Medical History COPD (chronic obstructive pulmonary disease) Diabetes Pulmonary fibrosis Family History Family History Father Congestive heart failure Father Hypertension Mother Hypertension Diabetes mellitus Sibling Hypertension Grandparent Diabetes mellitus Social History Social History Smoking status: Never smoker Second hand tobacco smoke exposure: No Alcohol intake: never Substance use: never Substance use type: does not use Lack of Transportation: No Lack of Food: Never True Current Housing: I Have Housing Concerned About Future Housing: No Difficulty Paying Gas/Electric Bills: No Difficulty Paying for Meds: YES Currently Unemployed: No Education: Never Attended/Kindergarten Only Difficulty w/ Childcare or Family Care: No Spiritual care concerns: No Meds Home Medications and Allergies Home Medications Medication Instructions Recorded Confirmed Type albuterol sulfate 90 mcg/actuation 2 puff inhalation QID PRN 10/25/22 10/25/22 History aerosol inhaler Shortness Of Breath Or Wheezing amlodipine 10 mg tablet 10 mg PO DAILY 10/25/22 10/25/22 History bisacodyl 5 mg tablet,delayed 5 mg PO DAILY PRN Constipation 10/25/22 10/25/22 History release (Dulcolax (bisacodyl)) budesonide 160 mcg-glycopyr 9 2 inh inhalation QAM AND QPM 10/25/22 10/25/22 History mcg-formot 4.8 mcg/actuation HFA inhaler cetirizine 10 mg tablet 10 mg PO DAILY 10/25/22 10/25/22 History cholecalciferol (vitamin D3) 10 20 mcg PO DAILY 10/25/22 10/25/22 History mcg (400 unit) tablet finasteride 5 mg tablet 5 mg PO DAILY 10/25/22 10/25/22 History glipizide 5 mg tablet 5 mg PO DAILY 10/25/22 10/25/22 History losartan 50 mg tablet 50 mg PO BID 10/25/22 10/25/22 History nintedanib 150 mg capsule (Ofev) 150 mg PO Q12H 10/25/22 10/25/22 History omeprazole 20 mg capsule,delayed 20 mg PO BID 10/25/22 10/25/22 History release oxycodone-acetaminophen 10 mg-325 1 tablet PO Q6H PRN pain 10/25/22 10/25/22 History mg tablet pravastatin 40 mg tablet 40 mg PO HS 10/25/22 10/25/22 History tamsulosin 0.4 mg capsule 0.8 mg PO HS 10/25/22 10/25/22 History tiotropium 2.5 mcg-olodaterol 2.5 2 puff inhalation DAILY 10/25/22 10/25/22 History mcg/actuation mist for inhalation (Stiolto Respimat) Allergies Allergy/AdvReac Type Severity Reaction Status Date / Time No Known Allergies Allergy Verified 10/24/22 22:52 Vital Signs Vital Signs - 24 hr 11/08/22 18:15 11/08/22 18:30 11/08/22 20:26 Temperature 36.8 C 36.9 C Pulse Rate 79 77 75 Respiratory Rate 30 H 30 H Blood Pressure Pulse Oximetry 100 100 100 Oxygen Delivery Mechanical Ventilation Fraction of Inspired Oxygen 40 11/08/22 21:15 11/08/22 21:19 11/08/22 21:20 Temperature Pulse Rate 84 87 81 Respiratory Rate 35 H 33 H Blood Pressure Pulse Oximetry Oxygen Delivery Fraction of Inspired Oxygen 11/08/22 20:00 11/08/22 20:00 11/08/22 20:00 Temperature Pulse Rate 74 Respirato
--- NOTE | 2022-11-09 18:21 | PC.NURSE ---
Attempted to call daughter Kerline for tracheostomy consent, no answer
[2022-11-09] MEDS: MIDAZOLAM 100MG/NS 100ML(*CRX) 100 MG/100 ML BAG IV CONT (18:50)
--- NOTE | 2022-11-09 19:18 | PM.IMHP ---
H&P: HPI History of Present Illness Date/Time: 11/09/22 19:18 Chief Complaint: respiratory failure Narrative: planned procedure Review of Systems Review of Systems: All systems reviewed & are unremarkable except as noted in HPI and below [facility] Past Medical History Medical History COPD (chronic obstructive pulmonary disease) Diabetes Pulmonary fibrosis Family History Family History Father Congestive heart failure Father Hypertension Mother Hypertension Diabetes mellitus Sibling Hypertension Grandparent Diabetes mellitus Social History Social History Smoking status: Never smoker Second hand tobacco smoke exposure: No Alcohol intake: never Substance use: never Substance use type: does not use Lack of Transportation: No Lack of Food: Never True Current Housing: I Have Housing Concerned About Future Housing: No Difficulty Paying Gas/Electric Bills: No Difficulty Paying for Meds: YES Currently Unemployed: No Education: Never Attended/Kindergarten Only Difficulty w/ Childcare or Family Care: No Spiritual care concerns: No Meds Home Medications and Allergies Home Medications Medication Instructions Recorded Confirmed Type albuterol sulfate 90 mcg/actuation 2 puff inhalation QID PRN 10/25/22 10/25/22 History aerosol inhaler Shortness Of Breath Or Wheezing amlodipine 10 mg tablet 10 mg PO DAILY 10/25/22 10/25/22 History bisacodyl 5 mg tablet,delayed 5 mg PO DAILY PRN Constipation 10/25/22 10/25/22 History release (Dulcolax (bisacodyl)) budesonide 160 mcg-glycopyr 9 2 inh inhalation QAM AND QPM 10/25/22 10/25/22 History mcg-formot 4.8 mcg/actuation HFA inhaler cetirizine 10 mg tablet 10 mg PO DAILY 10/25/22 10/25/22 History cholecalciferol (vitamin D3) 10 20 mcg PO DAILY 10/25/22 10/25/22 History mcg (400 unit) tablet finasteride 5 mg tablet 5 mg PO DAILY 10/25/22 10/25/22 History glipizide 5 mg tablet 5 mg PO DAILY 10/25/22 10/25/22 History losartan 50 mg tablet 50 mg PO BID 10/25/22 10/25/22 History nintedanib 150 mg capsule (Ofev) 150 mg PO Q12H 10/25/22 10/25/22 History omeprazole 20 mg capsule,delayed 20 mg PO BID 10/25/22 10/25/22 History release oxycodone-acetaminophen 10 mg-325 1 tablet PO Q6H PRN pain 10/25/22 10/25/22 History mg tablet pravastatin 40 mg tablet 40 mg PO HS 10/25/22 10/25/22 History tamsulosin 0.4 mg capsule 0.8 mg PO HS 10/25/22 10/25/22 History tiotropium 2.5 mcg-olodaterol 2.5 2 puff inhalation DAILY 10/25/22 10/25/22 History mcg/actuation mist for inhalation ([employer] [place] Respimat) Allergies Allergy/AdvReac Type Severity Reaction Status Date / Time No Known Allergies Allergy Verified 10/24/22 22:52 Vital Signs Vital Signs - 24 hr 11/08/22 20:26 11/08/22 21:15 11/08/22 21:19 Temperature Pulse Rate 75 84 87 Respiratory Rate 35 H Blood Pressure Pulse Oximetry 100 Oxygen Delivery Mechanical Ventilation Fraction of Inspired Oxygen 40 11/08/22 21:20 11/08/22 20:00 11/08/22 20:00 Temperature Pulse Rate 81 Respiratory Rate 33 H Blood Pressure Pulse Oximetry Oxygen Delivery Mechanical Ventilation Fraction of Inspired Oxygen 40 40 11/08/22 20:00 11/08/22 22:00 11/08/22 20:00 Temperature 36.9 C Pulse Rate 74 78 76 Respiratory Rate 33 H Blood Pressure 111/57 L Pulse Oximetry 100 Oxygen Delivery Fraction of Inspired Oxygen 11/08/22 22:00 11/08/22 23:24 11/08/22 23:25 Temperature 37.2 C Pulse Rate 78 85 86 Respiratory Rate 27 H 37 H 37 H Blood Pressure 154/75 H Pulse Oximetry 100 Oxygen Delivery Fraction of Inspired Oxygen 11/08/22 23:59 11/09/22 00:00 11/09/22 00:00 Temperature Pulse Rate 75 98 98 Respiratory Rate 38 H 38 H Blood Pressure Pulse Oximetry 100
[2022-11-09] MEDS: TOLNAFTATE 1% POWDER 45 GM BTL 1 APPLIC TOPICAL (20:44)
[2022-11-09] MEDS: PRAVASTATIN SODIUM 20 MG TABLET 40 MG FEED TUBE (20:46)
[2022-11-09 23:49] LABS: Glucose Point of Care 190 mg/dl (65-105)
[2022-11-10] VITALS (36 sets, daily range): BP systolic 88–125; BP diastolic 34–73; PULSE 77–115; RESP 17–34; TEMP 35.9–37.7; O2SAT 91–100
[2022-11-10] MEDS: PROPOFOL IV EMULSION 100 ML 23.04 MG IV CONT ×5 (01:42→18:06)
[2022-11-10] MEDS: LEVALBUTEROL NEB 1.25 MG/3 ML INHALATION ×4 (02:20→20:52)
[2022-11-10] MEDS: IPRATROPIUM BR 0.02% INH SOLN 0.5 MG/2.5 ML VIAL INHALATION ×4 (02:21→20:49)
[2022-11-10 04:31] LABS: Basophils Percent Auto 0.3 % (0.2-1.2); Eosinophils Absolute Auto 0.1 K/mm3 (0-0.3); Eosinophils Percent Auto 0.8 % (0-4.4); Hematocrit 25.6 % (42.0-52.0); Hemoglobin 8.4 g/dL (14.0-18.0); Immature Granulocyte Absolute 0.08 K/mm3 (0.00-0.031); Immature Granulocyte Percent A 1.2 % (0-0.5); Lymphocytes Absolute Auto 1.13 K/mm3 (0.9-3.2); Lymphocytes Percent Auto 17.2 % (18.3-44.2); Mean Corpuscular HGB Conc 32.8 g/dl (32-36); Mean Corpuscular Volume 91.4 fl (80-100); Mean Platelet Volume 11.9 fl (7.4-10.4); Monocytes Absolute Auto 0.4 K/mm3 (0.1-0.6); Monocytes Percent Auto 6.1 % (2.6-8.5); Neutrophils Absolute Auto 4.9 K/mm3 (1.3-6.7); Neutrophils Percent Auto 74.4 % (45.5-73.1); Nucleated Red Blood Cells Perc 0.3 % (0.0-0.2); Platelet Count Result 200 k/mm3 (150-375); Red Cell Distribution Width 17.1 % (11.5-14.5); White Blood Count 6.6 K/mm3 (4.5-10.0)
[2022-11-10 04:42] LABS: INR 1.1; Prothrombin Time 14.2 Seconds (11.1-14.7)
[2022-11-10 04:43] LABS: Partial Thromboplastin Time 30.8 SECONDS (22.3-36.8)
[2022-11-10 04:56] LABS: Alanine Aminotransferase 53 U/L (6-50); Albumin Level 2.3 g/dL (3.5-5.1); Alkaline Phosphatase 322 U/L (38-126); Anion Gap 6 mmol/L (8-16); Aspartate Amino Transferase 41 U/L (17-59); Bilirubin,Total 0.9 mg/dL (0.2-1.3); Blood Urea Nitrogen 90 mg/dL (9-20); Carbon Dioxide 28 mmol/L (22-30); Chloride 107 mmol/L (98-107); Estimated CRCL calculation 65 ml/min; Estimated Glomerular Filt Rate > 60; Glucose 188 mg/dL (65-110); Magnesium 2.2 mg/dL (1.6-2.3); Phosphorus 3.9 mg/dL (2.5-4.5); Potassium 3.7 mmol/L (3.4-5.0); Sodium 141 mmol/L (137-145)
[2022-11-10] MEDS: CENTRAL LINE FLUSH 10 ML IV PUSH ×3 (05:47→21:10)
[2022-11-10] MEDS: FENTANYL 2,500MCG/NS250ML(*CRX 2,500 MCG/250 ML BAG 10 MCG IV CONT (07:01)
--- NOTE | 2022-11-10 07:18 | WPDHPUPDATE1 ---
History and Physical Update Update Date/Time: 11/10/22 07:18 History and Physical has been reviewed, including an updated exam of the patient. There are NO changes in the patient's condition. Risks, benefits, and alternatives have been discussed and questions answered. Patient agrees to proceed with procedure.
[2022-11-10] MEDS: FUROSEMIDE INJ 40 MG/4 ML VIAL IV PUSH (09:22)
[2022-11-10] MEDS: PANTOPRAZOLE SODIUM IV 40 MG VIAL IV PUSH ×2 (09:23→21:08)
[2022-11-10] MEDS: MINERAL OIL/WHITE PETROLATUM OINTMENT 1 APPLIC EACH EYE ×2 (09:23→21:09)
[2022-11-10] MEDS: TOLNAFTATE 1% POWDER 45 GM BTL 1 APPLIC TOPICAL ×2 (09:25→21:09)
[2022-11-10] MEDS: FLUCONAZOLE 200 MG/NACL 100 ML 200 MG/100 ML BAG 100 MG IVPB (09:51)
--- NOTE | 2022-11-10 10:58 | P.PNIM_ITS ---
Progress Note: A&P Assessment and Plan (1) Acute and chronic respiratory failure with hypoxia: Code(s): J96.21 - Acute and chronic respiratory failure with hypoxia Status: Acute Assessment and Plan: Patient presented with worsening shortness of breath x1 day, likely related to bilateral infiltrates/pneumonia, possible COPD and/or pulmonary fibrosis flare/exacerbation, pulmonary edema -COVID PCR was negative on 10/24 and 10/26 but came back positive on 10/29 -intubated on 10/25/2022, ETT exchange on 10/27/2022 due to cuff leak -continue sedation -continue Lasix -he has completed 5 day course of azithromycin (10/25) . s/p cefepime and vancomycin for 7 days (10/25) -continue bronchodilators -10/30 switched steroids back to dexamethasone 6 mg IV q.day which will be continued for 10 days -continue Barcitinib per tube -question plan for trach and PEG -vent mgmt per ICU (2) Pneumonia due to COVID-19 virus: Code(s): U07.1 - COVID-19; J12.82 - Pneumonia due to coronavirus disease 2018 Status: Acute Assessment and Plan: See above plan (3) Pneumonia: Code(s): J18.9 - Pneumonia, unspecified organism Status: Acute Assessment and Plan: See above plan (4) Pulmonary fibrosis: Code(s): J84.10 - Pulmonary fibrosis, unspecified Status: Chronic Assessment and Plan: Patient has a history of pulmonary fibrosis (5) COPD (chronic obstructive pulmonary disease): Code(s): J44.9 - Chronic obstructive pulmonary disease, unspecified Status: Chronic Assessment and Plan: Continue mechanical ventilation, steroids, bronchodilators (6) CAD (coronary artery disease): Code(s): I25.10 - Atherosclerotic heart disease of [place] coronary artery without angina pectoris Status: Chronic Assessment and Plan: Continue dual anti-platelet therapy. (7) Diabetes: Code(s): E11.9 - Type 2 diabetes mellitus without complications Status: Chronic Assessment and Plan: Monitor blood sugars. (8) Acute kidney injury: Code(s): N17.9 - Acute kidney failure, unspecified Status: Acute Assessment and Plan: Monitor electrolytes and creatinine. (9) Pancytopenia: Code(s): D61.818 - Other pancytopenia Status: Acute Assessment and Plan: Pancytopenia -Could be bone marrow suppression -appreciate Hematology-Oncology evaluation and recommendation -folic acid and B12 were within normal limits -low iron levels, patient has been started on IV iron per Hematology -stool for occult blood still pending -10/27: patient anemic this morning with hemoglobin of 6.3, no obvious bleeding noted, will transfuse 1 unit of packed RBCs. -hemoglobin remains low but stable -pancytopenia stable -HIT antibodies negative (10) GERD (gastroesophageal reflux disease): Code(s): K21.9 - Gastro-esophageal reflux disease without esophagitis Status: Acute Assessment and Plan: Continue Protonix (11) Hyperkalemia: Code(s): E87.5 - Hyperkalemia Status: Acute Assessment and Plan: Monitor (12) Leg swelling: Code(s): M79.89 - Other specified soft tissue disorders Status: Acute Assessment and Plan: Continue diuresis Lower extremity Dopplers negative for DVT (13) Tachycardia: Code(s): R00.0 - Tachycardia, unspecified Status: Acute Assessment and Plan: 11/01 patient was tachycardic with frequent PVCs. Patient was given IV beta- benitez and started on p
--- NOTE | 2022-11-10 11:10 | WPDINTPN ---
Progress Note: A&P Assessment and Plan (1) Acute and chronic respiratory failure with hypoxia: Code(s): J96.21 - Acute and chronic respiratory failure with hypoxia Status: Acute Assessment and Plan: Patient presented with worsening shortness of breath x1 day, likely related to bilateral infiltrates/pneumonia, possible COPD and/or pulmonary fibrosis flare/exacerbation, pulmonary edema -COVID PCR was negative on 10/24 and 10/26 but came back positive on 10/29 -intubated on 10/25/2022, ETT exchange on 10/27/2022 due to cuff leak - 10/29 worsening hypoxia and increased oxygen requirement overnight. Chest x-ray shows diffuse pulmonary infiltrates. Patient asynchronous with the ventilator. Peep was increased and patient was given a dose of paralytic with increased sedation -currently in CMV mode. -continue sedation with Versed fentanyl and propofol. Sedation holidays limited by patient getting asynchronous with the ventilator and decompensated -he has completed 7 day course antibiotics -continue bronchodilators -status post dexamethasone x 10 days -continue Barcitinib per tube -continue contact and airborne isolation -currently on 40% FiO2 and peep of 8, tidal volume of 450 mL -will allow permissive hypercapnia as ventilation is limited by the peak pressures. -CXR this morning withStable diffuse lung disease, consistent with chronic lung disease with superimposed pulmonary edema versus pneumonia versus acute respiratory distress syndrome (ARDS). -continue lasix -ENT has been consulted, tracheostomy today on 11/10/2022 -PEG tube on 11/11/2022 -10/25/2022 CTA chest: No CT evidence of acute pulmonary embolus. Pulmonary opacities likely represent moderate pulmonary edema overlying severe chronic changes of UIP. Infection is not excluded. Small bilateral pleural effusions. Mediastinal lymphadenopathy. (2) Pneumonia: Code(s): J18.9 - Pneumonia, unspecified organism Status: Acute Assessment and Plan: 10/26/2022: Sputum cultures negative except yeast which is likely colonization 10/25/2022 MRSA screen: No MRSA 10/25/2022 urine cultures negative 10/25/2022 currently blood cultures have been negative 11/06: T-max of 100.7?, white count is is up to 9.2 from 6.8 yesterday, will obtain blood cultures, urine culture and sputum culture, chest x-ray with no change. Will hold antibiotics for now 11/06: Blood cultures, preliminary results are negative x2 11/06: Urine cultures growing Rylie albicans 11/06: Sputum culture growing achromobacter species and Yeast - ON imipenem and Diflucan (11/08) (3) Pulmonary fibrosis: Code(s): J84.10 - Pulmonary fibrosis, unspecified Status: Chronic Assessment and Plan: Patient has a history of pulmonary fibrosis, follows up with the credit authorizer at [facility] -patient is on nintedanib which cannot be crushed and given through the tube See above (4) COPD (chronic obstructive pulmonary disease): Code(s): J44.9 - Chronic obstructive pulmonary disease, unspecified Status: Chronic Assessment and Plan: Continue mechanical ventilation, bronchodilators (5) CAD (coronary artery disease): Code(s): I25.10 - Atherosclerotic heart disease of [place] coronary artery without angina pectoris Status: Chronic Assessment and Plan: Patient with recent history of [place] status post stent x1 to the [facility] records show an echocardiogram with a diastolic dysfunction grade 3, EF of 56% 10/26/2022 echocardiogram showed EF of 60-65%, moderate increased LV wall thickness, grade 1 diastolic dysfunction, RV systolic function is mildly reduced mild pulmonary hypertension with RVSP of 44 mmHg, no aortic valve stenosis, trace mitral valve regurg, trace tricuspid valve regurg Patient has been on Plavix, aspirin, pravastatin, losartan and amlodipine at home -Dr. Chan discussed with Cardiology and patient currently on Plavix
--- NOTE | 2022-11-10 11:47 | PCNFU ---
Nutrition Follow-Up Complete: Inadequate Oral Intake as related to mechanical ventilation as evidenced by NPO Goal: Meet estimated nutritional needs Patient is progressing towards goal. We will continue current goal. Pt current nutrition is Nepro at 40 ml/hr. Last recorded weight is 84.1 kg. Bowel Motility:+BM reported 11/10 Labs Reviewed:Glu 188, BUN 90, Alb 2.3 Meds Noted:Versed, Protonix, Fentanyl, Propofol 50 [id number] kcals. Skin: WNL Additional Notes: Patient is currently on hold with tube feedings for Trach this afternoon. Plans for PEG tomorrow 11/11. Agree with tube feeding orders of Nepro at 40 ml/hr providing 1584 kcals/72 gms protein/640 ml water. Propofol is providing an additional 608 kcals. Flush 30 ml q 4 hours. Plans for LTAC at discharge. Will monitor weight, labs, skin, meds, tube feedings tolerance in ICU rounds and reassessing every Wednesday and Wednesday.
[2022-11-10 12:04] LABS: Glucose Point of Care 187 mg/dl (65-105)
[2022-11-10] MEDS: MIDAZOLAM 100MG/NS 100ML(*CRX) 100 MG/100 ML BAG IV CONT (13:34)
[2022-11-10 13:49] LABS: Triglycerides 1181 mg/dL (<150)
--- NOTE | 2022-11-10 14:08 | WPDGIPROGNO ---
Progress Note: A&P Assessment and Plan (1) Pneumonia due to COVID-19 virus: Code(s): U07.1 - COVID-19; J12.82 - Pneumonia due to coronavirus disease 2019 Status: Acute Assessment and Plan: prolonged intubated peg placement tomorrow for feeding (2) Acute on chronic congestive heart failure: Code(s): I50.9 - Heart failure, unspecified Status: Acute Assessment and Plan: medical treatment (3) Acute and chronic respiratory failure with hypoxia: Code(s): J96.21 - Acute and chronic respiratory failure with hypoxia Status: Acute Assessment and Plan: no changes still intubated trach by ent (4) Diabetes: Code(s): E11.9 - Type 2 diabetes mellitus without complications Status: Chronic Subjective Date/time seen: 11/10/22 14:08 Interval history: no changes, intubated, tolerating enteral feeding by ogt Review of Systems Review of Systems: All systems reviewed & are unremarkable except as noted in HPI and below Exam Narrative: General: Patient currently intubated and sedated, in no acute distress HEENT:? Pupils equal reactive, sclera is clear. OGT in place, tolerating tube feeding. Neck:? Supple Respiratory:? Bilateral coarse breath sounds, rales, adequate air entry, decreased at bases, no wheezing Cardiac:? Regular in rhythm, S1-S2 is normal Abdomen:? Soft, nontender, nondistended, hypoactive bowel sounds Extremities:? Bilateral lower extremity edema has improved Neuro:? Intubated and sedated with propofol Skin:? No lesions noted Psych:? Unable to assess at this time Objective Data Vital Signs Vital Signs: Vital Signs - 24 hr 11/09/22 14:15 11/09/22 14:30 11/09/22 14:45 Temperature 99.0 F 99.0 F 99.0 F Pulse Rate 99 84 87 Respiratory Rate 23 H 31 H 30 H Blood Pressure Pulse Oximetry 100 100 100 Oxygen Delivery Fraction of Inspired Oxygen 11/09/22 16:00 11/09/22 16:00 11/09/22 15:00 Temperature 99.1 F Pulse Rate 84 83 Respiratory Rate 20 16 Blood Pressure 120/62 Pulse Oximetry 99 100 Oxygen Delivery Mechanical Ventilation Fraction of Inspired Oxygen 40 40 11/09/22 15:01 11/09/22 15:15 11/09/22 15:30 Temperature 99.1 F 99.1 F 99.0 F Pulse Rate 82 88 87 Respiratory Rate 10 L 28 H 30 H Blood Pressure Pulse Oximetry 100 100 100 Oxygen Delivery Fraction of Inspired Oxygen 11/09/22 15:45 11/09/22 16:00 11/09/22 16:01 Temperature 99.0 F 99.0 F 99.0 F Pulse Rate 84 82 86 Respiratory Rate 24 H 27 H 29 H Blood Pressure 121/65 Pulse Oximetry 100 98 98 Oxygen Delivery Fraction of Inspired Oxygen 11/09/22 16:15 11/09/22 17:00 11/09/22 18:00 Temperature 98.9 F Pulse Rate 85 82 97 Respiratory Rate 33 H Blood Pressure Pulse Oximetry 100 100 Oxygen Delivery Mechanical Ventilation Fraction of Inspired Oxygen 40 11/09/22 16:30 11/09/22 16:45 11/09/22 17:00 Temperature 99.0 F 99.0 F 99.1 F Pulse Rate 91 83 84 Respiratory Rate 34 H 30 H 34 H Blood Pressure 129/70 Pulse Oximetry 94 100 100 Oxygen Delivery Fraction of Inspired Oxygen 11/09/22 17:01 11/09/22 17:15 11/09/22 17:30 Temperature 99.1 F 99.2 F 99.1 F Pulse Rate 92 87 89 Respiratory Rate 33 H 32 H 29 H Blood Pressure Pulse Oximetry 99 100 99 Oxygen Delivery Fraction of Inspired Oxygen 11/09/22 17:45 11/09/22 18:01 11/09/22 18:15 Temperature 99.3 F 98.9 F 99.3 F Pulse Rate 94 89 91 Respiratory Rate 32 H 32 H 36 H Blood Pressure Pulse Oximetry 100 99 100 Oxygen Delivery Fraction of Inspired Oxygen 11/09/22 19:39 11/09/22 19:43 11/09/22 20:00 Temperature Pulse Rate 103 H 104 H Respiratory Rate 33 H Blood Pressure Pulse Oximetry 96 Oxygen Delivery Mechanical Ventilation Fraction of Inspired Oxygen 40 40 11/09/22 20:00 11/09/22 20:44 11/09/22 20:56 Temperature 99.9 F H Pulse Rate 72 108 H 106 H Respiratory Rate 28 H 34 H Blood Pressure 155/80 H
--- NOTE | 2022-11-10 14:12 | WPDANESEPPF ---
Anes - Initial Pre Proc Eval Procedure: Operation Date: 11/10/22 09:45 Proposed Procedures p Tracheostomy - Osmany Leroy MD Date/Time: 11/10/22 14:12 Surgeon: Nicola Hinds MD Pre Op Diagnosis: Resp Failure Patient Data Age: 82 Gender: M Height: 1.93 m Weight: 84.1 kg Last Vital Signs Temp 37.1 C 11/10/22 12:00 Pulse 95 11/10/22 13:34 Resp 34 H 11/10/22 13:34 BP 90/34 L 11/10/22 12:00 Pulse Ox 95 11/10/22 12:00 O2 Del Method Mechanical Ventilation 11/10/22 12:00 O2 Flow Rate 5 10/24/22 23:43 FiO2 35 11/10/22 12:00 Allergies Allergy/AdvReac Type Severity Reaction Status Date / Time No Known Allergies Allergy Verified 10/24/22 22:52 Home Medications Medication Instructions Recorded Confirmed Type albuterol sulfate 90 mcg/actuation 2 puff inhalation QID PRN 10/25/22 10/25/22 History aerosol inhaler Shortness Of Breath Or Wheezing amlodipine 10 mg tablet 10 mg PO DAILY 10/25/22 10/25/22 History bisacodyl 5 mg tablet,delayed 5 mg PO DAILY PRN Constipation 10/25/22 10/25/22 History release (Dulcolax (bisacodyl)) budesonide 160 mcg-glycopyr 9 2 inh inhalation QAM AND QPM 10/25/22 10/25/22 History mcg-formot 4.8 mcg/actuation HFA inhaler cetirizine 10 mg tablet 10 mg PO DAILY 10/25/22 10/25/22 History cholecalciferol (vitamin D3) 10 20 mcg PO DAILY 10/25/22 10/25/22 History mcg (400 unit) tablet finasteride 5 mg tablet 5 mg PO DAILY 10/25/22 10/25/22 History glipizide 5 mg tablet 5 mg PO DAILY 10/25/22 10/25/22 History losartan 50 mg tablet 50 mg PO BID 10/25/22 10/25/22 History nintedanib 150 mg capsule (Ofev) 150 mg PO Q12H 10/25/22 10/25/22 History omeprazole 20 mg capsule,delayed 20 mg PO BID 10/25/22 10/25/22 History release oxycodone-acetaminophen 10 mg-325 1 tablet PO Q6H PRN pain 10/25/22 10/25/22 History mg tablet pravastatin 40 mg tablet 40 mg PO HS 10/25/22 10/25/22 History tamsulosin 0.4 mg capsule 0.8 mg PO HS 10/25/22 10/25/22 History tiotropium 2.5 mcg-olodaterol 2.5 2 puff inhalation DAILY 10/25/22 10/25/22 History mcg/actuation mist for inhalation (Stiolto Respimat) Laboratory Tests 11/03/22 11/09/22 11/09/22 11:18 17:35 23:22 WBC RBC Hgb Hct MCV MCH MCHC RDW Plt Count MPV Immature Gran % (Auto) Neut % (Auto) Lymph % (Auto) [place] % (Auto) Eos % (Auto) Baso % (Auto) Lymph # (Auto) [place] # (Auto) Eos # (Auto) Baso # (Auto) Abs Immat Gran (auto) Absolute Neuts (auto) Absolute Nucleated RBC Nucleated RBC % PT INR APTT Sodium Potassium Chloride Carbon Dioxide Anion Gap BUN Creatinine Estim Creat Clear Calc Estimated GFR Glucose POC Capillary Glucose 171 mg/dl H mg/dl 190 mg/dl H mg/dl (65-105) (65-105) Calcium Phosphorus Magnesium Total Bilirubin AST ALT Alkaline Phosphatase Total Protein Albumin Triglycerides Direct Plt-Bound IgG Ab see below (NEGATIVE) 11/10/22 11/10/22 11/10/22 04:05 04:10 04:10 WBC 6.6 K/mm3 K/mm3 (4.5-10.0) RBC 2.80 M/mm3 L M/mm3 (4.6-6.20) Hgb 8.4 g/dL L g/dL (14.0-18.0) Hct 25.6 % L % (42.0-52.0) MCV 91.4 fl fl (80-100) MCH 30.0 pg D pg (26-34) MCHC 32.8 g/dl g/dl (32-36) RDW 17.1 % H % (11.5-14.5) Plt Count 200 k/mm3 k/mm3 (150-375) MPV 11.9 fl H fl (7.4-10.4) Immature Gran
--- NOTE | 2022-11-10 14:38 | PC.NURSE ---
1430-Patient taken to OR per ICU bed.
[2022-11-10] MEDS: ceFAZolin SODIUM 1 GM VIAL 2 GM IV PUSH (14:49)
[2022-11-10] MEDS: LIDO 1%/EPINEPHRINE 1:100,000 50 ML VIAL INFILTRATE (14:57)
[2022-11-10] MEDS: SENNA/DOCUSATE SODIUM TABLET 1 TAB PO ×2 (15:37→21:08)
[2022-11-10] MEDS: LACTULOSE 20 GM/30 ML UDC PO ×2 (15:37→21:08)
--- NOTE | 2022-11-10 15:44 | P.OP_ITS ---
Procedure Note - Detailed Date of Procedure 11/10/22 Pre-op Diagnosis Resp Failure Post-op Diagnosis Same Procedure Performed tracheostomy Surgeon Osmany Leroy MD Anesthesia General Indications see above Findings trach placed between tracheal rings 2-3, 1-2 were fused Description of Procedure patient identified consent verified in ICU. Patient brought operating. Time- out performed. General anesthesia deep in. Patient prepped draped position. Second time-out performed procedure complete procedure confirmed. 2 cc 1% lidocaine 1 100,000 parts epinephrine injected into pre drawn surgical line deep to it. About several mm below the cricoid. Bovie electrocautery at setting 10 utilized to dissect through the skin deep tissues [employer] placed Bovie electrocautery lysed dissected the thyroid isthmus. Anesthesia then lowered the balloon. Fifteen blade utilized to perform tracheotomy following placement of cricoid hook between rings 2 and 3. Curved sharp scissors completed tracheotomy no bleeding. Anesthesia removed the endotracheal tube. Eight Shiley trach placed. Sutured 4 corners with silk sutures. Trach ties placed. Cricoid removed. Patient tolerated the procedure bleeding about 3 cc. I performed all dictated portions of the procedure no complications care the patient given Anesthesiology. Estimated Blood Loss 3 Urine Output 850 Drains No Packing No Pathology None sent Complications No immediate complications Condition Stable Disposition PACU [facility] Billing Surgery - Charge Forward: Surgery Billing
--- NOTE | 2022-11-10 16:19 | PC.NURSE ---
1525-Back to ICU 6 from surgery. Will continue to monitor.
[2022-11-10] MEDS: INSULIN ASPART (*BKC) 100 UNITS/ML SUB-Q (18:10)
[2022-11-10 18:21] LABS: Glucose Point of Care 220 mg/dl (65-105)
[2022-11-10] MEDS: METOPROLOL TARTRATE 12.5 MG TABLET FEED TUBE (21:08)
[2022-11-10] MEDS: PRAVASTATIN SODIUM 20 MG TABLET 40 MG FEED TUBE (21:08)
[2022-11-10] MEDS: INSULIN GLARGINE (*BKC) 100 UNITS/ML 18 UNITS SUB-Q (21:10)
[2022-11-11] VITALS (45 sets, daily range): BP systolic 81–144; BP diastolic 48–74; PULSE 53–131; RESP 24–35; TEMP 35.4–37.2; O2SAT 88–100
[2022-11-11] MEDS: INSULIN ASPART (*BKC) 100 UNITS/ML SUB-Q (00:41)
[2022-11-11 00:55] LABS: Glucose Point of Care 203 mg/dl (65-105)
--- NOTE | 2022-11-11 01:51 | ECG_ITS ---
Measurements Intervals [place] Rate: 111 P: ME: 0 QRS: -80 QRSD: 159 T: 54 QT: 367 QTc: 499 Interpretive Statements ATRIAL FIBRILLATION WITH RAPID VENTRICULAR RESPONSE WITH ABERRANT CONDUCTION OR VENTRICULAR PREMATURE COMPLEXES RIGHT BUNDLE BRANCH BLOCK [120+ ms QRS DURATION, UPRIGHT V1, 40+ ms S IN I/aVL/V4/V5/V6] INFERIOR MYOCARDIAL INFARCTION [40+ ms Q WAVE AND/OR ST/T ABNORMALITY IN II/aVF], OF INDETERMINATE AGE MARKED ST DEPRESSION, CONSIDER SUBENDOCARDIAL INJURY [0.2+ mV ST DEPRESSION] COMPARED TO ECG 11/01/2022 09:50:10 RIGHT BUNDLE-BRANCH BLOCK NOW PRESENT Electronically Signed On 11-11-2022 9:45:40 CDT by Sunitha Gill M.D.
[2022-11-11] MEDS: IPRATROPIUM BR 0.02% INH SOLN 0.5 MG/2.5 ML VIAL INHALATION ×4 (02:52→20:37)
[2022-11-11] MEDS: LEVALBUTEROL NEB 1.25 MG/3 ML INHALATION ×4 (02:54→20:37)
[2022-11-11] MEDS: CENTRAL LINE FLUSH 10 ML IV PUSH ×3 (06:16→21:04)
[2022-11-11] MEDS: CENTRAL LINE FLUSH 20 ML IV PUSH (06:16)
[2022-11-11 06:23] LABS: pH ABG 7.463 (7.350-7.450)
[2022-11-11 06:24] LABS: Base Excess ABG 3.2 mEq/l (+/-2.0); HCO3 ABG 27.2 mEq/l (22.0-26.0); Oxygen Saturation ABG 88.6 % (95.0-100.0); PCO2 ABG 38.9 mmHg (35.0-45.0); PO2 ABG 51.6 mmHg (80.0-100.0); Total Hemoglobin 8.5 g/dL (12.0-18.0)
[2022-11-11 06:25] LABS: Oxygen Content ABG 10.3 %vol (16.0-22.0)
[2022-11-11 06:27] LABS: Carboxyhemoglobin 0.5 % THb (0-2.0); Fractional Inspired Oxygen 35 %; Methemoglobin ABG 0.1 %THb (0-1.5); Oxyhemoglobin 85.7 % THb (90.0-100.0); PO2 FiO2 Ratio Arterial Blood 1.47 %; Reduced Hemoglobin 13.7 %THb (0-5.0)
[2022-11-11 06:28] LABS: Device VENTILATOR; Modified Allen's Test Pass; Site Drawn RIGHT RADIAL
[2022-11-11 06:29] LABS: Arterial Blood Gas PEEP 8 cmH2O; Arterial Blood Gas Tidal Volume 450 ml; Arterial Blood Gas Vent Mode CMV; Arterial Blood Gas Ventilator rate 24 /MIN
[2022-11-11 06:34] LABS: Glucose Point of Care 139 mg/dl (65-105)
[2022-11-11 06:43] LABS: Hematocrit 27.9 % (42.0-52.0); Hemoglobin 8.4 g/dL (14.0-18.0); Mean Corpuscular HGB Conc 30.1 g/dl (32-36); Mean Corpuscular Hemoglobin 28.1 pg (26-34); Mean Corpuscular Volume 93.3 fl (80-100); Platelet Count Result 216 k/mm3 (150-375); Red Blood Count 2.99 M/mm3 (4.6-6.20); Red Cell Distribution Width 17.2 % (11.5-14.5); White Blood Count 5.6 K/mm3 (4.5-10.0)
[2022-11-11 06:53] LABS: Alanine Aminotransferase 41 U/L (6-50); Albumin Level 2.7 g/dL (3.5-5.1); Alkaline Phosphatase 316 U/L (38-126); Anion Gap 9 mmol/L (8-16); Aspartate Amino Transferase 30 U/L (17-59); Bilirubin,Total 1.3 mg/dL (0.2-1.3); Blood Urea Nitrogen 90 mg/dL (9-20); Calcium 8.6 mg/dL (8.4-10.2); Carbon Dioxide 28 mmol/L (22-30); Chloride 113 mmol/L (98-107); Estimated CRCL calculation 50 ml/min; Estimated Glomerular Filt Rate > 60; Glucose 147 mg/dL (65-110); Magnesium 2.4 mg/dL (1.6-2.3); Phosphorus 4.6 mg/dL (2.5-4.5); Potassium 3.2 mmol/L (3.4-5.0); Sodium 150 mmol/L (137-145)
[2022-11-11 07:56] LABS: Anisocytosis 1+ (NORMAL); Band Neutrophils Percent 20 % (0-6); Eosinophils Absolute Manual 0.22 K/mm3 (0.02-0.5); Eosinophils Percent Manual 4 % (0-4); Hypochromasia 1+ (NORMAL); Lymphocytes Absolute Manual 1.17 K/mm3 (1.1-4.5); Monocytes Absolute Manual 0.33 K/mm3 (0.1-0.90); Monocytes Percent Manual 6 % (3-9); Neutrophils Absolute Manual 3.86 K/mm3 (1.3-6.7); Neutrophils Percent Manual 49 % (46-73); Platelet Estimate Adequate (Adequate); Schistocytes None Seen (NORMAL); Total Cells Counted 100
[2022-11-11] MEDS: MINERAL OIL/WHITE PETROLATUM OINTMENT 1 APPLIC EACH EYE ×2 (08:37→21:14)
[2022-11-11] MEDS: TOLNAFTATE 1% POWDER 45 GM BTL 1 APPLIC TOPICAL ×2 (08:37→21:15)
[2022-11-11] MEDS: PANTOPRAZOLE SODIUM IV 40 MG VIAL IV PUSH ×2 (08:37→21:15)
[2022-11-11] MEDS: KCL 40 MEQ/WATER 100 ML 100 ML 25 ML IVPB (08:41)
[2022-11-11] MEDS: METOPROLOL TARTRATE INJ 5 MG/5 ML VIAL IV PUSH (08:43)
[2022-11-11] MEDS: FLUCONAZOLE 200 MG/NACL 100 ML 200 MG/100 ML BAG 100 MG IVPB (09:35)
[2022-11-11] MEDS: FENTANYL 2,500MCG/NS250ML(*CRX 2,500 MCG/250 ML BAG 12.5 MCG IV CONT (09:36)
[2022-11-11] MEDS: MIDAZOLAM 100MG/NS 100ML(*CRX) 100 MG/100 ML BAG 6 MG IV CONT ×2 (09:38→23:28)
[2022-11-11] MEDS: METOPROLOL TARTRATE 50 MG TAB FEED TUBE ×2 (09:41→21:14)
[2022-11-11] MEDS: ASPIRIN 81 MG CHEWABLE TABLET FEED TUBE (09:42)
[2022-11-11] MEDS: polyethylene glycoL 3350 17 GM POWD.PACK PO (09:42)
[2022-11-11] MEDS: SENNA/DOCUSATE SODIUM TABLET 1 TAB PO ×2 (09:42→21:14)
[2022-11-11] MEDS: LACTULOSE 20 GM/30 ML UDC PO ×2 (09:43→21:14)
[2022-11-11] MEDS: BARICITINIB 2 MG TABLET 4 MG FEED TUBE (10:08)
[2022-11-11] MEDS: dexmedeTOMIDine 400 MCG/100 ML 400 MCG/100 ML BAG IV CONT (10:56)
--- NOTE | 2022-11-11 11:10 | PCFNICU ---
ICU Rounding Note: Pt current nutrition is Nepro at 40 ml/hr. Last recorded weight is 85.7 kg. Bowel Motility:+Bm reported 11/10 Labs Reviewed:TG 1181,Glu 147, Mg 2.4, K 3.2, Alb 2.7 Meds Noted:Precedex, Fentanyl,Versed,Miralax, Lantus Skin: WNL Additional Notes: Patient remains current with Trach. Tube feedings on hold for PEG placement today. Recommend to continue Nepro tube feedings but increase goal rate to 50 ml/hr due to propofol being discontinued. Goal rate providing 1980 kcals/80 gms/800 ml water. Flush 30 ml q 4 hours. Agree with diet orders. Monitoring: Will monitor weight, labs, skin, meds, tube feedings tolerance in ICU rounds and reassessing every Wednesday and Wednesday.
--- NOTE | 2022-11-11 11:34 | WPDINTPN ---
Progress Note: A&P Assessment and Plan (1) Acute and chronic respiratory failure with hypoxia: Code(s): J96.21 - Acute and chronic respiratory failure with hypoxia Status: Acute Assessment and Plan: Patient presented with worsening shortness of breath x1 day, likely related to bilateral infiltrates/pneumonia, possible COPD and/or pulmonary fibrosis flare/exacerbation, pulmonary edema -COVID PCR was negative on 10/24 and 10/26 but came back positive on 10/29 -intubated on 10/25/2022, ETT exchange on 10/27/2022 due to cuff leak - 10/29 worsening hypoxia and increased oxygen requirement overnight. Chest x-ray shows diffuse pulmonary infiltrates. Patient asynchronous with the ventilator. Peep was increased and patient was given a dose of paralytic with increased sedation -11/11/2022: Tracheostomy placed -currently on CMV mode, peep of 8 in 40% FiO2, tidal volume status due to ARDS physiology, will allow permissive hypercapnia -continue sedation with Versed fentanyl. Follows discontinued due to elevated triglycerides. -Precedex infusion ordered this morning - Sedation holidays limited by patient getting asynchronous with the ventilator and decompensated - completed 7 day course antibiotics -continue bronchodilators -status post dexamethasone x 10 days -continue Barcitinib per tube x14 days -continue contact and airborne isolation -CXR this morning with Stable diffuse lung disease, consistent with chronic lung disease with superimposed pulmonary edema versus pneumonia versus acute respiratory distress syndrome (ARDS). -will hold diuresis today as his blood pressures are borderline and he is in atrial fibrillation, tachycardic and has to receive metoprolol -PEG tube scheduled for 11/11/2022 -10/25/2022 CTA chest: No CT evidence of acute pulmonary embolus. Pulmonary opacities likely represent moderate pulmonary edema overlying severe chronic changes of UIP. Infection is not excluded. Small bilateral pleural effusions. Mediastinal lymphadenopathy. (2) Pneumonia: Code(s): J18.9 - Pneumonia, unspecified organism Status: Acute Assessment and Plan: 10/26/2022: Sputum cultures negative except yeast which is likely colonization 10/25/2022 MRSA screen: No MRSA 10/25/2022 urine cultures negative 10/25/2022 currently blood cultures have been negative 11/06: T-max of 100.7?, white count is is up to 9.2 from 6.8 yesterday, will obtain blood cultures, urine culture and sputum culture, chest x-ray with no change. 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 at [facility] -patient is on nintedanib which cannot be crushed and given through the tube See above (4) COPD (chronic obstructive pulmonary disease): Code(s): J44.9 - Chronic obstructive pulmonary disease, unspecified Status: Chronic Assessment and Plan: Continue mechanical ventilation, bronchodilators (5) CAD (coronary artery disease): Code(s): I25.10 - Atherosclerotic heart disease of [place] coronary artery without angina pectoris Status: Chronic Assessment and Plan: Patient with recent history of [place] status post stent x1 to the [facility] records show an echocardiogram with a diastolic dysfunction grade 3, EF of 56% 10/26/2022 echocardiogram showed EF of 60-65%, moderate increased LV wall thickness, grade 1 diastolic dysfunction, RV systolic function is mildly reduced mild pulmonary hypertension with RVSP of 44 mmHg, no aortic valve stenosis, trace mitral valve regurg, trace tricuspid valve re
--- NOTE | 2022-11-11 12:30 | P.PNNP_ITS ---
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 * evaluation to date: * renal ultrasound unremarkable * urine electrolytes prerenal * urine eosinophils negative * CPK low * elevated BUN likely secondary previous steroid use and possibly hypercatabolic state and infection (pneumonia) along with need for intermittently diuretic therapy (but is trending down) * follow trend of repeat labs and UOP (2) Hypernatremia: Code(s): E87.0 - Hyperosmolality and hypernatremia Status: Acute Assessment and Plan: * likely due to NPO status for procedures yesterday and today * resume free water flushes + tube feedings * follow trend sodium and other electrolyte (3) Acute and chronic respiratory failure with hypoxia: Code(s): J96.21 - Acute and chronic respiratory failure with hypoxia Status: Acute Assessment and Plan: * multifactorial: * pneumonia (on antibiotics + antifungals) * COPD * known pulmonary fibrosis * exacerbation of COPD + UIP * pulmonary edema(?) * COVID-19 * on mechanical ventilation * s/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 (4) COVID-19 virus infection: Code(s): U07.1 - COVID-19 Status: Acute Assessment and Plan: * as noted by positive testing * s/p decadron and on baricitinib * ventilator support * intermittent IV diuretics to promote dry lung strategy * continue supportive therapy (5) Pulmonary fibrosis: Code(s): J84.10 - Pulmonary fibrosis, unspecified Status: Chronic Assessment and Plan: * known history of this * Pulmonary recommendations noted (6) COPD (chronic obstructive pulmonary disease): Code(s): J44.9 - Chronic obstructive pulmonary disease, unspecified Status: Chronic Assessment and Plan: * complicated by #2, #3, and #4 * continue current therapy (ventilator support, antibiotics, bronchodilators) (7) Pneumonia: Code(s): J18.9 - Pneumonia, unspecified organism Status: Acute Assessment and Plan: * sputum culture with Acintobacter and yeast * on antibiotics and antifuncals * blood culture negative (8) Diabetes: Code(s): E11.9 - Type 2 diabetes mellitus without complications Status: Chronic Assessment and Plan: * follow accuchecks * glycemic control per show card letterer Will continue to follow intermittently. Subjective Date/time seen: 11/11/22 13:10 Chart reviewed since last seen -- s/p tracheostomy yesterday and tolerated intervention reasonably well; tentatively on schedule for G-tube placement today; renal function relatively stable with good urine output with intermittent IV diuretics; sodium up a bit by AM labs. Exam Narrative: General: elderly AA male tracheded and on mechanical ventilation Heart: normal S1 and S2; no rub Lungs: coarse breath sounds throughout Abdomen: bowel sounds positive nontender Extremities: no cyanosis or clubbing; trace - 1+ edema Skin: no rash Objective Data Vital Signs Vital Signs:
--- NOTE | 2022-11-11 12:30 | PM.PNNEP ---
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 evaluation to date: renal ultrasound unremarkable urine electrolytes prerenal urine eosinophils negative CPK low elevated BUN likely secondary previous steroid use and possibly hypercatabolic state and infection (pneumonia) along with need for intermittently diuretic therapy (but is trending down) follow trend of repeat labs and UOP (2) Hypernatremia: Code(s): E87.0 - Hyperosmolality and hypernatremia Status: Acute Assessment and Plan: likely due to NPO status for procedures yesterday and today resume free water flushes + tube feedings follow trend sodium and other electrolyte (3) Acute and chronic respiratory failure with hypoxia: Code(s): J96.21 - Acute and chronic respiratory failure with hypoxia Status: Acute Assessment and Plan: multifactorial: pneumonia (on antibiotics + antifungals) COPD 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 pulmonary edema(?) COVID-19 on mechanical ventilation s/p tracheostomy for half-way ventilator weaning (4) COVID-19 virus infection: Code(s): U07.1 - COVID-19 Status: Acute Assessment and Plan: as noted by positive testing s/p decadron and on baricitinib ventilator support intermittent IV diuretics to promote dry lung strategy continue supportive therapy (5) Pulmonary fibrosis: Code(s): J84.10 - Pulmonary fibrosis, unspecified Status: Chronic Assessment and Plan: known history of this Pulmonary recommendations noted (6) COPD (chronic obstructive pulmonary disease): Code(s): J44.9 - Chronic obstructive pulmonary disease, unspecified Status: Chronic Assessment and Plan: complicated by #2, #3, and #4 continue current therapy (ventilator support, antibiotics, bronchodilators) (7) Pneumonia: Code(s): J18.9 - Pneumonia, unspecified organism Status: Acute Assessment and Plan: sputum culture with Acintobacter and yeast on antibiotics and antifuncals blood culture negative (8) Diabetes: Code(s): E11.9 - Type 2 diabetes mellitus without complications Status: Chronic Assessment and Plan: follow accuchecks glycemic control per merry go round operator Will continue to follow intermittently. Subjective Date/time seen: 11/11/22 13:10 Chart reviewed since last seen -- s/p tracheostomy yesterday and tolerated intervention reasonably well; tentatively on schedule for G-tube placement today; renal function relatively stable with good urine output with intermittent IV diuretics; sodium up a bit by AM labs. Exam Narrative: General: elderly AA male tracheded and on mechanical ventilation Heart: normal S1 and S2; no rub Lungs: coarse breath sounds throughout Abdomen: bowel sounds positive nontender Extremities: no cyanosis or clubbing; trace - 1+ edema Skin: no rash Objective Data Vital Signs Vital Signs: Vital Signs Temp Pulse Resp BP Pulse Ox O2 Del Method FiO2 11/11/22 12:00 82 11/11/22 12:29 98.5 F 84 28 H 125/51 L 94 Mechanical Ventilation 11/11/22 11:29 77 94 Mechanical Ventilation 40 11/11/22 10:56 78 30 H 11/11/22 10:00 90 11/11/22 08:00 115 H 11/11/22 08:00 40 11/11/22 08:00 96 Mechanical Ventilation 40 11/11/22 10:00 93 33 H 11/11/22 09:53 92 31 H 11/11/22 10:00 98.4 F 98 30 H 136/52 L 97 11/11/22 09:41 87 11/11/22 09:36 94 32 H 11/11/22 08:02 94 32 H 11/11/22 08:40 123 H 34 H
[2022-11-11 12:33] LABS: Glucose Point of Care 144 mg/dl (65-105)
[2022-11-11] MEDS: ceFAZolin 1 GM/NS 50 ML 1 GM/50 ML BAG IVPB (12:35)
--- NOTE | 2022-11-11 12:41 | SUR.OPER ---
Sedation being provided and monitored by ICU firer powerhouse and VIDEO GAME TECHNICIAN Honey.
--- NOTE | 2022-11-11 13:36 | WPDANESPN ---
Anes - Prog Note Post-Op Date/Time: 11/11/22 13:36 Cardiovascular status: normal Respiratory status: normal Airway patency: baseline Mental status: baseline Post-Op hydration status: normal Vital Signs: Last Vital Signs Temp 36.9 C 11/11/22 12:29 Pulse 80 11/11/22 12:59 Resp 30 H 11/11/22 12:59 BP 116/74 11/11/22 12:59 Pulse Ox 99 11/11/22 12:59 O2 Del Method Mechanical Ventilation 11/11/22 12:59 O2 Flow Rate 5 10/24/22 23:43 FiO2 40 11/11/22 12:00 Pain Score (VAS): spoke with patients RN at bedside. she reports he had no complications with anesthesia and his pain is under control. I/O: Intake & Output 11/10/22 11/11/22 11/11/22 23:59 07:59 15:59 Intake Total 420 220 472 Output Total 1000 625 Balance -580 -405 472 Laboratory Tests 11/11/22 06:00 11/11/22 06:00 11/10/22 11/10/22 11/11/22 04:05 18:09 00:29 WBC RBC Hgb Hct MCV MCH MCHC RDW Plt Count MPV Immature Gran % (Auto) Neut % (Auto) Lymph % (Auto) Calvert % (Auto) Eos % (Auto) Baso % (Auto) Lymph # (Auto) [place]vert # (Auto) Eos # (Auto) Baso # (Auto) Abs Immat Gran (auto) Absolute Neuts (auto) Absolute Nucleated RBC Total Counted Neutrophils % (Manual) Band Neutrophils % Lymphocytes % (Manual) Monocytes % (Manual) Eosinophils % (Manual) Nucleated RBC % Abs Neuts (Manual) Abs Lymphs (Manual) Abs Monocytes (Manual) Absolute Eos (Manual) Platelet Estimate Hypochromasia Anisocytosis Schistocytes Puncture Site ABG pH ABG pCO2 ABG pO2 ABG PO2/FiO2 Ratio ABG HCO3 ABG O2 Saturation ABG O2 Content ABG Base Excess A-a Gradient Oxyhemoglobin Carboxyhemoglobin Methemoglobin Reduced Hemoglobin Total Hemoglobin O2 Delivery Device O2 Liters/Min Minute Volume Vent Rate Vent Mode FiO2 Tidal Volume PEEP Peak Inspir Pressure Pressure Support Sodium Potassium Chloride Carbon Dioxide Anion Gap BUN Creatinine Estim Creat Clear Calc Estimated GFR Glucose POC Capillary Glucose 220 H 203 H Calcium Phosphorus Magnesium Total Bilirubin AST ALT Alkaline Phosphatase Total Protein Albumin Triglycerides 1181 H 11/11/22 11/11/22 11/11/22 05:40 06:00 06:13 WBC 5.6 RBC 2.99 L Hgb 8.4 L Hct 27.9 L MCV 93.3 MCH 28.1 D MCHC 30.1 L RDW 17.2 H Plt Count 216 MPV 12.0 H Immature Gran % (Auto) Not Reportable Neut % (Auto) Not Reportable Lymph % (Auto) Not Reportable Calvert % (Auto) Not Reportable Eos % (Auto) Not Reportable Baso % (Auto) Not Reportable Lymph # (Auto) Not Reportable Calvert # (Auto) Not Reportable Eos # (Auto) Not Reportable Baso # (Auto) Not Reportable Abs Immat Gran (auto) Not Reportable Absolute Neuts (auto) Not Reportable Absolute Nucleated RBC Not Reportable Total Counted 100 Neutrophils % (Manual) 49 Band Neutrophils % 20 H Lymphocytes % (Manual) 21.0 Monocytes % (Manual) 6 Eosinophils % (Manual) 4 Nucleated RBC % Not Reportable Abs Neuts (Manual) 3.86 Abs Lymphs (Manual) 1.17 Abs Monocytes (Manual) 0.33 Absolute Eos (Manual) 0.22 Platelet Estimate Adequate Hypochromasia 1+ Anisocytosis 1+ Schistocytes None seen Puncture Site Right radial ABG pH 7.463 H ABG pCO2 38.9 ABG pO2 51.6 L ABG PO2/FiO2 Ratio 1.47 ABG HCO3 27.2 H ABG O2 Saturation 88.6 L ABG O2 Content 10.3 L ABG Base Excess 3.2 A-a Gradient 152.0 Oxyhemoglobin 85.7 L* Carboxyhemoglobin 0.5 Methemoglobin 0.1 Reduced Hemoglobin 13.7 H Total Hemoglobin 8.5 L O2 Delivery Device Ventilator O2 Liters/Min Not Reportable Minute Volume Not Reportable Vent Rate 24 Vent Mode Cmv FiO2 35 Tidal V
[2022-11-11 18:28] LABS: Glucose Point of Care 113 mg/dl (65-105)
[2022-11-11] MEDS: INSULIN GLARGINE (*BKC) 100 UNITS/ML 18 UNITS SUB-Q (21:12)
[2022-11-11] MEDS: PRAVASTATIN SODIUM 20 MG TABLET 40 MG FEED TUBE (21:15)
[2022-11-11 21:56] LABS: Glucose Point of Care 111 mg/dl (65-105)
[2022-11-11 23:41] LABS: Glucose Point of Care 116 mg/dl (65-105)
[2022-11-12] VITALS (39 sets, daily range): BP systolic 85–157; BP diastolic 56–107; PULSE 66–133; RESP 24–38; TEMP 35.4–38.2; O2SAT 96–100
[2022-11-12] MEDS: FENTANYL 2,500MCG/NS250ML(*CRX 2,500 MCG/250 ML BAG 15 MCG IV CONT (02:39)
[2022-11-12] MEDS: dexmedeTOMIDine 400 MCG/100 ML 400 MCG/100 ML BAG 6.43 MCG IV CONT (02:40)
[2022-11-12] MEDS: LEVALBUTEROL NEB 1.25 MG/3 ML INHALATION ×4 (03:10→20:33)
[2022-11-12] MEDS: IPRATROPIUM BR 0.02% INH SOLN 0.5 MG/2.5 ML VIAL INHALATION ×4 (03:10→20:33)
[2022-11-12] MEDS: CENTRAL LINE FLUSH 10 ML IV PUSH ×3 (05:41→20:09)
[2022-11-12 06:14] LABS: Basophils Percent Auto 0.5 % (0.2-1.2); Eosinophils Absolute Auto 0.1 K/mm3 (0-0.3); Eosinophils Percent Auto 3.4 % (0-4.4); Hematocrit 25.6 % (42.0-52.0); Hemoglobin 7.6 g/dL (14.0-18.0); Immature Granulocyte Absolute 0.06 K/mm3 (0.00-0.031); Immature Granulocyte Percent A 1.5 % (0-0.5); Lymphocytes Absolute Auto 0.89 K/mm3 (0.9-3.2); Lymphocytes Percent Auto 21.7 % (18.3-44.2); Mean Corpuscular HGB Conc 29.7 g/dl (32-36); Mean Corpuscular Hemoglobin 28.3 pg (26-34); Mean Corpuscular Volume 95.2 fl (80-100); Mean Platelet Volume 11.4 fl (7.4-10.4); Monocytes Absolute Auto 0.2 K/mm3 (0.1-0.6); Monocytes Percent Auto 5.4 % (2.6-8.5); Neutrophils Absolute Auto 2.8 K/mm3 (1.3-6.7); Neutrophils Percent Auto 67.5 % (45.5-73.1); Nucleated Red Blood Cells Perc 0.7 % (0.0-0.2); Platelet Count Result 196 k/mm3 (150-375); Red Blood Count 2.69 M/mm3 (4.6-6.20); Red Cell Distribution Width 17.4 % (11.5-14.5); White Blood Count 4.1 K/mm3 (4.5-10.0)
[2022-11-12 06:32] LABS: Alanine Aminotransferase 30 U/L (6-50); Albumin Level 2.4 g/dL (3.5-5.1); Alkaline Phosphatase 337 U/L (38-126); Anion Gap 5 mmol/L (8-16); Aspartate Amino Transferase 33 U/L (17-59); Blood Urea Nitrogen 83 mg/dL (9-20); Calcium 8.2 mg/dL (8.4-10.2); Carbon Dioxide 28 mmol/L (22-30); Chloride 117 mmol/L (98-107); Estimated CRCL calculation 47 ml/min; Estimated Glomerular Filt Rate > 60; Glucose 115 mg/dL (65-110); Magnesium 2.5 mg/dL (1.6-2.3); Phosphorus 4.3 mg/dL (2.5-4.5); Potassium 3.6 mmol/L (3.4-5.0); Sodium 150 mmol/L (137-145)
[2022-11-12] MEDS: FLUCONAZOLE 200 MG/NACL 100 ML 200 MG/100 ML BAG 100 MG IVPB (08:45)
[2022-11-12] MEDS: PANTOPRAZOLE SODIUM IV 40 MG VIAL IV PUSH ×2 (08:48→20:11)
[2022-11-12] MEDS: MINERAL OIL/WHITE PETROLATUM OINTMENT 1 APPLIC EACH EYE ×2 (08:48→20:10)
[2022-11-12] MEDS: ASPIRIN 81 MG CHEWABLE TABLET FEED TUBE (08:49)
[2022-11-12] MEDS: METOPROLOL TARTRATE 50 MG TAB FEED TUBE ×2 (08:49→20:11)
[2022-11-12] MEDS: SENNA/DOCUSATE SODIUM TABLET 1 TAB PO (08:49)
[2022-11-12] MEDS: CLOPIDOGREL BISULFATE 75 MG TABLET PO (08:49)
[2022-11-12] MEDS: ENOXAPARIN 40 MG/0.4 ML SYRINGE SUB-Q (08:49)
[2022-11-12] MEDS: TOLNAFTATE 1% POWDER 45 GM BTL 1 APPLIC TOPICAL ×2 (08:50→20:10)
[2022-11-12] MEDS: LACTULOSE 20 GM/30 ML UDC PO (08:50)
--- NOTE | 2022-11-12 10:33 | WPDINTPN ---
Progress Note: A&P Assessment and Plan (1) Acute and chronic respiratory failure with hypoxia: Code(s): J96.21 - Acute and chronic respiratory failure with hypoxia Status: Acute Assessment and Plan: Patient presented with worsening shortness of breath x1 day, likely related to bilateral infiltrates/pneumonia, possible COPD and/or pulmonary fibrosis flare/exacerbation, pulmonary edema -COVID PCR was negative on 10/24 and 10/26 but came back positive on 10/29 -intubated on 10/25/2022, ETT exchange on 10/27/2022 due to cuff leak - 10/29 worsening hypoxia and increased oxygen requirement overnight. Chest x-ray shows diffuse pulmonary infiltrates. Patient asynchronous with the ventilator. Peep was increased and patient was given a dose of paralytic with increased sedation -11/11/2022: Tracheostomy placed -currently on CMV mode, peep of 8 in 40% FiO2, tidal volume status due to ARDS physiology, will allow permissive hypercapnia -continue sedation but will try to transition from IV infusions to p.r.n. IV opioid and benzodiazepine and scheduled per tube benzodiazepine. Propofol was earlier discontinued due to elevated triglycerides. - Sedation holidays limited by patient getting asynchronous with the ventilator and decompensated - completed 7 day course antibiotics earlier in the course -sputum culture 11/06 grew ?Achromobacter dentrificans. Patient on imipenem which will be transition to per tube Bactrim after 5 days for the additional 5 days of treatment -isolated yeast is likely a colonization but patient is on life -continue bronchodilators -status post dexamethasone x 10 days -patient will complete a 14 day course of Barcitinib per tube 11/13 -continue contact and airborne isolation -CXR this morning with Stable diffuse lung disease,. -hold further diuresis -PEG tube s place 11/11/2022 -10/25/2022 CTA chest: No CT evidence of acute pulmonary embolus. Pulmonary opacities likely represent moderate pulmonary edema overlying severe chronic changes of UIP. Infection is not excluded. Small bilateral pleural effusions. Mediastinal lymphadenopathy. (2) Pneumonia: Code(s): J18.9 - Pneumonia, unspecified organism Status: Acute Assessment and Plan: 10/26/2022: Sputum cultures negative except yeast which is likely colonization 10/25/2022 MRSA screen: No MRSA 10/25/2022 urine cultures negative 10/25/2022 currently blood cultures have been negative 11/06: T-max of 100.7?, white count is is up to 9.2 from 6.8 yesterday, will obtain blood cultures, urine culture and sputum culture, chest x-ray with no change. Will hold antibiotics for now 11/06: Blood cultures, preliminary results are negative x2 11/06: Urine cultures growing Rylie albicans 11/06: Sputum culture growing achromobacter species and Yeast -continue imipenem and Diflucan (11/08) will continue imipenem for 5 days and then transition transition to per tube Bactrim for additional 5 days of treatment (3) Pulmonary fibrosis: Code(s): J84.10 - Pulmonary fibrosis, unspecified Status: Chronic Assessment and Plan: Patient has a history of pulmonary fibrosis, follows up with the deportation officer at [facility] -patient is on nintedanib which cannot be crushed and given through the tube See above (4) COPD (chronic obstructive pulmonary disease): Code(s): J44.9 - Chronic obstructive pulmonary disease, unspecified Status: Chronic Assessment and Plan: Continue mechanical ventilation, bronchodilators (5) CAD (coronary artery disease): Code(s): I25.10 - Atherosclerotic heart disease of [place] coronary artery without angina pectoris Status: Chronic Assessment and Plan: Patient with recent history of [place] status post stent x1 to the [facility] records show an echocardiogram with a diastolic dysfunction grade 3, EF of 56% 10/26/2022 echocardiogram showed EF of 60-65%, moderate increase
[2022-11-12] MEDS: diazePAM (*CRX) 10 MG TABLET FEED TUBE ×3 (11:09→23:03)
[2022-11-12] MEDS: BARICITINIB 2 MG TABLET 4 MG FEED TUBE (11:09)
[2022-11-12] MEDS: ACETAMINOPHEN ELIXIR 325 MG/10.15 ML UDC 650 MG PO ×2 (11:09→17:42)
--- NOTE | 2022-11-12 11:13 | PCFNICU ---
ICU Rounding Note: Pt current nutrition is Nepro at 50 ml/hr. Last recorded weight is 87.3 kg. Bowel Motility:+BM reported 11/12 Labs Reviewed:Glu 115, Na 150, Hct 25.6,Hgb 7.6 Meds Noted:Lopressor, Lantus, Lactulose Skin: WNL Additional Notes: Patient current with Trach and PEG. Tube feedings at 40 ml/hr with plans for advancement to goal rate of 50 ml/hr. Flush increased today from 30 ml to 150 ml q 4 hours 2/2 to increase in Na labs. Agree with diet orders. Following daily in ICU rounds. Will monitor weight, labs, skin, meds, tube feedings tolerance in ICU rounds and reassessing every Wednesday and Wednesday.
[2022-11-12] MEDS: LORazepam INJ (*CRX) 2 MG/ML VIAL IV PUSH ×6 (11:46→23:03)
[2022-11-12 12:06] LABS: Glucose Point of Care 153 mg/dl (65-105)
[2022-11-12] MEDS: fentaNYL CITRATE INJ (*CRX) 100 MCG/2 ML VIAL 50 MCG IV PUSH ×5 (13:53→23:03)
[2022-11-12] MEDS: METOPROLOL TARTRATE INJ 5 MG/5 ML VIAL IV PUSH (15:39)
--- NOTE | 2022-11-12 16:16 | WPDGIPROGNO ---
Progress Note: A&P Assessment and Plan (1) Pneumonia due to COVID-19 virus: Code(s): U07.1 - COVID-19; J12.82 - Pneumonia due to coronavirus disease 2019 Status: Acute Assessment and Plan: by icu no changes (2) PEG (percutaneous endoscopic gastrostomy) status: Code(s): Z93.1 - Gastrostomy status Status: Acute Assessment and Plan: tolerating tube feeding will follow from afar, call if questions (3) Acute and chronic respiratory failure with hypoxia: Code(s): J96.21 - Acute and chronic respiratory failure with hypoxia Status: Acute (4) GERD (gastroesophageal reflux disease): Code(s): K21.9 - Gastro-esophageal reflux disease without esophagitis Status: Acute Assessment and Plan: gastritis by egd Subjective Date/time seen: 11/12/22 16:16 Interval history: s/p trach tolerating tube feeding Review of Systems Review of Systems: All systems reviewed & are unremarkable except as noted in HPI and below Exam Narrative: General: Patient currently on mechanical ventilation and sedated, HEENT:? Pupils equal reactive, sclera is clear Neck:? Supple Respiratory:? Bilateral coarse breath sounds, rales, adequate air entry, decreased at bases, no wheezing, tracheostomy in place Cardiac:? Regular in rhythm, S1-S2 is normal Abdomen:? Soft, nontender, nondistended, hypoactive bowel sounds PEG tube in place Extremities:? trace leg edema Neuro:? Intubated and sedated Skin:? No lesions noted Psych:? Unable to assess at this time Objective Data Vital Signs Vital Signs: Vital Signs - 24 hr 11/11/22 18:00 11/11/22 18:00 11/11/22 18:22 Temperature 97.6 F Pulse Rate 81 81 69 Respiratory Rate 26 H 30 H Blood Pressure 104/60 Pulse Oximetry 99 Oxygen Delivery Fraction of Inspired Oxygen 11/11/22 16:38 11/11/22 20:37 11/11/22 20:38 Temperature Pulse Rate 71 53 L 70 Respiratory Rate 25 H Blood Pressure Pulse Oximetry 99 100 Oxygen Delivery Mechanical Ventilation Mechanical Ventilation Fraction of Inspired Oxygen 40 40 11/11/22 21:00 11/11/22 21:14 11/11/22 20:00 Temperature Pulse Rate 59 L 67 Respiratory Rate 26 H Blood Pressure Pulse Oximetry Oxygen Delivery Mechanical Ventilation Fraction of Inspired Oxygen 40 11/11/22 20:00 11/11/22 20:00 11/11/22 21:38 Temperature 96.6 F L Pulse Rate 64 62 Respiratory Rate 26 H 26 H Blood Pressure 95/57 L Pulse Oximetry 100 Oxygen Delivery Fraction of Inspired Oxygen 40 11/11/22 20:00 11/11/22 22:00 11/11/22 22:00 Temperature 96.1 F L Pulse Rate 66 58 L 58 L Respiratory Rate 26 H Blood Pressure 81/53 L Pulse Oximetry 100 Oxygen Delivery Fraction of Inspired Oxygen 11/11/22 23:07 11/11/22 23:24 11/11/22 23:28 Temperature 95.9 F L Pulse Rate 56 L 59 L Respiratory Rate 24 H Blood Pressure Pulse Oximetry 100 Oxygen Delivery Mechanical Ventilation Fraction of Inspired Oxygen 40 11/11/22 23:38 11/11/22 23:53 11/12/22 00:00 Temperature 95.8 F L 95.9 F L 95.8 F L Pulse Rate 85 Respiratory Rate 24 H Blood Pressure 85/57 L Pulse Oximetry 100 Oxygen Delivery Fraction of Inspired Oxygen 11/12/22 00:00 11/12/22 00:00 11/12/22 00:00 Temperature Pulse Rate 85 Respiratory Rate Blood Pressure Pulse Oximetry Oxygen Delivery Mechanical Ventilation Fraction of Inspired Oxygen 40 40 11/12/22 00:08 11/12/22 00:23 11/12/22 00:53 Temperature 96 F L 96 F L 96.3 F L Pulse Rate Respiratory Rate Blood Pressure Pulse Oximetry Oxygen Delivery Fraction of Inspired Oxygen 11/12/22 01:23 11/12/22 01:53 11/12/22 02:00 Temperature 97 F L 97.3 F L Pulse Rate 66 Respiratory Rate Blood Pressure Pulse Oximetry Oxygen Delivery Fraction of Inspired Oxygen 11/12/22 02:00 11/12/22 02:39 11/12/22 02:39 Temperature 97.3 F L
[2022-11-12 18:08] LABS: Glucose Point of Care 162 mg/dl (65-105)
[2022-11-12] MEDS: MORPHINE SULFATE (*CRX) 4 MG/ML INJ IV PUSH (18:47)
[2022-11-12] MEDS: LORazepam INJ (*CRX) 2 MG/ML VIAL 4 MG IV PUSH (20:08)
[2022-11-12] MEDS: INSULIN GLARGINE (*BKC) 100 UNITS/ML 18 UNITS SUB-Q (20:12)
[2022-11-12] MEDS: PRAVASTATIN SODIUM 20 MG TABLET 40 MG FEED TUBE (20:12)
[2022-11-12 20:36] LABS: Glucose Point of Care 167 mg/dl (65-105)
[2022-11-12 23:26] LABS: Glucose Point of Care 159 mg/dl (65-105)
[2022-11-13] VITALS (39 sets, daily range): BP systolic 127–165; BP diastolic 64–95; PULSE 64–145; RESP 24–41; TEMP 37.1–38.5; O2SAT 90–98
[2022-11-13] MEDS: fentaNYL CITRATE INJ (*CRX) 100 MCG/2 ML VIAL 50 MCG IV PUSH ×5 (00:20→07:27)
[2022-11-13] MEDS: ACETAMINOPHEN ELIXIR 325 MG/10.15 ML UDC 650 MG PO ×3 (00:20→17:10)
[2022-11-13] MEDS: LORazepam INJ (*CRX) 2 MG/ML VIAL IV PUSH ×5 (00:20→07:28)
[2022-11-13] MEDS: METOPROLOL TARTRATE INJ 5 MG/5 ML VIAL IV PUSH ×2 (01:22→04:56)
[2022-11-13] MEDS: IPRATROPIUM BR 0.02% INH SOLN 0.5 MG/2.5 ML VIAL INHALATION ×4 (02:25→20:30)
[2022-11-13] MEDS: LEVALBUTEROL NEB 1.25 MG/3 ML INHALATION ×4 (02:25→20:30)
[2022-11-13] MEDS: hydrALAZINE HCL 20 MG/ML VIAL 10 MG IV PUSH (03:37)
[2022-11-13] MEDS: diazePAM (*CRX) 10 MG TABLET FEED TUBE (04:57)
[2022-11-13] MEDS: CENTRAL LINE FLUSH 10 ML IV PUSH ×3 (04:58→20:42)
[2022-11-13 05:31] LABS: Hematocrit 27.8 % (42.0-52.0); Hemoglobin 8.4 g/dL (14.0-18.0); Mean Corpuscular HGB Conc 30.2 g/dl (32-36); Mean Corpuscular Hemoglobin 28.9 pg (26-34); Mean Corpuscular Volume 95.5 fl (80-100); Mean Platelet Volume 11.6 fl (7.4-10.4); Platelet Count Result 245 k/mm3 (150-375); Red Blood Count 2.91 M/mm3 (4.6-6.20); Red Cell Distribution Width 17.5 % (11.5-14.5); White Blood Count 5.3 K/mm3 (4.5-10.0)
[2022-11-13 05:57] LABS: Alanine Aminotransferase 60 U/L (6-50); Albumin Level 2.6 g/dL (3.5-5.1); Alkaline Phosphatase 905 U/L (38-126); Anion Gap 7 mmol/L (8-16); Aspartate Amino Transferase 85 U/L (17-59); Bilirubin,Total 0.9 mg/dL (0.2-1.3); Blood Urea Nitrogen 75 mg/dL (9-20); Calcium 8.2 mg/dL (8.4-10.2); Carbon Dioxide 27 mmol/L (22-30); Chloride 118 mmol/L (98-107); Estimated CRCL calculation 55 ml/min; Estimated Glomerular Filt Rate > 60; Glucose 203 mg/dL (65-110); Magnesium 2.5 mg/dL (1.6-2.3); Phosphorus 3.1 mg/dL (2.5-4.5); Potassium 3.7 mmol/L (3.4-5.0); Sodium 152 mmol/L (137-145)
[2022-11-13] MEDS: INSULIN ASPART (*BKC) 100 UNITS/ML SUB-Q ×2 (06:34→12:53)
[2022-11-13 06:40] LABS: Glucose Point of Care 229 mg/dl (65-105)
[2022-11-13] MEDS: DEXTROSE 5% IN WATER 500 ML 100 ML IV CONT (08:43)
[2022-11-13] MEDS: MORPHINE SULFATE (*CRX) 4 MG/ML INJ IV PUSH ×4 (08:44→18:09)
[2022-11-13] MEDS: ENOXAPARIN 40 MG/0.4 ML SYRINGE SUB-Q (08:47)
[2022-11-13] MEDS: PANTOPRAZOLE SODIUM IV 40 MG VIAL IV PUSH ×2 (08:48→20:39)
[2022-11-13] MEDS: POTASSIUM CHLORIDE 20 MEQ PACKET (FOR LIQUID) FEED TUBE (08:48)
[2022-11-13] MEDS: METOPROLOL TARTRATE 50 MG TAB FEED TUBE ×3 (08:48→23:55)
[2022-11-13] MEDS: CLOPIDOGREL BISULFATE 75 MG TABLET PO (08:48)
[2022-11-13] MEDS: ASPIRIN 81 MG CHEWABLE TABLET FEED TUBE (08:48)
[2022-11-13] MEDS: oxyCODONE HCL (*CRX) 5 MG TAB IR 10 MG FEED TUBE ×3 (08:48→20:39)
[2022-11-13] MEDS: MINERAL OIL/WHITE PETROLATUM OINTMENT 1 APPLIC EACH EYE ×2 (08:49→20:39)
[2022-11-13] MEDS: TOLNAFTATE 1% POWDER 45 GM BTL 1 APPLIC TOPICAL ×2 (08:50→20:40)
[2022-11-13] MEDS: FLUCONAZOLE 200 MG/NACL 100 ML 200 MG/100 ML BAG 100 MG IVPB (09:22)
[2022-11-13] MEDS: LORazepam INJ (*CRX) 2 MG/ML VIAL 4 MG IV PUSH ×5 (09:58→18:08)
--- NOTE | 2022-11-13 10:37 | PM.PNNEP ---
Progress Note: A&P Assessment and Plan (1) Acute kidney injury: Code(s): N17.9 - Acute kidney failure, unspecified Status: Acute Assessment and Plan: slow improvement noted if not stable presumably normal baseline creatinine suspect multifactorial etiology: prerenal factors contrast exposure (CTA chest on 10/25/22) hypoxia anemia ARB use PARTY DIRECTOR evaluation to date: renal ultrasound unremarkable urine electrolytes prerenal urine eosinophils negative CPK low elevated BUN likely secondary previous steroid use and possibly hypercatabolic state and infection (pneumonia) along with need for intermittently diuretic therapy (but is trending down) follow trend of repeat labs and UOP (2) Hypernatremia: Code(s): E87.0 - Hyperosmolality and hypernatremia Status: Acute Assessment and Plan: likely due to previous NPO status for procedures and ongoing diuresis as well as insensible losses (i.e. recent fevers) back on free water flushes + tube feedings holding lasix at this time consider run of D5W IVFs if sodium continues to rise (3) Acute and chronic respiratory failure with hypoxia: Code(s): J96.21 - Acute and chronic respiratory failure with hypoxia Status: Acute Assessment and Plan: multifactorial: pneumonia (on antibiotics + antifungals) COPD 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 pulmonary edema(?) COVID-19 on mechanical ventilation s/p tracheostomy for retirement ventilator weaning (4) COVID-19 virus infection: Code(s): U07.1 - COVID-19 Status: Acute Assessment and Plan: as noted by positive testing s/p decadron and baricitinib ventilator support intermittent IV diuretics to promote dry lung strategy continue supportive therapy (5) Pulmonary fibrosis: Code(s): J84.10 - Pulmonary fibrosis, unspecified Status: Chronic Assessment and Plan: known history of this Pulmonary recommendations noted (6) COPD (chronic obstructive pulmonary disease): Code(s): J44.9 - Chronic obstructive pulmonary disease, unspecified Status: Chronic Assessment and Plan: complicated by #3, #4, and #5 continue current therapy (ventilator support, antibiotics, and bronchodilators) (7) Pneumonia: Code(s): J18.9 - Pneumonia, unspecified organism Status: Acute Assessment and Plan: sputum culture with Acintobacter and yeast on antibiotics and antifuncals blood culture negative (8) Diabetes: Code(s): E11.9 - Type 2 diabetes mellitus without complications Status: Chronic Assessment and Plan: follow accuchecks glycemic control per immigration case manager Will continue to follow intermittently. Subjective Date/time seen: 11/13/22 10:37 Chart reviewed since last seen -- no real significant change at this time; remains on mechanical ventilation via tracheostomy without continuous sedation (being given PRN IV and oral medications instead); febrile in the last 24 hours but otherwise hemodynamically stable; reasonable urine output and BUN + creatinine relatively stable if not improving as well but still with hypernatremia as noted by AM labs. Exam Narrative: General: elderly AA male tracheded and on mechanical ventilation Heart: normal S1 and S2; no rub Lungs: coarse breath sounds throughout Abdomen: bowel sounds positive nontender Extremities: no cyanosis or clubbing; trace - 1+ edema Skin: no nodules Objective Data Vital Signs Vital Signs: Vital Signs Temp Pulse Resp BP Pulse Ox O2 Del Method FiO2 11/13/22 10:00 98.8 F 68 24 H 136/64 98 11/13/22 10:00 68 11/13/22 08:00 40 11/13/22 08:00 95 Mechanical Ventilation 40 11/13/22 08:00 100.9 F H 108 H 29 H 158/69 H 96 11/13/22 08:00 103 H 11/13/22 08:52 100.5 F H 11/13/22 08:48 94 11/13/22 08:04 1
--- NOTE | 2022-11-13 10:37 | P.PNNP_ITS ---
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 for mcc ventilator weaning (4) COVID-19 virus infection: Code(s): U07.1 - COVID-19 Status: Acute Assessment and Plan: * as noted by positive testing * s/p decadron and baricitinib * ventilator support * intermittent IV diuretics to promote dry lung strategy * continue supportive therapy (5) Pulmonary fibrosis: Code(s): J84.10 - Pulmonary fibrosis, unspecified Status: Chronic Assessment and Plan: * known history of this * Pulmonary recommendations noted (6) COPD (chronic obstructive pulmonary disease): Code(s): J44.9 - Chronic obstructive pulmonary disease, unspecified Status: Chronic Assessment and Plan: * complicated by #3, #4, and #5 * continue current therapy (ventilator support, antibiotics, and bronchodilators) (7) Pneumonia: Code(s): J18.9 - Pneumonia, unspecified organism Status: Acute Assessment and Plan: * sputum culture with Acintobacter and yeast * on antibiotics and antifuncals * blood culture negative (8) Diabetes: Code(s): E11.9 - Type 2 diabetes mellitus without complications Status: Chronic Assessment and Plan: * follow accuchecks * glycemic control per family protection specialist Will continue to follow intermittently. Subjective Date/time seen: 11/13/22 10:37 Chart reviewed since last seen -- no real significant change at this time; remains on mechanical ventilation via tracheostomy without continuous sedation (being given PRN IV and oral medications instead); febrile in the last 24 hours but otherwise hemodynamically stable; reasonable urine output and BUN + creatinine relatively stable if not improving as well but still with hypernatremia as noted by AM labs. Exam Narrative: General: elderly AA male tracheded and on mechanical ventilation Heart: normal S1 and S2; no rub Lungs: coarse breath sounds throughout A
[2022-11-13] MEDS: diazePAM (*CRX) 10 MG TABLET 20 MG FEED TUBE ×3 (11:21→23:57)
--- NOTE | 2022-11-13 11:32 | PCNFU ---
Nutrition Follow-Up Complete: Inadequate Oral Intake as related to mechanical ventilation as evidenced by NPO Goal: Meet estimated nutritional needs Patient is meeting current goal. No new goal. Pt current nutrition is Nepro at 50 ml/hr. Last recorded weight is 89.8 kg. Bowel Motility:+Bm reported 11/12 Labs Reviewed:Glu 203, BUN 75, Na 152,Hct 27.8,Hgb 8.4 Meds Noted:Lopressor, Lantus ,Diflucan, Atrovent, Protonix Skin: WNL Additional Notes: Patient current with PEG and Trach. Plans for LTAC on admit. Tube feedings of Nepro at 50ml/hr are being tolerating which are providing 1989 kcals/79 gms protein/800 ml water. Meeting 100% kcals needs at 25 kcal/kg. Flush 150 ml q 4 hours due to elevated Na level. Will monitor weight, labs, skin, meds, tube feedings tolerance in ICU rounds and reassessing every Wednesday and Wednesday.
--- NOTE | 2022-11-13 11:32 | WPDINTPN ---
Progress Note: A&P Assessment and Plan (1) Acute and chronic respiratory failure with hypoxia: Code(s): J96.21 - Acute and chronic respiratory failure with hypoxia Status: Acute Assessment and Plan: Patient presented with worsening shortness of breath x1 day, likely related to bilateral infiltrates/pneumonia, possible COPD and/or pulmonary fibrosis flare/exacerbation, pulmonary edema -COVID PCR was negative on 10/24 and 10/26 but came back positive on 10/29 -intubated on 10/25/2022, ETT exchange on 10/27/2022 due to cuff leak - 10/29 worsening hypoxia and increased oxygen requirement overnight. Chest x-ray shows diffuse pulmonary infiltrates. Patient asynchronous with the ventilator. Peep was increased and patient was given a dose of paralytic with increased sedation -11/11/2022: Tracheostomy placed -currently on CMV mode, peep of 8 in 40% FiO2, tidal volume 450 -patient continues to be tachypneic since now he has been off of IV continue sedation. I have tried different modes including pressure support but patient continues to have high respiratory rate. I have increase tidal volume to 550 which has helped bringing down his respiratory rate. I am trying to avoid continuous IV sedation. Patient has been off of Versed fentanyl and Precedex infusion for close to 48 hours now -I will increase per tube Valium, add per tube oxycodone in case of pain and distress -continue p.r.n. IV Ativan and morphine - completed 7 day course antibiotics earlier in the course -sputum culture 11/06 grew ?Achromobacter dentrificans. Treatment as below -isolated yeast is likely a colonization but patient is on life -continue bronchodilators -status post dexamethasone x 10 days -patient will complete a 14 day course of Barcitinib per tube 11/13 -continue contact and airborne isolation -CXR this morning with Stable diffuse lung disease,. -hold further diuresis due to hypernatremia -10/25/2022 CTA chest: No CT evidence of acute pulmonary embolus. Pulmonary opacities likely represent moderate pulmonary edema overlying severe chronic changes of UIP. Infection is not excluded. Small bilateral pleural effusions. Mediastinal lymphadenopathy. (2) Pneumonia: Code(s): J18.9 - Pneumonia, unspecified organism Status: Acute Assessment and Plan: 10/26/2022: Sputum cultures negative except yeast which is likely colonization 10/25/2022 MRSA screen: No MRSA 10/25/2022 urine cultures negative 10/25/2022 currently blood cultures have been negative 11/06: T-max of 100.7?, white count is is up to 9.2 from 6.8 yesterday, will obtain blood cultures, urine culture and sputum culture, chest x-ray with no change. Will hold antibiotics for now 11/06: Blood cultures, preliminary results are negative x2 11/06: Urine cultures growing Rylie albicans 11/06: Sputum culture growing achromobacter species and Yeast -continue imipenem and Diflucan (11/08) will continue imipenem for 5 days and then transition transition to per tube Bactrim for additional 5 days of treatment -continue Diflucan for 14 days - 11/13 replace Bender catheter and repeat UA (3) Pulmonary fibrosis: Code(s): J84.10 - Pulmonary fibrosis, unspecified Status: Chronic Assessment and Plan: Patient has a history of pulmonary fibrosis, follows up with the belt builder at [facility] -patient is on nintedanib which cannot be crushed and given through the tube See above (4) COPD (chronic obstructive pulmonary disease): Code(s): J44.9 - Chronic obstructive pulmonary disease, unspecified Status: Chronic Assessment and Plan: Continue mechanical ventilation, bronchodilators (5) CAD (coronary artery disease): Code(s): I25.10 - Atherosclerotic heart disease of [place] coronary artery without angina pectoris Status: Chronic Assessment and Plan: Patient with recent history of [facility] status post stent x1 to the [facility] records show a
[2022-11-13 11:45] LABS: Appearance Urine Cloudy (Clear); Bacteria Urine None Seen /hpf; Bilirubin Urine Negative (Negative); Blood Urine Negative (Negative); Color Urine Dark Yellow (Yellow); Glucose Urine UA Negative (Negative); Ketones Urine Trace mg/dL (Negative); Leukocyte Esterase Ur 1+ LEU/UL (Negative); Nitrate Urine Negative (Negative); Protein Urine 1+ mg/dL (Negative); Specific Grav Ur 1.023 (1.001-1.035); Squamous Epithelial Cell Urine Few /hpf (Few)
[2022-11-13 12:05] LABS: Add Urine Microscopic? YES
[2022-11-13 12:45] LABS: Glucose Point of Care 235 mg/dl (65-105)
[2022-11-13 18:47] LABS: Glucose Point of Care 193 mg/dl (65-105)
[2022-11-13] MEDS: INSULIN GLARGINE (*BKC) 100 UNITS/ML 18 UNITS SUB-Q (20:38)
[2022-11-13] MEDS: PRAVASTATIN SODIUM 20 MG TABLET 40 MG FEED TUBE (20:39)
[2022-11-13] MEDS: SULFAMETHOXAZOLE/TRIMETHOPRIM 800/160 MG DS TABLET 2 TAB FEED TUBE (20:40)
[2022-11-14] VITALS (36 sets, daily range): BP systolic 99–177; BP diastolic 38–107; PULSE 69–119; RESP 24–40; TEMP 35.9–38.2; O2SAT 81–100
[2022-11-14] MEDS: MORPHINE SULFATE (*CRX) 4 MG/ML INJ IV PUSH (00:10)
[2022-11-14 02:16] LABS: Glucose Point of Care 183 mg/dl (65-105)
[2022-11-14] MEDS: oxyCODONE HCL (*CRX) 5 MG TAB IR 10 MG FEED TUBE (02:18)
[2022-11-14] MEDS: LORazepam INJ (*CRX) 2 MG/ML VIAL 4 MG IV PUSH (02:18)
[2022-11-14] MEDS: ACETAMINOPHEN ELIXIR 325 MG/10.15 ML UDC 650 MG PO ×2 (02:18→10:00)
[2022-11-14] MEDS: IPRATROPIUM BR 0.02% INH SOLN 0.5 MG/2.5 ML VIAL INHALATION ×4 (02:30→20:19)
[2022-11-14] MEDS: LEVALBUTEROL NEB 1.25 MG/3 ML INHALATION ×4 (02:30→20:19)
[2022-11-14] MEDS: diazePAM (*CRX) 10 MG TABLET 20 MG FEED TUBE ×4 (05:23→23:10)
[2022-11-14] MEDS: CENTRAL LINE FLUSH 10 ML IV PUSH ×3 (05:24→20:12)
[2022-11-14 05:47] LABS: Alanine Aminotransferase 48 U/L (6-50); Albumin Level 2.4 g/dL (3.5-5.1); Alkaline Phosphatase 683 U/L (38-126); Anion Gap 5 mmol/L (8-16); Aspartate Amino Transferase 62 U/L (17-59); Bilirubin,Total 0.7 mg/dL (0.2-1.3); Blood Urea Nitrogen 63 mg/dL (9-20); Calcium 7.9 mg/dL (8.4-10.2); Carbon Dioxide 26 mmol/L (22-30); Chloride 116 mmol/L (98-107); Estimated CRCL calculation 67 ml/min; Estimated Glomerular Filt Rate > 60; Glucose 198 mg/dL (65-110); Magnesium 2.1 mg/dL (1.6-2.3); Phosphorus 2.9 mg/dL (2.5-4.5); Potassium 3.8 mmol/L (3.4-5.0); Sodium 147 mmol/L (137-145)
[2022-11-14] MEDS: FLUCONAZOLE 100 MG TABLET 200 MG FEED TUBE (09:57)
[2022-11-14] MEDS: ENOXAPARIN 40 MG/0.4 ML SYRINGE SUB-Q (09:57)
[2022-11-14] MEDS: CLOPIDOGREL BISULFATE 75 MG TABLET PO (09:57)
[2022-11-14] MEDS: ASPIRIN 81 MG CHEWABLE TABLET FEED TUBE (09:57)
[2022-11-14] MEDS: MINERAL OIL/WHITE PETROLATUM OINTMENT 1 APPLIC EACH EYE ×2 (09:57→20:11)
[2022-11-14] MEDS: oxyCODONE HCL (*CRX) 5 MG TAB IR 20 MG FEED TUBE ×3 (09:58→20:10)
[2022-11-14] MEDS: METOPROLOL TARTRATE 50 MG TAB FEED TUBE ×2 (09:58→23:10)
[2022-11-14] MEDS: PANTOPRAZOLE SODIUM IV 40 MG VIAL IV PUSH ×2 (09:58→20:12)
[2022-11-14] MEDS: TOLNAFTATE 1% POWDER 45 GM BTL 1 APPLIC TOPICAL ×2 (09:59→20:12)
[2022-11-14 10:18] LABS: Hemoglobin 8.4 g/dL (14.0-18.0); Mean Corpuscular Hemoglobin 27.6 pg (26-34); Mean Corpuscular Volume 95.4 fl (80-100); Mean Platelet Volume 10.9 fl (7.4-10.4); Platelet Count Result 234 k/mm3 (150-375); Red Blood Count 3.04 M/mm3 (4.6-6.20); Red Cell Distribution Width 17.6 % (11.5-14.5); White Blood Count 6.6 K/mm3 (4.5-10.0)
[2022-11-14 10:26] LABS: Triglycerides 105 mg/dL (<150)
[2022-11-14 10:28] LABS: Lipase 25 U/L (23-300)
[2022-11-14 10:47] LABS: Band Neutrophils Percent 6 % (0-6); Eosinophils Absolute Manual 0.06 K/mm3 (0.02-0.5); Eosinophils Percent Manual 1 % (0-4); Lymphocytes Absolute Manual 1.12 K/mm3 (1.1-4.5); Metamyelocytes Percent 3 %; Monocytes Absolute Manual 0.26 K/mm3 (0.1-0.90); Monocytes Percent Manual 4 % (3-9); Neutrophils Absolute Manual 4.95 K/mm3 (1.3-6.7); Neutrophils Percent Manual 69 % (46-73); Nucleated Red Blood Cells 1 %; Platelet Estimate Adequate (Adequate); Total Cells Counted 100
[2022-11-14 10:48] LABS: Anisocytosis 1+ (NORMAL); Schistocytes None Seen (NORMAL)
--- NOTE | 2022-11-14 11:01 | PM.PNNEP ---
Progress Note: A&P Assessment and Plan (1) Acute kidney injury: Code(s): N17.9 - Acute kidney failure, unspecified Status: Acute Assessment and Plan: resolved suspect multifactorial etiology: prerenal factors contrast exposure (CTA chest on 10/25/22) hypoxia anemia ARB use NEON TUBE BENDER evaluation to date: renal ultrasound unremarkable urine electrolytes prerenal urine eosinophils negative CPK low elevated BUN likely secondary previous steroid use and possibly hypercatabolic state and infection (pneumonia) along with need for intermittently diuretic therapy (but is trending down) follow trend of repeat labs and UOP (2) Hypernatremia: Code(s): E87.0 - Hyperosmolality and hypernatremia Status: Acute Assessment and Plan: sloiw improvement likely due to previous NPO status for previous procedures and ongoing diuresis as well as insensible losses (i.e. recent fevers) back on free water flushes + tube feedings holding lasix at this time consider run of D5W IVFs if sodium continues to rise (3) Acute and chronic respiratory failure with hypoxia: Code(s): J96.21 - Acute and chronic respiratory failure with hypoxia Status: Acute Assessment and Plan: multifactorial: pneumonia (on antibiotics + antifungals) COPD 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 pulmonary edema(?) COVID-19 on mechanical ventilation s/p tracheostomy for skilled nursing ventilator weaning (4) COVID-19 virus infection: Code(s): U07.1 - COVID-19 Status: Acute Assessment and Plan: as noted by positive testing s/p decadron and baricitinib on ventilator support intermittent IV diuretics to promote dry lung strategy continue supportive therapy (5) Pulmonary fibrosis: Code(s): J84.10 - Pulmonary fibrosis, unspecified Status: Chronic Assessment and Plan: known history of this Pulmonary recommendations noted (6) COPD (chronic obstructive pulmonary disease): Code(s): J44.9 - Chronic obstructive pulmonary disease, unspecified Status: Chronic Assessment and Plan: complicated by #3, #4, and #5 continue current therapy (ventilator support, antibiotics, and bronchodilators) (7) Pneumonia: Code(s): J18.9 - Pneumonia, unspecified organism Status: Acute Assessment and Plan: sputum culture with Acintobacter and yeast on antibiotics and antifuncals blood culture negative (8) Diabetes: Code(s): E11.9 - Type 2 diabetes mellitus without complications Status: Chronic Assessment and Plan: follow accuchecks glycemic control per helmet hat puncher Will continue to follow intermittently. Subjective Date/time seen: 11/14/22 11:01 Interval history: Follow-up for acute kidney injury, azotemia, and hypernatremia. Remains on mechanical ventilation via tracheostomy with noted increase in oxygen requirements since last seen; increased respiratory rate despite IV and oral medications; reasonable urine output noted with improvement in sodium level with holding diuretics; remains hemodynamically stable but continues to have fevers in the last 24 hours. Exam Narrative: General: elderly AA male trached and on mechanical ventilation Heart: normal S1 and S2; no rub Lungs: coarse breath sounds throughout Abdomen: bowel sounds positive nontender Extremities: no cyanosis or clubbing; trace - 1+ edema Skin: warm and dry Objective Data Vital Signs Vital Signs: Vital Signs Temp Pulse Resp BP Pulse Ox O2 Del Method FiO2 11/14/22 11:00 100.4 F H 11/14/22 08:00 92 Mechanical Ventilation 60 11/14/22 10:00 70 11/14/22 10:00 100.8 F H 118 H 39 H 169/107 H 90 11/14/22 10:00 100.8 F H 11/14/22 09:58 110 H 11/14/22 09:55 65 11/14/22 08:00 60 11/14/22 09:54 114 H 40 H 164/95 H 89 L 10/18
--- NOTE | 2022-11-14 11:01 | P.PNNP_ITS ---
Progress Note: A&P Assessment and Plan (1) Acute kidney injury: Code(s): N17.9 - Acute kidney failure, unspecified Status: Acute Assessment and Plan: * resolved * suspect multifactorial etiology: * prerenal factors * contrast exposure (CTA chest on 10/25/22) * hypoxia * anemia * ARB use AUTOMATIC BUFFER * evaluation to date: * renal ultrasound unremarkable * urine electrolytes prerenal * urine eosinophils negative * CPK low * elevated BUN likely secondary previous steroid use and possibly hypercatabolic state and infection (pneumonia) along with need for intermittently diuretic therapy (but is trending down) * follow trend of repeat labs and UOP (2) Hypernatremia: Code(s): E87.0 - Hyperosmolality and hypernatremia Status: Acute Assessment and Plan: * sloiw improvement * likely due to previous NPO status for previous procedures and ongoing diuresis as well as insensible losses (i.e. 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 transportation intermediary ventilator weaning (4) COVID-19 virus infection: Code(s): U07.1 - COVID-19 Status: Acute Assessment and Plan: * as noted by positive testing * s/p decadron and baricitinib * on ventilator support * intermittent IV diuretics to promote dry lung strategy * continue supportive therapy (5) Pulmonary fibrosis: Code(s): J84.10 - Pulmonary fibrosis, unspecified Status: Chronic Assessment and Plan: * known history of this * Pulmonary recommendations noted (6) COPD (chronic obstructive pulmonary disease): Code(s): J44.9 - Chronic obstructive pulmonary disease, unspecified Status: Chronic Assessment and Plan: * complicated by #3, #4, and #5 * continue current therapy (ventilator support, antibiotics, and bronchodilators) (7) Pneumonia: Code(s): J18.9 - Pneumonia, unspecified organism Status: Acute Assessment and Plan: * sputum culture with Acintobacter and yeast * on antibiotics and antifuncals * blood culture negative (8) Diabetes: Code(s): E11.9 - Type 2 diabetes mellitus without complications Status: Chronic Assessment and Plan: * follow accuchecks * glycemic control per photograph printer Will continue to follow intermittently. Subjective Date/time seen: 11/14/22 11:01 Interval history: Follow-up for acute kidney injury, azotemia, and hypernatremia. Remains on mechanical ventilation via tracheostomy with noted increase in oxygen requirements since last seen; increased respiratory rate despite IV and oral medications; reasonable urine output noted with improvement in sodium level with holding diuretics; remains hemodynamically stable but continues to have fevers in the last 24 hours. Exam Narrative: General: elderly AA male trached and on mechanical ventilation Heart: normal S1 and S2; no rub Lungs: coarse breath sounds throughout Abdomen: bowel sounds
[2022-11-14] MEDS: PROPOFOL IV EMULSION 100 ML 21.94 MG IV CONT (11:55)
[2022-11-14 12:04] LABS: Alveolar/Arterial O2 Gradient 476.2 mmHg; Base Excess ABG 0.5 mEq/l (+/-2.0); Fractional Inspired Oxygen 100 %; HCO3 ABG 25.5 mEq/l (22.0-26.0); Oxygen Content ABG 13.5 %vol (16.0-22.0); Oxygen Saturation ABG 99.3 % (95.0-100.0); Oxyhemoglobin 97.7 % THb (90.0-100.0); PCO2 ABG 42.6 mmHg (35.0-45.0); PO2 ABG 194.2 mmHg (80.0-100.0); PO2 FiO2 Ratio Arterial Blood 1.94 %; Total Hemoglobin 9.5 g/dL (12.0-18.0); pH ABG 7.395 (7.350-7.450)
[2022-11-14 12:05] LABS: Device VENTILATOR; Modified Allen's Test Pass; Site Drawn LEFT RADIAL
[2022-11-14 12:06] LABS: Arterial Blood Gas PEEP 5 cmH2O; Arterial Blood Gas Tidal Volume 550 ml; Arterial Blood Gas Vent Mode CMV; Arterial Blood Gas Ventilator rate 24 /MIN
--- NOTE | 2022-11-14 12:13 | WPDINTPN ---
Progress Note: A&P Assessment and Plan (1) Acute and chronic respiratory failure with hypoxia: Code(s): J96.21 - Acute and chronic respiratory failure with hypoxia Status: Acute Assessment and Plan: Patient presented with worsening shortness of breath x1 day, likely related to bilateral infiltrates/pneumonia, possible COPD and/or pulmonary fibrosis flare/exacerbation, pulmonary edema -COVID PCR was negative on 10/24 and 10/26 but came back positive on 10/29 -intubated on 10/25/2022, ETT exchange on 10/27/2022 due to cuff leak - 10/29 worsening hypoxia and increased oxygen requirement overnight. Chest x-ray shows diffuse pulmonary infiltrates. Patient asynchronous with the ventilator. Peep was increased and patient was given a dose of paralytic with increased sedation -11/11/2022: Tracheostomy placed -patient continues to be tachypneic and asynchronous with the ventilator since now he has been off of IV continue sedation. I have tried different modes including pressure support but patient continues to have high respiratory rate. I have try to avoid sedation but now patient is desaturating with increased oxygen requirement. Resume propofol -continue per tube Valium and per tube oxycodone in case of pain and distress - completed 7 day course antibiotics earlier in the course -sputum culture 11/06 grew ?Achromobacter dentrificans. Treatment as below -isolated yeast is likely a colonization but patient is on life -continue bronchodilators -CXR this morning with Stable diffuse lung disease,. -hold further diuresis due to hypernatremia -10/25/2022 CTA chest: No CT evidence of acute pulmonary embolus. Pulmonary opacities likely represent moderate pulmonary edema overlying severe chronic changes of UIP. Infection is not excluded. Small bilateral pleural effusions. Mediastinal lymphadenopathy. (2) COVID-19 virus infection: Code(s): U07.1 - COVID-19 Status: Acute Assessment and Plan: -status post dexamethasone x 10 days -completed a 14 day course of Barcitinib per tube 11/13 -continue contact and airborne isolation (3) Sepsis: Code(s): A41.9 - Sepsis, unspecified organism Status: Acute Assessment and Plan: 10/26/2022: Sputum cultures negative except yeast which is likely colonization 10/25/2022 MRSA screen: No MRSA 10/25/2022 urine cultures negative 10/25/2022 currently blood cultures have been negative 11/06: T-max of 100.7?, white count is is up to 9.2 from 6.8 yesterday, will obtain blood cultures, urine culture and sputum culture, chest x-ray with no change. Will hold antibiotics for now 11/06: Blood cultures, preliminary results are negative x2 11/06: Urine cultures growing Rylie albicans a he is on Diflucan 11/06: Sputum culture growing achromobacter species and Yeast -continue imipenem and Diflucan (11/08) - 11/13 replace Bender catheter and repeat UA and urine culture is pending - 11/14 continues to have fever. Lipase negative. Repeat blood culture sent. CT chest abdomen pelvis done and report pending. Add vancomycin (4) Pneumonia: Code(s): J18.9 - Pneumonia, unspecified organism Status: Acute Assessment and Plan: See above (5) Pulmonary fibrosis: Code(s): J84.10 - Pulmonary fibrosis, unspecified Status: Chronic Assessment and Plan: Patient has a history of pulmonary fibrosis, follows up with the layer up at [facility] -patient is on nintedanib which cannot be crushed and given through the tube See above (6) COPD (chronic obstructive pulmonary disease): Code(s): J44.9 - Chronic obstructive pulmonary disease, unspecified Status: Chronic Assessment and Plan: Continue mechanical ventilation, bronchodilators (7) CAD (coronary artery disease): Code(s): I25.10 - Atherosclerotic heart disease of [place] coronary artery without angina pectoris Status: Chronic Assessment and Plan: Patient with rece
[2022-11-14] MEDS: ROCURONIUM BROMIDE 50 MG/5 ML VIAL IV PUSH (12:24)
[2022-11-14] MEDS: diazePAM (*CRX) 5 MG TABLET FEED TUBE ×3 (12:41→23:10)
[2022-11-14] MEDS: ALBUMIN HUMAN 25% 25 GM/100 ML 100 ML IVPB (12:45)
[2022-11-14] MEDS: FUROSEMIDE INJ 40 MG/4 ML VIAL IV PUSH (12:45)
[2022-11-14 13:10] LABS: Glucose Point of Care 154 mg/dl (65-105)
[2022-11-14] MEDS: PROPOFOL IV EMULSION 100 ML 8.23 MG IV CONT (17:07)
[2022-11-14] MEDS: INSULIN GLARGINE (*BKC) 100 UNITS/ML 18 UNITS SUB-Q (20:08)
[2022-11-14] MEDS: PRAVASTATIN SODIUM 20 MG TABLET 40 MG FEED TUBE (20:11)
[2022-11-14 20:15] LABS: Glucose Point of Care 181 mg/dl (65-105)
[2022-11-14 23:06] LABS: Triglycerides 208 mg/dL (<150)
[2022-11-14] MEDS: INSULIN ASPART (*BKC) 100 UNITS/ML SUB-Q (23:07)
[2022-11-14 23:31] LABS: Glucose Point of Care 245 mg/dl (65-105)
[2022-11-14 23:31] LABS: Glucose Point of Care 223 mg/dl (65-105)
[2022-11-15] VITALS (29 sets, daily range): BP systolic 94–129; BP diastolic 46–66; PULSE 69–98; RESP 24–27; TEMP 36.3–37.3; O2SAT 94–98
[2022-11-15] MEDS: LEVALBUTEROL NEB 1.25 MG/3 ML INHALATION ×4 (02:12→20:17)
[2022-11-15] MEDS: IPRATROPIUM BR 0.02% INH SOLN 0.5 MG/2.5 ML VIAL INHALATION ×4 (02:13→20:17)
[2022-11-15] MEDS: oxyCODONE HCL (*CRX) 5 MG TAB IR 20 MG FEED TUBE ×4 (02:37→21:27)
[2022-11-15] MEDS: PROPOFOL IV EMULSION 100 ML 5.48 MG IV CONT ×2 (05:04→13:31)
[2022-11-15] MEDS: CENTRAL LINE FLUSH 10 ML IV PUSH ×3 (05:05→21:27)
[2022-11-15] MEDS: diazePAM (*CRX) 10 MG TABLET 20 MG FEED TUBE ×3 (05:06→17:31)
[2022-11-15] MEDS: diazePAM (*CRX) 5 MG TABLET FEED TUBE ×3 (05:07→17:32)
[2022-11-15 05:20] LABS: Alveolar/Arterial O2 Gradient 279.9 mmHg; Base Excess ABG -2.6 mEq/l (+/-2.0); Carboxyhemoglobin 0.5 % THb (0-2.0); Fractional Inspired Oxygen 60 %; HCO3 ABG 25.1 mEq/l (22.0-26.0); Methemoglobin ABG 0.1 %THb (0-1.5); Oxygen Content ABG 11.7 %vol (16.0-22.0); Oxygen Saturation ABG 94.1 % (95.0-100.0); Oxyhemoglobin 93.3 % THb (90.0-100.0); PCO2 ABG 59.4 mmHg (35.0-45.0); PO2 ABG 82.6 mmHg (80.0-100.0); PO2 FiO2 Ratio Arterial Blood 1.38 %; Reduced Hemoglobin 6.1 %THb (0-5.0); Total Hemoglobin 8.8 g/dL (12.0-18.0)
[2022-11-15 05:23] LABS: Arterial Blood Gas Vent Mode CMV; Arterial Blood Gas Ventilator rate 24 /MIN; Device VENTILATOR; Modified Allen's Test Pass; Site Drawn RIGHT RADIAL
[2022-11-15 05:24] LABS: Arterial Blood Gas PEEP 8 cmH2O; Arterial Blood Gas Tidal Volume 450 ml
[2022-11-15 05:29] LABS: Hematocrit 26.3 % (42.0-52.0); Hemoglobin 7.5 g/dL (14.0-18.0); Mean Corpuscular HGB Conc 28.5 g/dl (32-36); Mean Corpuscular Hemoglobin 28.4 pg (26-34); Mean Corpuscular Volume 99.6 fl (80-100); Mean Platelet Volume 11.4 fl (7.4-10.4); Platelet Count Result 185 k/mm3 (150-375); Red Blood Count 2.64 M/mm3 (4.6-6.20); Red Cell Distribution Width 18.2 % (11.5-14.5); White Blood Count 4.3 K/mm3 (4.5-10.0)
[2022-11-15 05:38] LABS: Alanine Aminotransferase 38 U/L (6-50); Albumin Level 2.6 g/dL (3.5-5.1); Alkaline Phosphatase 505 U/L (38-126); Anion Gap 6 mmol/L (8-16); Aspartate Amino Transferase 38 U/L (17-59); Bilirubin,Total 0.7 mg/dL (0.2-1.3); Blood Urea Nitrogen 66 mg/dL (9-20); Calcium 8.4 mg/dL (8.4-10.2); Carbon Dioxide 27 mmol/L (22-30); Chloride 115 mmol/L (98-107); Estimated CRCL calculation 51 ml/min; Estimated Glomerular Filt Rate > 60; Glucose 169 mg/dL (65-110); Magnesium 2.1 mg/dL (1.6-2.3); Sodium 148 mmol/L (137-145)
[2022-11-15 05:58] LABS: pH ABG 7.243 (7.350-7.450)
[2022-11-15] MEDS: METOPROLOL TARTRATE 50 MG TAB FEED TUBE ×2 (08:00→15:19)
[2022-11-15] MEDS: ASPIRIN 81 MG CHEWABLE TABLET FEED TUBE (09:00)
[2022-11-15] MEDS: polyethylene glycoL 3350 17 GM POWD.PACK PO (09:00)
[2022-11-15] MEDS: FLUCONAZOLE 100 MG TABLET 200 MG FEED TUBE (09:36)
[2022-11-15] MEDS: MINERAL OIL/WHITE PETROLATUM OINTMENT 1 APPLIC EACH EYE ×2 (09:36→21:27)
[2022-11-15] MEDS: PANTOPRAZOLE SODIUM IV 40 MG VIAL IV PUSH ×2 (09:36→21:28)
[2022-11-15] MEDS: TOLNAFTATE 1% POWDER 45 GM BTL 1 APPLIC TOPICAL ×2 (09:38→21:28)
[2022-11-15] MEDS: ENOXAPARIN 40 MG/0.4 ML SYRINGE SUB-Q (10:00)
[2022-11-15] MEDS: CLOPIDOGREL BISULFATE 75 MG TABLET PO (10:00)
[2022-11-15] MEDS: INSULIN ASPART (*BKC) 100 UNITS/ML SUB-Q (11:39)
--- NOTE | 2022-11-15 11:43 | WPDINTPN ---
Progress Note: A&P Assessment and Plan (1) Acute and chronic respiratory failure with hypoxia: Code(s): J96.21 - Acute and chronic respiratory failure with hypoxia Status: Acute Assessment and Plan: Patient presented with worsening shortness of breath x1 day, likely related to bilateral infiltrates/pneumonia, possible COPD and/or pulmonary fibrosis flare/exacerbation, pulmonary edema -COVID PCR was negative on 10/24 and 10/26 but came back positive on 10/29 -intubated on 10/25/2022, ETT exchange on 10/27/2022 due to cuff leak - 10/29 worsening hypoxia and increased oxygen requirement overnight. Chest x-ray shows diffuse pulmonary infiltrates. Patient asynchronous with the ventilator. Peep was increased and patient was given a dose of paralytic with increased sedation -11/11/2022: Tracheostomy placed -patient continues to be tachypneic and asynchronous with the ventilator since now he has been off of IV continue sedation. I have tried different modes including pressure support but patient continues to have high respiratory rate. I have try to avoid sedation but now patient is desaturating with increased oxygen requirement. Hence propofol was resumed -continue per tube Valium and per tube oxycodone in case of pain and distress -chest x-ray reviewed -ABG reviewed and allow permissive hypercapnia as ventilation is limited by high peak pressures on the ventilator. FiO2 weaned to 50%. -sputum culture 11/06 grew ?Achromobacter dentrificans. Treatment as below -isolated yeast is likely a colonization but patient is on life -continue bronchodilators -CXR this morning with Stable diffuse lung disease,. -hold further diuresis due to hypernatremia -10/25/2022 CTA chest: No CT evidence of acute pulmonary embolus. Pulmonary opacities likely represent moderate pulmonary edema overlying severe chronic changes of UIP. Infection is not excluded. Small bilateral pleural effusions. Mediastinal lymphadenopathy. 11/15 CT lung 1. Prominent diffuse bilateral lung disease which could represent severe pulmonary edema, pneumonia or combination thereof. 2. Small bilateral pleural effusions (2) COVID-19 virus infection: Code(s): U07.1 - COVID-19 Status: Acute Assessment and Plan: -status post dexamethasone x 10 days -completed a 14 day course of Barcitinib per tube 11/13 -continue contact and airborne isolation (3) Sepsis: Code(s): A41.9 - Sepsis, unspecified organism Status: Acute Assessment and Plan: 10/26/2022: Sputum cultures negative except yeast which is likely colonization 10/25/2022 MRSA screen: No MRSA 10/25/2022 urine cultures negative 10/25/2022 currently blood cultures have been negative 11/06: T-max of 100.7?, white count is is up to 9.2 from 6.8 yesterday, will obtain blood cultures, urine culture and sputum culture, chest x-ray with no change. Will hold antibiotics for now 11/06: Blood cultures, preliminary results are negative x2 11/06: Urine cultures growing Rylie albicans and he is on Diflucan 11/06: Sputum culture growing achromobacter species and Yeast -continue imipenem and Diflucan (11/08) - 11/13 replace Bender catheter and repeat UA and urine culture is pending - 11/14 continues to have fever. Lipase negative. Repeat blood culture sent. Dopplers of upper extremity show superficial thrombosis of right cephalic vein. CT chest abdomen pelvis done a 1. Prominent diffuse bilateral lung disease which could represent severe pulmonary edema, pneumonia or combination thereof. 2. Small bilateral pleural effusions. 3. Cardiomegaly with coronary artery disease. 4. Mild likely reactive mediastinal lymphadenopathy. 5. 3-4 mm nonobstructing right renal stone. Vancomycin was added 11/15 -cultures pending. Patient afebrile monitor. (4) Pneumonia: Code(s): J18.9 - Pneumonia, unspecified organism Status: Acute Assessment and Plan: See above (5) Pulmonary fibrosis: Code(s): J
[2022-11-15 12:36] LABS: Glucose Point of Care 211 mg/dl (65-105)
[2022-11-15 18:00] LABS: Glucose Point of Care 168 mg/dl (65-105)
[2022-11-15 20:19] LABS: Glucose Point of Care 171 mg/dl (65-105)
[2022-11-15] MEDS: INSULIN GLARGINE (*BKC) 100 UNITS/ML 18 UNITS SUB-Q (21:26)
[2022-11-15] MEDS: PRAVASTATIN SODIUM 20 MG TABLET 40 MG FEED TUBE (21:28)
[2022-11-16] VITALS (33 sets, daily range): BP systolic 91–115; BP diastolic 42–59; PULSE 63–113; RESP 22–30; TEMP 35.3–37.4; O2SAT 91–100
[2022-11-16 00:27] LABS: Glucose Point of Care 190 mg/dl (65-105)
[2022-11-16 01:22] LABS: Hematocrit 24.3 % (42.0-52.0); Mean Corpuscular HGB Conc 28.4 g/dl (32-36); Mean Corpuscular Hemoglobin 28.5 pg (26-34); Mean Corpuscular Volume 100.4 fl (80-100); Mean Platelet Volume 11.6 fl (7.4-10.4); Platelet Count Result 175 k/mm3 (150-375); Red Blood Count 2.42 M/mm3 (4.6-6.20); Red Cell Distribution Width 18.2 % (11.5-14.5); White Blood Count 4.3 K/mm3 (4.5-10.0)
[2022-11-16 01:33] LABS: Alanine Aminotransferase 30 U/L (6-50); Albumin Level 2.3 g/dL (3.5-5.1); Alkaline Phosphatase 430 U/L (38-126); Anion Gap 7 mmol/L (8-16); Aspartate Amino Transferase 33 U/L (17-59); Bilirubin,Total 0.7 mg/dL (0.2-1.3); Blood Urea Nitrogen 78 mg/dL (9-20); Carbon Dioxide 26 mmol/L (22-30); Chloride 113 mmol/L (98-107); Estimated CRCL calculation 33 ml/min; Estimated Glomerular Filt Rate 41; Glucose 183 mg/dL (65-110); Magnesium 2.3 mg/dL (1.6-2.3); Potassium 4.3 mmol/L (3.4-5.0); Sodium 146 mmol/L (137-145)
[2022-11-16 02:00] LABS: Vancomycin Trough 21.2 ug/mL (10.0-20.0)
[2022-11-16 02:05] LABS: Hemoglobin 6.9 g/dL (14.0-18.0)
[2022-11-16] MEDS: LEVALBUTEROL NEB 1.25 MG/3 ML INHALATION ×4 (02:39→20:50)
[2022-11-16] MEDS: IPRATROPIUM BR 0.02% INH SOLN 0.5 MG/2.5 ML VIAL INHALATION ×4 (02:39→20:50)
[2022-11-16] MEDS: oxyCODONE HCL (*CRX) 5 MG TAB IR 20 MG FEED TUBE ×2 (03:47→08:49)
[2022-11-16] MEDS: SODIUM CHLORIDE 0.9% IV 250 ML 30 ML IV CONT (03:47)
[2022-11-16] MEDS: CENTRAL LINE FLUSH 10 ML IV PUSH ×3 (03:48→21:58)
[2022-11-16 05:02] LABS: Alveolar/Arterial O2 Gradient 214.4 mmHg; Base Excess ABG -4.2 mEq/l (+/-2.0); Carboxyhemoglobin 0.5 % THb (0-2.0); Fractional Inspired Oxygen 50 %; HCO3 ABG 24.3 mEq/l (22.0-26.0); Methemoglobin ABG 0.1 %THb (0-1.5); Oxygen Content ABG 13.3 %vol (16.0-22.0); Oxygen Saturation ABG 90.3 % (95.0-100.0); Oxyhemoglobin 91.9 % THb (90.0-100.0); PO2 ABG 71.5 mmHg (80.0-100.0); PO2 FiO2 Ratio Arterial Blood 1.43 %; Reduced Hemoglobin 7.5 %THb (0-5.0); Total Hemoglobin 10.2 g/dL (12.0-18.0)
[2022-11-16 05:04] LABS: PCO2 ABG 62.8 mmHg (35.0-45.0); pH ABG 7.205 (7.350-7.450)
[2022-11-16 05:05] LABS: Arterial Blood Gas PEEP 8 cmH2O; Arterial Blood Gas Tidal Volume 450 ml; Arterial Blood Gas Vent Mode CMV; Arterial Blood Gas Ventilator rate 24 /MIN; Device VENTILATOR; Modified Allen's Test Pass; Site Drawn RIGHT RADIAL
[2022-11-16] MEDS: diazePAM (*CRX) 5 MG TABLET FEED TUBE (06:25)
[2022-11-16] MEDS: diazePAM (*CRX) 10 MG TABLET 20 MG FEED TUBE ×4 (06:25→18:45)
[2022-11-16 06:38] LABS: Glucose Point of Care 167 mg/dl (65-105)
[2022-11-16] MEDS: MINERAL OIL/WHITE PETROLATUM OINTMENT 1 APPLIC EACH EYE ×2 (08:51→21:26)
[2022-11-16] MEDS: ASPIRIN 81 MG CHEWABLE TABLET FEED TUBE (08:52)
[2022-11-16] MEDS: ENOXAPARIN 40 MG/0.4 ML SYRINGE SUB-Q (08:53)
[2022-11-16] MEDS: FLUCONAZOLE 100 MG TABLET 200 MG FEED TUBE (08:53)
[2022-11-16] MEDS: PANTOPRAZOLE SODIUM IV 40 MG VIAL IV PUSH ×2 (08:53→21:27)
[2022-11-16] MEDS: CLOPIDOGREL BISULFATE 75 MG TABLET PO (08:53)
[2022-11-16] MEDS: TOLNAFTATE 1% POWDER 45 GM BTL 1 APPLIC TOPICAL ×2 (08:53→21:25)
[2022-11-16] MEDS: METOPROLOL TARTRATE 50 MG TAB FEED TUBE ×2 (08:54→21:26)
[2022-11-16] MEDS: PROPOFOL IV EMULSION 100 ML 5.48 MG IV CONT (08:55)
[2022-11-16 09:02] LABS: Hematocrit 27.5 % (42.0-52.0); Hemoglobin 7.9 g/dL (14.0-18.0)
--- NOTE | 2022-11-16 09:09 | PCRCNOTE ---
This RT spoke to Dr. Herbert about pt morning ABG. Dr. Herbert stated no changes to vent at this time.
[2022-11-16 09:11] LABS: Triglycerides 390 mg/dL (<150)
--- NOTE | 2022-11-16 10:43 | PCFNICU ---
ICU Rounding Note: Pt current nutrition is Nepro @ 50 ml/h with flushes 150 ml free water q4 hours.1980 kcals, 72 g protein, 800 ml free water. Total water 1700 ml/day. Nutrition recommendation: No changes to current tube feeding regimen and flushes. Agree with orders. Last recorded weight is 91.5 kg. Bowel Motility: Last BM 11/12/22. May benefit from bowel regimen or prokinetic Labs Reviewed: Hgb 7.9, Hct 27.5, Alb 2.3, Na 146, BUN 78, Cre 1.9, Glu 183 Meds Noted: Fentanyl, Versed, propofol Skin: May have skin breakdown, wound care has been consulted Additional Notes: Propofol running at 5.48 ml/h: 144 kcals. Tolerating tube feeds. Continue with current orders. Will need to add Mathieu BID if pressure ulcers are found. Following daily in ICU rounds. Will monitor weight, labs, skin, meds, tube feedings tolerance in ICU rounds and reassessing every Wednesday and Wednesday..
--- NOTE | 2022-11-16 11:21 | WPDINTPN ---
Progress Note: A&P Assessment and Plan (1) Acute and chronic respiratory failure with hypoxia: Code(s): J96.21 - Acute and chronic respiratory failure with hypoxia Status: Acute Assessment and Plan: Patient presented with worsening shortness of breath x1 day, likely related to bilateral infiltrates/pneumonia, possible COPD and/or pulmonary fibrosis flare/exacerbation, pulmonary edema -COVID PCR was negative on 10/24 and 10/26 but came back positive on 10/29 -intubated on 10/25/2022, ETT exchange on 10/27/2022 due to cuff leak - 10/29 worsening hypoxia and increased oxygen requirement overnight. Chest x-ray shows diffuse pulmonary infiltrates. Patient asynchronous with the ventilator. Peep was increased and patient was given a dose of paralytic with increased sedation -11/11/2022: Tracheostomy placed -patient continues to be tachypneic and asynchronous with the ventilator when off of IV continue sedation. I tried different modes including pressure support but patient continues to have high respiratory rate. I have try to avoid sedation but now patient is desaturating with increased oxygen requirement. Hence propofol was resumed 2 days ago -I have continued per tube Valium and per tube oxycodone in case of pain and distress. I will increase dosing and try to wean off propofol today. LTAC facility will accept him unless he is off of continuous IV infusion -ABG reviewed and allow permissive hypercapnia as ventilation is limited by high peak pressures on the ventilator. FiO2 weaned to 50%.. Permissive hypercapnia. Will add bicarb to correct acidosis -sputum culture 11/06 grew ?Achromobacter dentrificans. Treatment as below -isolated yeast is likely a colonization but patient is on life -continue bronchodilators -CXR this morning with Stable diffuse lung disease,. -hold further diuresis due to increasing creatinine -I discussed case with Dr. Leroy and requested him to re-evaluate tracheostomy tube today as there is a cuff leak depending on the position of the patient -10/25/2022 CTA chest: No CT evidence of acute pulmonary embolus. Pulmonary opacities likely represent moderate pulmonary edema overlying severe chronic changes of UIP. Infection is not excluded. Small bilateral pleural effusions. Mediastinal lymphadenopathy. 11/15 CT lung 1. Prominent diffuse bilateral lung disease which could represent severe pulmonary edema, pneumonia or combination thereof. 2. Small bilateral pleural effusions (2) COVID-19 virus infection: Code(s): U07.1 - COVID-19 Status: Acute Assessment and Plan: -status post dexamethasone x 10 days -completed a 14 day course of Barcitinib per tube 11/13 -continue contact and airborne isolation (3) Sepsis: Code(s): A41.9 - Sepsis, unspecified organism Status: Acute Assessment and Plan: 10/26/2022: Sputum cultures negative except yeast which is likely colonization 10/25/2022 MRSA screen: No MRSA 10/25/2022 urine cultures negative 10/25/2022 currently blood cultures have been negative 11/06: T-max of 100.7?, white count is is up to 9.2 from 6.8 yesterday, will obtain blood cultures, urine culture and sputum culture, chest x-ray with no change. Will hold antibiotics for now 11/06: Blood cultures, preliminary results are negative x2 11/06: Urine cultures growing Rylie albicans and he is on Diflucan 11/06: Sputum culture growing achromobacter species and Yeast -continue imipenem and Diflucan (11/08) - 11/13 replace Bender catheter and repeat UA and urine culture is pending - 11/14 continues to have fever. Lipase negative. Repeat blood culture sent. Dopplers of upper extremity show superficial thrombosis of right cephalic vein. CT chest abdomen pelvis done a 1. Prominent diffuse bilateral lung disease which could represent severe pulmonary edema, pneumonia or combination thereof. 2. Small bilateral pleural effusions. 3. Cardiomegaly with coronary artery disease. 4. Mild likely junior
[2022-11-16 11:53] LABS: Glucose Point of Care 217 mg/dl (65-105)
[2022-11-16] MEDS: SODIUM CHLORIDE 0.45% 500 ML 100 ML IV CONT (12:49)
[2022-11-16] MEDS: LORazepam INJ (*CRX) 2 MG/ML VIAL 4 MG IV PUSH (12:50)
[2022-11-16] MEDS: INSULIN ASPART (*BKC) 100 UNITS/ML SUB-Q ×2 (12:52→18:43)
[2022-11-16] MEDS: ALBUMIN HUMAN 5% 25 GM/500 ML BTL IV CONT (14:45)
[2022-11-16] MEDS: oxyCODONE HCL (*CRX) 5 MG TAB IR 10 MG FEED TUBE ×2 (14:49→21:19)
[2022-11-16 18:44] LABS: Glucose Point of Care 213 mg/dl (65-105)
[2022-11-16] MEDS: diazePAM (*CRX) 10 MG TABLET FEED TUBE (18:46)
--- NOTE | 2022-11-16 18:53 | PCRCNOTE ---
Patient cuff on trach would not hold air. Had to change out trach. Changed trach to same size as before, size 8 shiley. 8 shiley would not fit at the time. Placed size 6 shiley trach. Secured trach. Dr. Leroy called, came to bedside. Dr. Leroy changed size 6 shiley back to a size 8 shiley.
--- NOTE | 2022-11-16 19:29 | PCRCNOTE ---
RT assisted with replacing trach. See Anna Marie Cole note.
--- NOTE | 2022-11-16 19:32 | PM.CCN ---
Critical Care Event Note Summary Code activated: No Narrative: I was called to ICU around 1800. The staff was having difficulty placing his trach. However the the staff was able to get a smaller trach in at that time. Repeat chest x-ray shows that the tracheostomy tube is in place. See the repeat x-ray was obtained this case had a high probability of a clinically significant, sudden, or life threatening deterioration of this patient's condition which required my full and direct attention, intervention and personal management. Critical care time: less than 30 mins
--- NOTE | 2022-11-16 20:50 | PM.PNGS ---
Progress Note: A&P Assessment and Plan (1) Respiratory insufficiency: Code(s): R06.89 - Other abnormalities of breathing Status: Acute Assessment and Plan: Size 8 trach replaced, no complications, tracheoscopy performed to confirm placement several cm above melissa. Subjective Subjective Date/Time Seen: 11/16/22 20:50 Interval history: Called to bedside by nursing, unable to replace trach. Objective Data Vital Signs Vital Signs: Vital Signs - 24 hr 11/15/22 22:00 11/15/22 22:00 11/15/22 23:42 Temperature 37.2 C Pulse Rate 77 77 71 Respiratory Rate 24 H Blood Pressure 108/51 L Pulse Oximetry 96 95 Oxygen Delivery Mechanical Ventilation Fraction of Inspired Oxygen 55 11/16/22 00:00 11/16/22 00:00 11/16/22 00:00 Temperature Pulse Rate 71 Respiratory Rate Blood Pressure Pulse Oximetry Oxygen Delivery Mechanical Ventilation Fraction of Inspired Oxygen 50 50 11/16/22 00:00 11/16/22 02:39 11/16/22 02:00 Temperature 37.3 C Pulse Rate 71 74 75 Respiratory Rate 24 H 24 H Blood Pressure 91/46 L Pulse Oximetry 93 Oxygen Delivery Fraction of Inspired Oxygen 11/16/22 02:00 11/16/22 02:45 11/16/22 03:42 Temperature 37.3 C 37.2 C Pulse Rate 75 77 79 Respiratory Rate 24 H 24 H Blood Pressure 95/44 L 98/47 L Pulse Oximetry 92 93 92 Oxygen Delivery Mechanical Ventilation Fraction of Inspired Oxygen 55 11/16/22 04:00 11/16/22 05:38 11/16/22 04:00 Temperature 37.2 C Pulse Rate 80 80 74 Respiratory Rate 24 H Blood Pressure 104/51 L Pulse Oximetry 93 93 Oxygen Delivery Mechanical Ventilation Fraction of Inspired Oxygen 55 11/16/22 04:00 11/16/22 06:00 11/16/22 06:00 Temperature 37.2 C 37.0 C Pulse Rate 74 85 85 Respiratory Rate 24 H 22 H Blood Pressure 104/51 L 98/49 L Pulse Oximetry 93 94 Oxygen Delivery Fraction of Inspired Oxygen 11/16/22 04:00 11/16/22 04:00 11/16/22 05:00 Temperature 37.2 C Pulse Rate 84 Respiratory Rate 24 H Blood Pressure 100/53 L Pulse Oximetry 91 Oxygen Delivery Mechanical Ventilation Fraction of Inspired Oxygen 60 55 11/16/22 06:00 11/16/22 06:34 11/16/22 07:58 Temperature 37.0 C 36.8 C 36.7 C Pulse Rate 85 86 85 Respiratory Rate 24 H 24 H 30 H Blood Pressure 98/49 L 94/47 L 94/47 L Pulse Oximetry 95 95 97 Oxygen Delivery Fraction of Inspired Oxygen 11/16/22 08:09 11/16/22 08:09 11/16/22 08:54 Temperature Pulse Rate 80 80 76 Respiratory Rate 25 H Blood Pressure Pulse Oximetry 96 Oxygen Delivery Mechanical Ventilation Fraction of Inspired Oxygen 60 11/16/22 08:51 11/16/22 09:27 11/16/22 10:00 Temperature Pulse Rate 72 77 79 Respiratory Rate 24 H 30 H Blood Pressure 99/48 L Pulse Oximetry 93 94 Oxygen Delivery Mechanical Ventilation Fraction of Inspired Oxygen 55 11/16/22 08:00 11/16/22 08:00 11/16/22 11:16 Temperature Pulse Rate 82 81 Respiratory Rate 24 H Blood Pressure Pulse Oximetry 97 94 Oxygen Delivery Mechanical Ventilation Mechanical Ventilation Fraction of Inspired Oxygen 60 60 55 11/16/22 11:56 11/16/22 12:00 11/16/22 12:00 Temperature 36.0 C L Pulse Rate 73 76 Respiratory Rate 30 H 24 H Blood Pressure 103/59 L Pulse Oximetry 93 92 Oxygen Delivery Mechanical Ventilation Fraction of Inspired Oxygen 60 60 11/16/22 08:00 11/16/22 10:00 11/16/22 12:00 Temperature Pulse Rate 82 79 76 Respiratory Rate Blood Pressure Pulse Oximetry Oxygen Delivery Fraction of Inspired Oxygen 11/16/22 14:00 11/16/22 14:36 11/16/22 14:36 Temperature Pulse Rate 70 67 67 Respiratory Rate 24 H Blood Pressure Pulse Oximetry 100 Oxygen Delivery Mechanical Ventilation Fraction of Inspired Oxygen 55 11/16/22 14:48 11/16/22 16:00 11/16/22 17:00 Temperature 35.3 C L Pulse Rate 84 85 76 Respiratory Rate 24 H 22 H Blood Pres
[2022-11-16] MEDS: INSULIN GLARGINE (*BKC) 100 UNITS/ML 18 UNITS SUB-Q (21:24)
[2022-11-16] MEDS: PRAVASTATIN SODIUM 20 MG TABLET 40 MG FEED TUBE (21:27)
[2022-11-16 23:41] LABS: Glucose Point of Care 237 mg/dl (65-105)
[2022-11-17] VITALS (89 sets, daily range): BP systolic 82–115; BP diastolic 42–84; PULSE 55–89; RESP 24–59; TEMP 35.7–37.6; O2SAT 91–99
[2022-11-17] MEDS: diazePAM (*CRX) 10 MG TABLET 20 MG FEED TUBE ×3 (00:06→14:21)
[2022-11-17 00:15] LABS: Glucose Point of Care 192 mg/dl (65-105)
[2022-11-17] MEDS: oxyCODONE HCL (*CRX) 5 MG TAB IR 10 MG FEED TUBE ×3 (02:05→14:22)
[2022-11-17] MEDS: diazePAM (*CRX) 10 MG TABLET FEED TUBE ×2 (05:53→14:21)
[2022-11-17] MEDS: INSULIN ASPART (*BKC) 100 UNITS/ML SUB-Q (05:53)
[2022-11-17] MEDS: CENTRAL LINE FLUSH 10 ML IV PUSH ×2 (05:54→14:26)
[2022-11-17 06:14] LABS: Glucose Point of Care 205 mg/dl (65-105)
[2022-11-17 06:21] LABS: Hemoglobin 7.8 g/dL (14.0-18.0); Mean Corpuscular HGB Conc 28.9 g/dl (32-36); Mean Corpuscular Volume 96.8 fl (80-100); Mean Platelet Volume 12.1 fl (7.4-10.4); Platelet Count Result 177 k/mm3 (150-375); Red Blood Count 2.79 M/mm3 (4.6-6.20); Red Cell Distribution Width 18.8 % (11.5-14.5); White Blood Count 5.5 K/mm3 (4.5-10.0)
[2022-11-17 06:21] LABS: Alveolar/Arterial O2 Gradient 343.3 mmHg; Carboxyhemoglobin 0.3 % THb (0-2.0); Fractional Inspired Oxygen 65 %; HCO3 ABG 19.4 mEq/l (22.0-26.0); Methemoglobin ABG 0.1 %THb (0-1.5); Oxygen Content ABG 10.8 %vol (16.0-22.0); Oxygen Saturation ABG 88.8 % (95.0-100.0); Oxyhemoglobin 89.9 % THb (90.0-100.0); PCO2 ABG 49.4 mmHg (35.0-45.0); PO2 ABG 66.4 mmHg (80.0-100.0); PO2 FiO2 Ratio Arterial Blood 1.02 %; Reduced Hemoglobin 9.7 %THb (0-5.0); Total Hemoglobin 8.5 g/dL (12.0-18.0)
[2022-11-17 06:24] LABS: pH ABG 7.212 (7.350-7.450)
[2022-11-17 06:25] LABS: Arterial Blood Gas PEEP 8 cmH2O; Arterial Blood Gas Vent Mode CMV; Arterial Blood Gas Ventilator rate 24 /MIN; Device VENTILATOR; Modified Allen's Test Pass; Site Drawn RIGHT RADIAL
[2022-11-17 06:26] LABS: Arterial Blood Gas Tidal Volume 450 ml
[2022-11-17 06:49] LABS: Alanine Aminotransferase 23 U/L (6-50); Albumin Level 2.5 g/dL (3.5-5.1); Alkaline Phosphatase 437 U/L (38-126); Anion Gap 10 mmol/L (8-16); Aspartate Amino Transferase 37 U/L (17-59); Blood Urea Nitrogen 90 mg/dL (9-20); Calcium 7.8 mg/dL (8.4-10.2); Carbon Dioxide 22 mmol/L (22-30); Chloride 111 mmol/L (98-107); Estimated CRCL calculation 24 ml/min; Estimated Glomerular Filt Rate 29; Glucose 211 mg/dL (65-110); Magnesium 2.4 mg/dL (1.6-2.3); Potassium 4.4 mmol/L (3.4-5.0); Sodium 143 mmol/L (137-145)
[2022-11-17] MEDS: LEVALBUTEROL NEB 1.25 MG/3 ML INHALATION ×2 (08:45→14:25)
[2022-11-17] MEDS: IPRATROPIUM BR 0.02% INH SOLN 0.5 MG/2.5 ML VIAL INHALATION ×2 (08:45→14:25)
[2022-11-17] MEDS: FLUCONAZOLE 100 MG TABLET 200 MG FEED TUBE (09:03)
[2022-11-17] MEDS: CLOPIDOGREL BISULFATE 75 MG TABLET PO (09:03)
[2022-11-17] MEDS: LACTATED RINGERS 1,000 ML 1000 ML IV CONT (09:04)
[2022-11-17] MEDS: ASPIRIN 81 MG CHEWABLE TABLET FEED TUBE (09:04)
[2022-11-17] MEDS: ENOXAPARIN 40 MG/0.4 ML SYRINGE SUB-Q (09:19)
[2022-11-17] MEDS: MINERAL OIL/WHITE PETROLATUM OINTMENT 1 APPLIC EACH EYE (09:21)
[2022-11-17] MEDS: PANTOPRAZOLE SODIUM IV 40 MG VIAL IV PUSH (09:22)
[2022-11-17] MEDS: TOLNAFTATE 1% POWDER 45 GM BTL 1 APPLIC TOPICAL (09:23)
--- NOTE | 2022-11-17 09:56 | P.PNNP_ITS ---
Progress Note: A&P Assessment and Plan (1) Acute kidney injury: Code(s): N17.9 - Acute kidney failure, unspecified Status: Acute Assessment and Plan: * evident again by AM labs * suspect prerenal factors coupled with insensible losses from previous fevers * agree with trial of IVFs today * suspect multifactorial etiology previously: * prerenal factors * contrast exposure (CTA chest on 10/25/22) * hypoxia * anemia * ARB use [employer] * evaluation to date: * renal ultrasound unremarkable * urine electrolytes prerenal * urine eosinophils negative * CPK low * elevated BUN likely secondary previous steroid use and possibly hypercatabolic state and infection (pneumonia) along with need for intermittently diuretic therapy (but is trending down) * follow trend of repeat labs and UOP (2) Hypernatremia: Code(s): E87.0 - Hyperosmolality and hypernatremia Status: Acute Assessment and Plan: * slow improvement if not stable * likely due to previous NPO status for previous procedures and ongoing diuresis as well as insensible losses (i.e. recent fevers) * back on free water flushes + tube feedings * holding lasix at this time (3) Acute and chronic respiratory failure with hypoxia: Code(s): J96.21 - Acute and chronic respiratory failure with hypoxia Status: Acute Assessment and Plan: * multifactorial: * pneumonia (on antibiotics + antifungals) * COPD * known pulmonary fibrosis * exacerbation of COPD + UIP * pulmonary edema(?) * COVID-19 * on mechanical ventilation * s/p tracheostomy for retirement ventilator weaning (4) COVID-19 virus infection: Code(s): U07.1 - COVID-19 Status: Acute Assessment and Plan: * as noted by positive testing * s/p decadron and baricitinib * on ventilator support * intermittent IV diuretics to promote dry lung strategy * continue supportive therapy (5) Pulmonary fibrosis: Code(s): J84.10 - Pulmonary fibrosis, unspecified Status: Chronic Assessment and Plan: * known history of this * Pulmonary recommendations noted (6) COPD (chronic obstructive pulmonary disease): Code(s): J44.9 - Chronic obstructive pulmonary disease, unspecified Status: Chronic Assessment and Plan: * complicated by #3, #4, and #5 * continue current therapy (ventilator support, antibiotics, and bronchodilators) (7) Pneumonia: Code(s): J18.9 - Pneumonia, unspecified organism Status: Acute Assessment and Plan: * sputum culture with Acintobacter and yeast * on antibiotics and antifuncals * blood culture negative (8) Diabetes: Code(s): E11.9 - Type 2 diabetes mellitus without complications Status: Chronic Assessment and Plan: * follow accuchecks * glycemic control per plaster applicator Will continue to follow intermittently. Subjective Date/time seen: 11/17/22 09:56 Interval history: Follow-up for acute kidney injury, azotemia, and hypernatremia. Chart reviewed since last seen; remains on mechanical ventilation via tracheo stomy; issues with replacement of trach noted overnight; stable hemodynamics noted with no fevers; however, BUN + creatinine elevated by AM labs; Exam Narrative: General: elderly AA male trached and on mechanical ventilation Heart: normal S1 and S2; no rub Lungs: coarse breath sounds throughout Abdomen: bowel sounds posit
--- NOTE | 2022-11-17 09:56 | PM.PNNEP ---
Progress Note: A&P Assessment and Plan (1) Acute kidney injury: Code(s): N17.9 - Acute kidney failure, unspecified Status: Acute Assessment and Plan: evident again by AM labs suspect prerenal factors coupled with insensible losses from previous fevers agree with trial of IVFs today suspect multifactorial etiology previously: prerenal factors contrast exposure (CTA chest on 10/25/22) hypoxia anemia ARB use [employer] LOAN CALCULATOR evaluation to date: renal ultrasound unremarkable urine electrolytes prerenal urine eosinophils negative CPK low elevated BUN likely secondary previous steroid use and possibly hypercatabolic state and infection (pneumonia) along with need for intermittently diuretic therapy (but is trending down) follow trend of repeat labs and UOP (2) Hypernatremia: Code(s): E87.0 - Hyperosmolality and hypernatremia Status: Acute Assessment and Plan: slow improvement if not stable likely due to previous NPO status for previous procedures and ongoing diuresis as well as insensible losses (i.e. recent fevers) back on free water flushes + tube feedings holding lasix at this time (3) Acute and chronic respiratory failure with hypoxia: Code(s): J96.21 - Acute and chronic respiratory failure with hypoxia Status: Acute Assessment and Plan: multifactorial: pneumonia (on antibiotics + antifungals) COPD 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 pulmonary edema(?) COVID-19 on mechanical ventilation s/p tracheostomy for jail ventilator weaning (4) COVID-19 virus infection: Code(s): U07.1 - COVID-19 Status: Acute Assessment and Plan: as noted by positive testing s/p decadron and baricitinib on ventilator support intermittent IV diuretics to promote dry lung strategy continue supportive therapy (5) Pulmonary fibrosis: Code(s): J84.10 - Pulmonary fibrosis, unspecified Status: Chronic Assessment and Plan: known history of this Pulmonary recommendations noted (6) COPD (chronic obstructive pulmonary disease): Code(s): J44.9 - Chronic obstructive pulmonary disease, unspecified Status: Chronic Assessment and Plan: complicated by #3, #4, and #5 continue current therapy (ventilator support, antibiotics, and bronchodilators) (7) Pneumonia: Code(s): J18.9 - Pneumonia, unspecified organism Status: Acute Assessment and Plan: sputum culture with Acintobacter and yeast on antibiotics and antifuncals blood culture negative (8) Diabetes: Code(s): E11.9 - Type 2 diabetes mellitus without complications Status: Chronic Assessment and Plan: follow accuchecks glycemic control per partner alliance manager Will continue to follow intermittently. Subjective Date/time seen: 11/17/22 09:56 Interval history: Follow-up for acute kidney injury, azotemia, and hypernatremia. Chart reviewed since last seen; remains on mechanical ventilation via tracheostomy; issues with replacement of trach noted overnight; stable hemodynamics noted with no fevers; however, BUN + creatinine elevated by AM labs; Exam Narrative: General: elderly AA male trached and on mechanical ventilation Heart: normal S1 and S2; no rub Lungs: coarse breath sounds throughout Abdomen: bowel sounds positive nontender Extremities: no cyanosis or clubbing; trace - 1+ edema Skin: warm and intact Objective Data Vital Signs Vital Signs: Vital Signs Temp Pulse Resp BP Pulse Ox O2 Del Method FiO2 11/17/22 09:45 97.1 F L 71 94 11/17/22 09:30 97.1 F L 89 94 11/17/22 09:15 97.1 F L 70 94 11/17/22 09:02 97.2 F L 79 109/53 L 94 11/17/22 09:00 97.1 F L 74 94 11/17/22 08:45 97.1 F L 64 96 11/17/22 08:30 97.2 F L 65 95 11/17/22 08:15 97.3 F L 67 96 11/17/22 08:01 97.3 F L 61 108/45
--- NOTE | 2022-11-17 10:47 | ECG_ITS ---
Measurements Intervals [place] Rate: 61 P: CT: 0 QRS: -10 QRSD: 110 T: 9 QT: 452 QTc: 459 Interpretive Statements ECTOPIC ATRIAL RHYTHM VENTRICULAR PREMATURE COMPLEXES INCOMPLETE RIGHT BUNDLE BRANCH BLOCK BORDERLINE T WAVE ABNORMALITY- INFERIOR LEADS ABNORMAL ECG COMPARED TO ECG 11/11/2022 02:01:22 ECTOPIC ATRIAL RHYTHM NOW PRESENT Electronically Signed On 11-17-2022 11:26:41 CDT by Carlyle Douglas D.O.
--- NOTE | 2022-11-17 11:50 | PCNFU ---
Nutrition Follow-Up Complete: Inadequate Oral Intake as related to mechaical ventilation as evidenced by NPO Goal:Meet estimated nutritional needs Pt current nutrition is Nepro at 50ml/hr = 1980kcals, 72g protein, 800ml, plus 150ml flush q 4 hrs. Nutrition recommendation: Continue with current plan of care. Last recorded weight is 94.6 kg. Bowel Motility: no BM recorded at this time Labs Reviewed:Hgb:7.8, HCT:27, Alb:2.5, BUN:90, Cr:2.6, Glu:205 Meds Noted: protonix, lantus, novolog Skin: maceration Additional Notes: Pt remains on mechanical ventilation. Tube feedings via PEG running- Nepro at 50ml/hr, pt is tolerating fair, noted 120ml residuals. No propofol running at this time. Current tube feeding is meeting 100% caloric needs, 80% protein needs. Agree with diet orders Will monitor weight, labs, skin, meds, tube feedings tolerance in ICU rounds and reassessing every Wednesday and Wednesday.
--- NOTE | 2022-11-17 12:21 | PM.DS ---
DS: Admitting Diagnosis Discharge Date 11/17/22 Admitting Diagnosis Respiratory failure COVID 19 pneumonia Diabetes DS: Discharge Diagnosis Discharge Diagnosis (1) Respiratory insufficiency: Code(s): R06.89 - Other abnormalities of breathing Status: Acute (2) Sepsis: Code(s): A41.9 - Sepsis, unspecified organism Status: Acute (3) PEG (percutaneous endoscopic gastrostomy) status: Code(s): Z93.1 - Gastrostomy status Status: Acute (4) Hypernatremia: Code(s): E87.0 - Hyperosmolality and hypernatremia Status: Acute (5) COVID-19 virus infection: Code(s): U07.1 - COVID-19 Status: Acute (6) Pneumonia due to COVID-19 virus: Code(s): U07.1 - COVID-19; J12.82 - Pneumonia due to coronavirus disease 2018 Status: Acute (7) Diabetes: Code(s): E11.9 - Type 2 diabetes mellitus without complications Status: Chronic (8) Multilobar lung infiltrate: Code(s): R91.8 - Other nonspecific abnormal finding of lung field Status: Acute DS: Summary Hospital Course Hospital Course: Assessment and Plan (1) Acute and chronic respiratory failure with hypoxia: ?Code(s): J96.21 - Acute and chronic respiratory failure with hypoxia ?Status:?Acute ?Assessment and Plan: Patient presented with worsening shortness of breath x1 day, likely related to bilateral infiltrates/pneumonia, possible COPD and/or pulmonary fibrosis flare/exacerbation, pulmonary edema -COVID PCR?was negative on 10/24 and 10/26 but came back?positive on 10/29 -intubated on 10/25/2022, ETT exchange on 10/27/2022 due to cuff leak - 10/29 worsening hypoxia and increased oxygen requirement overnight.? Chest x-ray shows diffuse pulmonary infiltrates.? Patient asynchronous with the ventilator.? Peep was increased and patient was given a dose of paralytic with increased sedation ?-11/11/2022:? Tracheostomy placed -patient continues to be tachypneic and asynchronous with the ventilator when off of IV continue sedation.? I? tried different modes including pressure support but patient continues to have high respiratory rate.? I have try to avoid sedation but now patient is desaturating with increased oxygen requirement.? Hence propofol was resumed 2 days ago -I have continued per tube Valium and per tube oxycodone in case of pain and distress.? I will increase dosing and try to wean off propofol today.? LTAC facility will accept him unless he is off of continuous IV infusion -ABG reviewed and allow permissive hypercapnia as ventilation is limited by high peak pressures on the ventilator.? FiO2 weaned to 50%..? Permissive hypercapnia.? Will add bicarb to correct acidosis -sputum culture 11/06 grew ?Achromobacter dentrificans.? Treatment as below -isolated yeast is likely a colonization but patient is on life -continue bronchodilators -CXR this morning with?Stable diffuse lung disease,. -hold further diuresis due to increasing creatinine -I discussed case with Dr. Leroy and requested him to re-evaluate tracheostomy tube today as there is a cuff leak depending on the position of the patient -10/25/2022 CTA chest:?No CT evidence of acute pulmonary embolus. Pulmonary opacities likely represent moderate pulmonary edema overlying severe chronic changes of UIP. Infection is not excluded. Small bilateral pleural effusions. Mediastinal lymphadenopathy. 11/15 CT lung 1. Prominent diffuse bilateral lung disease which could represent severe pulmonary edema, pneumonia or combination thereof. 2. Small bilateral pleural effusions (2) COVID-19 virus infection: ?Code(s): U07.1 - COVID-19 ?Status:?Acute ?Assessment and Plan: -status post dexamethasone x 10 days -completed a 14 day course of Barcitinib per tube 11/13 -continue contact and airborne isolation (3) Sepsis: ?Code(s): A41.9 - Sepsis, unspecified organism ?Status:?Acute ?Assessment and Plan: 10/26/2022: Sputum cultures negative exce
[2022-11-17] MEDS: LACTATED RINGERS 1,000 ML 75 ML IV CONT (13:40)
--- NOTE | 2022-11-17 13:53 | WPDINTPN ---
Progress Note: A&P Assessment and Plan (1) Acute and chronic respiratory failure with hypoxia: Code(s): J96.21 - Acute and chronic respiratory failure with hypoxia Status: Acute Assessment and Plan: Patient presented with worsening shortness of breath x1 day, likely related to bilateral infiltrates/pneumonia, possible COPD and/or pulmonary fibrosis flare/exacerbation, pulmonary edema -COVID PCR was negative on 10/24 and 10/26 but came back positive on 10/29 -intubated on 10/25/2022, ETT exchange on 10/27/2022 due to cuff leak -11/11/2022: Tracheostomy placed -patient continues to be tachypneic and asynchronous with the ventilator when off of IV continue sedation. -patient has been placed on different modes including pressure support but patient continues to have high respiratory rate. -continue per tube Valium, oxycodone in case of pain and distress. -11/17: Chest x-ray and ABGs reviewed -11/06: sputum culture 11/06 grew ?Achromobacter dentrificans. Treatment as below -isolated yeast is likely a colonization but patient is on life -continue bronchodilators -11/16: tracheostomy was changed to size 8 [place] by ENT, Dr. Leroy 11/14: CT chest/abdomen/pelvis, noncontrast 1. Prominent diffuse bilateral lung disease which could represent severe pulmonary edema, pneumonia or combination thereof. 2. Small bilateral pleural effusions. 3. Cardiomegaly with coronary artery disease. 4. Mild likely reactive mediastinal lymphadenopathy. 5. 3-4 mm nonobstructing right renal ston (2) COVID-19 virus infection: Code(s): U07.1 - COVID-19 Status: Acute Assessment and Plan: -status post dexamethasone x 10 days -completed a 14 day course of Barcitinib per tube 11/13 -continue contact and airborne isolation (3) Sepsis: Code(s): A41.9 - Sepsis, unspecified organism Status: Acute Assessment and Plan: 10/26/2022: Sputum cultures negative except yeast which is likely colonization 10/25/2022 MRSA screen: No MRSA 10/25/2022 urine cultures negative 10/25/2022 currently blood cultures have been negative 11/06: T-max of 100.7?, white count is is up to 9.2 from 6.8 yesterday, will obtain blood cultures, urine culture and sputum culture, chest x-ray with no change. Will hold antibiotics for now 11/06: Blood cultures, preliminary results are negative x2 11/06: Urine cultures growing Rylie albicans and he is on Diflucan 11/06: Sputum culture growing achromobacter species and Yeast -continue imipenem and Diflucan (11/08) - 11/13 replace Bender catheter and repeat UA and urine culture -no growth - 11/14 continues to have fever. Lipase negative. -11/14: Sputum culture -Klebsiella aerogenes (Enterobacter) susceptible to cefepime, imipenem has intermediate sensitivity -11/14 Vancomycin was added 11/17: Imipenem was discontinued and patient started on cefepime (4) Pneumonia: Code(s): J18.9 - Pneumonia, unspecified organism Status: Acute Assessment and Plan: See above (5) Pulmonary fibrosis: Code(s): J84.10 - Pulmonary fibrosis, unspecified Status: Chronic Assessment and Plan: Patient has a history of pulmonary fibrosis, follows up with the radio rigger at [facility] -patient is on nintedanib which cannot be crushed and given through the tube See above (6) COPD (chronic obstructive pulmonary disease): Code(s): J44.9 - Chronic obstructive pulmonary disease, unspecified Status: Chronic Assessment and Plan: Continue mechanical ventilation, bronchodilators (7) CAD (coronary artery disease): Code(s): I25.10 - Atherosclerotic heart disease of [place] coronary artery without angina pectoris Status: Chronic Assessment and Plan: Patient with recent history of [place] status post stent x1 to the [facility] records show an echocardiogram with a diastolic dysfunction grade 3, EF of 56% 10/26/2022 echocardiogram sh
[2022-11-17] MEDS: CEFEPIME 1 GM/NS 50 ML 1 GM/50 ML BAG IVPB (14:22)
[2022-11-17] MEDS: LORazepam INJ (*CRX) 2 MG/ML VIAL 4 MG IV PUSH (16:46)
--- NOTE | 2022-11-17 17:40 | PC.NURSE ---
Pt left with EMS; EMS called cook house supervisor stating blood pressure with a systolic in the 50's so they brought the patient back to ICU-6
--- NOTE | 2022-11-17 17:40 | PC.NURSE ---
Patient noted to be in an idioventricular rhythm. Pulse still present when patient's daughter called at 1744. Code called at 1745. Patient's daughter, Simin, elects to make patient DNR at this time. States she does not want CPR. Skylar Elena RN witness to phone call. Patient made DNR and resuscitative efforts ceased.
--- NOTE | 2022-11-17 18:00 | ED.PROGRESS ---
Subjective Date/time seen: 11/17/22 18:00 Interval history: Code note. Please see further detail below. Review of Systems Review of Systems ROS unobtainable: Yes unobtainable due to medical condition Objective Data Vital Signs Vital Signs: pulseless, unresponsive, trach in place; PEA on monitor Meds/Results Medications: Active Medications Generic Name Dose Route Start Last Admin Trade Name Freq PRN Reason Stop Dose Admin Acetaminophen 650 mg 11/03/22 10:25 11/14/22 10:00 Acetaminophen Elixir 325 Mg/10.15 Ml Udc PO 650 mg Q6H PRN Administration Mild Pain (1-3) or Fever Alteplase, Recombinant 2 mg 10/27/22 12:52 10/27/22 13:05 Alteplase 2 Mg Vial (Cathflo) IV PUSH 2 mg ONCE PRN Administration Line Occlusion Aspirin 81 mg 10/26/22 08:00 11/17/22 09:04 Aspirin 81 Mg Chewable Tablet FEED TUBE 81 mg DAILY@0800 JOHNNIE Administration Clopidogrel Bisulfate 75 mg 10/25/22 11:00 11/17/22 09:03 Clopidogrel Bisulfate 75 Mg Tablet PO 75 mg QAM JOHNNIE Administration Dextrose 12.5 gm 10/25/22 09:41 Dextrose 50% 25 Gm/50 Ml Syringe IV PUSH PRN PRN Hypoglycemia Protocol Diazepam 20 mg 11/13/22 12:00 11/17/22 14:21 Diazepam (*Crx) 10 Mg Tablet FEED TUBE 12/14/22 09:09 20 mg Q6HR JOHNNIE Administration Diazepam 10 mg 11/16/22 18:00 11/17/22 14:21 Diazepam (*Crx) 10 Mg Tablet FEED TUBE 10 mg Q6HR JOHNNIE Administration Enoxaparin Sodium 40 mg 10/26/22 09:00 11/17/22 09:19 Enoxaparin 40 Mg/0.4 Ml Syringe SUB-Q 40 mg DAILY JOHNNIE Administration Fluconazole 200 mg 11/14/22 09:00 11/17/22 09:03 Fluconazole 100 Mg Tablet FEED TUBE 200 mg QAM JOHNNIE Administration Glucagon 1 mg 10/25/22 09:41 Glucagon For Inj 1 Mg Vial IM PRN PRN Hypoglycemia Protocol Glucose 15 gm 10/25/22 09:41 Glucose Oral Gel 15 Gm Of Glucse In 37.5 Gm Tube PO PRN PRN Hypoglycemia Protocol Home Med 1 each 10/25/22 19:00 10/25/22 17:38 Nintedanib [Ofev] 150 Mg Capsule Home PO 11/24/22 18:59 Not Given Q12H JOHNNIE Hydralazine HCl 10 mg 10/25/22 14:20 11/13/22 03:37 Hydralazine Hcl 20 Mg/Ml Vial IV PUSH 10 mg Q6H PRN Administration Blood Pressure - High Dextrose 1,000 mls @ 100 mls/hr 10/25/22 09:41 Dextrose 5% 1,000 Ml IVPB PRN PRN Hypoglycemia Protocol Propofol 100 mls @ 0 mls/hr 11/14/22 11:55 11/16/22 10:40 Diprivan IV CONT 0 mcg/kg/min .Q0M JOHNNIE 0 mls/hr Titration Protocol 0 MCG/KG/MIN Vancomycin HCl 1,250 mg in 250 mls @ 166.667 mls/hr 11/16/22 06:00 11/17/22 05:51 Vancomycin 1,250 Mg/D5w 250 Ml IVPB 166.67 mls/hr Q24H JOHNNIE Administration Lactated Ringer's 1,000 mls @ 75 mls/hr 11/17/22 10:50 11/17/22 13:40 Lr - Lactated Ringers Iv IV CONT 11/18/22 00:09 75 mls/hr .[id number] JOHNNIE Administration Cefepime HCl 1 gm in 50 mls @ 100 mls/hr 11/17/22 13:00 11/17/22 17:09 Maxipime 1 Gm/Ns 50 Ml IVPB 11/24/22 12:59 Infused Q12H JOHNNIE Infusion Insulin Aspart 4 - 8 units 10/25/22 18:00 11/17/22 14:27 Insulin Aspart (*Bkc) 100 Units/Ml SUB-Q Not Given Q6HR JOHNNIE Protocol Insulin Glargine 18 units 11/03/22 21:00 11/16/22 21:24 Insulin Glargine (*Bkc) 100 Units/Ml SUB-Q 18 units HS JOHNNIE Administration Ipratropium [place] 0.5 mg 11/05/22 14:00 11/17/22 08:45 Ipratropium Br 0.02% Inh Soln 0.5 Mg/2.5 Ml Vial INHALATION 0.5 mg Q6HRT JOHNNIE Administration Levalbuterol HCl 1.25 mg 11/05/22 14:00 11/17/22 08:45 Levalbuterol Neb 1.25 Mg/3 Ml INHALATION 1.25 mg Q6HRT JOHNNIE Administration Lorazepam 4 mg 11/13/22 07:58 11/17/22 16:46 Lorazepam Inj (*Crx) 2 Mg/Ml Vial IV PUSH 4 mg Q1H PRN Administration Agitation while on ventilator Metoprolol Tartrate 5 mg 11/01/22 10:19 11/13/22 04:56 Metoprolol Tartrate Inj 5 Mg/5 Ml Vial IV PUSH 5 mg Q4H PRN Administration Tachyc
== END 2022-11-17 17:50 | disposition expired | DRG 207 ==
LOC: ANHED 10-25 00:28 → ANH2MED 10-25 01:33 → ANHIMU 10-25 02:14 → ANHICU 10-25 13:01 → ANH2MED 10-28 14:21 → ANHICU 10-28 14:24
PROVIDERS: Family Medicine; Hospitalist; Internal Medicine; Internal Medicine Gastroenterology; Internal Medicine Hematology & Oncology; Internal Medicine Pulmonary Disease; Nurse Practitioner Family; Otolaryngology; Admitting Provider Internal Medicine; Emergency Provider Emergency Medicine; Visit Provider Internal Medicine
PROC: 0DH63UZ Insertion of Feeding Device into Stomach, Percutaneous Approach (ICD-10-PCS; CPT 43246; principal; 2022-11-11 15:00)
DX: U07.1 COVID-19 (principal); A41.9 Sepsis, unspecified organism; J12.82 Pneumonia due to coronavirus disease 2019; J96.21 Acute and chronic respiratory failure with hypoxia; N17.9 Acute kidney failure, unspecified; D61.818 Other pancytopenia; E87.0 Hyperosmolality and hypernatremia; J44.9 Chronic obstructive pulmonary disease, unspecified; E11.9 Type 2 diabetes mellitus without complications; J84.10 Pulmonary fibrosis, unspecified; I25.10 Atherosclerotic heart disease of native coronary artery without angina pectoris; K21.9 Gastro-esophageal reflux disease without esophagitis; M79.89 Other specified soft tissue disorders; I50.9 Heart failure, unspecified; Z95.5 Presence of coronary angioplasty implant and graft; Z79.899 Other long term (current) drug therapy
CPT/HCPCS: 31500; 36415; 36430; 36569; 36600; 43246; 70450; 71045; 71250; 71275; 74176; 76775; 80048; 80053; 80202; 80307; 81001; 82375; 82436; 82550; 82570; 82607; 82746; 82805; 82948; 83036; 83050; 83540; 83550; 83605; 83615; 83690; 83735; 83880; 84100; 84133; 84145; 84300; 84439; 84443; 84460; 84478; 84480; 84484; 85014; 85018; 85025; 85027; 85055; 85380; 85610; 85730; 85999; 86022; 86023; 86140; 86738; 86850; 86900; 86901; 86923; 87040; 87070; 87077; 87081; 87086; 87088; 87106; 87186; 87205; 87449; 87633; 87637; 87899; 92950; 93005; 93306; 93970; 94002; 94003; 94640; 96365; 96375; 99285; A4629; A9270; C1751; C9113; J0360; J0456; J0690; J0692; J0696; J0743; J1100; J1450; J1650; J1756; J1815; J1940; J2060; J2250; J2270; J2704; J2930; J2997; J3010; J3370; J3475; J3480; J7030; J7050; J7060; J7120; J7512; P9016; P9045; P9047; Q9967